=== PATIENT | male | born 1955 | race Caucasian/White ===

== ENCOUNTER 2020-12-12 15:37 | Emergency (ER) | payer OTHER, SELFPAY ==
--- NOTE | ~2020-12-12 | XR_ITS ---
EXAMINATION: XR CHEST CLINICAL INFORMATION: Cough COMPARISON: None TECHNIQUE: Frontal view of the chest was obtained. FINDINGS: Cardiac silhouette is mildly enlarged. The lungs are well aerated. There is no lobar consolidation. No pleural effusion or pneumothorax. No gross osseous abnormality. XR/XR chest 1V IMPRESSION: No acute pulmonary pathology.
--- NOTE | ~2020-12-12 | US_ITS ---
EXAMINATION: US ABDOMEN LIMITED CLINICAL INFORMATION: Elevated liver function tests. COMPARISON: None TECHNIQUE: Real-time imaging of the right upper quadrant abdominal viscera. FINDINGS: PANCREAS: Obscured by bowel gas. LIVER: There is diffusely increased hepatic echogenicity and sound attenuation consistent with diffuse hepatic steatosis. No focal liver lesion seen. Normal liver contour. No biliary ductal dilatation.. GALLBLADDER: There are gallstones but no gallbladder wall thickening or pericholecystic fluid. No reported sonographic Zamora's sign. COMMON BILE DUCT: Normal in caliber measuring 0.5 cm in diameter. RIGHT KIDNEY: Evaluation is limited. No hydronephrosis. No renal calculi or focal parenchymal lesions. The kidney measures 10.9 cm in maximum dimension. FREE FLUID: None. US/US abdomen limited IMPRESSION: Diffusely increased hepatic echogenicity and sound attenuation consistent with diffuse hepatic steatosis. No biliary ductal dilatation seen. Gallstones but no evidence of acute cholecystitis.
[2020-12-12 16:02] VITALS: BP 138/78; PULSE 76; RESP 20; TEMP 37.6; O2SAT 97; BMI 42.3
--- NOTE | 2020-12-12 16:34 | ED_ITS ---
HPI - General Adult General Chief complaint: Fever Stated complaint: fever, bodyaches, fatigue Time Seen by Provider: 12/12/20 16:24 Source: patient Mode of arrival: ambulatory Limitations: no limitations History of Present Illness HPI narrative: Patient comes emergency room complaining of eye days of general malaise, complaining of fever and chills, per patient T-max of 100.0 degrees, diarrhea which self-resolved 2 days ago. Patient states that this time he has no abdominal pain, has not had any diarrhea today, no vomiting, at this time complaining of generalized malaise Related Data Allergies Allergy/AdvReac Type Severity Reaction Status Date / Time amoxicillin [Amoxicillin] Allergy Unknown RASH Verified 12/12/20 15:47 clindamycin [Clindamycin] Allergy Unknown RASH Verified 12/12/20 15:47 Jeremiah poly Dex eye Allergy Unknown Unknown Uncoded 12/12/20 15:46 Review of Systems Review of Systems: Constitutional : complaining of fever of 100.0, chills, ge neral malaise and fatigue ENT/Mouth : No Hearing loss, No Ear Pain, No Nasal Congestion, complaining of mild maxillary sinuses pain bilaterally, No Hoarseness, No sore throat, No Rhinorrhea, No Swallowing Difficulty Eyes: No Eye Pain, No Swelling, No Redness, No Foreign Body, No Discharge, No Vision Changes Cardiovascular : No Chest Pain, No SOB, No Dyspnea on Exertion, No Orthopnea, No Edema, No Palpitations Respiratory : No Cough, No Sputum, No Wheezing, No Smoke Exposure, No Dyspnea Gastrointestinal : No Nausea, No Vomiting, complaining of diarrhea which self resolved 2 days ago, No Constipation, No abdominal Pain, No Hematochezia, No Melena Genitourinary : No Dysuria, No Urinary Frequency, No Hematuria, No Urinary Incontinence, No Urgency, No Flank Pain, No Urinary Flow Changes, No Hesitancy Musculoskeletal : No joint pain,No Joint Swelling, complaining of generalized myalgias Skin : No Skin Lesions, No rash Neuro : No Weakness, No Numbness, No Paresthesias, No Loss of Consciousness, No Dizziness, denies Headache Psych : No Anxiety/Panic, No Depression, No SI/HI/AH/VH, No Social Issues, Heme/Lymph: No Bruising, No Bleeding,No Lymphadenopathy Endocrine : No Polyuria, No Polydipsia, No Temperature Intolerance PMF Past Medical History Medical History (Updated 12/13/20 @ 01:00 by Adam Stevens MD) CHF (congestive heart failure) CKD (chronic kidney disease) Diabetes Hypertension Social History Social History Alcohol intake: never Smoking Status: Never smoker Use of substances other than those prescribed or required for medical reasons: No Advance Directives: No Advance Directives Information Provided: No Physical Exam Vital Signs: Vital Signs: Last Vital Signs Temp 100.2 F 12/13/20 00:00 Pulse 97 12/13/20 00:00 Resp 20 12/13/20 00:00 BP 129/86 12/13/20 00:00 Pulse Ox 97 12/13/20 00:00 Body Mass Index 42.3 Appearance: Alert. Oriented X3. No acute distress. Eyes: Pupils equal, round and reactive to light. ENT: Pharynx normal. No pain to palpation over the maxillary or ethmoid sinuses Neck: Normal inspection. Neck supple. CVS: Irregularly irregular, rate controlled Respiratory: No respiratory distress. Breath sounds normal. No Wheezing. No rales Abdomen: Soft and nontender. No rigidity. No distention. Skin: Skin warm and dry. Normal skin color. Normal skin turgor. Extremities: No lower extremity edema. No Lacerations. No Rash Neuro: Oriented X 3. No motor deficit. No sensory deficit. Moving all extermities. No slurred speech. Course Course Course Narrative: I discussed the labs with the patient, patient states that he is aware that his kidney numbers are elevated, does not know his baseline creatinine. Patient states that he is not aware of his LFTs being elevated chronically. Abdominal ultrasound pending Patient tested positive for COVID-19, chest x-ray is unremarkable, patient's oxygen saturation 97% on room air, denies shortness of breath Ultrasound shows hepatic steatosis, gallstones but no evidence of acute cholecy stitis. Patient has no right upper quadrant pain. Patient remains stable, oxygen saturation 97% on room air, no chest pain or shortness of breath. Medical Decision Making Lab Data Result diagrams: 12/12/20 16:55 12/12/20 16:55 Labs: Lab Results 12/12/20 12/12/20 12/12/20 Range/Units 16:55 16:55 16:55 WBC 5.4 (4.8-10.8) X10*3/uL RBC 5.11 (4.60-5.80) X10*6/uL Hgb 16.5 (14.0-18.0) g/dl Hct 47.3 (42-52) % MCV 92.6 (80-98) fL MCH 32.3 (27.0-33.0) pg MCHC 34.9 (31.0-36.0) g/dl RDW 13.5 (11.0-16.0) % Plt Count 98 L (160-400) X10*3/uL MPV 11.3 (9.4-12.4) fL Immature Gran % (Auto) 0.2 (0.0-0.4) % Neut % (Auto) 62.0 (45-73) % Lymph % (Auto) 22.7 (20-40) % [place] % (Auto) 14.5 H (2-11) % Eos % (Auto) 0.4 (0-4) % Baso % (Auto) 0.2 (0-2) % Lymph # (Auto) 1.2 (1.2-4.9) X10*3/uL [place] # (Auto) 0.8 (0.1-1.2) X10*3/uL Eos # (Auto) 0.0 (0.0-0.4) X10*3/uL Baso # (Auto) 0.0 (0.0-0.2) X10*3/uL Abs Immat Gran (auto) 0.01 (0.00-0.03) X10*3/uL Absolute Neuts (auto) 3.3 (2.0-8.3) X10*3/uL Absolute Nucleated RBC 0.000 (0.0-0.012) X10*3/uL Nucleated RBC % (auto) 0.0 (0.0-0.2) /100WBC Smear Tech's Comments VERIFIED PT (10.8-13.0) SEC INR (0.9-1.1) Sodium 133 L (135-145) mmol/L Potassium 3.6 (3.3-5.1) mmol/L Chloride 96 (96-108) mmol/L Carbon Dioxide 25 (22-29) mmol/L Anion Gap 16 (12-20) BUN 23 H (9-16) mg/dL Creatinine 1.54 H (0.5-1.4) mg/dL Estim Creat Clear Calc 59.9 Estimated GFR 46 Random Glucose 129 H (60-115) mg/dL Calcium 8.4 (8.4-10.2) mg/dL Total Bilirubin 2.3 H (0.0-1.0) mg/dL Direct Bilirubin 0.8 H (0.0-0.5) mg/dL AST 46 H (5-37) U/L ALT 39 (0-40) U/L Alkaline Phosphatase 100 (39-117) U/L B-Natriuretic Peptide (<100) pg/mL Total Protein 7.3 (6.5-8.0) g/dL Albumin 4.3 (3.5-5.0) g/dL Lipase (8-78) U/L Urine Color Urine Appearance Urine pH (5.0-8.0) Ur Specific [place] (1.005-1.025) Urine Protein (NEG-TRACE) MG/DL Urine Glucose (UA) (NEG) MG/DL Urine Ketones (NEG) MG/DL Urine Blood (NEG) Urine Nitrite (NEG) Ur Leukocyte Esterase (NEG) Coronavirus (PCR) POSITIVE A (Negative) Influenza Type A (PCR) NEGATIVE (Negative) Influenza Type B (PCR) NEGATIVE (Negative) RSV RNA Qual (PCR) NEGATIVE (Negative) 12/12/20 12/12/20 12/12/20 Range/Units 16:55 16:55 16:55 WBC (4.8-10.8) X10*3/uL RBC (4.60-5.80) X10*6/uL Hgb (14.0-18.0) g/dl Hct (42-52) % MCV (80-98) fL MCH (27.0-33.0) pg MCHC (31.0-36.0) g/dl RDW (11.0-16.0) % Plt Count (160-400) X10*3/uL MPV (9.4-12.4) fL Immature Gran % (Auto) (0.0-0.4) % Neut % (Auto) (45-73) % Lymph % (Auto) (20-40) % [place] % (Auto) (2-11) % Eos % (Auto) (0-4) % Baso % (Auto) (0-2) % Lymph # (Auto) (1.2-4.9) X10*3/uL [place] # (Auto) (0.1-1.2) X10*3/uL Eos # (Auto) (0.0-0.4) X10*3/uL Baso # (Auto) (0.0-0.2) X10*3/uL Abs Immat Gran (auto) (0.00-0.03) X10*3/uL Absolute Neuts (auto) (2.0-8.3) X10*3/uL Absolute Nucleated RBC (0.0-0.012) X10*3/uL Nucleated RBC % (auto) (0.0-0.2) /100WBC Smear Tech's Comments PT 18.4 H (10.8-13.0) SEC INR 1.5 H (0.9-1.1) Sodium (135-145) mmol/L Potassium (3.3-5.1) mmol/L Chloride (96-108) mmol/L Carbon Dioxide (22-29) mmol/L Anion Gap (12-20) BUN (9-16) mg/dL Creatinine (0.5-1.4) mg/dL Estim Creat Clear Calc Estimated GFR Random Glucose (60-115) mg/dL Calcium (8.4-10.2) mg/dL Total Bilirubin (0.0-1.0) mg/dL Direct Bilirubin (0.0-0.5) mg/dL AST (5-37) U/L ALT (0-40) U/L Alkaline Phosphatase (39-117) U/L B-Natriuretic Peptide 65 (<100) pg/mL Total Protein (6.5-8.0) g/dL Albumin (3.5-5.0) g/dL Lipase 46 (8-78) U/L Urine Color Urine Appearance Urine pH (5.0-8.0) Ur Specific [place] (1.005-1.025) Urine Protein (NEG-TRACE) MG/DL Urine Glucose (UA) (NEG) MG/DL Urine Ketones (NEG) MG/DL Urine Blood (NEG) Urine Nitrite (NEG) Ur Leukocyte Esterase (NEG) Coronavirus (PCR) (Negative) Influenza Type A (PCR) (Negative) Influenza Type B (PCR) (Negative) RSV RNA Qual (PCR) (Negative) 12/13/20 Range/Units 00:38 WBC (4.8-10.8) X10*3/uL RBC (4.60-5.80) X10*6/uL Hgb (14.0-18.0) g/dl Hct (42-52) % MCV (80-98) fL MCH (27.0-33.0) pg MCHC (31.0-36.0) g/dl RDW (11.0-16.0) % Plt Count (160-400) X10*3/uL MPV (9.4-12.4) fL Immature Gran % (Auto) (0.0-0.4) % Neut % (Auto) (45-73) % Lymph % (Auto) (20-40) % [place] % (Auto) (2-11) % Eos % (Auto) (0-4) % Baso % (Auto) (0-2) % Lymph # (Auto) (1.2-4.9) X10*3/uL [place] # (Auto) (0.1-1.2) X10*3/uL Eos # (Auto) (0.0-0.4) X10*3/uL Baso # (Auto) (0.0-0.2) X10*3/uL Abs Immat Gran (auto) (0.00-0.03) X10*3/uL Absolute Neuts (auto) (2.0-8.3) X10*3/uL Absolute Nucleated RBC (0.0-0.012) X10*3/uL Nucleated RBC % (auto) (0.0-0.2) /100WBC Smear Tech's Comments PT (10.8-13.0) SEC INR (0.9-1.1) Sodium (135-145) mmol/L Potassium (3.3-5.1) mmol/L Chloride (96-108) mmol/L Carbon Dioxide (22-29) mmol/L Anion Gap (12-20) BUN (9-16) mg/dL Creatinine (0.5-1.4) mg/dL Estim Creat Clear Calc Estimated GFR Random Glucose (60-115) mg/dL Calcium (8.4-10.2) mg/dL Total Bilirubin (0.0-1.0) mg/dL Direct Bilirubin (0.0-0.5) mg/dL AST (5-37) U/L ALT (0-40) U/L Alkaline Phosphatase (39-117) U/L B-Natriuretic Peptide (<100) pg/mL Total Protein (6.5-8.0) g/dL Albumin (3.5-5.0) g/dL Lipase (8-78) U/L Urine Color YELLOW Urine Appearance CLEAR Urine pH 6.0 (5.0-8.0) Ur Specific [place] 1.025 (1.005-1.025) Urine Protein 1+ H (NEG-TRACE) MG/DL Urine Glucose (UA) NEG (NEG) MG/DL Urine Ketones NEG (NEG) MG/DL Urine Blood NEG (NEG) Urine Nitrite NEG (NEG) Ur Leukocyte Esterase NEG (NEG) Coronavirus (PCR) (Negative) Influenza Type A (PCR) (Negative) Influenza Type B (PCR) (Negative) RSV RNA Qual (PCR) (Negative) Imaging Data US - abdomen: Radiologist's impression: [address] [id number] ReportSigned Patient: Asim Fitch#: [id number]: 5Acct:[id number]/Sex: 65 / MADM Date: 12/12/20Loc: EDAttending Dr: Ordering Physician: ADAM STEVENS MD Date of Service: 12/12/20 Procedure(s): US abdomen limited Accession Number(s): [id number] cc: ADAM STEVENS MD~ EXAMINATION: US ABDOMEN LIMITED CLINICAL INFORMATION: Elevated liver function tests. COMPARISON: None TECHNIQUE: Real-time imaging of the right upper quadrant abdominal viscera. FINDINGS: PANCREAS: Obscured by bowel gas. LIVER: There is diffusely increased hepatic echogenicity and sound attenuation consistent with diffuse hepatic steatosis. No focal liver lesion seen. Normal liver contour. No biliary ductal dilatation.. GALLBLADDER: There are gallstones but no gallbladder wall thickening or pericholecystic fluid. No reported sonographic Zamora's sign. COMMON BILE DUCT: Normal in caliber measuring 0.5 cm in diameter. RIGHT KIDNEY: Evaluation is limited. No hydronephrosis. No renal calculi or focal parenchymal lesions. The kidney measures 10.9 cm in maximum dimension. FREE FLUID: None. US/US abdomen limited IMPRESSION: Diffusely increased hepatic echogenicity and sound attenuation consistent with diffuse hepatic steatosis. No biliary ductal dilatation seen. Gallstones but no evidence of acute cholecystitis. Chest x-ray: Radiologist's impression: TECHNIQUE: Frontal view of the chest was obtained. FINDINGS: Cardiac silhouette is mildly enlarged. The lungs are well aerated. There is no lobar consolidation. No pleural effusion or pneumothorax. No gross osseous abnormality. XR/XR chest 1V IMPRESSION: No acute pulmonary pathology. ECG Data Attestation: I personally reviewed and interpreted this ECG as follows: (Atrial fibrillation, RVR with a heart rate of 101, no ST segment depression or elevation, nonspecific T-wave inversion in III) Discharge Plan Discharge Clinical Impression: COVID-19, Hepatic steatosis Patient Disposition: Home, Self-Care Instructions: COVID-19 (Coronavirus Disease 2019) (ED) Additional Instructions: Please self isolate for 14 days. Anyone who has had direct contact with you need to be tested as well. If you have any shortness of breath, worsening symptoms, or any new symptoms, please return to the emergency room or call 911
--- NOTE | 2020-12-12 16:44 | ECG_ITS ---
Test Reason : GENERALMEDICAL Blood Pressure : / mmHG Vent. Rate : 101 BPM Atrial Rate : 111 BPM P-R Int : 000 ms QRS Dur : 110 ms QT Int : 346 ms P-R-T Axes : 000 085 011 degrees QTc Int : 448 ms Atrial fibrillation with rapid ventricular response Abnormal ECG When compared with ECG of 23-JUN-2009 12:56, No significant change was found Referred By: Daisy Vasquez Electronically Signed By:FREDDY BOBBY
--- NOTE | 2020-12-12 17:02 | PC.NURSE ---
iv inserted labs drawn
[2020-12-12 17:04] LABS: Basophils Percent Auto 0.2 % (0-2); Eosinophils Percent Auto 0.4 % (0-4); Imm Gran Abs Auto 0.01 X10*3/uL (0.00-0.03); Imm Gran Pct Auto 0.2 % (0.0-0.4); Lymphocytes Absolute Auto 1.2 X10*3/uL (1.2-4.9); MANUAL DIFF FLAG SCAN; Monocytes Absolute Auto 0.8 X10*3/uL (0.1-1.2); PLT CLUMP 1; SCAN SMEAR FLAG 1
[2020-12-12 17:06] LABS: Hematocrit 47.3 % (42-52); Hemoglobin 16.5 g/dl (14.0-18.0); Lymphocytes Percent Auto 22.7 % (20-40); Mean Corpuscular HGB Conc 34.9 g/dl (31.0-36.0); Mean Corpuscular Hemoglobin 32.3 pg (27.0-33.0); Mean Corpuscular Volume 92.6 fL (80-98); Mean Platelet Volume 11.3 fL (9.4-12.4); Monocytes Percent Auto 14.5 % (2-11); Neutrophils Absolute Auto 3.3 X10*3/uL (2.0-8.3); Red Blood Count 5.11 X10*6/uL (4.60-5.80); Red Cell Distribution Width 13.5 % (11.0-16.0); White Blood Count 5.4 X10*3/uL (4.8-10.8)
[2020-12-12 17:09] LABS: Platelet Count 98 X10*3/uL (160-400)
[2020-12-12 17:10] LABS: INTERNATIONAL NORM RATIO 1.5 (0.9-1.1); Prothrombin Time 18.4 SEC (10.8-13.0)
[2020-12-12 17:23] LABS: SLIDE REVIEW VERIFIED
[2020-12-12 17:32] LABS: Alanine Aminotransferase 39 U/L (0-40); Albumin Level 4.3 g/dL (3.5-5.0); Alkaline Phosphatase 100 U/L (39-117); Anion Gap 16 (12-20); Aspartate Amino Transferase 46 U/L (5-37); Bilirubin Direct 0.8 mg/dL (0.0-0.5); Bilirubin Total 2.3 mg/dL (0.0-1.0); Blood Urea Nitrogen 23 mg/dL (9-16); Calcium 8.4 mg/dL (8.4-10.2); Carbon Dioxide 25 mmol/L (22-29); Chloride 96 mmol/L (96-108); Creatinine Clr Calc Pharmacy 59.9; Estimated Glomerular Filt Rate 46; Glucose Random 129 mg/dL (60-115); Lipase 46 U/L (8-78); Potassium 3.6 mmol/L (3.3-5.1); Sodium 133 mmol/L (135-145); Total Protein 7.3 g/dL (6.5-8.0)
[2020-12-12 17:38] LABS: B Type Natriuretic Peptide 65 pg/mL (<100)
[2020-12-12 18:32] LABS: Influenza A PCR NEGATIVE (Negative); Influenza B PCR NEGATIVE (Negative); Resp Syncy Virus RNA Qual PCR NEGATIVE (Negative); SARS COV2 PCR INHOUSE POSITIVE (Negative)
[2020-12-12 18:38] VITALS: BP 113/77; PULSE 83; RESP 18; TEMP 37.2; O2SAT 96
--- NOTE | 2020-12-12 19:30 | PC.NURSE ---
contact number patients is [facility] will be able to pick him up when ready [phone]
--- NOTE | 2020-12-12 20:50 | PC.NURSE ---
patient currently tearful and states he is anxious- pt states he does not take medication for anxiety at home, pt requested quality assurance monitor body to be removed and is currently refusing vitals, it was explained to the patient that we are awaiting for him to go to ultrasound and will continue to monitor.
--- NOTE | 2020-12-12 21:00 | PC.NURSE ---
was updated about , and stated she may come in to get covid swabbed when her is ready to discharge, it was explained to the as well as her that currently we are awaiting for the ultrasound prior to his discharge.
--- NOTE | 2020-12-12 23:13 | PC.NURSE ---
pt continues to refuse surveillance monitor and refused vitals at this time, patients rr was 22, patient continues to state hes anxious and cold. patient has been offered warm blankets multiple times by myself and the provider of which he declined. patient is currently pacing in the room. charge nurse has been updated that the patient has still not had an ultrasound. this nurse attempted to call us and was unable to get ahold of anybody when calling. report has been given to next shift nurse.
[2020-12-13] VITALS: BP 129/86; PULSE 97; RESP 20; TEMP 37.9; O2SAT 97
[2020-12-13 00:49] LABS: Appearance Urine CLEAR; Color Urine YELLOW; Glucose Urine UA NEG (NEG); Leukocyte Esterase Urine NEG (NEG); Nitrite Urine NEG (NEG); Specific Gravity - Urine 1.025 (1.005-1.025); Urine Blood NEG (NEG); Urine Ketones NEG (NEG); Urine Protein 1+ MG/DL (NEG-TRACE)
[2020-12-13 01:01] LABS: Bacteria Urine TRACE /LPF; RBC Urine 0-2 /HPF (0); Squamous Epithelial Cell Urine TRACE /LPF; WBC Urine 0 /HPF (0-4)
== END 2020-12-13 01:28 | disposition home or self-care (01) ==
PROVIDERS: Emergency Provider Emergency Medicine; PCP Internal Medicine
DX: U07.1 COVID-19 (principal); K76.0 Fatty (change of) liver, not elsewhere classified; R50.9 Fever, unspecified; M79.10 Myalgia, unspecified site
CPT/HCPCS: 0241U; 36415; 71045; 76705; 80048; 80076; 81001; 83690; 83880; 85025; 85610; 93005; 99285

== ENCOUNTER 2021-01-18 15:25 | Outpatient (REF) | payer MEDICARE, OTHER, SELFPAY ==
[2021-01-18 15:38] LABS: MANUAL DIFF FLAG NO
[2021-01-18 15:56] LABS: Basophils Percent Auto 0.4 % (0-2); Eosinophils Absolute Auto 0.1 X10*3/uL (0.0-0.4); Eosinophils Percent Auto 0.9 % (0-4); Hematocrit 44.3 % (42-52); Hemoglobin 15.6 g/dl (14.0-18.0); Imm Gran Abs Auto 0.01 X10*3/uL (0.00-0.03); Imm Gran Pct Auto 0.1 % (0.0-0.4); Lymphocytes Absolute Auto 1.8 X10*3/uL (1.2-4.9); Lymphocytes Percent Auto 22.3 % (20-40); Mean Corpuscular HGB Conc 35.2 g/dl (31.0-36.0); Mean Corpuscular Hemoglobin 32.4 pg (27.0-33.0); Mean Corpuscular Volume 92.1 fL (80-98); Mean Platelet Volume 11.5 fL (9.4-12.4); Monocytes Percent Auto 12.7 % (2-11); Neutrophils Absolute Auto 5.1 X10*3/uL (2.0-8.3); Neutrophils Percent Auto 63.6 % (45-73); Platelet Count 155 X10*3/uL (160-400); Red Blood Count 4.81 X10*6/uL (4.60-5.80); Red Cell Distribution Width 14.7 % (11.0-16.0)
[2021-01-18 16:02] LABS: INTERNATIONAL NORM RATIO 3.5 (0.9-1.1); Prothrombin Time 41.9 SEC (10.8-13.0)
[2021-01-18 16:24] LABS: Alanine Aminotransferase 24 U/L (0-40); Albumin Level 4.4 g/dL (3.5-5.0); Alkaline Phosphatase 99 U/L (39-117); Anion Gap 14 (12-20); Aspartate Amino Transferase 24 U/L (5-37); Bilirubin Total 2.1 mg/dL (0.0-1.0); Blood Urea Nitrogen 16 mg/dL (9-16); Calcium 9.2 mg/dL (8.4-10.2); Carbon Dioxide 26 mmol/L (22-29); Chloride 99 mmol/L (96-108); Cholesterol 140 mg/dL; Estimated Glomerular Filt Rate > 60; Glucose Random 125 mg/dL (60-115); HDL Cholesterol 38 mg/dL; LDL Cholesterol Calculated 76 mg/dl; Potassium 3.6 mmol/L (3.3-5.1); Sodium 135 mmol/L (135-145); Total Protein 7.4 g/dL (6.5-8.0); Triglycerides 134 mg/dL
[2021-01-18 16:44] LABS: Prostate Specific Antigen 2.11 ng/mL (<0.05-4.0); Thyroid Stimulating Hormone 2.29 uIU/mL (0.32-4.0)
== END 2021-01-18 15:26 | disposition home or self-care (01) ==
LOC: HO.LNP 15:25
PROVIDERS: Visit Provider Internal Medicine
DX: I10 Essential (primary) hypertension (principal); I50.22 Chronic systolic (congestive) heart failure; N18.2 Chronic kidney disease, stage 2 (mild); E78.00 Pure hypercholesterolemia, unspecified; I48.11 Longstanding persistent atrial fibrillation; K63.5 Polyp of colon; G47.33 Obstructive sleep apnea (adult) (pediatric); R73.03 Prediabetes; Z87.81 Personal history of (healed) traumatic fracture; Z86.16 Personal history of COVID-19; Z79.01 Long term (current) use of anticoagulants; Z51.81 Encounter for therapeutic drug level monitoring
CPT/HCPCS: 80053; 80061; 84153; 84443; 85025; 85610

== ENCOUNTER 2021-01-21 10:39 | Outpatient (REF) | payer MEDICARE, OTHER, SELFPAY ==
[2021-01-21 13:18] LABS: Digoxin < 0.3 ng/mL (0.8-2.0)
== END 2021-01-21 10:40 | disposition home or self-care (01) ==
LOC: HO.LNP 10:39
PROVIDERS: Visit Provider Internal Medicine
DX: I48.11 Longstanding persistent atrial fibrillation (principal); I11.0 Hypertensive heart disease with heart failure; I50.22 Chronic systolic (congestive) heart failure; Z79.899 Other long term (current) drug therapy
CPT/HCPCS: 80162

== ENCOUNTER → 2021-01-26 13:01 | Outpatient (BNVA) | payer MEDICARE, OTHER, SELFPAY | PROVIDERS: PCP Internal Medicine; Visit Provider Internal Medicine | DX: I48.19 Other persistent atrial fibrillation (principal); Z51.81 Encounter for therapeutic drug level monitoring; Z79.01 Long term (current) use of anticoagulants | CPT/HCPCS: 85610; 99201; 99202 ==

== ENCOUNTER → 2021-01-29 13:58 | Outpatient (BNVA) | payer MEDICARE, OTHER, SELFPAY | PROVIDERS: PCP Internal Medicine; Visit Provider Internal Medicine | DX: I48.19 Other persistent atrial fibrillation (principal); Z51.81 Encounter for therapeutic drug level monitoring; Z79.01 Long term (current) use of anticoagulants | CPT/HCPCS: 85610; 99211 ==

== ENCOUNTER → 2021-02-01 13:45 | Outpatient (BNVA) | payer MEDICARE, OTHER, SELFPAY | PROVIDERS: PCP Internal Medicine; Visit Provider Internal Medicine | DX: I48.19 Other persistent atrial fibrillation (principal); Z51.81 Encounter for therapeutic drug level monitoring; Z79.01 Long term (current) use of anticoagulants | CPT/HCPCS: 85610; 99211 ==

== ENCOUNTER → 2021-02-08 13:59 | Outpatient (BNVA) | payer OTHER, MEDICARE, SELFPAY | PROVIDERS: PCP Internal Medicine; Visit Provider Internal Medicine | DX: I48.19 Other persistent atrial fibrillation (principal); Z51.81 Encounter for therapeutic drug level monitoring; Z79.01 Long term (current) use of anticoagulants | CPT/HCPCS: 85610; 99211 ==

== ENCOUNTER → 2021-02-22 13:53 | Outpatient (BNVA) | payer OTHER, MEDICARE, SELFPAY | PROVIDERS: PCP Internal Medicine; Visit Provider Internal Medicine | DX: I48.19 Other persistent atrial fibrillation (principal); Z51.81 Encounter for therapeutic drug level monitoring; Z79.01 Long term (current) use of anticoagulants | CPT/HCPCS: 85610; 99211 ==

== ENCOUNTER → 2021-03-25 13:54 | Outpatient (BNVA) | payer MEDICARE, SELFPAY | PROVIDERS: PCP Internal Medicine; Visit Provider Internal Medicine | DX: I48.19 Other persistent atrial fibrillation (principal); Z51.81 Encounter for therapeutic drug level monitoring; Z79.01 Long term (current) use of anticoagulants | CPT/HCPCS: 85610; 99211 ==

== ENCOUNTER → 2021-04-22 13:51 | Outpatient (BNVA) | payer MEDICARE, BC, SELFPAY | PROVIDERS: PCP Internal Medicine; Visit Provider Internal Medicine | DX: I48.19 Other persistent atrial fibrillation (principal); Z51.81 Encounter for therapeutic drug level monitoring; Z79.01 Long term (current) use of anticoagulants | CPT/HCPCS: 85610; 99211 ==

== ENCOUNTER → 2021-04-28 08:35 | Outpatient (BNVA) | payer MEDICARE, SELFPAY | PROVIDERS: PCP Internal Medicine; Visit Provider Internal Medicine | DX: I48.19 Other persistent atrial fibrillation (principal); I50.40 Unspecified combined systolic (congestive) and diastolic (congestive) heart failure; G47.33 Obstructive sleep apnea (adult) (pediatric) | CPT/HCPCS: 93005; 99202 ==

== ENCOUNTER → 2021-05-20 13:53 | Outpatient (BNVA) | payer MEDICARE, SELFPAY | PROVIDERS: PCP Internal Medicine; Visit Provider Internal Medicine | DX: I48.19 Other persistent atrial fibrillation (principal); Z51.81 Encounter for therapeutic drug level monitoring; Z79.01 Long term (current) use of anticoagulants | CPT/HCPCS: 85610; 99211 ==

== ENCOUNTER → 2021-06-07 10:16 | Outpatient (REF) | payer MEDICARE, SELFPAY ==
--- NOTE | 2021-06-07 10:24 | HM_ITS ---
Total monitoring time 3 days. Underlying rhythm is atrial fibrillation. Minimum heart rate 33/Min. Maximum 136/Min. Average 69/minute. Longest pause 3.1 seconds at 12am. Bradycardia episodes are primarily during nighttime. Tachycardia episodes during daytime. Very rare PVCs. No patient events. Overall, reasonable rate control but there is a tendency for tachycardia. MTDD
--- NOTE | 2021-06-07 10:24 | CA_ITS ---
Transthoracic Echocardiogram Patient (Last, First, Middle): Gordon Fitch, Gender: Male Date of : 1955 Age: 66 Procedure Date: 06/07/2021 Procedure Type: Transthoracic Echocardiogram Location: OP Height: 170.18 cm Weight: 122.47 kg BSA: 2.30 m2 Heart Rate: bpm BP: 128 / 88 mmHg Nurses Aide: MANISH Referring MD: Noel Madden MD Shrimp Peeler: Danny Marie MD Symptoms: I50.40 - Unspecified combined systolic (congestive) and d... Study Quality: Fair ECG Rhythm: Atrial Fibrillation Conclusions: - 1. Normal LV systolic function 2. Moderately dilated right ventricle 3. Severe biatrial enlargement 4. Normal cardiac valvular Doppler with moderate mitral annular calcification 5. Normal RV systolic pressure 6. No gross pericardial effusion Findings Left Ventricle Normal left ventricular size, thickness, and systolic function. The visually estimated ejection fraction is between 55-60%. Diastolic function is indeterminate on the basis of available data. Right Ventricle Moderately increased right ventricular cavity size. Atria The left atrium is severely dilated. Interatrial shunt cannot be excluded. The right atrium is severely dilated. Aortic Valve The aortic valve was not well visualized. There is no aortic valve stenosis. There is no aortic valve regurgitation. Mitral Valve There is mild anterior and moderate posterior mitral leaflet thickening. There is moderate mitral annular calcification. There is trace mitral valve regurgitation. There is no mitral valve stenosis. Pulmonic Valve The pulmonic valve was not well visualized. Tricuspid Valve The tricuspid valve was not well visualized. There is trace tricuspid valve regurgitation. The right ventricular systolic pressure is normal. The right ventricular systolic pressure is 20 mmHg. Normal right atrial pressure. There is no evidence of pulmonary hypertension. Great Vessels The pulmonary artery was not well visualized. There is mild dilatation of the ascending aorta measuring 3.90 cm. Venous The inferior vena cava is normal in size and collapses greater than 50% with inspiration. Pericardium/Pleural There is no evidence of pericardial effusion. Prior Study Comparison No prior study available for comparison. Measurements M-Mode Liner Measurements Normals - Women/Men LVIDd: 5.05 3.9-5.3/4.2-5.9 cm LVIDd Index: 2.20 1.9-3.2 cm/m2 LVIDs: 3.40 2.0-3.8 cm LVPWd: 0.97 0.6-0.9/0.6-1.0 cm M-Mode Volumes LV EDV: 121.00 LV ESV: 47.40 2D Linear Measurements IVSd: 0.90 0.6-0.9/0.6-1.0 cm LVIDd: 5.38 3.9-5.3/4.2-5.9 cm LVIDd Index: 2.34 2.4-3.2/2.2-3.1 cm/m2 LVIDs: 3.80 2.0-3.6 cm LVPWd: 1.25 0.7-1.1 cm Ao Root: 3.30 2.1-3.5 cm LA Diam: 5.90 2.7-3.8/3.0-4.0 cm LAIDs Index: 2.57 1.5-2.3 cm/m2 LV Mass: 281.38 67-162/88-224 g LV Mass Index: 122.34 43-95/49-115 g/m2 LVOT Diam: 2.00 3.0+(-)1.3 cm 2D Systolic Function EF 4C: 61.90 >55% EF 2C: 51.90 >55% EF BiP: 58.10 >55% M-Mode Systolic Function FS: 32.70 27-47/25-43% LVEF: 60.80 >55% Mitral Valve MV Pk E: 1.13 MV Decel Time: 143.00 E'Lateral: 13.20 E'Medial: 8.70 E/E' Med: 13.00 E/E' Lat: 8.60 PHT: 42.00 MVA PHT: 5.24 Decel [place]: 8.10 Aortic Valve AoV Pk Chris: 1.41 AoV Pk Grad: 8.00 LVOT LVOT Pk Chris: 0.80 LVOT Mn Chris: 0.49 LVOT VTI: 0.16 LVOT Pk Grad: 3.00 LVOT Mn Grad: 1.00 LVOT Diam: 2.00 LVOT Area: 3.14 Diastolic Function MV Pk E: 1.13 E'Medial: 8.70 E/E' Med: 13.00 E' Laterial: 13.20 E/E' Lat: 8.60 Right Ventricle TAPSE (mm): 2.31 Tricuspid Valve TR Pk Chris: 2.04 TR Pk Grad: 17.00 RA Press: 3.00 RVSP: 20.00 Great Vessels Aorta Ao Root-2D: 3.30 2.0-3.7 cm Ao Asc: 3.90 2.1-3.4 cm Updated in Other Vendor System with Status of Final Danny Marie MD electronically signed on 06/08/2021 8:56:34 AM with status of Final
== END ==
LOC: HO.CARD 10:16
PROVIDERS: PCP Internal Medicine; Visit Provider Internal Medicine
DX: I48.19 Other persistent atrial fibrillation (principal); I50.40 Unspecified combined systolic (congestive) and diastolic (congestive) heart failure
CPT/HCPCS: 93242; 93306

== ENCOUNTER → 2021-06-17 13:50 | Outpatient (BNVA) | payer MEDICARE, SELFPAY | PROVIDERS: PCP Internal Medicine; Visit Provider Internal Medicine | DX: I48.19 Other persistent atrial fibrillation (principal); Z51.81 Encounter for therapeutic drug level monitoring; Z79.01 Long term (current) use of anticoagulants | CPT/HCPCS: 85610; 99211 ==

== ENCOUNTER → 2021-07-06 12:58 | Outpatient (BNVA) | payer MEDICARE, SELFPAY | PROVIDERS: PCP Internal Medicine; Referring Provider Internal Medicine; Visit Provider Internal Medicine | DX: I48.19 Other persistent atrial fibrillation (principal); I51.7 Cardiomegaly; G47.33 Obstructive sleep apnea (adult) (pediatric) | CPT/HCPCS: 99212 ==

== ENCOUNTER → 2021-07-15 13:48 | Outpatient (BNVA) | payer MEDICARE, SELFPAY | PROVIDERS: PCP Internal Medicine; Visit Provider Internal Medicine | DX: I48.19 Other persistent atrial fibrillation (principal); Z51.81 Encounter for therapeutic drug level monitoring; Z79.01 Long term (current) use of anticoagulants | CPT/HCPCS: 85610; 99211 ==

== ENCOUNTER → 2021-08-16 13:44 | Outpatient (BNVA) | payer MEDICARE, SELFPAY | PROVIDERS: PCP Internal Medicine; Visit Provider Internal Medicine | DX: I48.19 Other persistent atrial fibrillation (principal); Z51.81 Encounter for therapeutic drug level monitoring; Z79.01 Long term (current) use of anticoagulants | CPT/HCPCS: 85610; 99211 ==

== ENCOUNTER → 2021-08-26 13:55 | Outpatient (BNVA) | payer MEDICARE, SELFPAY | PROVIDERS: PCP Internal Medicine; Visit Provider Internal Medicine | DX: I48.19 Other persistent atrial fibrillation (principal); Z51.81 Encounter for therapeutic drug level monitoring; Z79.01 Long term (current) use of anticoagulants | CPT/HCPCS: 85610; 99211 ==

== ENCOUNTER → 2021-09-09 13:49 | Outpatient (BNVA) | payer MEDICARE, SELFPAY | PROVIDERS: PCP Internal Medicine; Visit Provider Internal Medicine | DX: I48.19 Other persistent atrial fibrillation (principal); Z51.81 Encounter for therapeutic drug level monitoring; Z79.01 Long term (current) use of anticoagulants | CPT/HCPCS: 85610; 99211 ==

== ENCOUNTER → 2021-09-23 13:41 | Outpatient (BNVA) | payer MEDICARE, SELFPAY | PROVIDERS: PCP Internal Medicine; Visit Provider Internal Medicine | DX: I48.19 Other persistent atrial fibrillation (principal); Z51.81 Encounter for therapeutic drug level monitoring; Z79.01 Long term (current) use of anticoagulants | CPT/HCPCS: 85610; 99211 ==

== ENCOUNTER → 2021-10-07 13:58 | Outpatient (BNVA) | payer MEDICARE, SELFPAY | PROVIDERS: PCP Internal Medicine; Visit Provider Internal Medicine | DX: I48.19 Other persistent atrial fibrillation (principal); Z51.81 Encounter for therapeutic drug level monitoring; Z79.01 Long term (current) use of anticoagulants | CPT/HCPCS: 85610; 99211 ==

== ENCOUNTER → 2021-11-04 13:50 | Outpatient (BNVA) | payer MEDICARE, SELFPAY | PROVIDERS: PCP Internal Medicine; Visit Provider Internal Medicine | DX: I48.19 Other persistent atrial fibrillation (principal); Z51.81 Encounter for therapeutic drug level monitoring; Z79.01 Long term (current) use of anticoagulants | CPT/HCPCS: 85610; 99211 ==

== ENCOUNTER 2021-11-11 13:46 | Outpatient (REF) | payer MEDICARE, SELFPAY ==
[2021-11-11 13:49] LABS: MANUAL DIFF FLAG NO
[2021-11-11 13:59] LABS: Basophils Percent Auto 0.5 % (0-2); Eosinophils Absolute Auto 0.1 X10*3/uL (0.0-0.4); Eosinophils Percent Auto 1.3 % (0-4); Hematocrit 42.7 % (42.0-52.0); Hemoglobin 14.8 g/dl (14.0-18.0); Imm Gran Abs Auto 0.03 X10*3/uL (0.00-0.03); Imm Gran Pct Auto 0.4 % (0.0-0.4); Lymphocytes Absolute Auto 2.3 X10*3/uL (1.2-4.9); Lymphocytes Percent Auto 26.8 % (20-40); Mean Corpuscular HGB Conc 34.7 g/dl (31.0-36.0); Mean Corpuscular Hemoglobin 32.8 pg (27.0-33.0); Mean Corpuscular Volume 94.7 fL (80.0-98.0); Mean Platelet Volume 11.5 fL (9.4-12.4); Monocytes Absolute Auto 0.8 X10*3/uL (0.1-1.2); Monocytes Percent Auto 8.9 % (2-11); Neutrophils Absolute Auto 5.3 x10*3/uL (2.0-8.3); Neutrophils Percent Auto 62.1 % (45-73); Platelet Count 152 X10*3/uL (160-400); Red Blood Count 4.51 X10*6/uL (4.60-5.80); Red Cell Distribution Width 14.2 % (11.0-16.0); White Blood Count 8.5 X10*3/uL (4.8-10.8)
[2021-11-11 14:19] LABS: Alanine Aminotransferase 22 U/L (0-40); Albumin Level 4.1 g/dL (3.5-5.0); Alkaline Phosphatase 94 U/L (39-117); Anion Gap 13 (12-20); Aspartate Amino Transferase 24 U/L (5-37); Bilirubin Total 1.8 mg/dL (0.0-1.0); Blood Urea Nitrogen 12 mg/dL (9-16); Calcium 9.1 mg/dL (8.4-10.2); Carbon Dioxide 30 mmol/L (22-29); Chloride 100 mmol/L (96-108); Cholesterol 110 mg/dL; Estimated Glomerular Filt Rate 58; Glucose Random 109 mg/dL (60-115); HDL Cholesterol 35 mg/dL; LDL Cholesterol Calculated 48 mg/dl; Potassium 4.1 mmol/L (3.3-5.1); Sodium 139 mmol/L (135-145); Triglycerides 135 mg/dL
[2021-11-11 15:03] LABS: Digoxin 0.7 ng/mL (0.8-2.0)
== END 2021-11-11 13:47 | disposition home or self-care (01) ==
LOC: HO.LNP 13:46
PROVIDERS: PCP Internal Medicine; Visit Provider Internal Medicine
DX: E78.00 Pure hypercholesterolemia, unspecified (principal); I50.22 Chronic systolic (congestive) heart failure
CPT/HCPCS: 80053; 80061; 80162; 85025

== ENCOUNTER → 2021-12-02 13:53 | Outpatient (BNVA) | payer MEDICARE, SELFPAY | PROVIDERS: PCP Internal Medicine; Visit Provider Internal Medicine | DX: I48.19 Other persistent atrial fibrillation (principal); Z79.01 Long term (current) use of anticoagulants; Z51.81 Encounter for therapeutic drug level monitoring | CPT/HCPCS: 85610; 99211 ==

== ENCOUNTER → 2021-12-30 13:53 | Outpatient (BNVA) | payer MEDICARE, SELFPAY | PROVIDERS: PCP Internal Medicine; Visit Provider Internal Medicine | DX: I48.19 Other persistent atrial fibrillation (principal); Z79.01 Long term (current) use of anticoagulants; Z51.81 Encounter for therapeutic drug level monitoring | CPT/HCPCS: 85610; 99211 ==

== ENCOUNTER → 2022-01-05 12:36 | Outpatient (BNVA) | payer MEDICARE, SELFPAY | PROVIDERS: PCP Internal Medicine; Referring Provider Internal Medicine; Visit Provider Internal Medicine | DX: I48.19 Other persistent atrial fibrillation (principal); I51.7 Cardiomegaly; G47.33 Obstructive sleep apnea (adult) (pediatric); Z79.01 Long term (current) use of anticoagulants; Z79.899 Other long term (current) drug therapy | CPT/HCPCS: 99212 ==

== ENCOUNTER → 2022-01-27 13:55 | Outpatient (BNVA) | payer MEDICARE, SELFPAY | PROVIDERS: PCP Internal Medicine; Visit Provider Internal Medicine | DX: I48.19 Other persistent atrial fibrillation (principal); Z79.01 Long term (current) use of anticoagulants; Z51.81 Encounter for therapeutic drug level monitoring | CPT/HCPCS: 85610; 99211 ==

== ENCOUNTER → 2022-02-24 13:52 | Outpatient (BNVA) | payer MEDICARE, SELFPAY | PROVIDERS: PCP Internal Medicine; Visit Provider Internal Medicine | DX: I48.19 Other persistent atrial fibrillation (principal); Z51.81 Encounter for therapeutic drug level monitoring; Z79.01 Long term (current) use of anticoagulants | CPT/HCPCS: 85610; 99211 ==

== ENCOUNTER → 2022-03-03 13:52 | Outpatient (BNVA) | payer MEDICARE, SELFPAY | PROVIDERS: PCP Internal Medicine; Visit Provider Internal Medicine | DX: I48.19 Other persistent atrial fibrillation (principal); Z79.01 Long term (current) use of anticoagulants; Z51.81 Encounter for therapeutic drug level monitoring | CPT/HCPCS: 85610; 99211 ==

== ENCOUNTER 2022-03-22 12:10 | Outpatient (REF) | payer MEDICARE, SELFPAY ==
[2022-03-22 12:16] LABS: MANUAL DIFF FLAG NO
[2022-03-22 12:27] LABS: Basophils Percent Auto 0.3 % (0-2); Eosinophils Absolute Auto 0.1 X10*3/uL (0.0-0.4); Eosinophils Percent Auto 1.3 % (0-4); Hematocrit 45.7 % (42.0-52.0); Hemoglobin 15.7 g/dl (14.0-18.0); Imm Gran Abs Auto 0.02 X10*3/uL (0.00-0.03); Imm Gran Pct Auto 0.2 % (0.0-0.4); Lymphocytes Absolute Auto 2.7 X10*3/uL (1.2-4.9); Lymphocytes Percent Auto 29.7 % (20-40); Mean Corpuscular HGB Conc 34.4 g/dl (31.0-36.0); Mean Corpuscular Hemoglobin 32.9 pg (27.0-33.0); Mean Corpuscular Volume 95.8 fL (80.0-98.0); Mean Platelet Volume 11.6 fL (9.4-12.4); Monocytes Absolute Auto 0.9 X10*3/uL (0.1-1.2); Monocytes Percent Auto 9.8 % (2-11); Neutrophils Absolute Auto 5.3 x10*3/uL (2.0-8.3); Neutrophils Percent Auto 58.7 % (45-73); Platelet Count 143 X10*3/uL (160-400); Red Blood Count 4.77 X10*6/uL (4.60-5.80); Red Cell Distribution Width 13.7 % (11.0-16.0); White Blood Count 9.1 X10*3/uL (4.8-10.8)
[2022-03-22 12:35] LABS: Appearance Urine CLEAR; Color Urine YELLOW; Glucose Urine UA NEG (NEG); Leukocyte Esterase Urine NEG (NEG); Nitrite Urine NEG (NEG); PH 6.5 (5.0-8.0); Urine Blood NEG (NEG); Urine Ketones NEG (NEG); Urine Protein NEG (NEG-TRACE)
[2022-03-22 12:54] LABS: RBC Urine 0 /HPF (0); WBC Urine 0 /HPF (0-4)
[2022-03-22 12:58] LABS: Alanine Aminotransferase 22 U/L (0-40); Albumin Level 4.3 g/dL (3.5-5.0); Alkaline Phosphatase 97 U/L (39-117); Anion Gap 15 (12-20); Aspartate Amino Transferase 28 U/L (5-37); Bilirubin Total 3.8 mg/dL (0.0-1.0); Blood Urea Nitrogen 19 mg/dL (9-16); Calcium 8.9 mg/dL (8.4-10.2); Carbon Dioxide 26 mmol/L (22-29); Chloride 98 mmol/L (96-108); Cholesterol 103 mg/dL; Estimated Glomerular Filt Rate 53; Glucose Fasting 125 mg/dL (60-99); HDL Cholesterol 30 mg/dL; LDL Cholesterol Calculated 29 mg/dl; Potassium 3.2 mmol/L (3.3-5.1); Sodium 136 mmol/L (135-145); Total Protein 7.3 g/dL (6.5-8.0); Triglycerides 220 mg/dL
[2022-03-22 13:04] LABS: PSA,Total (Free>4and<10) 2.14 ng/mL (0.00-4.00)
== END 2022-03-22 12:11 | disposition home or self-care (01) ==
LOC: HO.LNP 12:10
PROVIDERS: PCP Internal Medicine; Visit Provider Internal Medicine
DX: Z12.5 Encounter for screening for malignant neoplasm of prostate (principal); I11.0 Hypertensive heart disease with heart failure; I50.22 Chronic systolic (congestive) heart failure; E78.00 Pure hypercholesterolemia, unspecified
CPT/HCPCS: 80053; 80061; 81001; 84153; 85025

== ENCOUNTER → 2022-04-01 13:55 | Outpatient (BNVA) | payer MEDICARE, SELFPAY | PROVIDERS: PCP Internal Medicine; Visit Provider Internal Medicine | DX: I48.19 Other persistent atrial fibrillation (principal); Z79.01 Long term (current) use of anticoagulants; Z51.81 Encounter for therapeutic drug level monitoring | CPT/HCPCS: 85610; 99211 ==

== ENCOUNTER → 2022-04-28 13:49 | Outpatient (BNVA) | payer MEDICARE, SELFPAY | PROVIDERS: PCP Internal Medicine; Visit Provider Internal Medicine | DX: I48.19 Other persistent atrial fibrillation (principal); Z51.81 Encounter for therapeutic drug level monitoring; Z79.01 Long term (current) use of anticoagulants | CPT/HCPCS: 85610; 99211 ==

== ENCOUNTER → 2022-05-12 14:13 | Outpatient (BNVA) | payer MEDICARE, SELFPAY | PROVIDERS: PCP Internal Medicine; Visit Provider Internal Medicine | DX: I48.19 Other persistent atrial fibrillation (principal); Z51.81 Encounter for therapeutic drug level monitoring; Z79.01 Long term (current) use of anticoagulants | CPT/HCPCS: 85610; 99211 ==

== ENCOUNTER → 2022-05-16 14:07 | Outpatient (BNVA) | payer MEDICARE, SELFPAY | PROVIDERS: PCP Internal Medicine; Visit Provider Internal Medicine | DX: I48.19 Other persistent atrial fibrillation (principal); Z79.01 Long term (current) use of anticoagulants; Z51.81 Encounter for therapeutic drug level monitoring | CPT/HCPCS: 85610; 99211 ==

== ENCOUNTER → 2022-05-30 13:56 | Outpatient (BNVA) | payer MEDICARE, SELFPAY | PROVIDERS: PCP Internal Medicine; Visit Provider Internal Medicine | DX: I48.19 Other persistent atrial fibrillation (principal); Z79.01 Long term (current) use of anticoagulants; Z51.81 Encounter for therapeutic drug level monitoring | CPT/HCPCS: 85610; 99211 ==

== ENCOUNTER → 2022-06-13 13:51 | Outpatient (BNVA) | payer MEDICARE, MEDICAID, SELFPAY | PROVIDERS: PCP Internal Medicine; Visit Provider Internal Medicine | DX: I48.19 Other persistent atrial fibrillation (principal); Z79.01 Long term (current) use of anticoagulants; Z51.81 Encounter for therapeutic drug level monitoring | CPT/HCPCS: 85610; 99211 ==

== ENCOUNTER → 2022-06-20 14:18 | Outpatient (BNVA) | payer MEDICARE, SELFPAY | PROVIDERS: PCP Internal Medicine; Visit Provider Internal Medicine | DX: I48.19 Other persistent atrial fibrillation (principal); Z79.01 Long term (current) use of anticoagulants; Z51.81 Encounter for therapeutic drug level monitoring | CPT/HCPCS: 85610; 99211 ==

== ENCOUNTER 2022-06-28 15:45 | Outpatient (REF) | payer MEDICARE, SELFPAY ==
[2022-06-28 15:48] LABS: MANUAL DIFF FLAG NO
[2022-06-28 15:55] LABS: Basophils Absolute Auto 0.1 X10*3/uL (0.0-0.2); Basophils Percent Auto 0.7 % (0-2); Eosinophils Absolute Auto 0.2 X10*3/uL (0.0-0.4); Eosinophils Percent Auto 2.1 % (0-4); Hematocrit 41.7 % (42.0-52.0); Hemoglobin 14.3 g/dl (14.0-18.0); Imm Gran Abs Auto 0.03 X10*3/uL (0.00-0.03); Imm Gran Pct Auto 0.4 % (0.0-0.4); Lymphocytes Absolute Auto 2.2 X10*3/uL (1.2-4.9); Lymphocytes Percent Auto 29.2 % (20-40); Mean Corpuscular HGB Conc 34.3 g/dl (31.0-36.0); Mean Corpuscular Hemoglobin 32.8 pg (27.0-33.0); Mean Corpuscular Volume 95.6 fL (80.0-98.0); Mean Platelet Volume 11.8 fL (9.4-12.4); Monocytes Absolute Auto 0.9 X10*3/uL (0.1-1.2); Monocytes Percent Auto 12.6 % (2-11); Neutrophils Absolute Auto 4.1 x10*3/uL (2.0-8.3); Platelet Count 134 X10*3/uL (160-400); Red Blood Count 4.36 X10*6/uL (4.60-5.80); White Blood Count 7.5 X10*3/uL (4.8-10.8)
[2022-06-28 16:01] LABS: Potassium 3.6 mmol/L (3.3-5.1)
== END 2022-06-28 15:46 | disposition home or self-care (01) ==
LOC: HO.LNP 15:45
PROVIDERS: Visit Provider Internal Medicine
DX: E87.6 Hypokalemia (principal); D69.6 Thrombocytopenia, unspecified
CPT/HCPCS: 84132; 85025

== ENCOUNTER → 2022-07-04 14:25 | Outpatient (BNVA) | payer MEDICARE, SELFPAY | PROVIDERS: PCP Internal Medicine; Visit Provider Internal Medicine | DX: I48.19 Other persistent atrial fibrillation (principal); Z79.01 Long term (current) use of anticoagulants; Z51.81 Encounter for therapeutic drug level monitoring | CPT/HCPCS: 85610; 99211 ==

== ENCOUNTER → 2022-07-18 14:30 | Outpatient (BNVA) | payer MEDICARE, SELFPAY | PROVIDERS: PCP Internal Medicine; Visit Provider Internal Medicine | DX: I48.19 Other persistent atrial fibrillation (principal); Z79.01 Long term (current) use of anticoagulants; Z51.81 Encounter for therapeutic drug level monitoring | CPT/HCPCS: 85610; 99211 ==

== ENCOUNTER → 2022-08-08 13:55 | Outpatient (BNVA) | payer MEDICARE, SELFPAY | PROVIDERS: PCP Internal Medicine; Visit Provider Internal Medicine | DX: I48.19 Other persistent atrial fibrillation (principal); Z51.81 Encounter for therapeutic drug level monitoring; Z79.01 Long term (current) use of anticoagulants | CPT/HCPCS: 85610; 99211 ==

== ENCOUNTER → 2022-08-10 13:04 | Outpatient (BNVA) | payer MEDICARE, SELFPAY | PROVIDERS: PCP Internal Medicine; Visit Provider Internal Medicine | DX: I48.19 Other persistent atrial fibrillation (principal); Z79.01 Long term (current) use of anticoagulants; Z51.81 Encounter for therapeutic drug level monitoring | CPT/HCPCS: 85610; 99211 ==

== ENCOUNTER → 2022-08-18 13:48 | Outpatient (BNVA) | payer MEDICARE, SELFPAY | PROVIDERS: PCP Internal Medicine; Visit Provider Internal Medicine | DX: I48.19 Other persistent atrial fibrillation (principal); Z79.01 Long term (current) use of anticoagulants; Z51.81 Encounter for therapeutic drug level monitoring | CPT/HCPCS: 85610; 99211 ==

== ENCOUNTER → 2022-09-01 13:53 | Outpatient (BNVA) | payer MEDICARE, SELFPAY | PROVIDERS: PCP Internal Medicine; Visit Provider Internal Medicine | DX: I48.19 Other persistent atrial fibrillation (principal); Z79.01 Long term (current) use of anticoagulants; Z51.81 Encounter for therapeutic drug level monitoring | CPT/HCPCS: 85610; 99211 ==

== ENCOUNTER → 2022-09-15 13:47 | Outpatient (BNVA) | payer MEDICARE, SELFPAY | PROVIDERS: PCP Internal Medicine; Visit Provider Internal Medicine | DX: I48.19 Other persistent atrial fibrillation (principal); Z79.01 Long term (current) use of anticoagulants; Z51.81 Encounter for therapeutic drug level monitoring | CPT/HCPCS: 85610; 99211 ==

== ENCOUNTER → 2022-09-20 14:46 | Outpatient (BNVA) | payer MEDICARE, SELFPAY | PROVIDERS: PCP Internal Medicine; Visit Provider Internal Medicine | DX: I48.19 Other persistent atrial fibrillation (principal); Z79.01 Long term (current) use of anticoagulants; Z51.81 Encounter for therapeutic drug level monitoring | CPT/HCPCS: 85610; 99211 ==

== ENCOUNTER 2022-09-27 10:40 | Outpatient (REF) | payer MEDICARE, SELFPAY ==
[2022-09-27 11:28] LABS: Alanine Aminotransferase 18 U/L (0-40); Albumin Level 4.3 g/dL (3.5-5.0); Alkaline Phosphatase 100 U/L (39-117); Aspartate Amino Transferase 25 U/L (5-37); Bilirubin Direct 0.7 mg/dL (0.0-0.5); Bilirubin Total 2.7 mg/dL (0.0-1.0); Cholesterol 108 mg/dL; HDL Cholesterol 32 mg/dL; LDL Cholesterol Calculated 51 mg/dl; Total Protein 7.2 g/dL (6.5-8.0); Triglycerides 125 mg/dL
[2022-09-27 14:07] LABS: Reflex LDLD? No
== END 2022-09-27 10:41 | disposition home or self-care (01) ==
LOC: HO.LNP 10:40
PROVIDERS: Visit Provider Internal Medicine
DX: E78.00 Pure hypercholesterolemia, unspecified (principal)
CPT/HCPCS: 80061; 80076

== ENCOUNTER → 2022-10-04 13:52 | Outpatient (BNVA) | payer MEDICARE, SELFPAY | PROVIDERS: PCP Internal Medicine; Visit Provider Internal Medicine | DX: I48.19 Other persistent atrial fibrillation (principal); Z79.01 Long term (current) use of anticoagulants; Z51.81 Encounter for therapeutic drug level monitoring | CPT/HCPCS: 85610; 99211 ==

== ENCOUNTER → 2022-10-20 13:48 | Outpatient (BNVA) | payer MEDICARE, SELFPAY | PROVIDERS: PCP Internal Medicine; Visit Provider Internal Medicine | DX: I48.19 Other persistent atrial fibrillation (principal); Z79.01 Long term (current) use of anticoagulants; Z51.81 Encounter for therapeutic drug level monitoring | CPT/HCPCS: 85610; 99211 ==

== ENCOUNTER → 2022-11-10 13:49 | Outpatient (BNVA) | payer MEDICARE, SELFPAY | PROVIDERS: PCP Internal Medicine; Visit Provider Internal Medicine | DX: I48.19 Other persistent atrial fibrillation (principal); Z79.01 Long term (current) use of anticoagulants; Z51.81 Encounter for therapeutic drug level monitoring | CPT/HCPCS: 85610; 99211 ==

== ENCOUNTER → 2022-12-01 13:54 | Outpatient (BNVA) | payer MEDICARE, SELFPAY | PROVIDERS: PCP Internal Medicine; Visit Provider Internal Medicine | DX: I48.19 Other persistent atrial fibrillation (principal); Z79.01 Long term (current) use of anticoagulants; Z51.81 Encounter for therapeutic drug level monitoring | CPT/HCPCS: 85610; 99211 ==

== ENCOUNTER → 2022-12-29 13:47 | Outpatient (BNVA) | payer MEDICARE, SELFPAY | PROVIDERS: PCP Internal Medicine; Visit Provider Internal Medicine | DX: I48.19 Other persistent atrial fibrillation (principal); Z79.01 Long term (current) use of anticoagulants; Z51.81 Encounter for therapeutic drug level monitoring | CPT/HCPCS: 85610; 99211 ==

== ENCOUNTER → 2023-01-04 12:35 | Outpatient (BNVA) | payer MEDICARE, SELFPAY | PROVIDERS: PCP Internal Medicine; Referring Provider Internal Medicine; Visit Provider Internal Medicine | DX: I48.19 Other persistent atrial fibrillation (principal); I51.7 Cardiomegaly; E11.22 Type 2 diabetes mellitus with diabetic chronic kidney disease; N18.9 Chronic kidney disease, unspecified; G47.33 Obstructive sleep apnea (adult) (pediatric); Z79.01 Long term (current) use of anticoagulants | CPT/HCPCS: 93005; 99212 ==

== ENCOUNTER → 2023-01-26 13:49 | Outpatient (BNVA) | payer MEDICARE, SELFPAY | PROVIDERS: PCP Internal Medicine; Visit Provider Internal Medicine | DX: I48.19 Other persistent atrial fibrillation (principal); Z79.01 Long term (current) use of anticoagulants; Z51.81 Encounter for therapeutic drug level monitoring | CPT/HCPCS: 85610; 99211 ==

== ENCOUNTER → 2023-02-23 13:51 | Outpatient (BNVA) | payer MEDICARE, SELFPAY | PROVIDERS: PCP Internal Medicine; Visit Provider Internal Medicine | DX: I48.19 Other persistent atrial fibrillation (principal); Z79.01 Long term (current) use of anticoagulants; Z51.81 Encounter for therapeutic drug level monitoring | CPT/HCPCS: 85610; 99211 ==

== ENCOUNTER → 2023-03-09 13:43 | Outpatient (BNVA) | payer MEDICARE, SELFPAY | PROVIDERS: PCP Internal Medicine; Visit Provider Internal Medicine | DX: I48.19 Other persistent atrial fibrillation (principal); Z79.01 Long term (current) use of anticoagulants; Z51.81 Encounter for therapeutic drug level monitoring | CPT/HCPCS: 85610; 99211 ==

== ENCOUNTER 2023-03-20 11:53 | Outpatient (REF) | payer MEDICARE, SELFPAY | END 2023-03-20 11:54 | disposition home or self-care (01) | LOC: HO.LNP 11:53 | PROVIDERS: Visit Provider Internal Medicine | DX: Z12.5 Encounter for screening for malignant neoplasm of prostate (principal); E78.00 Pure hypercholesterolemia, unspecified; D69.6 Thrombocytopenia, unspecified; I11.0 Hypertensive heart disease with heart failure; I50.22 Chronic systolic (congestive) heart failure; Z79.899 Other long term (current) drug therapy | CPT/HCPCS: 80053; 80061; 80162; 84153; 85025 ==

== ENCOUNTER 2023-03-30 11:40 | Outpatient (REF) | payer MEDICARE, SELFPAY ==
[2023-03-30 13:03] LABS: Appearance Urine Clear; Color Urine Yellow; Glucose Urine UA Negative (Negative); Leukocyte Esterase Urine Negative (Negative); Nitrite Urine Negative (Negative); PH 5.5 (5.0-9.0); Specific Gravity - Urine <= 1.005 (1.005-1.025); Urine Blood Negative (Negative); Urine Ketones Negative (Negative); Urine Protein Negative (Neg-Trace)
[2023-03-30 13:15] LABS: Bacteria Urine None Seen (None Seen); Hyaline Casts Urine 0-2 /LPF (0-2); RBC Urine 0-2 /HPF (0-2); Squamous Epithelial Cell Urine 0-2 /HPF (0-2); WBC Urine 0-5 /HPF (0-5)
[2023-03-30 14:47] LABS: Creatinine Urine 20.36 mg/dL; Microalbumin Urine < 5.0 mg/L
== END 2023-03-30 11:41 | disposition home or self-care (01) ==
LOC: HO.LNP 11:40
PROVIDERS: Visit Provider Internal Medicine
DX: I48.11 Longstanding persistent atrial fibrillation (principal); E11.40 Type 2 diabetes mellitus with diabetic neuropathy, unspecified; Z51.81 Encounter for therapeutic drug level monitoring; Z79.01 Long term (current) use of anticoagulants
CPT/HCPCS: 81001; 82043; 85610; 99211

== ENCOUNTER 2023-03-30 13:49 | Outpatient (AMB) | payer MEDICARE, SELFPAY ==
--- NOTE | 2023-03-30 13:56 | MHC.OFFVISCO ---
Intake Intake Visit Reasons: Anticoagulation Allergies amoxicillin [Amoxicillin] Allergy (Unknown, Verified 03/30/23 13:52) RASH cephalexin [From Keflex] Allergy (Unknown, Verified 03/30/23 13:52) unknown clindamycin [Clindamycin] Allergy (Unknown, Verified 03/30/23 13:52) RASH Jeremiah poly Dex eye Allergy (Unknown, Uncoded 03/30/23 13:52) Unknown Medication List - Last Reconciled 03/30/23 by Jovana Horan RN atorvastatin (Lipitor) 80 mg PO DAILY chlorthalidone 25 mg PO DAILY digoxin 250 mcg PO DAILY metoprolol succinate ER 50 mg PO DAILY metoprolol succinate ER 100 mg PO DAILY potassium chloride ER 40 mEq PO DAILY warfarin 5 mg See Protocol PO DAILY Nursing Note INR: 2.8- in therapeutic range Medications and supplements reviewed- potassium increased to 40meq No changes in health, diet, medications, or supplements, Denies any signs and symptoms of bleeding or bruising or clotting. Bleeding, bruising, clotting discussed Nutritional guidance given Dose: 7.5mg x 7 F/U INR: pt req 4 weeks Patient verbalizes understanding of instructions given Anti-Coag Initial Assessment Social Hx Patient Tobacco Use Status: Never used Tobacco alcohol intake: current Alcohol intake frequency: holidays/special occasions only Coding Level of Care Code Est Patient Level 1 Diagnoses Current use of anticoagulant therapy Z79.01 Results AMB INR Fingerstick AMB INR Fingerstick 2.8 Last Edit by Jovana Horan RN on 03/30/23 13:57 Assessment & Plan Assessment & Plan (1) Current use of anticoagulant therapy: Code(s): Z79.01 - [facility] (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
[2023-03-30 13:57] LABS: ~PT, ~INR - Anti Coag Clinic 2.8 (0.9-1.1)
== END 2023-03-30 14:03 | disposition home or self-care (01) ==
LOC: HO.ACS 13:49
PROVIDERS: PCP Internal Medicine; Visit Provider Internal Medicine
DX: Z79.01 Long term (current) use of anticoagulants (principal)

== ENCOUNTER 2023-04-21 11:26 | Outpatient (REF) | payer MEDICARE, SELFPAY ==
[2023-04-21 14:55] LABS: Potassium 3.3 mmol/L (3.3-5.1)
== END 2023-04-21 11:27 | disposition home or self-care (01) ==
LOC: HO.LNP 11:26
PROVIDERS: Visit Provider Internal Medicine
DX: E87.6 Hypokalemia (principal)
CPT/HCPCS: 84132

== ENCOUNTER 2023-04-27 13:54 | Outpatient (AMB) | payer MEDICARE, SELFPAY ==
--- NOTE | 2023-04-27 14:00 | MHC.OFFVISCO ---
Intake Intake Visit Reasons: Anticoagulation Allergies amoxicillin [Amoxicillin] Allergy (Unknown, Verified 04/27/23 13:57) RASH cephalexin [From Keflex] Allergy (Unknown, Verified 04/27/23 13:57) unknown clindamycin [Clindamycin] Allergy (Unknown, Verified 04/27/23 13:57) RASH Jeremiah poly Dex eye Allergy (Unknown, Uncoded 04/27/23 13:57) Unknown Medication List - Last Reconciled 04/27/23 by Jovana Horan RN atorvastatin (Lipitor) 80 mg PO DAILY chlorthalidone 25 mg PO DAILY digoxin 250 mcg PO DAILY metoprolol succinate ER 50 mg PO DAILY metoprolol succinate ER 100 mg PO DAILY potassium chloride ER 40 mEq PO DAILY warfarin 5 mg See Protocol PO DAILY Nursing Note INR: 2.0- in therapeutic range Medications and supplements reviewed- no changes No changes in health, diet, medications, or supplements, Denies any signs and symptoms of bleeding or bruising or clotting. Bleeding, bruising, clotting discussed Nutritional guidance given - no greens for 2 days, eat a red today Dose: 7.5mg x 7 F/U INR: pt req 4 weeks Patient verbalizes understanding of instructions given Anti-Coag Initial Assessment Social Hx Patient Tobacco Use Status: Never used Tobacco alcohol intake: current Alcohol intake frequency: holidays/special occasions only Coding Level of Care Code Est Patient Level 1 Diagnoses Current use of anticoagulant therapy Z79.01 Results AMB INR Fingerstick AMB INR Fingerstick 2.0 Last Edit by Jovana Horan RN on 04/27/23 14:02 Assessment & Plan Assessment & Plan (1) Current use of anticoagulant therapy: Code(s): Z79.01 - custodial (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
[2023-04-28 10:33] LABS: Prothrombin Time Whole Bld POC 23.6 sec (11.1-13.5)
== END 2023-04-27 14:05 | disposition home or self-care (01) ==
LOC: HO.ACS 13:54
PROVIDERS: PCP Internal Medicine; Visit Provider Internal Medicine
DX: Z79.01 Long term (current) use of anticoagulants (principal)

== ENCOUNTER → 2023-04-27 13:54 | Outpatient (BNVA) | payer MEDICARE, SELFPAY | PROVIDERS: PCP Internal Medicine; Visit Provider Internal Medicine | DX: I48.19 Other persistent atrial fibrillation (principal); Z79.01 Long term (current) use of anticoagulants; Z51.81 Encounter for therapeutic drug level monitoring | CPT/HCPCS: 85610; 99211 ==

== ENCOUNTER 2023-05-25 13:58 | Outpatient (AMB) | payer MEDICARE, SELFPAY ==
[2023-05-25 14:07] LABS: Prothrombin Time Whole Bld POC 34.6 sec (11.1-13.5); ~PT, ~INR - Anti Coag Clinic 2.9 (0.9-1.1)
--- NOTE | 2023-05-25 14:09 | MHC.OFFVISCO ---
Intake Intake Visit Reasons: Anticoagulation Allergies amoxicillin [Amoxicillin] Allergy (Unknown, Verified 05/25/23 14:03) RASH cephalexin [From Keflex] Allergy (Unknown, Verified 05/25/23 14:03) unknown clindamycin [Clindamycin] Allergy (Unknown, Verified 05/25/23 14:03) RASH Jeremiah poly Dex eye Allergy (Unknown, Uncoded 05/25/23 14:03) Unknown Medication List - Last Reconciled 05/25/23 by Riya Armstrong RN atorvastatin (Lipitor) 80 mg PO DAILY chlorthalidone 25 mg PO DAILY digoxin 250 mcg PO DAILY metoprolol succinate ER 50 mg PO DAILY metoprolol succinate ER 100 mg PO DAILY potassium chloride ER 40 mEq PO DAILY warfarin 5 mg See Protocol PO DAILY Nursing Note INR: 2.9 in therapeutic range Medications and supplements reviewed No changes in health, diet, medications, or supplements, Denies any signs and symptoms of bleeding or bruising or clotting. 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
== END 2023-05-25 14:11 | disposition home or self-care (01) ==
LOC: HO.ACS 13:58
PROVIDERS: PCP Internal Medicine; Visit Provider Internal Medicine
DX: Z79.01 Long term (current) use of anticoagulants (principal)

== ENCOUNTER → 2023-05-25 13:58 | Outpatient (BNVA) | payer MEDICARE, SELFPAY | PROVIDERS: PCP Internal Medicine; Visit Provider Internal Medicine | DX: I48.19 Other persistent atrial fibrillation (principal); Z79.01 Long term (current) use of anticoagulants; Z51.81 Encounter for therapeutic drug level monitoring | CPT/HCPCS: 85610; 99211 ==

== ENCOUNTER 2023-06-22 14:05 | Outpatient (AMB) | payer MEDICARE, SELFPAY ==
--- NOTE | 2023-06-22 14:16 | MHC.OFFVISCO ---
Intake Intake Visit Reasons: Anticoagulation Allergies amoxicillin [Amoxicillin] Allergy (Unknown, Verified 06/22/23 14:08) RASH cephalexin [From Keflex] Allergy (Unknown, Verified 06/22/23 14:08) unknown clindamycin [Clindamycin] Allergy (Unknown, Verified 06/22/23 14:08) RASH Jeremiah poly Dex eye Allergy (Unknown, Uncoded 05/25/23 14:03) Unknown Medication List - Last Reconciled 06/22/23 by Karina Luciano RN atorvastatin (Lipitor) 80 mg PO DAILY chlorthalidone 25 mg PO DAILY digoxin 250 mcg PO DAILY metoprolol succinate ER 50 mg PO DAILY metoprolol succinate ER 100 mg PO DAILY potassium chloride ER 40 mEq PO DAILY warfarin 5 mg See Protocol PO DAILY Nursing Note NO CP,SOB,DIET/MED CHANGES,FALLS OR SX OF BLEEDING. CONTINUE PRESENT DOSE AND FOLLOW-UP IN 4 WEEKS. GOOD UNDERSTANDING OF DOSING INSTR. Anti-Coag Initial Assessment Social Hx Patient Tobacco Use Status: Never used Tobacco alcohol intake: current Alcohol intake frequency: holidays/special occasions only Coding Level of Care Code Est Patient Level 1 Diagnoses Current use of anticoagulant therapy Z79.01 Results AMB INR Fingerstick AMB INR Fingerstick 2.0 Last Edit by Karina Luciano RN on 06/22/23 14:13 Assessment & Plan Assessment & Plan (1) Current use of anticoagulant therapy: Code(s): Z79.01 - snf (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
== END 2023-06-22 14:17 | disposition home or self-care (01) ==
LOC: HO.ACS 14:05
PROVIDERS: PCP Internal Medicine; Visit Provider Internal Medicine
DX: Z79.01 Long term (current) use of anticoagulants (principal)

== ENCOUNTER → 2023-06-22 14:05 | Outpatient (BNVA) | payer MEDICARE, SELFPAY | PROVIDERS: PCP Internal Medicine; Visit Provider Internal Medicine | DX: I48.19 Other persistent atrial fibrillation (principal); Z79.01 Long term (current) use of anticoagulants; Z51.81 Encounter for therapeutic drug level monitoring | CPT/HCPCS: 85610; 99211 ==

== ENCOUNTER 2023-07-20 14:02 | Outpatient (AMB) | payer MEDICARE, SELFPAY ==
[2023-07-20 14:08] LABS: ~PT, ~INR - Anti Coag Clinic 3.2 (0.9-1.1)
--- NOTE | 2023-07-20 14:12 | MHC.OFFVISCO ---
Intake Intake Visit Reasons: Anticoagulation Allergies amoxicillin [Amoxicillin] Allergy (Unknown, Verified 07/20/23 14:03) RASH cephalexin [From Keflex] Allergy (Unknown, Verified 07/20/23 14:03) unknown clindamycin [Clindamycin] Allergy (Unknown, Verified 07/20/23 14:03) RASH Jeremiah poly Dex eye Allergy (Unknown, Uncoded 07/20/23 14:03) Unknown Medication List - Last Reconciled 07/20/23 by Megan Mcmillan, RN atorvastatin (Lipitor) 80 mg PO DAILY chlorthalidone 25 mg PO DAILY digoxin 250 mcg PO DAILY metoprolol succinate ER 50 mg PO DAILY metoprolol succinate ER 100 mg PO DAILY potassium chloride ER 40 mEq PO DAILY warfarin 5 mg See Protocol PO DAILY Nursing Note Amb to ACS feeling well Medications and supplements reviewed No changes in health, diet, medications, or supplements Denies any unusual signs and symptoms of bruising, bleeding Denies any new Chest pain, SOB, or clotting INR: 3.2 just above therapeutic range, thinks he didn't have his usual greens Nutritional guidance given: dark leafy green today then balance greens and reds in diet, keep the greens consistent week to week reviewed at length food list and concerns for thanksgiving, lots of raisers between meal, leftovers and ETOH,need to do consistent greens Dose: continue usual dosing; 7.5mg daily F/U INR: 4 weeks Patient verbalizes understanding of instructions given with accurate read back/ teach back of dosing Anti-Coag Initial Assessment Social Hx Patient Tobacco Use Status: Never used Tobacco alcohol intake: current Alcohol intake frequency: holidays/special occasions only Coding Level of Care Code Est Patient Level 1 Diagnoses Current use of anticoagulant therapy Z79.01 Time Spent (min) 15 Assessment & Plan Assessment & Plan (1) Current use of anticoagulant therapy: Code(s): Z79.01 - shelter (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
== END 2023-07-20 14:25 | disposition home or self-care (01) ==
LOC: HO.ACS 14:02
PROVIDERS: PCP Internal Medicine; Visit Provider Internal Medicine
DX: Z79.01 Long term (current) use of anticoagulants (principal)

== ENCOUNTER → 2023-07-20 14:02 | Outpatient (BNVA) | payer MEDICARE, SELFPAY | PROVIDERS: PCP Internal Medicine; Visit Provider Internal Medicine | DX: I48.19 Other persistent atrial fibrillation (principal); Z79.01 Long term (current) use of anticoagulants; Z51.81 Encounter for therapeutic drug level monitoring | CPT/HCPCS: 85610; 99211 ==

== ENCOUNTER 2023-08-17 13:53 | Outpatient (AMB) | payer MEDICARE, SELFPAY ==
--- NOTE | 2023-08-17 14:14 | MHC.OFFVISCO ---
Intake Intake Visit Reasons: Anticoagulation Allergies amoxicillin [Amoxicillin] Allergy (Unknown, Verified 07/20/23 14:03) RASH cephalexin [From Keflex] Allergy (Unknown, Verified 07/20/23 14:03) unknown clindamycin [Clindamycin] Allergy (Unknown, Verified 07/20/23 14:03) RASH Jeremiah poly Dex eye Allergy (Unknown, Uncoded 07/20/23 14:03) Unknown Nursing Note INR: 3.5 OUT OF therapeutic range Medications and supplements reviewed No changes in health, medications, or supplements, Denies any signs and symptoms of bleeding or bruising or clotting. Bleeding, bruising, clotting discussed HAS NOT HAD USUAL GREENS Nutritional guidance given - EAT 3 SERVING OF GREENS /WK, IF DO NOT EAT USUAL GREENS THEN DECREASE THE ORANGE AND REDS Dose: DECREASED TODAYS DOSE TO 5MG THEN RESUME 7.5MG DAILY- IF INR STILL ELEVATED THEN POSSIBLY DECREASE WEEKLY DOSE F/U INR: 2WKS Patient verbalizes understanding of instructions given Anti-Coag Initial Assessment Social Hx Patient Tobacco Use Status: Never used Tobacco alcohol intake: current Alcohol intake frequency: holidays/special occasions only Coding Level of Care Code Est Patient Level 1 Diagnoses Current use of anticoagulant therapy Z79.01 Results AMB INR Fingerstick AMB INR Fingerstick 3.5 Last Edit by Riya Armstrong RN on 08/17/23 14:08 NO INTERFACING MANUAL ENTRY Assessment & Plan Assessment & Plan (1) Current use of anticoagulant therapy: Code(s): Z79.01 - jail (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
[2023-08-17 15:49] LABS: ~PT, ~INR - Anti Coag Clinic 3.5 (0.9-1.1)
== END 2023-08-17 14:17 | disposition home or self-care (01) ==
LOC: HO.ACS 13:53
PROVIDERS: PCP Internal Medicine; Visit Provider Internal Medicine
DX: Z79.01 Long term (current) use of anticoagulants (principal)

== ENCOUNTER → 2023-08-17 13:53 | Outpatient (BNVA) | payer MEDICARE, SELFPAY | PROVIDERS: PCP Internal Medicine; Visit Provider Internal Medicine | DX: I48.19 Other persistent atrial fibrillation (principal); Z79.01 Long term (current) use of anticoagulants; Z51.81 Encounter for therapeutic drug level monitoring | CPT/HCPCS: 85610; 99211 ==

== ENCOUNTER 2023-08-31 13:55 | Outpatient (AMB) | payer MEDICARE, OTHER, SELFPAY ==
[2023-08-31 14:02] LABS: Prothrombin Time Whole Bld POC 39.5 sec (11.1-13.5); ~PT, ~INR - Anti Coag Clinic 3.3 (0.9-1.1)
--- NOTE | 2023-08-31 14:09 | MHC.OFFVISCO ---
Intake Intake Visit Reasons: Anticoagulation Allergies amoxicillin [Amoxicillin] Allergy (Unknown, Verified 08/31/23 13:56) RASH cephalexin [From Keflex] Allergy (Unknown, Verified 08/31/23 13:56) unknown clindamycin [Clindamycin] Allergy (Unknown, Verified 08/31/23 13:56) RASH Jeremiah poly Dex eye Allergy (Unknown, Uncoded 08/31/23 13:56) Unknown Medication List - Last Reconciled 08/31/23 by Riya Armstrong RN atorvastatin (Lipitor) 80 mg PO DAILY chlorthalidone 25 mg PO DAILY digoxin 250 mcg PO DAILY metoprolol succinate ER 50 mg PO DAILY metoprolol succinate ER 100 mg PO DAILY potassium chloride ER 40 mEq PO DAILY warfarin 5 mg See Protocol PO DAILY Nursing Note INR 3.3 out of therapeutic range Medications and supplements reviewed Patient status: states no changes, may have had more reds than greens Medications or supplements: no changes Diet: good Denies any signs and symptoms of bleeding or clotting or unusual bruising Bleeding, bruising, clotting discussed Nutritional guidance given: wrote a reminder on his dosing sheet what foods raise and lower the INR Dose: try dose again, decrease today's dose then resume 7.5mg daily F/U INR Date: 3 weeks after the holidays - he states he does not get together with any friends or family for the Holidays, he was enc to go to the [employer] [place] for their social gatherings and good meals - he stated he might try it. ?? Patient verbalizing understanding of instructions given. Anti-Coag Initial Assessment Social Hx Patient Tobacco Use Status: Never used Tobacco alcohol intake: current Alcohol intake frequency: holidays/special occasions only Coding Level of Care Code Est Patient Level 1 Diagnoses Current use of anticoagulant therapy Z79.01 Assessment & Plan Assessment & Plan (1) Current use of anticoagulant therapy: Code(s): Z79.01 - care home (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
== END 2023-08-31 14:13 | disposition home or self-care (01) ==
LOC: HO.ACS 13:55
PROVIDERS: PCP Internal Medicine; Visit Provider Internal Medicine
DX: Z79.01 Long term (current) use of anticoagulants (principal)

== ENCOUNTER → 2023-08-31 13:55 | Outpatient (BNVA) | payer MEDICARE, OTHER, SELFPAY | PROVIDERS: PCP Internal Medicine; Visit Provider Internal Medicine | DX: I48.19 Other persistent atrial fibrillation (principal); Z79.01 Long term (current) use of anticoagulants; Z51.81 Encounter for therapeutic drug level monitoring | CPT/HCPCS: 85610; 99211 ==

== ENCOUNTER 2023-09-21 13:47 | Outpatient (AMB) | payer MEDICARE, OTHER, SELFPAY ==
--- NOTE | 2023-09-21 13:57 | MHC.OFFVISCO ---
Intake Intake Visit Reasons: Anticoagulation Allergies amoxicillin [Amoxicillin] Allergy (Unknown, Verified 09/21/23 13:50) RASH cephalexin [From Keflex] Allergy (Unknown, Verified 09/21/23 13:50) unknown clindamycin [Clindamycin] Allergy (Unknown, Verified 09/21/23 13:50) RASH Jeremiah poly Dex eye Allergy (Unknown, Uncoded 08/31/23 13:56) Unknown Medication List - Last Reconciled 09/21/23 by Karina Luciano RN atorvastatin (Lipitor) 80 mg PO DAILY chlorthalidone 25 mg PO DAILY digoxin 250 mcg PO DAILY metoprolol succinate ER 50 mg PO DAILY metoprolol succinate ER 100 mg PO DAILY potassium chloride ER 40 mEq PO DAILY warfarin 5 mg See Protocol PO DAILY Nursing Note NO CP,SOB,DIET/MED CHANGES,FALLS OR SX OF BLEEDING CONTINUE PRESENT DOSE AND FOLLOW-UP IN 4 WEEKS GOOD UNDERSTANDING OF DOSING INSTR. Anti-Coag Initial Assessment Social Hx Patient Tobacco Use Status: Never used Tobacco alcohol intake: current Alcohol intake frequency: holidays/special occasions only Coding Level of Care Code Est Patient Level 1 Diagnoses Current use of anticoagulant therapy Z79.01 Assessment & Plan Assessment & Plan (1) Current use of anticoagulant therapy: Code(s): Z79.01 - jail (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
== END 2023-09-21 14:11 | disposition home or self-care (01) ==
LOC: HO.ACS 13:47
PROVIDERS: PCP Internal Medicine; Visit Provider Internal Medicine
DX: Z79.01 Long term (current) use of anticoagulants (principal)

== ENCOUNTER → 2023-09-21 13:47 | Outpatient (BNVA) | payer MEDICARE, OTHER, SELFPAY | PROVIDERS: PCP Internal Medicine; Visit Provider Internal Medicine | DX: I48.19 Other persistent atrial fibrillation (principal); Z79.01 Long term (current) use of anticoagulants; Z51.81 Encounter for therapeutic drug level monitoring | CPT/HCPCS: 85610; 99211 ==

== ENCOUNTER 2023-09-25 11:12 | Outpatient (REF) | payer MEDICARE, OTHER, SELFPAY | END 2023-09-25 11:13 | disposition home or self-care (01) | LOC: HO.LNP 11:12 | PROVIDERS: Visit Provider Internal Medicine | DX: E78.00 Pure hypercholesterolemia, unspecified (principal) | CPT/HCPCS: 80061; 80076 ==

== ENCOUNTER 2023-10-19 13:55 | Outpatient (AMB) | payer MEDICARE, OTHER, SELFPAY ==
[2023-10-19 14:18] LABS: Prothrombin Time Whole Bld POC 38.2 sec (11.1-13.5); ~PT, ~INR - Anti Coag Clinic 3.2 (0.9-1.1)
--- NOTE | 2023-10-19 14:20 | MHC.OFFVISCO ---
Intake Intake Visit Reasons: Anticoagulation Allergies amoxicillin [Amoxicillin] Allergy (Unknown, Verified 10/19/23 14:14) RASH cephalexin [From Keflex] Allergy (Unknown, Verified 10/19/23 14:14) unknown clindamycin [Clindamycin] Allergy (Unknown, Verified 10/19/23 14:14) RASH Jeremiah poly Dex eye Allergy (Unknown, Uncoded 10/19/23 14:14) Unknown Medication List - Last Reconciled 10/19/23 by Megan Mcmillan, RN atorvastatin (Lipitor) 80 mg PO DAILY chlorthalidone 25 mg PO DAILY digoxin 250 mcg PO DAILY metoprolol succinate ER 50 mg PO DAILY metoprolol succinate ER 100 mg PO DAILY potassium chloride ER 40 mEq PO DAILY warfarin 5 mg See Protocol PO DAILY Nursing Note Amb to ACS feeling well Medications and supplements reviewed No changes in health, diet, medications, or supplements Denies any unusual signs and symptoms of bruising, bleeding Denies any new Chest pain, SOB, or clotting INR: 3.2 above therapeutic range Nutritional guidance given:ok for a green today and tomorrow, no red raisers then balance greens and reds in diet Dose: continue usual dosing; 7.5mg daily F/U INR: 4 weeks Patient verbalizes understanding of instructions given with accurate read back/ teach back of dosing Anti-Coag Initial Assessment Social Hx Patient Tobacco Use Status: Never used Tobacco alcohol intake: current Alcohol intake frequency: holidays/special occasions only Coding Level of Care Code Est Patient Level 1 Diagnoses Current use of anticoagulant therapy Z79.01 Time Spent (min) 15 Assessment & Plan Assessment & Plan (1) Current use of anticoagulant therapy: Code(s): 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
== END 2023-10-19 14:24 | disposition home or self-care (01) ==
LOC: HO.ACS 13:55
PROVIDERS: PCP Internal Medicine; Visit Provider Internal Medicine
DX: Z79.01 Long term (current) use of anticoagulants (principal)

== ENCOUNTER → 2023-10-19 13:55 | Outpatient (BNVA) | payer MEDICARE, OTHER, SELFPAY | PROVIDERS: PCP Internal Medicine; Visit Provider Internal Medicine | DX: I48.19 Other persistent atrial fibrillation (principal); Z51.81 Encounter for therapeutic drug level monitoring; Z79.01 Long term (current) use of anticoagulants | CPT/HCPCS: 85610; 99211 ==

== ENCOUNTER 2023-11-16 13:56 | Outpatient (AMB) | payer MEDICARE, OTHER, SELFPAY ==
[2023-11-16 14:05] LABS: Prothrombin Time Whole Bld POC 38.1 sec (11.1-13.5); ~PT, ~INR - Anti Coag Clinic 3.2 (0.9-1.1)
--- NOTE | 2023-11-16 14:08 | MHC.OFFVISCO ---
Intake Intake Visit Reasons: Anticoagulation Allergies amoxicillin [Amoxicillin] Allergy (Unknown, Verified 11/16/23 13:57) RASH cephalexin [From Keflex] Allergy (Unknown, Verified 11/16/23 13:57) unknown clindamycin [Clindamycin] Allergy (Unknown, Verified 11/16/23 13:57) RASH Jeremiah poly Dex eye Allergy (Unknown, Uncoded 11/16/23 13:57) Unknown Medication List - Last Reconciled 11/16/23 by Megan Mcmillan, RN atorvastatin (Lipitor) 80 mg PO DAILY chlorthalidone 25 mg PO DAILY digoxin 250 mcg PO DAILY metoprolol succinate ER 50 mg PO DAILY metoprolol succinate ER 100 mg PO DAILY potassium chloride ER 40 mEq PO DAILY warfarin 5 mg See Protocol PO DAILY Nursing Note Amb to ACS feeling well, sts he has to have a procedure to remove skin cancer from his face, he does not have the date yet was instructed by derm to hold warfarin day before, day of, and day after procedure and to check with you (ACS) instructed we will contact Dr Marcos regarding that but to keep us informed for date of procedure we will check INR before hold and then a few days after procedure and start of wwarfarin Medications and supplements reviewed No changes in health, diet, medications, or supplements Denies any unusual signs and symptoms of bruising, bleeding Denies any new Chest pain, SOB, or clotting INR: 3.2 just above therapeutic range, same as last month Nutritional guidance given: increase greens in diet, and balance greens and reds in diet, be consistent Dose: continue usual dosing; 7.5mg daily F/U INR: 4 weeks (sooner if needed for procedure) Patient verbalizes understanding of instructions given with accurate read back/ teach back of dosing call to Dr Marcos office spoke with Yumiko and message given regarding Derm warfarin hold and no scheduled date yet Anti-Coag Initial Assessment Social Hx Patient Tobacco Use Status: Never used Tobacco alcohol intake: current Alcohol intake frequency: holidays/special occasions only Coding Level of Care Code Est Patient Level 1 Diagnoses Current use of anticoagulant therapy Z79.01 Time Spent (min) 20 Assessment & Plan Assessment & Plan (1) Current use of anticoagulant therapy: Code(s): 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
== END 2023-11-16 14:23 | disposition home or self-care (01) ==
LOC: HO.ACS 13:56
PROVIDERS: PCP Internal Medicine; Visit Provider Internal Medicine
DX: Z79.01 Long term (current) use of anticoagulants (principal)

== ENCOUNTER → 2023-11-16 13:56 | Outpatient (BNVA) | payer MEDICARE, OTHER, SELFPAY | PROVIDERS: PCP Internal Medicine; Visit Provider Internal Medicine | DX: I48.19 Other persistent atrial fibrillation (principal); Z79.01 Long term (current) use of anticoagulants; Z51.81 Encounter for therapeutic drug level monitoring | CPT/HCPCS: 85610; 99211 ==

== ENCOUNTER 2023-12-14 13:42 | Outpatient (AMB) | payer MEDICARE, OTHER, SELFPAY ==
[2023-12-14 13:48] LABS: Prothrombin Time Whole Bld POC 38.4 sec (11.1-13.5); ~PT, ~INR - Anti Coag Clinic 3.2 (0.9-1.1)
--- NOTE | 2023-12-14 13:57 | MHC.OFFVISCO ---
Intake Intake Visit Reasons: Anticoagulation Allergies amoxicillin [Amoxicillin] Allergy (Unknown, Verified 12/14/23 13:43) RASH cephalexin [From Keflex] Allergy (Unknown, Verified 12/14/23 13:43) unknown clindamycin [Clindamycin] Allergy (Unknown, Verified 12/14/23 13:43) RASH Jeremiah poly Dex eye Allergy (Unknown, Uncoded 12/14/23 13:43) Unknown Medication List - Last Reconciled 12/14/23 by Riya Armstrong RN atorvastatin (Lipitor) 80 mg PO DAILY chlorthalidone 25 mg PO DAILY digoxin 250 mcg PO DAILY metoprolol succinate ER 50 mg PO DAILY metoprolol succinate ER 100 mg PO DAILY potassium chloride ER 40 mEq PO DAILY warfarin 5 mg See Protocol PO DAILY Nursing Note INR: 3.2 JUST OUT OF therapeutic range 2.0-3.0 Medications and supplements reviewed No changes in health, diet, medications, or supplements, Denies any signs and symptoms of bleeding or bruising or clotting. 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 he does not have to hold warfarin but should have his INR closer to 2.0 ACS will monitor INR closely near that date Anti-Coag Initial Assessment Social Hx Patient Tobacco Use Status: Never used Tobacco alcohol intake: current Alcohol intake frequency: holidays/special occasions only Questionnaires HAS-BLED Does the patient had uncontrolled Hypertension?: No Does the patient have renal disease?: Yes Does the patient have liver disease?: No Does the patient have a history of stroke?: No Has the patient had major bleeding or predisposition to bleeding?: No Does the patient have labile INRs?: No Is the patient over 65 years of age?: Yes Is the patient on medications that gives them a predisposition to bleeding?: Yes Does the patient use alcohol?: Yes HAS-BLED Score: 4 CHADSVASC Age: 66-74 Gender: Male Does the patient have a history of CHF?: No Does the patient have a history of Hypertension?: Yes Does the patient have a history of Stroke/TIA/Thromboembolism?: No Does the patient have a history of Vascular Disease (prior KS, PAD or aortic plaque)?: No Does the patient have a history of Diabetes?: No CHADS VACS Score: 2 Marisabel Prediction Score Rsk VTE Active Cancer: Yes (skin cancer) Previous VTE, excluding superficial vein thrombosis: No Reduced mobility: No Already known Thrombophilic Condition: Yes With-in last month Trauma and/or Surgery: No Elderly 70 year or older: No Heart and/or Respiratory Failure: No Acute Myocardial infarction and/or Ischemic Stroke: No Acute Infection and/or Rheumatologic Disorder: No Obesity (BMI 30 or greater): Yes Ongoing Hormonal Treatment: No Score: 7 Marisabel Score less than 4; Low Risk of VTE Marisabel Score 4 or greater; High Risk of VTE Coding Level of Care Code Est Patient Level 1 Diagnoses Current use of anticoagulant therapy Z79.01 Assessment & Plan Assessment & Plan (1) Current use of anticoagulant therapy: Code(s): 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
== END 2023-12-14 14:16 | disposition home or self-care (01) ==
LOC: HO.ACS 13:42
PROVIDERS: PCP Internal Medicine; Visit Provider Internal Medicine
DX: Z79.01 Long term (current) use of anticoagulants (principal)

== ENCOUNTER → 2023-12-14 13:42 | Outpatient (BNVA) | payer MEDICARE, OTHER, SELFPAY | PROVIDERS: PCP Internal Medicine; Visit Provider Internal Medicine | DX: I48.19 Other persistent atrial fibrillation (principal); Z79.01 Long term (current) use of anticoagulants; Z51.81 Encounter for therapeutic drug level monitoring | CPT/HCPCS: 85610; 99211 ==

== ENCOUNTER 2024-01-11 13:51 | Outpatient (AMB) | payer MEDICARE, OTHER, SELFPAY ==
--- NOTE | 2024-01-11 14:14 | MHC.OFFVISCO ---
Intake Intake Visit Reasons: Anticoagulation Allergies amoxicillin [Amoxicillin] Allergy (Unknown, Verified 01/11/24 14:02) RASH cephalexin [From Keflex] Allergy (Unknown, Verified 01/11/24 14:02) unknown clindamycin [Clindamycin] Allergy (Unknown, Verified 01/11/24 14:02) RASH Jeremiah poly Dex eye Allergy (Unknown, Uncoded 01/11/24 14:02) Unknown Medication List - Last Reconciled 01/11/24 by Megan Teixeira RN atorvastatin (Lipitor) 80 mg PO DAILY chlorthalidone 25 mg PO DAILY digoxin 250 mcg PO DAILY metoprolol succinate ER 50 mg PO DAILY metoprolol succinate ER 100 mg PO DAILY potassium chloride ER 40 mEq PO DAILY warfarin 5 mg See Protocol PO DAILY Nursing Note INR: 3.0 in therapeutic range OF 2-3 Medications and supplements reviewed: NO CHANGE No changes in health, diet, medications, or supplements, Denies any signs and symptoms of bleeding or bruising or clotting. Bleeding, bruising, clotting discussed Nutritional guidance given: HAVE GREENS TODAY Dose: 5MG TODAY AND THEN RESUME USUAL DOSE OF 7.5MG DAILY F/U INR: 4 WEEKS Patient verbalizes understanding of instructions given Anti-Coag Initial Assessment Social Hx Patient Tobacco Use Status: Never used Tobacco alcohol intake: current Alcohol intake frequency: holidays/special occasions only Coding Level of Care Code Est Patient Level 1 Diagnoses Current use of anticoagulant therapy Z79.01 Results AMB INR Fingerstick AMB INR Fingerstick 3.0 Last Edit by Megan Teixeira RN on 01/11/24 14:11 INTERFACE DELAY Assessment & Plan Assessment & Plan (1) Current use of anticoagulant therapy: Code(s): Z79.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
== END 2024-01-11 14:15 | disposition home or self-care (01) ==
LOC: HO.ACS 13:51
PROVIDERS: PCP Internal Medicine; Visit Provider Internal Medicine
DX: Z79.01 Long term (current) use of anticoagulants (principal)

== ENCOUNTER → 2024-01-11 13:51 | Outpatient (BNVA) | payer MEDICARE, OTHER, SELFPAY | PROVIDERS: PCP Internal Medicine; Visit Provider Internal Medicine | DX: I48.19 Other persistent atrial fibrillation (principal); Z51.81 Encounter for therapeutic drug level monitoring; Z79.01 Long term (current) use of anticoagulants | CPT/HCPCS: 85610; 99211 ==

== ENCOUNTER 2024-01-15 13:49 | Outpatient (AMB) | payer MEDICARE, OTHER, SELFPAY ==
[2024-01-15 13:52] VITALS: BP 140/68; PULSE 88; O2SAT 97; BMI 38.7
--- NOTE | 2024-01-15 13:52 | A.OFFVIS_ITS ---
Vital Signs 01/15/24 13:52 Height 5 ft 7 in Weight 246 lb 14.684 oz BMI 38.7 BP 140/68 H Blood Pressure Location Lt brachial Position Sitting Pulse 88 Pulse Source Monitor Pulse Oximetry (%) 97 Oxygen Delivery Method Room Air Intake Visit Reasons: r/s 01/04/24 1 year followup w/ekg Allergies amoxicillin [Amoxicillin] Allergy (Unknown, Verified 01/11/24 14:02) RASH cephalexin [From Keflex] Allergy (Unknown, Verified 01/11/24 14:02) unknown clindamycin [Clindamycin] Allergy (Unknown, Verified 01/11/24 14:02) RASH Jeremiah poly Dex eye Allergy (Unknown, Uncoded 01/11/24 14:02) Unknown Medication List - Last Reconciled 01/15/24 by Noel Madden MD atorvastatin (Lipitor) 80 mg PO DAILY chlorthalidone 25 mg PO DAILY digoxin 250 mcg PO DAILY metoprolol succinate ER 50 mg PO DAILY metoprolol succinate ER 100 mg PO DAILY potassium chloride ER 40 mEq PO DAILY warfarin 5 mg See Protocol PO DAILY HPI Comments Details: Gordon returns for follow-up regarding chronic atrial fibrillation. He has had atrial fibrillation since approximately 2004. He also carries a diagnosis of congestive heart failure. In the past, seen by [facility] but not recently. Overall, he states he feels fine. No complaints from cardiac. [facility], [facility] Medical History (Updated 07/06/21 @ 13:44 by Noel Madden MD) YEE (obstructive sleep apnea) Persistent atrial fibrillation CKD (chronic kidney disease) Hypertension Diabetes CHF (congestive heart failure) Surgical History History of inguinal hernia repair History of umbilical hernia repair Family History Father No problems noted. Mother Congestive heart failure Social History Alcohol intake: current Alcohol intake frequency: holidays/special occasions only Patient Tobacco Use Status: Never used Tobacco Review of Systems Const Denies weakness ENT Denies dizziness Card Denies chest pain, Denies chest pain with activity, Denies syncope, Denies rapid heart rate, Denies pedal edema, Denies edema, Denies leg edema, Denies lightheadedness, Denies palpitations, Denies dyspnea, Denies dyspnea on exertion and Denies orthopnea Resp Denies cough, Denies dyspnea and Denies dyspnea on exertion GI Denies hematochezia and Denies change in stool character Musc Denies abnormal gait, Denies muscle cramps, Denies muscle weakness, Denies numbness, Denies radiating pain into limb and Denies tingling Neuro Denies abnormal gait, Denies dizziness, Denies syncope, Denies numbness, Denies tingling and Denies weakness Endo Denies palpitations Physical Exam Vital Signs: Last Vital Signs Pulse 88 01/15/24 13:52 BP 140/68 H 01/15/24 13:52 Pulse Ox 97 01/15/24 13:52 Oxygen Delivery Method Room Air 01/15/24 13:52 BMI result Body Mass Index 38.7 Const General: comfortable and no acute distress Orientation/consciousness: patient oriented x3 HEENT Other: Unremarkable Head: Yes normal to inspection Neck Neck: Yes normal visual inspection Chest Chest palpation & inspection: normal inspection of the chest Resp Auscultation: clear to auscultation bilaterally Cardio Palpation: normal PMI Heart sounds: S1 normal heart sound present, S2 normal heart sound present, no gallops, no murmurs and no rubs GI Palpation (GI): Soft to palpation Back/Spine/Pelvis Other: unremarkable Skin General skin exam: no rashes or lesions noted Neuro General: patient oriented x3 Extrem General: Yes normal to inspection Psych Mental Status: mental status grossly normal Office Procedures EKG Details: EKG with atrial fibrillation; 88/Min; rightward axis. [id number], Complete Assessment & Plan Assessment & Plan (1) Persistent atrial fibrillation: Code(s): I48.19 - Other persistent atrial fibrillation Category: Medical Plan: Continue beta-blockers and digoxin. Previously, digoxin levels were acceptable. He can consolidate all his labs through his own PCP. Discussed about this today. He understands. Remains on warfarin. (2) Right ventricular enlargement: Code(s): I51.7 - Cardiomegaly Category: Medical Plan: Echocardiogram in the past with moderate right ventricular enlargement. Probably related to obesity and untreated sleep apnea. Remains on a small dose of diuretics. Clinically, no overt CHF symptoms or signs. (3) YEE (obstructive sleep apnea): Code(s): G47.33 - Obstructive sleep apnea (adult) (pediatric) Category: Medical Plan: He does not use CPAP. Has been discussed several times. Coding Level of Care Code Est Pt Level 4 (81385) Diagnoses Persistent atrial fibrillation I48.19 Right ventricular enlargement I51.7 YEE (obstructive sleep apnea) G47.33 CPT Codes EKG - CPT: 85106-[id number], Complete ([id number])
== END 2024-01-15 14:15 | disposition home or self-care (01) ==
PROVIDERS: PCP Internal Medicine; Visit Provider Internal Medicine
DX: I48.19 Other persistent atrial fibrillation (principal); I51.7 Cardiomegaly; G47.33 Obstructive sleep apnea (adult) (pediatric)
CPT/HCPCS: 93010; 99214

== ENCOUNTER → 2024-01-15 13:49 | Outpatient (BNVA) | payer MEDICARE, OTHER, SELFPAY | PROVIDERS: PCP Internal Medicine; Visit Provider Internal Medicine | DX: I48.20 Chronic atrial fibrillation, unspecified (principal); I50.9 Heart failure, unspecified; I51.7 Cardiomegaly; G47.33 Obstructive sleep apnea (adult) (pediatric) | CPT/HCPCS: 93005; 99212 ==

== ENCOUNTER 2024-02-08 13:46 | Outpatient (AMB) | payer MEDICARE, OTHER, SELFPAY ==
--- NOTE | 2024-02-08 13:52 | MHC.OFFVISCO ---
Intake Intake Visit Reasons: Anticoagulation Allergies amoxicillin [Amoxicillin] Allergy (Unknown, Verified 02/08/24 13:48) RASH cephalexin [From Keflex] Allergy (Unknown, Verified 02/08/24 13:48) unknown clindamycin [Clindamycin] Allergy (Unknown, Verified 02/08/24 13:48) RASH Jeremiah poly Dex eye Allergy (Unknown, Uncoded 02/08/24 13:48) Unknown Medication List - Last Reconciled 02/08/24 by Jovana Horan RN atorvastatin (Lipitor) 80 mg PO DAILY chlorthalidone 25 mg PO DAILY digoxin 250 mcg PO DAILY metoprolol succinate ER 50 mg PO DAILY metoprolol succinate ER 100 mg PO DAILY potassium chloride ER 40 mEq PO DAILY warfarin 5 mg See Protocol PO DAILY Nursing Note INR 3.4-?? out of therapeutic range of 2-3 Medications and supplements reviewed Patient status: pt to have moh's proc on 02/23/24- no hold of warfarin Medications or supplements: no changes Diet: same Denies any signs and symptoms of bleeding or clotting or unusual bruising Bleeding, bruising, clotting discussed Nutritional guidance given: eat greens to lower Dose: 5mg today , reduce weekly dosing to 7.5mg x 6, 5mg x 1 F/U INR Date : 02/16/24? Patient verbalizing understanding of instructions given. 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
[2024-02-08 14:04] LABS: Prothrombin Time Whole Bld POC 40.2 sec (11.1-13.5); ~PT, ~INR - Anti Coag Clinic 3.4 (0.9-1.1)
== END 2024-02-08 13:59 | disposition home or self-care (01) ==
LOC: HO.ACS 13:46
PROVIDERS: PCP Internal Medicine; Visit Provider Internal Medicine
DX: Z79.01 Long term (current) use of anticoagulants (principal)

== ENCOUNTER → 2024-02-08 13:46 | Outpatient (BNVA) | payer MEDICARE, OTHER, SELFPAY | PROVIDERS: PCP Internal Medicine; Visit Provider Internal Medicine | DX: I48.19 Other persistent atrial fibrillation (principal); Z79.01 Long term (current) use of anticoagulants; Z51.81 Encounter for therapeutic drug level monitoring | CPT/HCPCS: 85610; 99211 ==

== ENCOUNTER 2024-02-16 14:05 | Outpatient (AMB) | payer MEDICARE, OTHER, SELFPAY ==
[2024-02-16 14:22] LABS: Prothrombin Time Whole Bld POC 39.4 sec (11.1-13.5); ~PT, ~INR - Anti Coag Clinic 3.3 (0.9-1.1)
--- NOTE | 2024-02-16 14:29 | MHC.OFFVISCO ---
Intake Intake Visit Reasons: Anticoagulation Allergies amoxicillin [Amoxicillin] Allergy (Unknown, Verified 02/16/24 14:17) RASH cephalexin [From Keflex] Allergy (Unknown, Verified 02/16/24 14:17) unknown clindamycin [Clindamycin] Allergy (Unknown, Verified 02/16/24 14:17) RASH Jeremiah poly Dex eye Allergy (Unknown, Uncoded 02/16/24 14:17) Unknown Medication List - Last Reconciled 02/16/24 by Megan Teixeira, RN atorvastatin (Lipitor) 80 mg PO DAILY chlorthalidone 25 mg PO DAILY digoxin 250 mcg PO DAILY metoprolol succinate ER 50 mg PO DAILY metoprolol succinate ER 100 mg PO DAILY potassium chloride ER 40 mEq PO DAILY warfarin 5 mg See Protocol PO DAILY Nursing Note INR 3.3?out of therapeutic range of 2-3 Pt to have MOH's procedure on left side of nose 02/23/24 Medications and supplements reviewed: no changes Patient status: well Diet: usual diet for pt Denies any signs and symptoms of bleeding or clotting or unusual bruising Bleeding, bruising, clotting discussed Nutritional guidance given: to have greens today and during the week before procedure Dose: decrease today's dose to 5mg, then 7.5mg X 6 days and 5mg X 1 day F/U INR Date : 02/22/24 the day before procedure? Patient verbalizing understanding of instructions given. Anti-Coag Initial Assessment Social Hx Patient Tobacco Use Status: Never used Tobacco alcohol intake: current Alcohol intake frequency: holidays/special occasions only Coding Level of Care Code Est Patient Level 1 Diagnoses Current use of anticoagulant therapy Z79.01 Assessment & Plan Assessment & Plan (1) Current use of anticoagulant therapy: Code(s): Z79.01 - half-way (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
== END 2024-02-16 14:40 | disposition home or self-care (01) ==
LOC: HO.ACS 14:05
PROVIDERS: PCP Internal Medicine; Visit Provider Internal Medicine
DX: Z79.01 Long term (current) use of anticoagulants (principal)

== ENCOUNTER → 2024-02-16 14:05 | Outpatient (BNVA) | payer MEDICARE, OTHER, SELFPAY | PROVIDERS: PCP Internal Medicine; Visit Provider Internal Medicine | DX: I48.19 Other persistent atrial fibrillation (principal); Z79.01 Long term (current) use of anticoagulants; Z51.81 Encounter for therapeutic drug level monitoring | CPT/HCPCS: 85610; 99211 ==

== ENCOUNTER → 2024-02-22 13:49 | Outpatient (BNVA) | payer MEDICARE, OTHER, SELFPAY | PROVIDERS: PCP Internal Medicine; Visit Provider Internal Medicine | DX: I48.19 Other persistent atrial fibrillation (principal); Z79.01 Long term (current) use of anticoagulants; Z51.81 Encounter for therapeutic drug level monitoring | CPT/HCPCS: 85610; 99212 ==

== ENCOUNTER 2024-02-27 13:52 | Outpatient (AMB) | payer MEDICARE, OTHER, SELFPAY ==
[2024-02-27 14:03] LABS: Prothrombin Time Whole Bld POC 29.1 sec (11.1-13.5); ~PT, ~INR - Anti Coag Clinic 2.4 (0.9-1.1)
--- NOTE | 2024-02-27 14:11 | MHC.OFFVISCO ---
Intake Intake Visit Reasons: Anticoagulation Allergies amoxicillin [Amoxicillin] Allergy (Unknown, Verified 02/27/24 13:57) RASH cephalexin [From Keflex] Allergy (Unknown, Verified 02/27/24 13:57) unknown clindamycin [Clindamycin] Allergy (Unknown, Verified 02/27/24 13:57) RASH Jeremiah poly Dex eye Allergy (Unknown, Uncoded 02/27/24 13:57) Unknown Medication List - Last Reconciled 02/27/24 by Megan Mcmillan RN atorvastatin (Lipitor) 80 mg PO DAILY chlorthalidone 25 mg PO DAILY digoxin 250 mcg PO DAILY metoprolol succinate ER 50 mg PO DAILY metoprolol succinate ER 100 mg PO DAILY potassium chloride ER 40 mEq PO DAILY warfarin 5 mg See Protocol PO DAILY Nursing Note Amb to [facility] feeling better was scheduled for MOHs procedure on Thursday 02/22 however it was not done secondary to pt having continued diarrhea and Fever His had called in to [facility] and resumed warfarin on Thursday 02/22 10mg (held on 02/21) then resumed usual dosing pt sts had 5 days of diarrhea and is ok now, starting to eat more normal and MOHs is resecheduled to early May Medications and supplements reviewed No other changes in health, diet, medications, or supplements, Denies any signs and symptoms of bleeding or bruising or clotting. INR 2.4 in therapeutic range Nutritional guidance given balance greens and reds in diet F/U INR:2 weeks on usual Patient verbalizes understanding of instructions given Anti-Coag Initial Assessment Social Hx Patient Tobacco Use Status: Never used Tobacco alcohol intake: current Alcohol intake frequency: holidays/special occasions only Coding Level of Care Code Est Patient Level 1 Diagnoses Current use of anticoagulant therapy Z79.01 Time Spent (min) 15 Results AMB INR Fingerstick AMB INR Fingerstick 2.4 Last Edit by Megan Mcmillan RN on 02/27/24 14:04 interface failure Assessment & Plan Assessment & Plan (1) Current use of anticoagulant therapy: Code(s): Z79.01 - 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
== END 2024-02-27 14:17 | disposition home or self-care (01) ==
LOC: HO.ACS 13:52
PROVIDERS: PCP Internal Medicine; Visit Provider Internal Medicine
DX: Z79.01 Long term (current) use of anticoagulants (principal)

== ENCOUNTER → 2024-02-27 13:52 | Outpatient (BNVA) | payer MEDICARE, OTHER, SELFPAY | PROVIDERS: PCP Internal Medicine; Visit Provider Internal Medicine | DX: I48.19 Other persistent atrial fibrillation (principal); Z79.01 Long term (current) use of anticoagulants; Z51.81 Encounter for therapeutic drug level monitoring | CPT/HCPCS: 85610; 99211 ==

== ENCOUNTER 2024-03-14 13:57 | Outpatient (AMB) | payer MEDICARE, OTHER, SELFPAY ==
[2024-03-14 14:10] LABS: Prothrombin Time Whole Bld POC 50.9 sec (11.1-13.5); ~PT, ~INR - Anti Coag Clinic 4.2 (0.9-1.1)
--- NOTE | 2024-03-14 14:21 | MHC.OFFVISCO ---
Intake Intake Visit Reasons: Anticoagulation Allergies amoxicillin [Amoxicillin] Allergy (Unknown, Verified 03/14/24 14:04) RASH cephalexin [From Keflex] Allergy (Unknown, Verified 03/14/24 14:04) unknown clindamycin [Clindamycin] Allergy (Unknown, Verified 03/14/24 14:04) RASH Jeremiah poly Dex eye Allergy (Unknown, Uncoded 03/14/24 14:04) Unknown Medication List - Last Reconciled 03/14/24 by Riya Armstrong RN atorvastatin (Lipitor) 80 mg PO DAILY chlorthalidone 25 mg PO DAILY digoxin 250 mcg PO DAILY metoprolol succinate ER 50 mg PO DAILY metoprolol succinate ER 100 mg PO DAILY potassium chloride ER 40 mEq PO DAILY warfarin 5 mg See Protocol PO DAILY Nursing Note INR 4.2 out of therapeutic range Medications and supplements reviewed Patient status: recovering from GI virus s/p 9 days ago, feeling better today- INR may be elevated r/t GI virus and not eating and not having greens, feels better today Medications or supplements: no changes Diet: better now Denies any signs and symptoms of bleeding or clotting or unusual bruising Bleeding, bruising, clotting discussed Nutritional guidance given: greens and or blueberries to help lower the INR Dose: hold today then resume usual dose. If still elevated will decrease weekly dose F/U INR Date: 1 week Patient verbalizing understanding of instructions given and is aware his INR puts him at risk for bleeding. 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
== END 2024-03-14 14:26 | disposition home or self-care (01) ==
LOC: HO.ACS 13:57
PROVIDERS: PCP Internal Medicine; Visit Provider Internal Medicine
DX: Z79.01 Long term (current) use of anticoagulants (principal)

== ENCOUNTER → 2024-03-14 13:57 | Outpatient (BNVA) | payer MEDICARE, OTHER, SELFPAY | PROVIDERS: PCP Internal Medicine; Visit Provider Internal Medicine | DX: I48.19 Other persistent atrial fibrillation (principal); Z79.01 Long term (current) use of anticoagulants; Z51.81 Encounter for therapeutic drug level monitoring | CPT/HCPCS: 85610; 99211 ==

== ENCOUNTER 2024-03-20 13:51 | Outpatient (AMB) | payer MEDICARE, OTHER, SELFPAY ==
[2024-03-20 14:03] LABS: Prothrombin Time Whole Bld POC 34.5 sec (11.1-13.5); ~PT, ~INR - Anti Coag Clinic 2.9 (0.9-1.1)
--- NOTE | 2024-03-20 14:05 | MHC.OFFVISCO ---
Intake Intake Visit Reasons: Anticoagulation Allergies amoxicillin [Amoxicillin] Allergy (Unknown, Verified 03/20/24 13:58) RASH cephalexin [From Keflex] Allergy (Unknown, Verified 03/20/24 13:58) unknown clindamycin [Clindamycin] Allergy (Unknown, Verified 03/20/24 13:58) RASH Jeremiah poly Dex eye Allergy (Unknown, Uncoded 03/20/24 13:58) Unknown Medication List - Last Reconciled 03/20/24 by Riya Armstrong RN atorvastatin (Lipitor) 80 mg PO DAILY chlorthalidone 25 mg PO DAILY digoxin 250 mcg PO DAILY metoprolol succinate ER 50 mg PO DAILY metoprolol succinate ER 100 mg PO DAILY potassium chloride ER 40 mEq PO DAILY warfarin 5 mg See Protocol PO DAILY Nursing Note INR: 2.9 in therapeutic range Medications and supplements reviewed No changes in health, diet, medications, or supplements, Denies any signs and symptoms of bleeding or bruising or clotting. Bleeding, bruising, clotting discussed Nutritional guidance given- REVIEW FOOD LIST WEEKLY, EAT A MIX OF FRUITS AND VEGETABLES Dose: KEEP SAME DOSE 5MG WED/ 7.5MG X 6 DAYS F/U INR: 4 WEEKS PER PT REQUEST Patient verbalizes understanding of instructions given Anti-Coag Initial Assessment Social Hx Patient Tobacco Use Status: Never used Tobacco alcohol intake: current Alcohol intake frequency: holidays/special occasions only Coding Level of Care Code Est Patient Level 1 Diagnoses Current use of anticoagulant therapy Z79.01 Results AMB INR Fingerstick AMB INR Fingerstick 2.9 Last Edit by Riya Armstrong RN on 03/20/24 14:05 MANUAL ENTRY DELAYED INTERFACING Assessment & Plan Assessment & Plan (1) Current use of anticoagulant therapy: Code(s): Z79.01 - snf (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
== END 2024-03-20 14:11 | disposition home or self-care (01) ==
LOC: HO.ACS 13:51
PROVIDERS: PCP Internal Medicine; Visit Provider Internal Medicine
DX: Z79.01 Long term (current) use of anticoagulants (principal)

== ENCOUNTER → 2024-03-20 13:51 | Outpatient (BNVA) | payer MEDICARE, OTHER, SELFPAY | PROVIDERS: PCP Internal Medicine; Visit Provider Internal Medicine | DX: I48.19 Other persistent atrial fibrillation (principal); Z51.81 Encounter for therapeutic drug level monitoring; Z79.01 Long term (current) use of anticoagulants | CPT/HCPCS: 85610; 99211 ==

== ENCOUNTER 2024-03-25 11:25 | Outpatient (REF) | payer MEDICARE, OTHER, SELFPAY ==
[2024-03-25 11:29] LABS: MANUAL DIFF FLAG NO
[2024-03-25 11:54] LABS: Basophils Absolute Auto 0.1 X10*3/uL (0.0-0.2); Basophils Percent Auto 0.6 % (0-2); Eosinophils Absolute Auto 0.1 X10*3/uL (0.0-0.4); Eosinophils Percent Auto 1.2 % (0-4); Hematocrit 44.2 % (42.0-52.0); Hemoglobin 15.3 g/dl (14.0-18.0); Imm Gran Abs Auto 0.03 X10*3/uL (0.00-0.03); Imm Gran Pct Auto 0.3 % (0.0-0.4); Lymphocytes Absolute Auto 2.5 X10*3/uL (1.2-4.9); Lymphocytes Percent Auto 27.4 % (20-40); Mean Corpuscular HGB Conc 34.6 g/dl (31.0-36.0); Mean Corpuscular Hemoglobin 33.6 pg (27.0-33.0); Mean Corpuscular Volume 97.1 fL (80.0-98.0); Mean Platelet Volume 11.6 fL (9.4-12.4); Monocytes Percent Auto 10.2 % (2-11); Neutrophils Absolute Auto 5.6 x10*3/uL (2.0-8.3); Neutrophils Percent Auto 60.3 % (45-73); Platelet Count 152 X10*3/uL (160-400); Red Blood Count 4.55 X10*6/uL (4.60-5.80); Red Cell Distribution Width 14.9 % (11.0-16.0); White Blood Count 9.3 X10*3/uL (4.8-10.8)
[2024-03-25 12:16] LABS: Alanine Aminotransferase 21 U/L (0-40); Albumin Level 4.2 g/dL (3.5-5.0); Alkaline Phosphatase 106 U/L (39-117); Anion Gap 16 (12-20); Aspartate Amino Transferase 24 U/L (5-37); Bilirubin Total 3.3 mg/dL (0.0-1.0); Blood Urea Nitrogen 13 mg/dL (9-16); Calcium 9.2 mg/dL (8.4-10.2); Carbon Dioxide 26 mmol/L (22-29); Chloride 100 mmol/L (96-108); Cholesterol 110 mg/dL (<200); Estimated Glomerular Filt Rate 56; Glucose Fasting 104 mg/dL (60-99); HDL Cholesterol 34 mg/dL (>40); LDL Cholesterol Calculated 47 mg/dL (<100); Potassium 3.7 mmol/L (3.3-5.1); Sodium 138 mmol/L (135-145); Total Protein 7.5 g/dL (6.5-8.0); Triglycerides 147 mg/dL (<150)
[2024-03-25 12:26] LABS: PSA,Total (Free>4and<10) 2.67 ng/mL (0.00-4.00)
== END 2024-03-25 11:26 | disposition home or self-care (01) ==
LOC: HO.LNP 11:25
PROVIDERS: Visit Provider Internal Medicine
DX: I11.0 Hypertensive heart disease with heart failure (principal); I50.22 Chronic systolic (congestive) heart failure; E78.00 Pure hypercholesterolemia, unspecified; D69.6 Thrombocytopenia, unspecified; Z12.5 Encounter for screening for malignant neoplasm of prostate
CPT/HCPCS: 80053; 80061; 84153; 85025

== ENCOUNTER 2024-04-01 11:23 | Outpatient (REF) | payer MEDICARE, OTHER, SELFPAY ==
[2024-04-01 11:39] LABS: Appearance Urine Clear; Color Urine Yellow; Glucose Urine UA Negative (Negative); Leukocyte Esterase Urine Negative (Negative); Nitrite Urine Negative (Negative); PH 5.5 (5.0-9.0); Specific Gravity - Urine <= 1.005 (1.005-1.025); Urine Blood Negative (Negative); Urine Ketones Negative (Negative); Urine Protein Negative (Neg-Trace)
[2024-04-01 11:45] LABS: Bacteria Urine None Seen (None Seen); Hyaline Casts Urine 0-2 /LPF (0-2); RBC Urine 0-2 /HPF (0-2); Squamous Epithelial Cell Urine 0-2 /HPF (0-2); WBC Urine 0-5 /HPF (0-5)
== END 2024-04-01 11:24 | disposition home or self-care (01) ==
LOC: HO.LNP 11:23
PROVIDERS: Visit Provider Internal Medicine
DX: E78.00 Pure hypercholesterolemia, unspecified (principal); I48.11 Longstanding persistent atrial fibrillation; I10 Essential (primary) hypertension
CPT/HCPCS: 81001

== ENCOUNTER 2024-04-17 13:49 | Outpatient (AMB) | payer MEDICARE, OTHER, SELFPAY ==
--- NOTE | 2024-04-17 13:55 | MHC.OFFVISCO ---
Intake Intake Visit Reasons: Anticoagulation Allergies amoxicillin [Amoxicillin] Allergy (Unknown, Verified 04/17/24 13:50) RASH cephalexin [From Keflex] Allergy (Unknown, Verified 04/17/24 13:50) unknown clindamycin [Clindamycin] Allergy (Unknown, Verified 04/17/24 13:50) RASH Jeremiah poly Dex eye Allergy (Unknown, Uncoded 04/17/24 13:50) Unknown Medication List - Last Reconciled 04/17/24 by Jovana Horan RN atorvastatin (Lipitor) 80 mg PO DAILY chlorthalidone 25 mg PO DAILY digoxin 250 mcg PO DAILY metoprolol succinate ER 50 mg PO DAILY metoprolol succinate ER 100 mg PO DAILY potassium chloride ER 40 mEq PO DAILY warfarin 5 mg See Protocol PO DAILY Nursing Note INR: 3.3- out of therapeutic range 2-3 pt states inr elev due to etoh Medications and supplements reviewed- no changes No changes in health, diet, medications, or supplements, Denies any signs and symptoms of bleeding or bruising or clotting. Bleeding, bruising, clotting discussed Nutritional guidance given - eat a green today, no reds for 2 days Dose: 2.5mg today then cont 7.5mg x 6, 5mg x 1 F/U INR: pt req 3 weeks f/u Patient verbalizes understanding of instructions given pt states had derm appt/procedure for lesion removal right upper leg by daniel carey on 04/01/24. he states no warfarin hold and did not have any bleeding.no changes in medications- instructed to call acs with any procedures pt states moh's proc on 05/23/24 Anti-Coag Initial Assessment Social Hx Patient Tobacco Use Status: Never used Tobacco alcohol intake: current Alcohol intake frequency: holidays/special occasions only Coding Level of Care Code Est Patient Level 1 Diagnoses Current use of anticoagulant therapy Z79.01 Results AMB INR Fingerstick AMB INR Fingerstick 3.3 Last Edit by Jovana Horan RN on 04/17/24 13:56 Assessment & Plan Assessment & Plan (1) Current use of anticoagulant therapy: Code(s): Z79.01 - ocean transportation intermediary (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
[2024-04-17 13:57] LABS: Prothrombin Time Whole Bld POC 39.4 sec (11.1-13.5); ~PT, ~INR - Anti Coag Clinic 3.3 (0.9-1.1)
== END 2024-04-17 14:10 | disposition home or self-care (01) ==
LOC: HO.ACS 13:49
PROVIDERS: PCP Internal Medicine; Visit Provider Internal Medicine
DX: Z79.01 Long term (current) use of anticoagulants (principal)

== ENCOUNTER → 2024-04-17 13:49 | Outpatient (BNVA) | payer MEDICARE, OTHER, SELFPAY | PROVIDERS: PCP Internal Medicine; Visit Provider Internal Medicine | DX: I48.19 Other persistent atrial fibrillation (principal); Z79.01 Long term (current) use of anticoagulants; Z51.81 Encounter for therapeutic drug level monitoring | CPT/HCPCS: 85610; 99211 ==

== ENCOUNTER 2024-05-10 13:44 | Outpatient (AMB) | payer MEDICARE, OTHER, SELFPAY ==
[2024-05-10 14:02] LABS: Prothrombin Time Whole Bld POC 27.8 sec (11.1-13.5); ~PT, ~INR - Anti Coag Clinic 2.3 (0.9-1.1)
--- NOTE | 2024-05-10 14:04 | MHC.OFFVISCO ---
Intake Intake Visit Reasons: Anticoagulation Allergies amoxicillin [Amoxicillin] Allergy (Unknown, Verified 05/10/24 13:52) RASH cephalexin [From Keflex] Allergy (Unknown, Verified 05/10/24 13:52) unknown clindamycin [Clindamycin] Allergy (Unknown, Verified 05/10/24 13:52) RASH Jeremiah poly Dex eye Allergy (Unknown, Uncoded 05/10/24 13:52) Unknown Medication List - Last Reconciled 05/10/24 by Riya Armstrong RN atorvastatin (Lipitor) 80 mg PO DAILY chlorthalidone 25 mg PO DAILY digoxin 250 mcg PO DAILY metoprolol succinate ER 50 mg PO DAILY metoprolol succinate ER 100 mg PO DAILY potassium chloride ER 40 mEq PO DAILY warfarin 5 mg See Protocol PO DAILY Nursing Note INR: 2.3 in therapeutic range Medications and supplements reviewed No changes in health, diet, medications, or supplements, Denies any signs and symptoms of bleeding or bruising or clotting. Bleeding, bruising, clotting discussed Nutritional guidance given - eat extra greens prior next INR about 3 days prior so INR is low end of range for face Mohs procedure Dose: keep same dose 5mg wed/ 7.5mg x 6 days F/U INR: 05/22/24 to chk INR prior facial Moh's procedure Patient verbalizes understanding of instructions given Anti-Coag Initial Assessment Social Hx Patient Tobacco Use Status: Never used Tobacco alcohol intake: current Alcohol intake frequency: holidays/special occasions only Coding Level of Care Code Est Patient Level 1 Diagnoses Current use of anticoagulant therapy Z79.01 Results AMB INR Fingerstick AMB INR Fingerstick 2.3 Last Edit by Riya Armstrong RN on 05/10/24 14:01 MANUAL ENTRY FAILED INTERFACING Assessment & Plan Assessment & Plan (1) Current use of anticoagulant therapy: Code(s): 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
== END 2024-05-10 14:09 | disposition home or self-care (01) ==
LOC: HO.ACS 13:44
PROVIDERS: PCP Internal Medicine; Visit Provider Internal Medicine
DX: Z79.01 Long term (current) use of anticoagulants (principal)

== ENCOUNTER → 2024-05-10 13:44 | Outpatient (BNVA) | payer MEDICARE, SELFPAY | PROVIDERS: PCP Internal Medicine; Visit Provider Internal Medicine | DX: I48.19 Other persistent atrial fibrillation (principal); Z79.01 Long term (current) use of anticoagulants; Z51.81 Encounter for therapeutic drug level monitoring | CPT/HCPCS: 85610; 99211 ==

== ENCOUNTER 2024-05-22 13:50 | Outpatient (AMB) | payer MEDICARE, OTHER, SELFPAY ==
[2024-05-22 14:02] LABS: Prothrombin Time Whole Bld POC 38.2 sec (11.1-13.5); ~PT, ~INR - Anti Coag Clinic 3.2 (0.9-1.1)
--- NOTE | 2024-05-22 14:06 | MHC.OFFVISCO ---
Intake Intake Visit Reasons: Anticoagulation Allergies amoxicillin [Amoxicillin] Allergy (Unknown, Verified 05/22/24 13:57) RASH cephalexin [From Keflex] Allergy (Unknown, Verified 05/22/24 13:57) unknown clindamycin [Clindamycin] Allergy (Unknown, Verified 05/22/24 13:57) RASH Jeremiah poly Dex eye Allergy (Unknown, Uncoded 05/10/24 13:52) Unknown Medication List - Last Reconciled 05/22/24 by Karina Luciano RN atorvastatin (Lipitor) 80 mg PO DAILY chlorthalidone 25 mg PO DAILY digoxin 250 mcg PO DAILY metoprolol succinate ER 50 mg PO DAILY metoprolol succinate ER 100 mg PO DAILY potassium chloride ER 40 mEq PO DAILY warfarin 5 mg See Protocol PO DAILY Nursing Note PT.TO HAVE MOH'S TOMORROW ON FACE(2 AREAS) WILL HOLD WARFARIN TODAY THEN RESUME USUAL DOSE AND FOLLOW-UP IN 4 WEEKS. GOOD UNDERSTANDING OF DFOSING INSTR. PT.DENIES ANY CP,SOB OR SX OF BLEEDING. 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
== END 2024-05-22 14:09 | disposition home or self-care (01) ==
LOC: HO.ACS 13:50
PROVIDERS: PCP Internal Medicine; Visit Provider Internal Medicine
DX: Z79.01 Long term (current) use of anticoagulants (principal)

== ENCOUNTER → 2024-05-22 13:50 | Outpatient (BNVA) | payer MEDICARE, OTHER, SELFPAY | PROVIDERS: PCP Internal Medicine; Visit Provider Internal Medicine | DX: I48.19 Other persistent atrial fibrillation (principal); Z79.01 Long term (current) use of anticoagulants; Z51.81 Encounter for therapeutic drug level monitoring | CPT/HCPCS: 85610; 99211 ==

== ENCOUNTER 2024-06-20 13:45 | Outpatient (AMB) | payer MEDICARE, OTHER, SELFPAY ==
--- NOTE | 2024-06-20 14:02 | MHC.OFFVISCO ---
Intake Intake Visit Reasons: Anticoagulation Allergies amoxicillin [Amoxicillin] Allergy (Unknown, Verified 06/20/24 13:53) RASH cephalexin [From Keflex] Allergy (Unknown, Verified 06/20/24 13:53) unknown clindamycin [Clindamycin] Allergy (Unknown, Verified 06/20/24 13:53) RASH Jeremiah poly Dex eye Allergy (Unknown, Uncoded 06/20/24 13:53) Unknown Medication List - Last Reconciled 06/20/24 by Megan Teixeira RN atorvastatin (Lipitor) 80 mg PO DAILY chlorthalidone 25 mg PO DAILY digoxin 250 mcg PO DAILY metoprolol succinate ER 50 mg PO DAILY metoprolol succinate ER 100 mg PO DAILY potassium chloride ER 40 mEq PO DAILY warfarin 5 mg See Protocol PO DAILY Nursing Note INR 3.2 out of therapeutic range of 2-3 Medications and supplements reviewed Patient status: well Medications or supplements: no changes Diet: usual diet for pt Denies any signs and symptoms of bleeding or clotting or unusual bruising Bleeding, bruising, clotting discussed Nutritional guidance given: to have a serving of greens today. Pt states he will have spinach. Dose: 7.5mg X 6 days and 5mg X 1 day (Mon) F/U INR Date : 4 weeks?? Patient verbalizing understanding of instructions given. Anti-Coag Initial Assessment Social Hx Patient Tobacco Use Status: Never used Tobacco alcohol intake: current Alcohol intake frequency: holidays/special occasions only Coding Level of Care Code Est Patient Level 1 Diagnoses Current use of anticoagulant therapy Z79.01 Results AMB INR Fingerstick AMB INR Fingerstick 3.2 Last Edit by Megan Teixeira RN on 06/20/24 14:01 interface delay Assessment & Plan Assessment & Plan (1) Current use of anticoagulant therapy: Code(s): Z79.01 - USP (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
[2024-06-20 14:05] LABS: Prothrombin Time Whole Bld POC 38.3 sec (11.1-13.5); ~PT, ~INR - Anti Coag Clinic 3.2 (0.9-1.1)
== END 2024-06-20 14:05 | disposition home or self-care (01) ==
LOC: HO.ACS 13:45
PROVIDERS: PCP Internal Medicine; Visit Provider Internal Medicine
DX: Z79.01 Long term (current) use of anticoagulants (principal)

== ENCOUNTER → 2024-06-20 13:45 | Outpatient (BNVA) | payer MEDICARE, OTHER, SELFPAY | PROVIDERS: PCP Internal Medicine; Visit Provider Internal Medicine | DX: I48.19 Other persistent atrial fibrillation (principal); Z79.01 Long term (current) use of anticoagulants; Z51.81 Encounter for therapeutic drug level monitoring | CPT/HCPCS: 85610; 99211 ==

== ENCOUNTER 2024-07-18 13:45 | Outpatient (AMB) | payer MEDICARE, OTHER, SELFPAY ==
[2024-07-18 14:09] LABS: Prothrombin Time Whole Bld POC 29.8 sec (11.1-13.5); ~PT, ~INR - Anti Coag Clinic 2.5 (0.9-1.1)
--- NOTE | 2024-07-18 14:13 | MHC.OFFVISCO ---
Intake Intake Visit Reasons: Anticoagulation Allergies amoxicillin [Amoxicillin] Allergy (Unknown, Verified 07/18/24 14:05) RASH cephalexin [From Keflex] Allergy (Unknown, Verified 07/18/24 14:05) unknown clindamycin [Clindamycin] Allergy (Unknown, Verified 07/18/24 14:05) RASH Jeremiah poly Dex eye Allergy (Unknown, Uncoded 07/18/24 14:05) Unknown Medication List - Last Reconciled 07/18/24 by Riya Armstrong RN atorvastatin (Lipitor) 80 mg PO DAILY chlorthalidone 25 mg PO DAILY digoxin 250 mcg PO DAILY metoprolol succinate ER 50 mg PO DAILY metoprolol succinate ER 100 mg PO DAILY potassium chloride ER 40 mEq PO DAILY warfarin 5 mg See Protocol PO DAILY Nursing Note INR: 2.5 in therapeutic range Medications and supplements reviewed No changes in health, diet, medications, or supplements, Denies any signs and symptoms of bleeding or bruising or clotting. Bleeding, bruising, clotting discussed Nutritional guidance given - Cont to eat a mix of fruits and vegetables - watch for seasonal foods Dose: keep same dose 5mg x 1day/ 7.5mg x 6 days F/U INR: 1 month Patient verbalizes understanding of instructions given Anti-Coag Initial Assessment Social Hx Patient Tobacco Use Status: Never used Tobacco alcohol intake: current Alcohol intake frequency: holidays/special occasions only Coding Level of Care Code Est Patient Level 1 Diagnoses Current use of anticoagulant therapy Z79.01 Assessment & Plan Assessment & Plan (1) Current use of anticoagulant therapy: Code(s): 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
== END 2024-07-18 14:15 | disposition home or self-care (01) ==
LOC: HO.ACS 13:45
PROVIDERS: PCP Internal Medicine; Visit Provider Internal Medicine
DX: Z79.01 Long term (current) use of anticoagulants (principal)

== ENCOUNTER → 2024-07-18 13:45 | Outpatient (BNVA) | payer MEDICARE, OTHER, SELFPAY | PROVIDERS: PCP Internal Medicine; Visit Provider Internal Medicine | DX: I48.19 Other persistent atrial fibrillation (principal); Z79.01 Long term (current) use of anticoagulants; Z51.81 Encounter for therapeutic drug level monitoring | CPT/HCPCS: 85610; 99211 ==

== ENCOUNTER 2024-08-22 13:42 | Outpatient (AMB) | payer MEDICARE, OTHER, SELFPAY ==
--- NOTE | 2024-08-22 13:51 | MHC.OFFVISCO ---
Intake Intake Visit Reasons: Anticoagulation Allergies amoxicillin [Amoxicillin] Allergy (Unknown, Verified 08/22/24 13:43) RASH cephalexin [From Keflex] Allergy (Unknown, Verified 08/22/24 13:43) unknown clindamycin [Clindamycin] Allergy (Unknown, Verified 08/22/24 13:43) RASH Jeremiah poly Dex eye Allergy (Unknown, Uncoded 08/22/24 13:43) Unknown Medication List - Last Reconciled 08/22/24 by Megan Mcmillan RN atorvastatin (Lipitor) 80 mg PO DAILY chlorthalidone 25 mg PO DAILY digoxin 250 mcg PO DAILY metoprolol succinate ER 50 mg PO DAILY metoprolol succinate ER 100 mg PO DAILY potassium chloride ER 40 mEq PO DAILY warfarin 5 mg See Protocol PO DAILY Nursing Note Amb to ACS feeling well Medications and supplements reviewed No changes in health, diet, medications, or supplements, Denies any signs and symptoms of bleeding, bruising, or clotting. Bleeding, bruising, clotting discussed Sts he had a lot of cranberries over the and sts he had spinach a couple days to balance INR: 2.9 Dose: continue usual dosing 5mg x1 day and 7.5mg x 6 days balance greens and reds in diet, eat healthy and be consistent F/U INR: 4 weeks Patient verbalizes understanding of instructions given Anti-Coag Initial Assessment Social Hx Patient Tobacco Use Status: Never used Tobacco alcohol intake: current Alcohol intake frequency: holidays/special occasions only Coding Level of Care Code Est Patient Level 1 Diagnoses Current use of anticoagulant therapy Z79.01 Time Spent (min) 15 Results AMB INR Fingerstick AMB INR Fingerstick 2.9 Last Edit by Megan Mcmillan RN on 08/22/24 13:50 interface failure Assessment & Plan Assessment & Plan (1) Current use of anticoagulant therapy: Code(s): Z79.01 - USP (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
== END 2024-08-22 13:55 | disposition home or self-care (01) ==
LOC: HO.ACS 13:42
PROVIDERS: PCP Internal Medicine; Visit Provider Internal Medicine
DX: Z79.01 Long term (current) use of anticoagulants (principal)

== ENCOUNTER → 2024-08-22 13:42 | Outpatient (BNVA) | payer MEDICARE, OTHER, SELFPAY | PROVIDERS: PCP Internal Medicine; Visit Provider Internal Medicine | DX: I48.19 Other persistent atrial fibrillation (principal); Z79.01 Long term (current) use of anticoagulants; Z51.81 Encounter for therapeutic drug level monitoring | CPT/HCPCS: 99211 ==

== ENCOUNTER 2024-09-19 13:46 | Outpatient (AMB) | payer MEDICARE, OTHER, SELFPAY ==
[2024-09-19 14:00] LABS: Prothrombin Time Whole Bld POC 42.4 sec (11.1-13.5); ~PT, ~INR - Anti Coag Clinic 3.5 (0.9-1.1)
--- NOTE | 2024-09-19 14:02 | MHC.OFFVISCO ---
Intake Intake Visit Reasons: Anticoagulation Allergies amoxicillin [Amoxicillin] Allergy (Unknown, Verified 09/19/24 13:51) RASH cephalexin [From Keflex] Allergy (Unknown, Verified 09/19/24 13:51) unknown clindamycin [Clindamycin] Allergy (Unknown, Verified 09/19/24 13:51) RASH Jeremiah poly Dex eye Allergy (Unknown, Uncoded 09/19/24 13:51) Unknown Medication List - Last Reconciled 09/19/24 by Megan Mcmillan RN albuterol sulfate 90 mcg/actuation 2 puffs inhalation Q6H PRN atorvastatin (Lipitor) 80 mg PO DAILY benzonatate 100 mg PO TID chlorthalidone 25 mg PO DAILY digoxin 250 mcg PO DAILY metoprolol succinate ER 50 mg PO DAILY metoprolol succinate ER 100 mg PO DAILY potassium chloride ER 40 mEq PO DAILY warfarin 5 mg See Protocol PO DAILY Nursing Note Amb to [facility] feeling lousy sts he has had a cold for a couple weeks, actively coughing (dry, hacking) in office sts he started on Albuterol inhaler and benzonatate- EMAR updated, no warfarin interactions, sts cough is better pt reminded to call when starts any kind of medications No other changes in health, diet, medications, or supplements, Denies any signs and symptoms of bleeding, bruising, or clotting. Bleeding, bruising, clotting discussed Denies any ETOH over New Years however sts he had cooked spinach last night INR 3.5 above therapeutic range Dose: decrease dose tonight from 7.5 mg to 5mg then resume usual dosing tomorrow ( 5mg x 1 day and 7.5mg x 6 days) ok for greens today but in moderation over weekend then balance F/U INR: 2 weeks Patient verbalizes understanding of instructions given Anti-Coag Initial Assessment Social Hx Patient Tobacco Use Status: Never used Tobacco alcohol intake: current Alcohol intake frequency: holidays/special occasions only Coding Level of Care Code Est Patient Level 1 Diagnoses Current use of anticoagulant therapy Z79.01 Time Spent (min) 15 Assessment & Plan Assessment & Plan (1) Current use of anticoagulant therapy: Code(s): 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
== END 2024-09-19 14:08 | disposition home or self-care (01) ==
LOC: HO.ACS 13:46
PROVIDERS: PCP Internal Medicine; Visit Provider Internal Medicine
DX: Z79.01 Long term (current) use of anticoagulants (principal)

== ENCOUNTER → 2024-09-19 13:46 | Outpatient (BNVA) | payer MEDICARE, OTHER, SELFPAY | PROVIDERS: PCP Internal Medicine; Visit Provider Internal Medicine | DX: I48.19 Other persistent atrial fibrillation (principal); Z79.01 Long term (current) use of anticoagulants; Z51.81 Encounter for therapeutic drug level monitoring | CPT/HCPCS: 85610; 99211 ==

== ENCOUNTER 2024-10-03 13:40 | Outpatient (AMB) | payer MEDICARE, OTHER, SELFPAY ==
[2024-10-03 13:47] LABS: Prothrombin Time Whole Bld POC 25.8 sec (11.1-13.5); ~PT, ~INR - Anti Coag Clinic 2.1 (0.9-1.1)
--- NOTE | 2024-10-03 13:52 | MHC.OFFVISCO ---
Intake Intake Visit Reasons: Anticoagulation Allergies amoxicillin [Amoxicillin] Allergy (Unknown, Verified 10/03/24 13:43) RASH cephalexin [From Keflex] Allergy (Unknown, Verified 10/03/24 13:43) unknown clindamycin [Clindamycin] Allergy (Unknown, Verified 10/03/24 13:43) RASH Jeremiah poly Dex eye Allergy (Unknown, Uncoded 10/03/24 13:43) Unknown Medication List - Last Reconciled 10/03/24 by Megan Teixeira, JOSEPH albuterol sulfate 90 mcg/actuation 2 puffs inhalation Q6H PRN atorvastatin (Lipitor) 80 mg PO DAILY chlorthalidone 25 mg PO DAILY digoxin 250 mcg PO DAILY metoprolol succinate ER 50 mg PO DAILY metoprolol succinate ER 100 mg PO DAILY potassium chloride ER 40 mEq PO DAILY warfarin 5 mg See Protocol PO DAILY Nursing Note INR: 2.1 in therapeutic range of 2-3 Pt states he feels better after having a bout of bronchitis. Medications and supplements reviewed No changes in diet, medications, or supplements, Denies any signs and symptoms of bleeding or bruising or clotting. Bleeding, bruising, clotting discussed Nutritional guidance given to avoid greens today then to balance foods that raise with foods that lower the INR. 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
== END 2024-10-03 13:55 | disposition home or self-care (01) ==
LOC: HO.ACS 13:40
PROVIDERS: PCP Internal Medicine; Visit Provider Internal Medicine
DX: Z79.01 Long term (current) use of anticoagulants (principal)

== ENCOUNTER → 2024-10-03 13:40 | Outpatient (BNVA) | payer MEDICARE, OTHER, SELFPAY | PROVIDERS: PCP Internal Medicine; Visit Provider Internal Medicine | DX: I48.19 Other persistent atrial fibrillation (principal); Z79.01 Long term (current) use of anticoagulants; Z51.81 Encounter for therapeutic drug level monitoring | CPT/HCPCS: 85610; 99211 ==

== ENCOUNTER 2024-10-31 13:43 | Outpatient (AMB) | payer MEDICARE, OTHER, SELFPAY ==
--- OUTSIDE RECORDS SUMMARY | 2024-10-31 13:49 | XMS_ITS ---
Author Organization Lalito Marcos MD Address [address] [place], [place] [phone] Care Team Providers Care Junior Oracle Dba Name Role Phone Lalito Marcos Primary Care Provider Results Component Value Reference Range Notes Liver Panel Reviewed date:10/04/2024 01:39:16 PM Interpretation: Performing Lab:[facility], [address] [place] [id number] Notes/Report: Bilirubin Total 2.7 0.0-1.0 mg/dL Slight Icte aranza. Bilirubin Direct 0.6 0.0-0.5 mg/dL Slight Ict erus. Aspartate Amino Transferase 29 5-37 U/L Alanine Aminotransferase 15 0-40 U/L Total Protein 7.5 6.5-8.0 g/dL Albumin Level 4.0 3.5-5.0 g/dL Alkaline Phosphatase 104 39-117 U/L Lipid Panel with Reflex Reviewed date:10/04/2024 01:38:10 PM Interpretation: Performing Lab:[facility], [address] [place] [phone] Notes/Report: Triglycerides 131 <150 mg/dL Desirable Triglyceride: [...] Location Date Provider Diagnosis Lalito Marcos MD [address] [place] [phone] 10/04/2024 Lalito Marcos Hypercholesteremia E 78.00 Assessments Encounter Date Diagnosis (ICD Code) Assessment Notes Treatment Notes Treatment Clinical Notes Section Notes 10/04/2024 Hypercholesteremia (ICD-10 - E78.00) Plan Of Treatment Next Appt Details Provider Name:Lalito zhang, 03/28/2025 07:00:00 AM, [address] [place] [address], [address], [phone], Provider Name:Lalito zhang, 04/03/2025 08:30:00 AM, [address] [place] [address], [address], [phone], Provider Name:Lalito zhang, 10/09/2025 07:45:00 AM, [address] [place] [address], [address], [phone], Provider Name:Lalito zhang, 10/16/2025 10:00:00 AM, [address] [facility], [address], [place], [place], [phone], Progress Notes * IVANIA WRIGHTOB: 5 (69 yo M)Acc No.[id number]:10/04/2024 Progress Note Patient:?DARIEN WRIGHT Provider:?Lalito Marcos MD :1955???Age:69 Y???Sex:Male Jared e:10/04/2024 Address:[address] [place] [address], [id number] Subjective: * Chief Complaints: * ???1. FASTING LIPIDS. * Medical History:? * Medications:?Taking Metoprol ol Succinate ER 50 MG Tablet Extended Release [...] 1 TABLET BY MOUTH EVERY DAY , Not-Taking/PRN Cyclobenzaprine HCl 5 MG Tablet 1 tablet at bedtime as needed Orally twice a day Objective: * Vitals:? Assessment: * Assessment: 1.?Hypercholesteremia - E78. 00 (Primary)??? Plan: * Treatment: * Procedure Codes:?77617 VENIP UNCT, ROUTINE* * * The named appointment provid er may or may not be the originator of this progress note, and it is not deemed complete until electronically signed by the appointment provider. Sign off status: Pending * Provider:?Lalito Marcos MD Date:?0 10/04/2024 Generated for Shakeel pandey/Charisse/Marisol on:?10/31/2024 01:48 PM EST
--- OUTSIDE RECORDS SUMMARY | 2024-10-31 13:49 | XMS_ITS ---
Author Organization Lalito Marcos MD Address [address] [place] [phone] Care Team Providers Care Director Business Intelligence Name Role Phone Lalito Marcos Primary Care Provider [phone] Allergies Allergen (clinical drug ingredient) Drug/Non Drug Allergy documented on EMR Reaction Allergy Type Onset Date Status Keflex rash Drug Allergy Active clindamycin Clindamycin HCl rash Drug Allergy Active amoxicillin Amoxicillin rash Drug Allergy Act jesus Triamcinolone & Emollient rash Drug Allergy Active Neoporacin rash Drug Allergy Active Ztaxqkra-Sbwqzolxh-A exa meth swelling Drug Allergy Active Results Component Value Reference Range Notes Occult Blood, Stool, Guaiac Reviewed date:04/08/2024 02:51:53 PM Interpretation: Performing Lab: Notes/Report: 0 Occult Blood, Stool, Guaiac Neg UA ClnCatch+Micro w/rflx Cul t Reviewed date:04/01/2024 06:16:52 PM Interpretation: Performing Lab:[facility], [address] [place] [phone] Notes/Report: [id number] Urine, Clean Catch Color Urine Yellow Appearance Urine Clear PH 5.5 5.0-9.0 Glucose Urine UA Negative Negative mg/dL Urine Blood Negative Negative Specific [place] - Urine <= 1.005 1.005-1.025 Urine Protein [...] Location Date Provider Diagnosis Lalito Marcos MD [address] [place] [address] [place] [phone] 04/01/2024 Lalito Marcos Hypercholesteremia E 78.00 ; [...] 6 Months, Reason: afib Provider Name:Lalito zhang, 03/28/2025 07:00:00 AM, [address] [place] [address], Suite [facility], [place], [place], [phone], Provider Name:Lalito zhang, 04/03/2025 08:30:00 AM, [address], [address], [place], [phone], Provider Name:Lalito Castro vicente, 10/09/2025 07:45:00 AM, [address] [facility] [address], [address], [place], [phone], Provider Name:Lalito Castro vicente, 10/16/2025 10:00:00 AM, [address] [facility], [address], [place], [phone], Progress Notes * MITZI WRIGHTRYLEEOB: (68 yo M)Acc No.[id number]:04/01/2024 Patient:?DARIEN WRIGHT Provider:?Lalito Marcos MD :1955???Age:68 Y???Sex:Male Jared e:04/01/2024 Address:[address] [place] [address], [id number] Subjective: * Chief Complaints: * ???Review labs * HPI: ???Depression Screening:?PHQ-9?Little interest or pleasure in doing things?Not at all,?Feeling down, depressed, or hopeless?Not at all,?Trouble falling or staying asleep, or sleeping too much?Not at all,?Feeling tired or having little energy?Not at all,?Poor appetite or overeating?Not at all,?Feeling bad about yourself or that you are a failure, or have let yourself or your family down?Not at all,?Trouble concentrating on things, such as reading the newspaper or watching television?Not at all,?Moving or speaking so slowly that other people could have noticed; or the opposite, being so fidgety or restless that you have been moving around a lot more than usual?Not at all,?Thoughts that you would be better off or of hurting yourself in some way?Not at all,?Total Score?0.?Interpretation and Intervention?Depression Screening Findings?Negative,?Follow-Up for Depression?: review of PHQ-9 found negative result, no follow-up needed.?Communication Needs:?Communication Needs?Does the patient have a hearing impairment?No,?Does the patient have a vision impairment??Yes,?If yes, what is the vision impairment??Glasses,?Does the patient have a cognition impairment??No.?Fall Risk:?History?Have you had any falls with injury in the past year??No,?Have you had two or more falls in the past year??No.?SDOH Questions:?SDOH Questions?In the past year have you been worried about losing housing??No,?In the past year have you or any family members you live with been unable to get any of the following when it was really needed? Check all that apply:?None.?Symptom(s):? patient is a 68 yo male here for review of recent labs and follow up of chronic issues. * ROS:?General/Constitutional:?Patient denies?chills , fatigue , fever , headache.?ENT:?Patient denies?decreased sense of smell , any loss of taste , sore throat.?Respiratory:?Patient denies?shortness of breath at rest shortness of breath with exertion.?Cardiovascular:?Patient denies?chest pain with exertion chest pain at rest.?Gastrointestinal:?Patient denies?abdominal pain change in bowel habits.?Genitourinary:?Patient denies?frequent urination difficulty urinating.?Musculoskeletal:?Patient denies?muscle aches.?Peripheral Vascular:?Patient denies?red and blue toes.? * Medical History:? * Surgical History:? * Hospitalization/Major Diagno stic Procedure:? * Family History:?Father: jai lawrence 88 yrs.?Mother: 79 yrs.?2 brother(s) , 2 sister(s) . .? Father- helathy Mother kidney failure, No pertinent family medical history, Denies mental health/substance abuse family history, No pertinent family medical history. * Social History:?Tobacco Use:?Tobacco Use/Smoking?Patient is a?nonsmoker,?Additional Findings: Tobacco Non-User?Current non-smoker, currently using no form of tobacco.?Drugs/Alcohol:?Alcohol Screen?Did you have a drink containing alcohol in the past year??Yes,?How often did you have a drink containing alcohol in the past year??4 or more times a week (4 points),?How many drinks did you have on a typical day when you were drinking in the past year??3 or 4 drinks (1 point),?How often did you have 6 or more drinks on one occasion in the past year??Never (0 point),?Points?5,?Interpretation?Positive.?Miscellaneous:?no Caffeine. Children: yes. no Exercise. no Home smoke detector use. Housing: owning. Living with: spouse. Marital status: . Occupation: weeks/months/years, retired. Pets: none. no Travel outside of the [place]. * Medications:?TakingPotassium Chloride ER 20 MEQ Tablet Extended Release [...] reviewed and reconciled with the patient * Allergies:?Amoxicillin: rash Clindamycin HCl: rashTriamcinolone & Emollient: rashNeoporacin: rashKeflex: rhrqRassamgk-Xcqypnyzy-Qhkwjomp: swellingyes[Allergies Verified] Objective: * Vitals:?Ht: 67, Wt:266, BMI: 41.66, BP:126/80 weight is up 2 pounds since 10-03-23. * ???Past Orders: ???Lab:PSA,Total (Free>4and< 10) (Order Date - 03/25/2024) (Collection Date - 03/25/2024) ? Value Reference Range ?PSA,Total (Free>4and<10) 2.67 0.00-4.00 - ng/mL ???Lab:Lipid Panel (Order Da 03/25/2024) (Collection Date - 03/25/2024) ? Value Reference Range ?Triglycerides 147 <150 - mg/dL ?Cholesterol 110 <200 - m g/dL ?LDL Cholesterol Calculated 47 <100 - mg/dL ?HDL Cholesterol 34 L >40 - mg/dL ???Lab:Comprehensive [place]. P mele Fast (Order Date 03/25/2024) (Collection Date - 03/25/2024) ? Value Reference Range ?Sodium 138 135-145 - mmo l/L ?Bilirubin Total 3.3 H 0.0- 1.0 - mg/dL ?Aspartate Amino Transferase 24 5-37 - U/L ?Alanine Aminotransferase 21 0-40 - U/L ?Total Protein 7.5 6.5-8. 0 - g/dL ?Albumin Level 4.2 3.5-5. 0 - g/dL ?Alkaline Phosphatase 106 39-117 - U/L ?Potassium 3.7 3.3-5.1 - mmol/L ?Chloride 100 96-108 - mm ol/L ?Carbon Dioxide 26 22-29 - mmol/L ?Anion Gap 16 12-20 - ?Blood Urea Nitrogen 13 9-16 - mg/dL ?Creatinine 1.27 0.5-1.4 - mg/dL ?Estimated Glomerular Filt Rate 56 - ?Glucose Fasting 104 H 60-9 9 - mg/dL ?Calcium 9.2 8.4-10.2 - m g/dL ???Lab:Complete Blood Count Auto Diff (Order Date - 03/25/2024) (Collection Date - 03/25/2024) ? Value Reference Range ?White Blood Count 9.3 4. 8-10.8 - X10*3/uL ?Red Blood Count 4.55 L 4.60 -5.80 - X10*6/uL ?Hemoglobin 15.3 14.0-18.0 - g/dl ?Hematocrit 44.2 42.0-52.0 - % ?Mean Corpuscular Volume 97.1 80.0-98.0 - fL ?Mean Corpuscular Hemoglobin 33.6 H 27.0-33.0 - pg ?Mean Corpuscular HGB Conc 34.6 31.0-36.0 - g/dl ?Red Cell Distribution Width 14.9 11.0-16.0 - % ?Platelet Count 152 L 160-4 00 - X10*3/uL ?Mean Platelet Volume 11.6 9.4-12.4 - fL ?Neutrophils Percent Auto 60.3 45-73 - % ?Imm Gran Pct Auto 0.3 0. 0-0.4 - % ?Lymphocytes Percent Auto 27.4 20-40 - % ?Monocytes Percent Auto 10.2 2-11 - % ?Eosinophils Percent Auto 1.2 0-4 - % ?Basophils Percent Auto 0.6 0-2 - % ?NRBC Pct Auto 0.0 0.0-0. 2 - /100WBC ?Neutrophils Absolute Auto 5.6 2.0-8.3 - x10*3/uL ?Imm Gran Abs Auto 0.03 0. 00-0.03 - X10*3/uL ?Lymphocytes Absolute Auto 2.5 1.2-4.9 - X10*3/uL ?Monocytes Absolute Auto 1.0 0.1-1.2 - X10*3/uL ?Eosinophils Absolute Auto 0.1 0.0-0.4 - X10*3/uL ?Basophils Absolute Auto 0.1 0.0-0.2 - X10*3/uL ?NRBC Abs Auto 0.000 0.0-0. 012 - X10*3/uL * Examination: ???General Examination: ?GENERAL APPEARANCE:? alert, well hydrated, in no distress .?HEAD:? normocephalic.?EYES:? BOTH EYES normal.?EARS:? BOTH EARS normal.?THROAT:? no erythema no exudate pharynx normal.?NECK/THYROID:? no carotid bruit no cervical lymphadenopathy.?SKIN:? good turgor no suspicious lesions.?HEART:? no murmurs, rubs, gallops regular rate and rhythm.?LUNGS:? no wheezes, rales, rhonchi good air movement clear to auscultation bilaterally.?BREASTS:? no masses palpable bilaterally.?ABDOMEN:? soft, nontender, nondistended no rebound tenderness no organomegaly .?RECTAL EXAM:? stool guaiac negative no masses palpable prostate normal.?MALE GENITOURINARY:? testes descended bilaterally rt testical atrophied testes descended bilaterally no testicular mass.? Assessment: * Assessment: 1.?Hypercholesteremia - E78. 00 (Primary)?2.?Longstanding persistent atrial fibrillation - I48.11?3.?Essential hypertension - I10?4.?Gilbert syndrome - E80.4?5.?Acquired thrombocytopenia - D69.6?6.?Chronic systolic heart failure - I50.22?7. Colon cancer screening - Z12.11?8.?Encounter for screening for depression - Z13.31? Plan: * Treatment: 2.?Longstanding persistent a trial fibrillation? Continue Warfarin Sodium Tablet, 5 MG, TAKE 1 1/2 TABLETS BY MOUTH DAILY FOR 90 DAYS.?LAB: UA ClnCatch+Micro w/rflx Cult Notes: stable, will contnue current regiment.?? 3.?Essential hypertension? Continue Metoprolol Succinate ER Tablet Extended Release 24 Hour, 100 MG, TAKE 1 TABLET BY MOUTH EVERY DAY FOR 90 DAYS;?Continue Metoprolol Succinate ER Tablet Extended Release 24 Hour, 50 MG, TAKE 1 TABLET BY MOUTH EVERY DAY WITH 100MG 90.?LAB: UA ClnCatch+Micro w/rflx Cult Notes: doing well, will continue current regiment.?? 4.?Gilbert syndrome? Notes: no treatment.?? 5.?Acquired thrombocytopenia ? Notes: satisfactory, will continue to monitor.?? 6.?Chronic systolic heart fa ilure? Continue Digoxin Tablet, 250 MCG, TAKE 1 TABLET BY MOUTH EVERY DAY FOR 90 DAYS.?? Notes: stable, will continue current regiment.?? 7.?Colon cancer screening?LAB: Occult Blood, Stool, Guaiac ? Value Reference Range ?Occult Blood, Stool, Guaiac Neg Notes: guaiac negative.??8.?Encounter for screening for depression? Notes: negative screen.?? * Procedure Codes:?05642 TEST FOR BLOOD, FECES * Preventive Medicine:? ??CHF Care Plan:?Patient Lifestyle Goals?Relieve symptoms and improve quality of life.?Treatment Goals?Take medicine exactly as directed and plan for RX refills.?Barriers ?No Specific barriers.?Self-Managment Goals?Monitor your symptoms daily.? * Follow Up:?6 Months (Reason: afib) * * Sign off status: Completed true * Provider:?Lalito Marcos MD Date:?0 04/01/2024 Generated for Shakeel pandey/Charisse/eTransmitting on:?10/31/2024 01:49 PM EST History and Physical Notes * [...] patient have a vision impairmen t?: Yes ?If yes, what is the vision impairment?: Glasses [...]
--- OUTSIDE RECORDS SUMMARY | 2024-10-31 13:49 | XMS_ITS ---
Author Organization Lalito Marcos MD Address [address] [place] [phone] Care Team Providers Care Equity Manager Name Role Phone Lalito Marcos Primary Care Provider Allergies Allergen (clinical drug ingredient) Drug/Non Drug Allergy documented on EMR Reaction Allergy Type Onset Date Status Keflex rash Drug Allergy Active Clindamycin HCl rash Drug Allergy A ctive Amoxicillin rash Drug Allergy Activ e Triamcinolone & Emollient rash Drug Allergy Active Neoporacin rash Drug Allergy Active Sbxkurnk-Hndgggvfl-S exa meth swelling Drug Allergy Active REASON FOR VISIT 6 [...] Location Date Provider Diagnosis Lalito Marcos MD [address] [place] [address] [place] [phone] 10/15/2024 Lalito Marcos Essential hypertensi on I10 [...] Year, Reason: A [place] Provider Name:Lalito zhang, 03/28/2025 07:00:00 AM, [address] [place] [address], [address], [phone], Provider Name:Lalito zhang, 04/03/2025 08:30:00 AM, [address] [place] [address], [address] [place] [address], [phone], Provider Name:Lalito zhang, 10/09/2025 07:45:00 AM, [address] [place] [address], [address] [place] [address], [phone], Provider Name:Lalito zhang, 10/16/2025 10:00:00 AM, [address] [place] [address], [address], [phone], Procedure Notes * Category Sub-Category Detail Notes Cerumen removal Procedure right ear, irrig ated with water/H2O2 Post-procedure Pt tolerated procedu re well Progress Notes * IVANIA WRIGHTOB: 5 (69 yo M)Acc No.[id number]:10/15/2024 Progress Note Patient:?DARIEN WRIGHT Provider:?Lalito Marcos MD :1955???Age:69 Y???Sex:Male Jared e:10/15/2024 Address:[address] [place], [place] [id number] Subjective: * Chief Complaints: * ???6 MO F/U, AWV * HPI: ???Depression Screening:?PHQ-9?Little interest or pleasure [...] of PHQ-9 found negative result, no follow-up needed.?Annual Wellness Visit:?c/o of?Annual Wellness Visit.?Medical / Social History Reviewed?The following items were reviewed and updated during today's visit?Past Medical History, [place] of Care, Surgical/Hospitalization History, Current medications including OTC and supplements, Family History, Tobacco use, Alcohol use, Illicit drug use.?Home Safety?Throw rugs??No,?Grab bars??Yes,?Raised toilet seats??No,?Working smoke detectors??Yes,?Working carbon monoxide detectors??Yes.?Activities of Daily Living (ADLs)?Difficulty bathing or showering??No,?Difficulty dressing??No,?Difficulty using the toilet??No,?Difficulty getting in and out of bed??No,?Difficulty walking??No,?Receives help from another person with any of the above?No.?End-of-Life Planning?End of Life Planning?Not needed.?Answers for HPI/ROS submitted by the patient?Change in Weight?No,?Change in hearing?No.? HRA filled out by the patient, reviewed by Provider and scanned. ???Communication Needs:?Communication Needs?Does the patient have a hearing [...] it was really needed? Check all that apply:?None.?Symptom(s):?patirnt is a 69 yo male here for 6 month follow up visit of abnormal HDL and elevated bilirubin, recent labs have been reviewed, compared to previous and discussed with patient, also??here for AWV evaluation. * ROS:?General/Constitutional:?Denies?Chills.?Denies?Fatigue.?Denies?Fever.?Denies?Headache.?ENT:?Patient denies?decreased sense of smell, any loss of taste, sore throat.?Denies?Sore throat.?Respiratory:?Denies?Cough.?Denies?Shortness of breath at rest.?Denies?Shortness of breath with exertion.?Cardiovascular:?Denies?Chest pain at rest.?Denies?Chest pain with exertion.?Denies?Dizziness.?Denies?Palpitations.?Denies?Shortness of breath.?Gastrointestinal:?Denies?Diarrhea.?Denies?Nausea.?Musculoskeletal:?Patient denies?muscle aches.?Peripheral Vascular:?Patient denies?red and blue toes.? [...] one occasion in the past year??Never (0 point),?Points?5,?Interpretation?Positive.?Miscellaneous:?Caffeine: no. Children: yes. Exercise: no. Home smoke detector use: no. Housing: owning. Living with: spouse. Marital status: . Occupation: weeks/months/years, retired. Pets: none. Travel outside of the [place]: no. * Medications:?TakingMetoprolo l Succinate ER 50 MG Tablet Extended Release [...] Clindamycin HCl: rashTriamcinolone & Emollient: rashNeoporacin: rashKeflex: lucjLzzsyolx-Oavkekfzf-Rbadsbmb: swellingyes[Allergies Verified] Objective: * Vitals:?Ht: 67, Wt: 272, BMI :42.6, BP:142/80, Repeat BP:150/96, Wt-k.38. weight is up 6 pounds since 04-01-24. * Examination: ???AWV: ?Balance?.?Hearing?.?EKG? Not clinically necessary.?Written plan?Completed.?General Examination: ?GENERAL APPEARANCE:? alert, well hydrated, in no distress .?HEAD:? normocephalic.?EYES:? BOTH EYES normal.?EARS:? BOTH EARS normal rt ear with decreased hearing and full of wax.?SKIN:? good turgor no suspicious lesions.?HEART:? no murmurs, rubs, gallops regular rate and rhythm.?LUNGS:? no wheezes, rales, rhonchi good air movement clear to auscultation bilaterally.? Assessment: * Assessment: 1.?Encounter for general chuck lt medical examination without abnormal findings - Z00.00 (Primary)???2.?Essential hypertension - I10???3.?Longstanding persistent atrial fibrillation - I48.11???4.?Hypercholesteremia - E78.00?? 5.?Chronic systolic heart failure - I50.22???6.?Hearing loss - H91.90???7.?Impacted cerumen of right ear - H61.21??? Plan: * Treatment: 2.?Longstanding persistent a trial fibrillation? Continue Warfarin Sodium Tablet, 5 MG, TAKE 1.5 TABLETS BY MOUTH EVERY DAY.?? Notes: on coumadin rate well controlled, will continue current regiment?? 3.?Hypercholesteremia? Continue Atorvastatin Calcium Tablet, 80 MG, TAKE 1 TABLET BY MOUTH EVERY DAY.?? Notes: stable, will cntinue current regiment?? 4.?Chronic systolic heart fa ilure? Notes: stable, is doing well, will continue current regiment?? 5.?Hearing loss? Notes: improved after wax removed, will cntinue to monitor?? 6.?Impacted cerumen of right ear? Notes: cerumen removed with good results?? * Procedures:?Cerumen removal:?Procedure?right ear, irrigated with water/H2O2.?Post-procedure?Pt tolerated procedure well.? * Procedure Codes:?G0439 ANNUA L WELLNESS VST; PPS SUBSQT VST * Preventive Medicine:? ??Counseling:?Care goal follow-up plan:?Counseling for abnormal BMI provided?Yes,?Above Normal BMI Follow-up?Dietary management education, guidance, and counseling, Dietary needs education, Giving encouragement to exercise.?Exercise?.?Communication to patient:?Counseling for nutrition provided?Yes,?Counseling for physical activity provided?Yes.?Social:?diet:?Discussed the importance of eating a nutritious healthy food on a regular basis,?exercise:?Discussed the benefits of any exercise for overall health and well-being,?alcohol and drugs:?Discussed the dangers of excessive alcohol intake.? ??SCREENING:?Colonoscopy?Next screening is scheduled, Next screening is scheduled.?Mammogram?Annual Mammogram recommended pt will self schedule, Annual Mammogram recommended pt will self schedule.? ??Immunizations:?Influenza?Have you had a flu shot since the most recent May 19??Yes.?Covid?patient vaccincated.? ??Screening/Special Tests:?Colonoscopy?.?Mammogram?.? * Follow Up:?1 Year (Reason: A [place]) * * Sign off status: Completed true * Provider:?Lalito Marcos MD Date:?0 10/15/2024 Generated for Shakeel pandey/Charisse/Cheriitting on:?10/31/2024 01:49 PM EST History and Physical [...] Total Score: 0 Interpretation and Intervention Depression Scree mercy Findings: Negative Follow-Up for Depression: : review [...] updated during today's visit: Past Medical History, [place] of Care, Surgical/Hospitalization History, Current medications including [...]
[2024-10-31 13:51] LABS: Prothrombin Time Whole Bld POC 24.4 sec (11.1-13.5)
--- NOTE | 2024-10-31 14:06 | MHC.OFFVISCO ---
Intake Intake Visit Reasons: Anticoagulation Allergies amoxicillin [Amoxicillin] Allergy (Unknown, Verified 10/31/24 13:44) RASH cephalexin [From Keflex] Allergy (Unknown, Verified 10/31/24 13:44) unknown clindamycin [Clindamycin] Allergy (Unknown, Verified 10/31/24 13:44) RASH Jeremiah poly Dex eye Allergy (Unknown, Uncoded 10/03/24 13:43) Unknown Medication List - Last Reconciled 10/31/24 by Karina Lucaino RN albuterol sulfate 90 mcg/actuation 2 puffs inhalation Q6H PRN atorvastatin (Lipitor) 80 mg PO DAILY chlorthalidone 25 mg PO DAILY digoxin 250 mcg PO DAILY metoprolol succinate ER 50 mg PO DAILY metoprolol succinate ER 100 mg PO DAILY potassium chloride ER 40 mEq PO DAILY warfarin 5 mg See Protocol PO DAILY Nursing Note NO CP,SOB,DIET/MED CHANGES,FALLS OR SX OF BLEEDING. CONTINUE PRESENT DOSE AND FOLLOW-UP IN 4 WEEKS. 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
== END 2024-10-31 14:07 | disposition home or self-care (01) ==
LOC: HO.ACS 13:43
PROVIDERS: PCP Internal Medicine; Visit Provider Internal Medicine
DX: Z79.01 Long term (current) use of anticoagulants (principal)

== ENCOUNTER → 2024-10-31 13:43 | Outpatient (BNVA) | payer MEDICARE, OTHER, SELFPAY | PROVIDERS: PCP Internal Medicine; Visit Provider Internal Medicine | DX: I48.19 Other persistent atrial fibrillation (principal); Z79.01 Long term (current) use of anticoagulants; Z51.81 Encounter for therapeutic drug level monitoring | CPT/HCPCS: 85610; 99211 ==

== ENCOUNTER 2024-11-28 13:39 | Outpatient (AMB) | payer MEDICARE, OTHER, SELFPAY ==
[2024-11-28 13:57] LABS: ~PT, ~INR - Anti Coag Clinic 4.3 (0.9-1.1)
--- NOTE | 2024-11-28 14:03 | MHC.OFFVISCO ---
Intake Intake Visit Reasons: Anticoagulation Allergies amoxicillin [Amoxicillin] Allergy (Unknown, Verified 11/28/24 13:53) RASH cephalexin [From Keflex] Allergy (Unknown, Verified 11/28/24 13:53) unknown clindamycin [Clindamycin] Allergy (Unknown, Verified 11/28/24 13:53) RASH Jeremiah poly Dex eye Allergy (Unknown, Uncoded 11/28/24 13:53) Unknown Medication List - Last Reconciled 11/28/24 by Megan Teixeira, RN albuterol sulfate 90 mcg/actuation 2 puffs inhalation Q6H PRN atorvastatin (Lipitor) 80 mg PO DAILY chlorthalidone 25 mg PO DAILY digoxin 250 mcg PO DAILY metoprolol succinate ER 50 mg PO DAILY metoprolol succinate ER 100 mg PO DAILY potassium chloride ER 40 mEq PO DAILY warfarin 5 mg See Protocol PO DAILY Nursing Note INR: 4.3?out of therapeutic range of 2-3 Medications and supplements reviewed Patient status: well Medications or supplements: denies changes Diet: usual diet for pt Denies any signs and symptoms of bleeding or clotting or unusual bruising Bleeding, bruising, clotting discussed and pt is aware to watch for blood in urine or stool or any excessive bleeding that won't stop. Also if he hits his head to go to ER for ct scan to R/O bleed. Nutritional guidance given: to have a serving of greens today. Pt states he will have spinach. Dose: decrease today's dose to 2.5mg (7.5mg) then resume usual dose of 7.5mg X 6 days and 5mg X 1 day (Mon) F/U INR Date : 1 week?? Patient verbalizing understanding of instructions given. 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
--- OUTSIDE RECORDS SUMMARY | 2024-11-28 17:13 | XMS_ITS ---
Author Organization Lalito Marcos MD Address [address] [place], [place] [phone] Care Team Providers Care Enrollment Advisor Name Role Phone Lalito Marcos Primary Care Provider [phone] Results Component Value Reference Range Notes Liver Panel Reviewed date:10/04/2024 01:39:16 PM Interpretation: Performing Lab:[facility], [address] [place] [phone] Notes/Report: Bilirubin Total 2.7 0.0-1.0 mg/dL Slight Icte aranza. Bilirubin Direct 0.6 0.0-0.5 mg/dL Slight Ict erus. Aspartate Amino Transferase 29 5-37 U/L Alanine Aminotransferase 15 0-40 U/L Total Protein 7.5 6.5-8.0 g/dL Albumin Level 4.0 3.5-5.0 g/dL Alkaline Phosphatase 104 39-117 U/L Lipid Panel with Reflex Reviewed date:10/04/2024 01:38:10 PM Interpretation: Performing Lab:[facility], [address] [place] [phone] Notes/Report: Triglycerides 131 <150 mg/dL Desirable Triglyceride: [...] Location Date Provider Diagnosis Lalito Marocs MD [address] [place] [phone] 10/04/2024 Lalito Marcos Hypercholesteremia E 78.00 Assessments Encounter Date Diagnosis (ICD Code) Assessment Notes Treatment Notes Treatment Clinical Notes Section Notes 10/04/2024 Hypercholesteremia (ICD-10 - E78.00) Plan Of Treatment Next Appt Details Provider Name:Lalito zhang, 03/28/2025 07:00:00 AM, [address] [place] [address], [address], [phone], Provider Name:Lalito zhang, 04/03/2025 08:30:00 AM, [address] [place] [address], [address], [phone], Provider Name:Lalito zhang, 10/09/2025 07:45:00 AM, [address] [place] [address], [address], [phone], Provider Name:Lalito zhang, 10/16/2025 10:00:00 AM, [address] [facility], [address], [place], [place], [phone], Progress Notes * IVANIA WRIGHTOB: (69 yo M)Acc No.[id number]:10/04/2024 Progress Note Patient:?DARIEN WRIGHT Provider:?Lalito Marcos MD :1955???Age:69 Y???Sex:Male Jared e:10/04/2024 Address:[address] [place] [address], [facility] Subjective: * Chief Complaints: * ???1. FASTING [...] 00 (Primary)??? Plan: * Treatment: * Procedure Codes:?78711 VENIP UNCT, ROUTINE* * * The named appointment provid er may or may not be the originator of this progress note, and it is not deemed complete until electronically signed by the appointment provider. Sign off status: Pending * Provider:?Lalito Marcos MD Date:?0 10/04/2024 Generated for Shakeel pandey/Charisse/Marisol on:?11/28/2024 05:13 PM EDT
--- OUTSIDE RECORDS SUMMARY | 2024-11-28 17:14 | XMS_ITS ---
Author Organization Lalito Marcos MD Address [address] [place] [phone] Care Team Providers Care Chisel Trimmer Name Role Phone Lalito Marcos Primary Care Provider [phone] Allergies Allergen (clinical drug ingredient) Drug/Non Drug Allergy documented on EMR Reaction Allergy Type Onset Date Status Zewrrehl-Jzopdvtqv-L exa meth swelling Drug Allergy Active Keflex [...] t Reviewed date:04/01/2024 06:16:52 PM Interpretation: Performing Lab:[facility], [address] [place] [phone] Notes/Report: [id number] Urine, Clean Catch Color Urine Yellow Appearance Urine Clear PH 5.5 5.0-9.0 Glucose Urine UA Negative Negative mg/dL Urine Blood Negative Negative Specific Roby - Urine <= 1.005 1.005-1.025 Urine Protein [...] Location Date Provider Diagnosis Lalito Marcos MD [address] [place] [address] [place] [phone] 04/01/2024 Lalito Marcos Hypercholesteremia E 78.00 ; [...] afib Provider Name:Lalito zhang, 03/28/2025 07:00:00 AM, [address] [place] [address], Suite [facility], [place], [place], [phone], Provider Name:Lalito zhang, 04/03/2025 08:30:00 AM, [address], [address], [place], [phone], Provider Name:Lalito Castro vicente, 10/09/2025 07:45:00 AM, [address], [address], [place], [phone], Provider Name:Lalito Castro vicente, 10/16/2025 10:00:00 AM, [address], [address], [place], [phone], Progress Notes * MITZI WRIGHTRYLEEOB: (68 yo M)Acc No.[id number]:04/01/2024 Patient:?DARIEN WRIGHT Provider:?Lalito Marcos MD :1955???Age:68 Y???Sex:Male Jared e:04/01/2024 Address:[address] [place] [address], [facility] Subjective: * Chief Complaints: * ???Review labs [...] Clindamycin HCl: rashTriamcinolone & Emollient: rashNeoporacin: rashKeflex: yaniMvqxnjeh-Yuujrlbiw-Uzwszvga: swellingyes[Allergies Verified] Objective: * Vitals:?Ht: 67, Wt:266, [...] Cholesterol 34 L >40 - mg/dL ???Lab:[facility] [place]. P mele Fast (Order Date 03/25/2024) (Collection [...] for depression? Notes: negative screen.?? * Procedure Codes:?18549 TEST FOR BLOOD, FECES * Preventive Medicine:? ??CHF Care Plan:?Patient Lifestyle Goals?Relieve symptoms and improve quality of life.?Treatment Goals?Take medicine exactly as directed and plan for RX refills.?Barriers ?No Specific barriers.?Self-Managment Goals?Monitor your symptoms daily.? * Follow Up:?6 Months (Reason: afib) * * Sign off status: Completed true * Provider:?Lalito Marcos MD Date:?0 04/01/2024 Generated for Shakeel pandey/Charisse/eTransmitting on:?11/28/2024 05:14 PM EDT History and Physical Notes * [...]
--- OUTSIDE RECORDS SUMMARY | 2024-11-28 17:14 | XMS_ITS ---
Author Organization Lalito Marcos MD Address [address] [place] [phone] Care Team Providers Care Ride Operator Name Role Phone Lalito Marcos Primary Care Provider Allergies Allergen (clinical drug ingredient) Drug/Non Drug Allergy documented on EMR Reaction Allergy Type Onset Date Status Hhwcwvju-Xzzacwcmr-Z exa meth swelling Drug Allergy Active Keflex [...] Location Date Provider Diagnosis Lalito Marcos MD [address] [place] [address] [address] [place], [place] [phone] 10/15/2024 Lalito Marcos Essential hypertensi on I10 [...] [place] Provider Name:Lalito zhang, 03/28/2025 07:00:00 AM, [address] [place] [address], [address], [phone], Provider Name:Lalito zhang, 04/03/2025 08:30:00 AM, [address] [place] [address], [address], [phone], Provider Name:Lalito zhang, 10/09/2025 07:45:00 AM, [address] [place] [address], [address], [phone], Provider Name:Lalito zhang, 10/16/2025 10:00:00 AM, [address] [place] [address], [address], [phone], Procedure Notes * Category Sub-Category Detail Notes Cerumen removal Procedure right ear, irrig ated with water/H2O2 Post-procedure Pt tolerated procedu re well Progress Notes * IVANIA WRIGHTOB: (69 yo M)Acc No.[id number]:10/15/2024 Progress Note Patient:?DARIEN WRIGHT Provider:?Lalito Marcos MD :1955???Age:69 Y???Sex:Male Jared e:10/15/2024 Address:[address] [place] [address] [address] [facility] Subjective: * Chief Complaints: * ???6 MO [...] and updated during today's visit?Past Medical History, [place] of Care, Surgical/Hospitalization History, Current medications including [...] Clindamycin HCl: rashTriamcinolone & Emollient: rashNeoporacin: rashKeflex: dvmvWscofewq-Ntytaervd-Jwfnfpiz: swellingyes[Allergies Verified] Objective: * Vitals:?Ht: 67, Wt: [...] Marcos MD Date:?0 10/15/2024 Generated for Shakeel pandey/Charisse/eTransmitting on:?11/28/2024 05:13 PM EDT History and Physical Notes * [...] updated during today's visit: Past Medical History, [place] of Care, Surgical/Hospitalization History, Current medications including [...]
== END 2024-11-28 14:08 | disposition home or self-care (01) ==
LOC: HO.ACS 13:39
PROVIDERS: PCP Internal Medicine; Visit Provider Internal Medicine
DX: Z79.01 Long term (current) use of anticoagulants (principal)

== ENCOUNTER → 2024-11-28 13:39 | Outpatient (BNVA) | payer MEDICARE, OTHER, SELFPAY | PROVIDERS: PCP Internal Medicine; Visit Provider Internal Medicine | DX: I48.19 Other persistent atrial fibrillation (principal); Z79.01 Long term (current) use of anticoagulants; Z51.81 Encounter for therapeutic drug level monitoring | CPT/HCPCS: 85610; 99211 ==

== ENCOUNTER 2024-12-05 13:58 | Outpatient (AMB) | payer MEDICARE, OTHER, SELFPAY ==
--- NOTE | 2024-12-05 14:11 | MHC.OFFVISCO ---
Intake Intake Visit Reasons: Anticoagulation Allergies amoxicillin [Amoxicillin] Allergy (Unknown, Verified 12/05/24 13:59) RASH cephalexin [From Keflex] Allergy (Unknown, Verified 12/05/24 13:59) unknown clindamycin [Clindamycin] Allergy (Unknown, Verified 12/05/24 13:59) RASH Jeremiah poly Dex eye Allergy (Unknown, Uncoded 12/05/24 13:59) Unknown Medication List - Last Reconciled 12/05/24 by Riya Armstrong RN albuterol sulfate 90 mcg/actuation 2 puffs inhalation Q6H PRN atorvastatin (Lipitor) 80 mg PO DAILY chlorthalidone 25 mg PO DAILY digoxin 250 mcg PO DAILY metoprolol succinate ER 50 mg PO DAILY metoprolol succinate ER 100 mg PO DAILY potassium chloride ER 40 mEq PO DAILY warfarin 5 mg See Protocol PO DAILY Nursing Note INR: 2.7 in therapeutic range Medications and supplements reviewed No changes in health, diet, medications, or supplements, Denies any signs and symptoms of bleeding or bruising or clotting. Bleeding, bruising, clotting discussed Nutritional guidance given - KEEP UP WEEKLY GREENS Dose: KEEP SAME DOSE 5MG WED/ 7.5MG X 6 DAYS F/U INR: 1 MONTH Patient verbalizes understanding of instructions given Anti-Coag Initial Assessment Social Hx Patient Tobacco Use Status: Never used Tobacco alcohol intake: current Alcohol intake frequency: holidays/special occasions only Questionnaires HAS-BLED Does the patient had uncontrolled Hypertension?: No Does the patient have renal disease?: Yes Does the patient have liver disease?: No Does the patient have a history of stroke?: No Has the patient had major bleeding or predisposition to bleeding?: No Does the patient have labile INRs?: No Is the patient over 65 years of age?: Yes Is the patient on medications that gives them a predisposition to bleeding?: Yes Does the patient use alcohol?: Yes HAS-BLED Score: 4 CHADSVASC Age: 66-74 Gender: Male Does the patient have a history of CHF?: No Does the patient have a history of Hypertension?: Yes Does the patient have a history of Stroke/TIA/Thromboembolism?: No Does the patient have a history of Vascular Disease (prior MA, PAD or aortic plaque)?: No Does the patient have a history of Diabetes?: No CHADS VACS Score: 2 Marisabel Prediction Score Rsk VTE Active Cancer: No (skin cancer) Previous VTE, excluding superficial vein thrombosis: No Reduced mobility: No Already known Thrombophilic Condition: No With-in last month Trauma and/or Surgery: No Elderly 70 year or older: No Heart and/or Respiratory Failure: No Acute Myocardial infarction and/or Ischemic Stroke: No Acute Infection and/or Rheumatologic Disorder: No Obesity (BMI 30 or greater): Yes Ongoing Hormonal Treatment: No Score: 1 Marisabel Score less than 4; Low Risk of VTE Marisabel Score 4 or greater; High Risk of VTE Coding Level of Care Code Est Patient Level 1 Diagnoses Current use of anticoagulant therapy Z79.01 Results AMB INR Fingerstick AMB INR Fingerstick 2.7 Last Edit by Riya Armstrong RN on 12/05/24 14:06 MANUAL ENTRY Assessment & Plan Assessment & Plan (1) Current use of anticoagulant therapy: Code(s): Z79.01 - prison (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
[2024-12-05 15:31] LABS: Prothrombin Time Whole Bld POC 32.6 sec (11.1-13.5); ~PT, ~INR - Anti Coag Clinic 2.7 (0.9-1.1)
--- OUTSIDE RECORDS SUMMARY | 2024-12-05 16:40 | XMS_ITS ---
Author Organization Lalito Marcos MD Address [address] [place] [phone] Care Team Providers Care Carpenter Assembler Name Role Phone Lalito Marcos Primary Care Provider Allergies Allergen (clinical drug ingredient) Drug/Non Drug Allergy documented on EMR Reaction Allergy Type Onset Date Status Ijdzmobi-Ecrngbezf-D exa meth swelling Drug Allergy Active Keflex [...] Location Date Provider Diagnosis Lalito Marcos MD [address] [place] [address] [address] [place], [place] [phone] 10/15/2024 Lalito Marcos Essential hypertensi on I10 [...] [place] Provider Name:Lalito zhang, 03/28/2025 07:00:00 AM, [address] [place] [address], [address], [phone], Provider Name:Lalito zhang, 04/03/2025 08:30:00 AM, [address] [place] [address], [address], [phone], Provider Name:Lalito zhang, 10/09/2025 07:45:00 AM, [address] [place] [address], [address], [phone], Provider Name:Lalito zhang, 10/16/2025 10:00:00 AM, [address] [place] [address], [address], [phone], Procedure Notes * Category Sub-Category Detail Notes Cerumen removal Procedure right ear, irrig ated with water/H2O2 Post-procedure Pt tolerated procedu re well Progress Notes * IVANIA WRIGHTOB: (69 yo M)Acc No.[id number]:10/15/2024 Progress Note Patient:?DARIEN WRIGHT Provider:?Lalito Marcos MD :1955???Age:69 Y???Sex:Male Jared e:10/15/2024 Address:[address] [place] [address] [address] [facility] Subjective: * Chief Complaints: * ???6 MO [...] and updated during today's visit?Past Medical History, [place] of Care, Surgical/Hospitalization History, Current medications including [...] Clindamycin HCl: rashTriamcinolone & Emollient: rashNeoporacin: rashKeflex: oiciNcxbxfia-Zthedgglw-Amjrulsi: swellingyes[Allergies Verified] Objective: * Vitals:?Ht: 67, Wt: [...] MD Date:?0 10/15/2024 Generated for Shakeel pandey/Charisse/eTransmitting on:?12/05/2024 04:40 PM EDT History and Physical Notes * [...] updated during today's visit: Past Medical History, [place] of Care, Surgical/Hospitalization History, Current medications including [...]
--- OUTSIDE RECORDS SUMMARY | 2024-12-05 16:40 | XMS_ITS ---
Author Organization Lalito Marcos MD Address [address] [place] [phone] Care Team Providers Care Sommelier Name Role Phone Lalito Marcos Primary Care Provider [phone] Allergies Allergen (clinical drug ingredient) Drug/Non Drug Allergy documented on EMR Reaction Allergy Type Onset Date Status Vcsfafms-Ghfhwdlsw-W exa meth swelling Drug Allergy Active Keflex [...] t Reviewed date:04/01/2024 06:16:52 PM Interpretation: Performing Lab:[facility], [address] [place] [phone] Notes/Report: [id number] 0830 Urine, Clean Catch Color Urine Yellow Appearance Urine Clear PH 5.5 5.0-9.0 Glucose Urine UA Negative Negative mg/dL Urine Blood Negative Negative Specific Page - Urine <= 1.005 1.005-1.025 Urine Protein [...] Location Date Provider Diagnosis Lalito Marcos MD [address] [place] [address] [place] [phone] 04/01/2024 Lalito Marcos Hypercholesteremia E 78.00 ; [...] afib Provider Name:Lalito zhang, 03/28/2025 07:00:00 AM, [address] [place] [address], Suite [facility], [place], [place], [phone], Provider Name:Lalito zhang, 04/03/2025 08:30:00 AM, [address], [address], [place], [phone], Provider Name:Lalito Castro vicente, 10/09/2025 07:45:00 AM, [address], [address], [place], [phone], Provider Name:Lalito Castro vicente, 10/16/2025 10:00:00 AM, [address], [address], [place], [phone], Progress Notes * MITZI WRIGHTRYLEEOB: (68 yo M)Acc No.[id number]:04/01/2024 Patient:?DARIEN WRIGHT Provider:?Lalito Marcos MD :1955???Age:68 Y???Sex:Male Jared e:04/01/2024 Address:[address] [place] [address], [facility] Subjective: * Chief Complaints: * ???Review labs [...] Clindamycin HCl: rashTriamcinolone & Emollient: rashNeoporacin: rashKeflex: tgwaJcjpqglp-Ibphiowgp-Sqezbujh: swellingyes[Allergies Verified] Objective: * Vitals:?Ht: 67, Wt:266, [...] Cholesterol 34 L >40 - mg/dL ???Lab:[facility] [place]. P mele Fast (Order Date 03/25/2024) (Collection [...] for depression? Notes: negative screen.?? * Procedure Codes:?87436 TEST FOR BLOOD, FECES * Preventive Medicine:? ??CHF Care Plan:?Patient Lifestyle Goals?Relieve symptoms and improve quality of life.?Treatment Goals?Take medicine exactly as directed and plan for RX refills.?Barriers ?No Specific barriers.?Self-Managment Goals?Monitor your symptoms daily.? * Follow Up:?6 Months (Reason: afib) * * Sign off status: Completed true * Provider:?Lalito Marcos MD Date:?0 04/01/2024 Generated for Shakeel pandey/Charisse/eTransmitting on:?12/05/2024 04:40 PM [...]
--- OUTSIDE RECORDS SUMMARY | 2024-12-05 16:40 | XMS_ITS ---
Author Organization Lalito Marcos MD Address [address] [place], [place] [phone] Care Team Providers Care Regional Sales Associate Name Role Phone Lalito Marcos Primary Care Provider [phone] Results Component Value Reference Range Notes Liver Panel Reviewed date:10/04/2024 01:39:16 PM Interpretation: Performing Lab:[facility], [address] [place] [phone] Notes/Report: Bilirubin Total 2.7 0.0-1.0 mg/dL Slight Icte aranza. Bilirubin Direct 0.6 0.0-0.5 mg/dL Slight Ict erus. Aspartate Amino Transferase 29 5-37 U/L Alanine Aminotransferase 15 0-40 U/L Total Protein 7.5 6.5-8.0 g/dL Albumin Level 4.0 3.5-5.0 g/dL Alkaline Phosphatase 104 39-117 U/L Lipid Panel with Reflex Reviewed date:10/04/2024 01:38:10 PM Interpretation: Performing Lab:[facility], [address] [place] [phone] Notes/Report: Triglycerides 131 <150 mg/dL Desirable Triglyceride: [...] Location Date Provider Diagnosis Lalito Marcos MD [address] [place] [phone] 10/04/2024 Lalito Marcos Hypercholesteremia E 78.00 Assessments Encounter Date Diagnosis (ICD Code) Assessment Notes Treatment Notes Treatment Clinical Notes Section Notes 10/04/2024 Hypercholesteremia (ICD-10 - E78.00) Plan Of Treatment Next Appt Details Provider Name:Lalito zhang, 03/28/2025 07:00:00 AM, [address] [place] [address], [address], [phone], Provider Name:Lalito zhang, 04/03/2025 08:30:00 AM, [address] [place] [address], [address], [phone], Provider Name:Lalito zhang, 10/09/2025 07:45:00 AM, [address] [place] [address], [address], [phone], Provider Name:Lalito zhang, 10/16/2025 10:00:00 AM, [address] [facility], [address], [place], [place], [phone], Progress Notes * IVANIA WRIGHTOB: (69 yo M)Acc No.[id number]:10/04/2024 Progress Note Patient:?DARIEN WRIGHT Provider:?Lalito Marcos MD :1955???Age:69 Y???Sex:Male Jared e:10/04/2024 Address:[address] [place] [address], [facility] Subjective: * Chief Complaints: * ???1. FASTING [...] 00 (Primary)??? Plan: * Treatment: * Procedure Codes:?71075 VENIP UNCT, ROUTINE* * * The named appointment provid er may or may not be the originator of this progress note, and it is not deemed complete until electronically signed by the appointment provider. Sign off status: Pending * Provider:?Lalito Marcos MD Date:?0 10/04/2024 Generated for Shakeel pandey/Charisse/eTanju on:?12/05/2024 04:39 PM EDT
== END 2024-12-05 14:16 | disposition home or self-care (01) ==
LOC: HO.ACS 13:58
PROVIDERS: PCP Internal Medicine; Visit Provider Internal Medicine Medical Oncology
DX: Z79.01 Long term (current) use of anticoagulants (principal)

== ENCOUNTER → 2024-12-05 13:58 | Outpatient (BNVA) | payer MEDICARE, OTHER, SELFPAY | PROVIDERS: PCP Internal Medicine; Visit Provider Internal Medicine Medical Oncology | DX: I48.19 Other persistent atrial fibrillation (principal); Z79.01 Long term (current) use of anticoagulants; Z51.81 Encounter for therapeutic drug level monitoring | CPT/HCPCS: 85610; 99211 ==

== ENCOUNTER 2025-01-10 13:57 | Outpatient (AMB) | payer MEDICARE, OTHER, SELFPAY ==
--- NOTE | 2025-01-10 14:09 | MHC.OFFVISCO ---
Intake Intake Visit Reasons: Anticoagulation Allergies amoxicillin [Amoxicillin] Allergy (Unknown, Verified 01/10/25 14:05) RASH cephalexin [From Keflex] Allergy (Unknown, Verified 01/10/25 14:05) unknown clindamycin [Clindamycin] Allergy (Unknown, Verified 01/10/25 14:05) RASH Jeremiah poly Dex eye Allergy (Unknown, Uncoded 01/10/25 14:05) Unknown Medication List - Last Reconciled 01/10/25 by Jovana Horan RN albuterol sulfate 90 mcg/actuation 2 puffs inhalation Q6H PRN atorvastatin (Lipitor) 80 mg PO DAILY chlorthalidone 25 mg PO DAILY digoxin 250 mcg PO DAILY metoprolol succinate ER 50 mg PO DAILY metoprolol succinate ER 100 mg PO DAILY potassium chloride ER 40 mEq PO DAILY warfarin 5 mg See Protocol PO DAILY Nursing Note INR 3.2-?? out of therapeutic range OF 2-3 Medications and supplements reviewed Patient status: NO C.O, ? etoh Medications or supplements: no changes Diet: same Denies any signs and symptoms of bleeding or clotting or unusual bruising Bleeding, bruising, clotting discussed Nutritional guidance given: eat greens to lower Dose: 5mg today then cont 5mg x 1. 7.5mg x 6 F/U INR Date : pt ref earlier appt than 4 weeks Patient verbalizing understanding of instructions given. 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
[2025-01-10 14:10] LABS: Prothrombin Time Whole Bld POC 38.4 sec (11.1-13.5); ~PT, ~INR - Anti Coag Clinic 3.2 (0.9-1.1)
== END 2025-01-10 14:18 | disposition home or self-care (01) ==
LOC: HO.ACS 13:57
PROVIDERS: PCP Internal Medicine; Visit Provider Internal Medicine Medical Oncology
DX: Z79.01 Long term (current) use of anticoagulants (principal)

== ENCOUNTER → 2025-01-10 13:57 | Outpatient (BNVA) | payer MEDICARE, OTHER, SELFPAY | PROVIDERS: PCP Internal Medicine; Visit Provider Internal Medicine Medical Oncology | DX: I48.19 Other persistent atrial fibrillation (principal); Z79.01 Long term (current) use of anticoagulants; Z51.81 Encounter for therapeutic drug level monitoring | CPT/HCPCS: 85610; 99211 ==

== ENCOUNTER 2025-01-14 13:13 | Outpatient (REF) | payer MEDICARE, OTHER, SELFPAY ==
[2025-01-14 15:08] LABS: Anion Gap 14 (12-20); Blood Urea Nitrogen 17 mg/dL (9-16); Calcium 9.5 mg/dL (8.4-10.2); Carbon Dioxide 29 mmol/L (22-29); Chloride 100 mmol/L (96-108); Estimated Glomerular Filt Rate > 60; Glucose Random 146 mg/dL (60-115); Potassium 3.9 mmol/L (3.3-5.1); Sodium 139 mmol/L (135-145)
[2025-01-14 15:19] LABS: Digoxin 0.7 ng/mL (0.8-2.0)
== END 2025-01-14 13:14 | disposition home or self-care (01) ==
LOC: HO.LAB 13:13
PROVIDERS: PCP Internal Medicine; Visit Provider Internal Medicine
DX: I48.19 Other persistent atrial fibrillation (principal)
CPT/HCPCS: 36415; 80048; 80162; 93005; 99212

== ENCOUNTER 2025-01-14 13:13 | Outpatient (AMB) | payer MEDICARE, OTHER, SELFPAY ==
--- NOTE | 2025-01-14 13:24 | MHC.OFFVIS ---
Vital Signs 01/14/25 13:26 Height 5 ft 7 in Weight 270 lb 4.587 oz BMI 42.3 BP 140/70 H Blood Pressure Location Lt brachial Position Sitting Pulse 109 H Pulse Source Monitor Intake Visit Reasons: 1 yr f/up Paranormal Investigator Required: No Accompanied by: Self / Same As Patient Allergies amoxicillin [Amoxicillin] Allergy (Unknown, Verified 01/10/25 14:05) RASH cephalexin [From Keflex] Allergy (Unknown, Verified 01/10/25 14:05) unknown clindamycin [Clindamycin] Allergy (Unknown, Verified 01/10/25 14:05) RASH Jeremiah poly Dex eye Allergy (Unknown, Uncoded 01/10/25 14:05) Unknown Medication List - Last Reconciled 01/14/25 by Noel Madden MD albuterol sulfate 90 mcg/actuation 2 puffs inhalation Q6H PRN atorvastatin (Lipitor) 80 mg PO DAILY chlorthalidone 25 mg PO DAILY digoxin 250 mcg PO DAILY metoprolol succinate ER 50 mg PO DAILY metoprolol succinate ER 100 mg PO DAILY potassium chloride ER 40 mEq PO DAILY warfarin 5 mg See Protocol PO DAILY HPI Comments Details: Gordon returns for follow-up regarding chronic atrial fibrillation. He has had atrial fibrillation since approximately 2004. He also carries a diagnosis of congestive heart failure. In the past, seen by [facility] but not recently. Overall, he states he feels fine. No complaints whatsoever from cardiac. [facility] Medical History (Updated 07/06/21 @ 13:44 by Noel Madden MD) YEE (obstructive sleep apnea) Persistent atrial fibrillation CKD (chronic kidney disease) Hypertension Diabetes CHF (congestive heart failure) Surgical History History of inguinal hernia repair History of umbilical hernia repair Family History Father No problems noted. Mother Congestive heart failure Social History Alcohol intake: current Alcohol intake frequency: holidays/special occasions only Patient Tobacco Use Status: Never used Tobacco Review of Systems Const Denies chills, Denies fatigue, Denies fever(s), Denies frequent falls, Denies weakness, Denies weight gain and Denies weight loss ENT Denies dizziness Card Denies chest pain, Denies leg edema, Denies lightheadedness, Denies palpitations, Denies dyspnea and Denies dyspnea on exertion Resp Denies cough, Denies dyspnea and Denies dyspnea on exertion GI Denies hematochezia Musc Denies abnormal gait, Denies muscle weakness, Denies numbness, Denies radiating pain into limb and Denies tingling Neuro Denies abnormal gait, Denies dizziness, Denies frequent falls, Denies numbness, Denies tingling and Denies weakness Endo Denies fatigue and Denies palpitations Physical Exam Vital Signs: Last Vital Signs Pulse 109 H 01/14/25 13:26 BP 140/70 H 01/14/25 13:26 BMI result Body Mass Index 42.3 Const General: comfortable and no acute distress Orientation/consciousness: patient oriented x3 HEENT Other: Unremarkable Head: Yes normal to inspection Neck Neck: Yes normal visual inspection Chest Chest palpation & inspection: normal inspection of the chest Resp Auscultation: clear to auscultation bilaterally Cardio Palpation: normal PMI Heart sounds: S1 normal heart sound present, S2 normal heart sound present, no gallops, no murmurs and no rubs GI Palpation (GI): Soft to palpation Back/Spine/Pelvis Other: unremarkable Skin General skin exam: no rashes or lesions noted Neuro General: patient oriented x3 Extrem General: Yes normal to inspection Psych Mental Status: mental status grossly normal Office Procedures EKG Details: EKG with atrial fibrillation at a rate of 109/Min; rightward axis; nonspecific ST-T changes. 52275-Ynocxogwvglnuqksz, Complete Assessment & Plan Assessment & Plan (1) Persistent atrial fibrillation: Code(s): I48.19 - Other persistent atrial fibrillation Category: Medical Plan: Continue beta-blockers and digoxin. No recent digoxin levels on that can be rechecked. Atrial fibrillation rate is slightly fast and we discussed about Holter but patient states he would rather not have anything done. In this case, we will recheck another EKG in about 3 months. Otherwise, continue anticoagulation without changes. (2) Right ventricular enlargement: Code(s): I51.7 - Cardiomegaly Category: Medical Plan: Echocardiogram in the past with moderate right ventricular enlargement. Probably related to obesity and untreated sleep apnea. Remains on a small dose of diuretics. Clinically, no overt CHF symptoms or signs. (3) YEE (obstructive sleep apnea): Code(s): G47.33 - Obstructive sleep apnea (adult) (pediatric) Category: Medical Plan: He does not use CPAP. Has been discussed several times. Plan Discussion Notes I discussed with the patient his current faster heart rate due to Atrial Fibrillation and reiterated the importance of medication compliance with metoprolol and digoxin as prescribed. After confirming his understanding, we reviewed past management strategies, including lab work. The decision to perform a digoxin level check today was made following our conversation, given his last assessment in 2022. I informed him about the plan for a repeat EKG in three months and confirmed his agreement for monitoring his response to the treatment regimen. Patient was informed and verbally consented to the use of an ambient scribe for clinic note documentation during this visit. Orders: Orders Digoxin Today I48.19 - Other persistent atrial fibrillation Basic Metabolic Panel Today I48.19 - Other persistent atrial fibrillation Patient Instructions: - Take your metoprolol and digoxin daily as prescribed. - Complete your blood test for digoxin levels today at the lab. - Expect an EKG follow-up in three months; this has already been scheduled. - Report any new symptoms such as chest pain or difficulty breathing immediately. - Continue your current warfarin dose and notify of any issues. - Ensure consistency in taking your medications daily. Coding Level of Care Code Est Pt Level 4 (27397) Complex EM visit Add On G2211 Diagnoses Persistent atrial fibrillation I48.19 Right ventricular enlargement I51.7 YEE (obstructive sleep apnea) G47.33 CPT Codes EKG - CPT: 45800-Pysojoccqqzroenyr, Complete ([id number])
[2025-01-14 13:26] VITALS: BP 140/70; PULSE 109; BMI 42.3
--- OUTSIDE RECORDS SUMMARY | 2025-01-14 15:15 | XMS_ITS | Clinical Summary ---
Author Organization [facility] Address [address] [place] [address] Care Team Providers Care Electronics Worker Name Role Phone Community, Pcp Primary Care Provider Unavailabl e Allergies Active Allergy Reactions Severity Noted Date Comments Amoxicillin Trihydrate Hives/Urticaria High 04/12/20 06 Clindamycin Hcl Hives/Urticaria High 04/12/2006 Cephalexin 03/28/2017 Full body urticaria Lisinopril 04/04/2017 MARIANN Xksjsxxk-Ieivzxkcq-Ykzogcig Swelling/Edema 03/2014 Medications Medication Sig Dispensed Refills Start Date End Date Status hydrocortisone 2.5 % cream Apply sparingly to affected area up to twice a day. Avoid face and genitals. 30 g 0 05/22/2019 Active metoprolol (TOPROL-XL) 100 MG 24 hr tablet Take 1 Tab by mouth daily. (along WITH TOPROL XL 50 MG FOR A TOTAL DOSE OF 150 MG ONCE DAILY.) 90 Tab 1 09/23/2020 Active metoprolol (TOPROL-XL) 50 MG 24 hr tablet Take 1 Tab by mouth daily. (along WITH TOPROL XL 100 MG FOR A TOTAL DOSE OF 150 MG ONCE DAILY.) 90 Tab 1 09/23/2020 Active polyethylene glycol-electrolytes (NULYTELY WITH FLAVOR PACKS) 420 g solution Take 4,000 mL by mouth once for 1 dose. ( May substitute any 3350 peg)Drink prep according to the instructions from the office. 4000 mL 0 10/01/2020 Active bisacodyl (DULCOLAX) 5 MG EC tablet Take 4 tabs 1-2 hours prior to taking the bowel prep 4 Tab 0 10/01/2020 Active atorvastatin (LIPITOR) 80 MG tablet Take 1 Tab by mouth daily. 90 Tab 1 10/15/2020 Active digoxin (LANOXIN) 125 MCG tablet Take 1 Tab by mouth daily. 90 Tab 0 12/14/2020 Active chlorthalidone (HYGROTEN) 25 MG tablet Take 1 Tab by mouth daily. 90 Tab 1 12/16/2020 Active warfarin (COUMADIN) 5 MG tablet TAKE 1 & 1/2 TABLETS BY MOUTH AT THE SAME TIME OF DAY EVERY DAY, May cause heavy bleeding, Do not change dietary habits. 135 Tab 0 12/17/2020 Active Active Problems Problem Noted Date Polyp of colon 09/22/2020 Osteoarthritis of hands, bilateral 01/16 Chronic systolic CHF (congestive heart f ailure), NYHA class 2 11/19/2015 Prediabetes 10/23/2015 Rosacea 07/14/2014 CKD (chronic kidney disease), stage III 10/01/2013 Essential hypertension, benign 6 Pure hypercholesterolemia 07/21/2006 RIGHT EYE BLINDNESS 02/23/2006 Unspecified local infection of skin and subcutaneous tissue 02/23/2006 Overview: IMO update Morbid obesity 02/23/2006 Esophageal reflux 02/23/2006 Unspecified sleep apnea 02/23/2006 Overview: IMO update Contact dermatitis and other eczema, due to unspecified cause 02/23/2006 Compression fracture Overview: t spine Resolved Problems Problem Noted Date Resolved Date Alcohol abuse, unspecified 02/23/200612/01 Atrial fibrillation 02/23/2006 02/02/2021 Immunizations Name Administration Dates Next Due Influenza (> 6 Months) 06/15/2016,2014,07/14/2014,11/05,09/01/2010,08/22/2008,07/21/2006 ,06/29/2005 Influenza Vaccine-preservati ve Free-quadrivalent 4 Years 07/31/2019,07/23/2018 Pneumoccoccal(Adult) Polysac charide PPSV23 11/05/2012,07/21/2006 TETANUS/DIPTHERIA (ADULT) 11/21/2003 Tdap 07/14/2014 Zostavax 09/20/2016 Family History Medical History Relation Name Comments CAD Brother 1 HEART ARRYTHEMIA Brother 3 REQUIRED CA RDIOVERSION CABG Mother X'S 3 Diabetes Mother Colon Polyps Paternal Grandfather Relation Name Status Comments Brother 1 Alive ARRHYTHMIA Brother 2 Alive 2 healthy Brother 3 Father Alive Healthy 92 Maternal Grandfather (Age 55) [place] Maternal Grandmother (Age 77) DM , amputation followed by CVA Mother Kidney failure, DM,CABG,PVD Paternal Grandfather (Age 32) [place] Paternal Grandmother (Age 89) ol d age Sister Alive 3 healthy Social History Tobacco Use Types Packs/Day Years Used Date Smoking Tobacco: Never Smokeless Tobacco: Never Alcohol Use Standard Drinks/Week Comments Yes 0 (1 standard drink = 0.6 oz pur e alcohol) 30 - 40/ wk - weeekend only Sex Assigned at Date Recorded Not on file Last Filed Vital Signs Vital Sign Reading Time Taken Comments Blood Pressure 132/74 07/31/2019 9:53 AM EST Pulse 76 07/31/2019 9:24 AM EST Temperature 36.8 ??C (98.2 ??F) 07/31/2019 9:24 AM ES T Respiratory Rate 18 07/31/2019 9:24 AM EST Oxygen Saturation 97% 03/24/2014 10:01 AM EDT Inhaled Oxygen Concentration - - Weight 114.5 kg (252 lb 8 oz) 07/31/2019 9:24 AM EST Height 170.2 cm (5' 7 ) 07/31/2019 9:24 AM EST Body Mass Index 39.55 07/31/2019 9:24 AM EST Plan of Treatment Health Maintenance Due Date Last Done Comments Covid-19 Vaccine (#1) 1955 SHINGLES VACCINE (2 of 3) 11/15/2016 09/20/2016 PNEUMOCOCCAL VACCINE (2 - PCV) 2020 11/05/2012 , 07/21/2006 COLON CANCER SCREENING 10/27/2023 1, 10/30/2017 (External Completion), 10/30/2017 DTAP/TDAP/TD (2 - Td or Tdap) 07/14/2024 07/14/2014 BMI CHECK/ADVISE 09/18/2024 07/31/2019, 12/2018, 03/15/2019, Additional history exists INFLUENZA (Season Ended) 2025 019, 07/23/2018, 07/17/2017, Additional history exists CHOLESTEROL SCREENING 10/26/2025 10/26/2020 , 09/21/2020, 09/06/2019, Additional history exists HEPATITIS C SCREENING Completed 06/18/2012 Care Teams Electronics Worker Relationship Specialty Start Date End Date Community, Pcp PCP - General Internal Medicine 02/02/21
--- OUTSIDE RECORDS SUMMARY | 2025-01-14 15:15 | XMS_ITS | Encounter Summary ---
Author Organization [facility] Address [address] [place] [address] Care Team Providers Care Welding Systems And Equipment Repairer Name Role Phone Trino Castillo MD Primary Care Provider Ebonie Cantu MD Primary Care Provider Ismael veloz [facility], Pcp Primary Care Provider Vickie lawrence Encounter Details Date Type Department Care Team Description 05/17/2005 Orders Only Adult Medicine - [address] [id number] Taylor Acosta LONG-TERM (CURRENT) USE OF ANTICOAGULANTS (Primary Dx) Social History Tobacco Use Types Packs/Day Years Used Date Smoking Tobacco: Never Assessed Sex Assigned at Date Recorded Not on file documented as of this encounter Plan of Treatment Scheduled Orders Name Type Priority Associated Diagnoses Orde r Schedule VENIPUNCTURE Lab Routine Long-Term (Current) Use Of Anticoagulants Ordered: 05/17/2005 documented as of this encounter Procedures Procedure Name Priority Date/Time Associated Diagnosis Comments CHG PROTHROMBIN TIME Routine 05/17/2005 9:15 AM EDT Long-Term (Current) Use Of Anticoagulants documented in this encounter Results * (ABNORMAL) PROTHROMBIN TIME (05/17/2005 9:15 AM EDT) Prothrombin Time 22.5(H) 9.0 - 11.8 SEC [facility] Comment:Note new normal rang e effective April 06, 2005 INR 2.20 [facility] 05/17/2005 9:15 AM EDT 05/17/2005 9:18 AM EDT Taylor Acosta [facility] documented in this encounter Visit Diagnoses Diagnosis halfway (current) use of anticoagulants- Primary Long-term (current) use of anticoagulants documented in this encounter Care Teams Welding Systems And Equipment Repairer Relationship Specialty Start Date End Date Trino Castillo MD PCP - General 03/18/1991 07/21/15 Ebonie Valladares MD PCP - General Internal Medicine 07/22/15 02/01/21 [facility], Pcp PCP - General Internal Medicine 02/02/21 documented as of this encounter
--- OUTSIDE RECORDS SUMMARY | 2025-01-14 15:15 | XMS_ITS | Encounter Summary ---
Author Organization [facility] Address [address] [place] [address] Care Team Providers Care Environmental Sampler Name Role Phone Trino Castillo MD Primary Care Provider Ebonie Cantu MD Primary Care Provider Ismael [facility] Pcp Primary Care Provider Unavailabl e Reason for Visit * Reason Onset Date Comments refill request 10/31/2011 Encounter Details Date Type Department Care Team Description 10/31/2011 Refill Medicine/Pediatrics - [address] [phone] Trino Castillo MD refill request Social History Tobacco Use Types Packs/Day Years Used Date Smoking Tobacco: Never Alcohol Use Standard Drinks/Week Comments Yes 0 (1 standard drink = 0.6 oz pur e alcohol) 50 / wk Sex Assigned at Date Recorded Not on file documented as of this encounter Miscellaneous Notes * Telephone Encounter - Leah Gasca M.A. - 11/01/2011 11:34 AM EST Scripts done to mail order by Dr. Castillo - pt needs ov. * Telephone Encounter - Wu Costa - 11/01/2011 10:56 AM EST Left message with female at pt's home number to call and book appt * Telephone Encounter - Maricarmen Gotti L.P.N. - 11/01/2011 10:52 AM EST Pt needs fu apt [facility] will call and booked Please sign rx * Telephone Encounter - Maricarmen Gotti L.P.N. - 10/31/2011 2:10 PM EST Can you change ins coverage * Telephone Encounter - Julieta Allen - 10/31/2011 2:04 PM EST MAIL ORDER REFILL REQUEST When was the patients last visit with PCP?: 04/25/2011 When was the patients last visit in Medicine: N/A Does the patient have a future appointment? Is the doctor here today?: YES Can the message wait until the doctor returns? : NO Is the med requested on the list?:Yes What mail order pharmacy does patient have?: [facility] (NOT participating-must click pharmacy link and select as pharmacy) Let the patient know that if their pharmacy is participating we will automatically route this mail order refill to them via their mail order pharmacy. Is the following the patients current home address: [address] [place] [id number] yes If their mail order pharmacy is NOT a participating pharmacy we can: Is this the patients current medical insurance carrier? Payor: [employer] Plan: [email or web address] $20 [place] Product Type: HMO [id number] YES documented in this encounter Plan of Treatment Not on file documented as of this encounter Visit Diagnoses Not on filedocumented in this encounter Care Teams Environmental Sampler Relationship Specialty Start Date End Date Trino Castillo MD PCP - General 03/18/1991 07/21/15 Ebonie Valladares MD PCP - General Internal Medicine 07/22/15 02/01/21 [facility], Pcp PCP - General Internal Medicine 02/02/21 documented as of this encounter
--- OUTSIDE RECORDS SUMMARY | 2025-01-14 15:15 | XMS_ITS | Encounter Summary ---
Author Organization [facility] Address [address] [place] [address] Care Team Providers Care Textile Conversion Manager Name Role Phone Ebonie Valladares MD Primary Care Provider Ismael veloz [facility], Pcp Primary Care Provider Vickie lawrence Reason for Visit * Reason Onset Date Comments Electronic Publishing Specialist Feedback 04/13/2017 X-ray imaging Encounter Details Date Type Department Care Team Description 04/13/2017 Telephone Medicine/Pediatrics - [address] [phone] Jaja Rico PA-C Electronic Publishing Specialist Feedback (X-ray imaging) Social History Tobacco Use Types Packs/Day Years Used Date Smoking Tobacco: Never Smokeless Tobacco: Never Alcohol Use Standard Drinks/Week Comments Yes 0 (1 standard drink = 0.6 oz pur e alcohol) 30 - 40/ wk - weeekend only Sex Assigned at Date Recorded Not on file documented as of this encounter Miscellaneous Notes * Telephone Encounter - Lydia Metcalf - 04/13/2017 1:33 PM EDT Can you please forward patient X-ray threw PACS so [facility] can retreive the imaging of patient back thanks. documented in this encounter Plan of Treatment Not on file documented as of this encounter Visit Diagnoses Not on filedocumented in this encounter Care Teams Textile Conversion Manager Relationship Specialty Start Date End Date Ebonie Valladares MD PCP - General Internal Medicine 07/22/15 02/01/21 [facility], Pcp PCP - General Internal Medicine 02/02/21 documented as of this encounter
--- OUTSIDE RECORDS SUMMARY | 2025-01-14 15:15 | XMS_ITS | Encounter Summary ---
Author Organization [facility] Address [address] [place] [address] Care Team Providers Care Defense Analyst Name Role Phone Ebonie Valladares MD Primary Care Provider Ismael veloz [facility], Pcp Primary Care Provider Vickie lawrence Encounter Details Date Type Department Care Team Description 11/02/2015 Release of Information Medical Records [address] [place] [id number] Abstract, Provider Social History Tobacco Use Types Packs/Day Years Used Date Smoking Tobacco: Never Smokeless Tobacco: Never Alcohol Use Standard Drinks/Week Comments Yes 0 (1 standard drink = 0.6 oz pur e alcohol) 30 - 40/ wk - weeekend only Sex Assigned at Date Recorded Not on file documented as of this encounter Plan of Treatment Not on file documented as of this encounter Visit Diagnoses Not on filedocumented in this encounter Care Teams Defense Analyst Relationship Specialty Start Date End Date Ebonie Valladares MD PCP - General Internal Medicine 07/22/15 02/01/21 [facility], Pcp PCP - General Internal Medicine 02/02/21 documented as of this encounter
--- OUTSIDE RECORDS SUMMARY | 2025-01-14 15:15 | XMS_ITS | Encounter Summary ---
Author Organization [facility] Address [address] [place] [address] Care Team Providers Care Car Top Bolter Name Role Phone Trino Castillo MD Primary Care Provider Ebonie Cantu MD Primary Care Provider Ismael veloz [facility], Pcp Primary Care Provider Vickie lawrence Encounter Details Date Type Department Care Team Description 06/17/2005 Orders Only Adult Medicine - [address] [phone] Taylor Acosta LONG-TERM (CURRENT) USE OF ANTICOAGULANTS (Primary Dx) Social History Tobacco Use Types Packs/Day Years Used Date Smoking Tobacco: Never Assessed Sex Assigned at Date Recorded Not on file documented as of this encounter Plan of Treatment Scheduled Orders Name Type Priority Associated Diagnoses Orde r Schedule VENIPUNCTURE Lab Routine Long-Term (Current) Use Of Anticoagulants Ordered: 06/17/2005 documented as of this encounter Procedures Procedure Name Priority Date/Time Associated Diagnosis Comments CHG PROTHROMBIN TIME Routine 06/17/2005 10:42 AM EDT Long-Term (Current) Use Of Anticoagulants documented in this encounter Results * (ABNORMAL) PROTHROMBIN TIME (06/17/2005 10:42 AM EDT) Prothrombin Time 38.5(H) 9.0 - 11.8 SEC [facility] INR 3.80 [facility] 06/17/2005 10:4 2 AM EDT 06/17/2005 10:46 AM EDT Taylor Acosta [facility] documented in this encounter Visit Diagnoses Diagnosis halfway (current) use of anticoagulants- Primary Long-term (current) use of anticoagulants documented in this encounter Care Teams Car Top Bolter Relationship Specialty Start Date End Date Trino Castillo MD PCP - General 03/18/1991 07/21/15 Ebonie Valladares MD PCP - General Internal Medicine 07/22/15 02/01/21 [facility], Pcp PCP - General Internal Medicine 02/02/21 documented as of this encounter
--- OUTSIDE RECORDS SUMMARY | 2025-01-14 15:15 | XMS_ITS | Encounter Summary ---
Author Organization [facility] Address [address] [place] [address] Care Team Providers Care Tire Repairer Name Role Phone Community, Pcp Primary Care Provider Unavailabl e Reason for Visit * Reason Onset Date Comments Information Needed 03/25/2021 Encounter Details Date Type Department Care Team Description 03/25/2021 Telephone Adult Medicine [address] [phone] Community, Pcp Information Needed Social History Tobacco Use Types Packs/Day Years Used Date Smoking Tobacco: Never Smokeless Tobacco: Never Alcohol Use Standard Drinks/Week Comments Yes 0 (1 standard drink = 0.6 oz pur e alcohol) 30 - 40/ wk - weeekend only Sex Assigned at Date Recorded Not on file documented as of this encounter Miscellaneous Notes * Telephone Encounter - Mary Gerber C.M.A - 03/26/2021 10:20 AM EDT I called pt, left a voicemail to return our call. Looks as though pt has a new pcp. He Will need to come in and fill out a release or have his new provider send over a release that he has signed. * Telephone Encounter - Hossein Salter - 03/25/2021 11:49 AM EDT Information Needed Who is calling: Other Dr. Miranda's office Information being requested? Needs a presidential helicopter crew chief of PSA test results taken last year If information is regarding a referral and notes are needed- transfer call to HIM department If other information is needed, was an MCKENZIE signed? How is the information to be communicated back to the caller? Faxed to [phone] documented in this encounter Plan of Treatment Not on file documented as of this encounter Visit Diagnoses Not on filedocumented in this encounter Care Teams Tire Repairer Relationship Specialty Start Date End Date Community, Pcp PCP - General Internal Medicine 02/02/21 documented as of this encounter
--- OUTSIDE RECORDS SUMMARY | 2025-01-14 15:15 | XMS_ITS | Encounter Summary ---
Author Organization [facility] Address [address] [place] [address] Care Team Providers Care Range Scientist Name Role Phone Trino Castillo MD Primary Care Provider Ebonie Cantu MD Primary Care Provider Ismael veloz [facility], Pcp Primary Care Provider Vickie lawrence Encounter Details Date Type Department Care Team Description 03/04/2005 Orders Only Adult Medicine - [address] [id number] Taylor Acosta ATRIAL FIBRILLATION (Primary Dx) Social History Tobacco Use Types Packs/Day Years Used Date Smoking Tobacco: Never Assessed Sex Assigned at Date Recorded Not on file documented as of this encounter Plan of Treatment Scheduled Orders Name Type Priority Associated Diagnoses Orde r Schedule VENIPUNCTURE Lab Routine Atrial Fibrillation Ordered: 03/04/2005 documented as of this encounter Procedures Procedure Name Priority Date/Time Associated Diagnosis Comments PROTHROMBIN TIME WITH INR-[place] Routine 03/04/2005 9:55 AM EDT Atrial Fibrillation documented in this encounter Results * (ABNORMAL) PROTHROMBIN TIME WITH INR-[place] (03/04/2005 9:55 AM EDT) Prothrombin Time 22.7(H) 9.0 - 10.8 SEC [facility] INR 2.22 [facility] Comment: Performed at [facility], [address] [place] [address] 03/04/2005 9:55 AM EDT 03/04/2005 10:42 AM EDT Taylor Acosta LAB [facility] [employer] documented in this encounter Visit Diagnoses Diagnosis Atrial fibrillation (HCC)- Primary Atrial fibrillation documented in this encounter Care Teams Range Scientist Relationship Specialty Start Date End Date Trino Castillo MD PCP - General 03/18/1991 07/21/15 Ebonie Valladares MD PCP - General Internal Medicine 07/22/15 02/01/21 [facility], Pcp PCP - General Internal Medicine 02/02/21 documented as of this encounter
--- OUTSIDE RECORDS SUMMARY | 2025-01-14 15:15 | XMS_ITS | Encounter Summary ---
Author Organization [facility] Address [address] [place] [address] Care Team Providers Care Dry Box Operator Name Role Phone Trino Castillo MD Primary Care Provider Ebonie Cantu MD Primary Care Provider Ismael veloz [facility], Pcp Primary Care Provider Vickie lawrence Encounter Details Date Type Department Care Team Description 07/08/2009 Hospital Medical Records [address] [place] [address] Giorgi Malhotra MD Social History Tobacco Use Types Packs/Day Years [...] on filedocumented in this encounter Care Teams Dry Box Operator Relationship Specialty Start Date End Date Trino Castillo MD PCP - General 03/18/1991 07/21/15 Ebonie Valladares MD PCP - General Internal Medicine 07/22/15 02/01/21 [facility], Pcp PCP - General Internal Medicine 02/02/21 documented as of this encounter
--- OUTSIDE RECORDS SUMMARY | 2025-01-14 15:15 | XMS_ITS | Encounter Summary ---
Author Organization [facility] Address [address] [place] [address] Care Team Providers Care Bin Tripper Operator Name Role Phone Trino Castillo MD Primary Care Provider Wily able Ebonie Valladares MD Primary Care Provider Ismael veloz [facility], Pcp Primary Care Provider Vickie lawrence Encounter Details Date Type Department Care Team Description 04/12/2011 Release of Information Medical Records [address] [place] [id number] Abstract, Provider Social History Tobacco Use Types [...] on filedocumented in this encounter Care Teams Bin Tripper Operator Relationship Specialty Start Date End Date Trino Castillo MD PCP - General 03/18/1991 07/21/15 Ebonie Valladares MD PCP - General Internal Medicine 07/22/15 02/01/21 [facility], Pcp PCP - General Internal Medicine 02/02/21 documented as of this encounter
--- OUTSIDE RECORDS SUMMARY | 2025-01-14 15:15 | XMS_ITS | Encounter Summary ---
Author Organization [facility] Address [address] [place] [address] Care Team Providers Care Poultry Hatchery Man Name Role Phone Trino Castillo MD Primary Care Provider Ebonie Cantu MD Primary Care Provider Ismael veloz [facility], Pcp Primary Care Provider Vickie lawrence Encounter Details Date Type Department Care Team Description 02/25/2005 Orders Only Adult Medicine - [address] [phone] Taylor Acosta ATRIAL FIBRILLATION (Primary Dx) Social History Tobacco Use Types Packs/Day Years Used Date Smoking Tobacco: Never Assessed Sex Assigned at Date Recorded Not on file documented as of this encounter Plan of Treatment Scheduled Orders Name Type Priority Associated Diagnoses Orde r Schedule VENIPUNCTURE Lab Routine Atrial Fibrillation Ordered: 02/25/2005 documented as of this encounter Procedures Procedure Name Priority Date/Time Associated Diagnosis Comments PROTHROMBIN TIME WITH INR-[place] Routine 02/25/2005 10:14 AM EDT Atrial Fibrillation documented in this encounter Results * (ABNORMAL) PROTHROMBIN TIME WITH INR-[place] (02/25/2005 10:14 AM EDT) Prothrombin Time 37.8(H) 9.0 - 10.8 [facility] INR 3.62 [facility] Comment: Performed at [facility], [address] [place] [address] 02/25/2005 10:1 4 AM EDT 02/25/2005 11:18 AM EDT Taylor Acosta LAB [facility] [employer] documented in this encounter Visit Diagnoses Diagnosis Atrial fibrillation (HCC)- Primary Atrial fibrillation documented in this encounter Care Teams Poultry Hatchery Man Relationship Specialty Start Date End Date Trino Castillo MD PCP - General 03/18/1991 07/21/15 Ebonie Valladares MD PCP - General Internal Medicine 07/22/15 02/01/21 [facility], Pcp PCP - General Internal Medicine 02/02/21 documented as of this encounter
--- OUTSIDE RECORDS SUMMARY | 2025-01-14 15:15 | XMS_ITS | Encounter Summary ---
Author Organization [facility] Address [address] [place] [address] Care Team Providers Care Human Relations Teacher Name Role Phone Trino Castillo MD Primary Care Provider Ebonie Cantu MD Primary Care Provider Ismael [facility], Pcp Primary Care Provider Unavailrenee e Reason for Visit * Reason Onset Date Comments Consult Request 01/29/2013 Encounter Details Date Type Department Care Team Description 01/29/2013 Telephone Medicine/Pediatrics - [address] [phone] Trino Castillo MD Consult Request Social History Tobacco Use Types Packs/Day Years Used Date Smoking Tobacco: Never Smokeless Tobacco: Never Alcohol Use Standard Drinks/Week Comments Yes 0 (1 standard drink = 0.6 oz pur e alcohol) 50 / wk Sex Assigned at Date Recorded Not on file documented as of this encounter Miscellaneous Notes * Telephone Encounter - Maricarmen Gotti L.P.NGerardo - 02/05/2013 10:27 AM EDT Pt has been called 4 x and a letter was sent FYI * Telephone Encounter - Eileen Greene Rn - 02/01/2013 4:31 PM EDT Message left for pt to call, see message below * Telephone Encounter - Maricarmen SchultzPGerardoNGerardo - 01/30/2013 9:16 AM EDT message left on To call office at [phone] * Telephone Encounter - Trino Castillo MD - 01/30/2013 7:51 AM EDT Triage, please contact the patient and let him know that I would like him to be seen by cardiology and apparently they were unable to contact him to schedule the appointment. If he is willing to be seen I will place a new order for consultation. * Telephone Encounter - Kandy Bhatt - 01/29/2013 3:07 PM EDT Gordon Fitch has not responded to the telephone calls that were made on 11-07 and 12-12 as well as the letter that was sent on 01-09 to schedule a Consultation; therefore we are removing the referral from our Report. Please note that this referral must be reordered if required in the future. documented in this encounter Plan of Treatment Not on file documented as of this encounter Visit Diagnoses Not on filedocumented in this encounter Care Teams Human Relations Teacher Relationship Specialty Start Date End Date Trino Castillo MD PCP - General 03/18/1991 07/21/15 Ebonie Valladares MD PCP - General Internal Medicine 07/22/15 02/01/21 [facility], Pcp PCP - General Internal Medicine 02/02/21 documented as of this encounter
--- OUTSIDE RECORDS SUMMARY | 2025-01-14 15:15 | XMS_ITS | Encounter Summary ---
Author Organization [facility] Address [address] [place] [address] Care Team Providers Care Restorative Rehab Aide Name Role Phone Trino Castillo MD Primary Care Provider Ebonie Cantu MD Primary Care Provider Ismael veloz [facility], Pcp Primary Care Provider Vickie lawrence Encounter Details Date Type Department Care Team Description 02/11/2005 Orders Only Adult Medicine [address] [id number] Taylor Acosta LONG-TERM (CURRENT) USE OF ANTICOAGULANTS (Primary Dx) Social History Tobacco Use Types Packs/Day Years Used Date Smoking Tobacco: Never Assessed Sex Assigned at Date Recorded Not on file documented as of this encounter Plan of Treatment Scheduled Orders Name Type Priority Associated Diagnoses Orde r Schedule VENIPUNCTURE Lab Routine Long-Term (Current) Use Of Anticoagulants Ordered: 02/11/2005 documented as of this encounter Procedures Procedure Name Priority Date/Time Associated Diagnosis Comments PROTHROMBIN TIME WITH INR-[place] Routine 02/11/2005 9:55 AM EDT Long-Term (Current) Use Of Anticoagulants documented in this encounter Results * (ABNORMAL) PROTHROMBIN TIME WITH INR-[place] (02/11/2005 9:55 AM EDT) Prothrombin Time 26.0(H) 8.7 - 10.9 SEC [facility] INR 2.68 [facility] Comment: Performed at [facility], [address] [place] [address] 02/11/2005 9:55 AM EDT 02/11/2005 10:09 AM EDT Taylor Acosta LAB [facility] documented in this encounter Visit Diagnoses Diagnosis supervisor intermediates (current) use of anticoagulants- Primary Long-term (current) use of anticoagulants documented in this encounter Care Teams Restorative Rehab Aide Relationship Specialty Start Date End Date Trino Castillo MD PCP - General 03/18/1991 07/21/15 Ebonie Valladares MD PCP - General Internal Medicine 07/22/15 02/01/21 [facility] PCP - General Internal Medicine 02/02/21 documented as of this encounter
--- OUTSIDE RECORDS SUMMARY | 2025-01-14 15:15 | XMS_ITS | Encounter Summary ---
Author Organization [facility] Address [address] [place] [address] Care Team Providers Care Executive Office Manager Name Role Phone Ebonie Valladares MD Primary Care Provider Ismael veloz [facility], Pcp Primary Care Provider Vickie lawrence Encounter Details Date Type Department Care Team Description 04/18/2018 [facility] Medical Records [address] [place] [address] Abstract, Provider Social History Tobacco Use Types [...] on filedocumented in this encounter Care Teams Executive Office Manager Relationship Specialty Start Date End Date Ebonie Valladares MD PCP - General Internal Medicine 07/22/15 02/01/21 [facility], Pcp PCP - General Internal Medicine 02/02/21 documented as of this encounter
--- OUTSIDE RECORDS SUMMARY | 2025-01-14 15:15 | XMS_ITS | Encounter Summary ---
Author Organization [facility] Address [address] [place] [address] Care Team Providers Care Tape Deck Installer Name Role Phone Ebonie Valladares MD Primary Care Provider Ismael [facility], Pcp Primary Care Provider Vickie lawrence Encounter Details Date Type Department Care Team Description 05/09/2017 Radio Operator Report Medical Records [address] [place] [address] [place] Farr Social History Tobacco Use Types Packs/Day Years [...] on filedocumented in this encounter Care Teams Tape Deck Installer Relationship Specialty Start Date End Date Ebonie Valladares MD PCP - General Internal Medicine 07/22/15 02/01/21 [facility], Pcp PCP - General Internal Medicine 02/02/21 documented as of this encounter
--- OUTSIDE RECORDS SUMMARY | 2025-01-14 15:15 | XMS_ITS | Encounter Summary ---
Author Organization [facility] Address [address] [place] [address] Care Team Providers Care Software Sales Representative Name Role Phone Ebonie Valladares MD Primary Care Provider Ismael [facility], Pcp Primary Care Provider Vickie lawrence Encounter Details Date Type Department Care Team Description 11/23/2018 Orders Only Medicine/Pediatrics - [address] [phone] Kenny Harp MD Social History Tobacco Use Types Packs/Day [...] on filedocumented in this encounter Care Teams Software Sales Representative Relationship Specialty Start Date End Date Ebonie Valladares MD PCP - General Internal Medicine 07/22/15 02/01/21 [facility], Pcp PCP - General Internal Medicine 02/02/21 documented as of this encounter
--- OUTSIDE RECORDS SUMMARY | 2025-01-14 15:15 | XMS_ITS | Encounter Summary ---
Author Organization [facility] Address [address] [place] [address] Care Team Providers Care Fitting Room Associate Name Role Phone Ebonie Valladares MD Primary Care Provider Ismael veloz [facility], Pcp Primary Care Provider Vickie lawrence Encounter Details Date Type Department Care Team Description 11/30/2015 Hospital Medical Records [address] [place], [place] [phone] [place] [address] Social History Tobacco Use Types Packs/Day Years [...] on filedocumented in this encounter Care Teams Fitting Room Associate Relationship Specialty Start Date End Date Ebonie Valladares MD PCP - General Internal Medicine 07/22/15 02/01/21 [facility], Pcp PCP - General Internal Medicine 02/02/21 documented as of this encounter
--- OUTSIDE RECORDS SUMMARY | 2025-01-14 15:15 | XMS_ITS | Encounter Summary ---
Author Organization [facility] Address [address] [place] [address] Care Team Providers Care Sampler Pickup Name Role Phone Ebonie Valladares MD Primary Care Provider Ismael veloz [facility], Pcp Primary Care Provider Vickie lawrence Encounter Details Date Type Department Care Team Description 06/11/2019 Walk In Clinic Visit Medical Records [address] [place], [place] [phone] [place] [address], [facility] Walk-In [facility] [place] [address] Social History Tobacco Use Types Packs/Day Years [...] on filedocumented in this encounter Care Teams Sampler Pickup Relationship Specialty Start Date End Date Ebonie Valladares MD PCP - General Internal Medicine 07/22/15 02/01/21 [facility], Pcp PCP - General Internal Medicine 02/02/21 documented as of this encounter
--- OUTSIDE RECORDS SUMMARY | 2025-01-14 15:15 | XMS_ITS | Encounter Summary ---
Author Organization [facility] Address [address] [place] [address] Care Team Providers Care [facility] Name Role Phone Trino Castillo MD Primary Care Provider Ebonie Cantu MD Primary Care Provider Ismael [facility] Pcp Primary Care Provider Unavailrenee e Reason for Visit * Reason Onset Date Comments refill request 04/21/2005 Encounter Details Date Type Department Care Team Description 04/21/2005 Telephone Medicine/Pediatrics - [address] [phone] Taylor Acosta refill request Social History Tobacco Use Types Packs/Day Years Used Date Smoking Tobacco: Never Assessed Sex Assigned at Date Recorded Not on file documented as of this encounter Miscellaneous Notes * Telephone Encounter - 04/21/2005 11:12 AM EDTrx faxed 3 refills * Telephone Encounter - 04/21/2005 11:07 AM EDT RX REFILLS MED NAME: ATENOLOL DOSAGE: 50MG # OF TABLETS: 60 INSTRUCTIONS: TAKE 1 TWICE DAILY PHARMACY NAME AND TEL#: [id number] INDICATE WHETHER IT IS: Call to outside pharmacy WHEN WAS THE PATIENT'S LAST ADULT MEDICINE APPOINTMENT? IS THE DOCTOR HERE TODAY?: YES CAN THE MESSAGE WAIT UNTIL THE DOCTOR RETURNS?: YES HAS PATIENT BEEN TOLD THAT THE PRESCRIPTION WILL NOT BE COMPLETED UNTIL THE END OF THE DAY? YES Payor: [place] COMM Plan: HMO BLUE NE $10 CAP Product Type: HMO PRE-PAID documented in this encounter Plan of Treatment Not on file documented as of this encounter Visit Diagnoses Not on filedocumented in this encounter Care Teams [facility] Relationship Specialty Start Date End Date Trino Castillo MD PCP - General 03/18/1991 07/21/15 Ebonie Valladares MD PCP - General Internal Medicine 07/22/15 02/01/21 [facility], Pcp PCP - General Internal Medicine 02/02/21 documented as of this encounter
== END 2025-01-14 14:00 | disposition home or self-care (01) ==
LOC: HO.HCS 13:13
PROVIDERS: PCP Internal Medicine; Visit Provider Internal Medicine
DX: I48.19 Other persistent atrial fibrillation (principal); I51.7 Cardiomegaly; G47.33 Obstructive sleep apnea (adult) (pediatric)
CPT/HCPCS: 93010; 99214; G2211

== ENCOUNTER 2025-02-07 13:48 | Outpatient (AMB) | payer MEDICARE, OTHER, SELFPAY ==
--- OUTSIDE RECORDS SUMMARY | 2025-02-07 13:50 | XMS_ITS ---
Author Organization Lalito Marcos MD Address [address] [place], [place] [id number] Care Team Providers Care Swimming Pool Salesperson Name Role Phone Lalito Marcos Primary Care Provider [phone] Results Component Value Reference Range Notes Liver Panel Reviewed date:10/04/2024 01:39:16 PM Interpretation: Performing Lab:[facility], [address] [place] [id number] Notes/Report: Bilirubin Total 2.7 0.0-1.0 mg/dL Slight Icte aranza. Bilirubin Direct 0.6 0.0-0.5 mg/dL Slight Ict erus. Aspartate Amino Transferase 29 5-37 U/L Alanine Aminotransferase 15 0-40 U/L Total Protein 7.5 6.5-8.0 g/dL Albumin Level 4.0 3.5-5.0 g/dL Alkaline Phosphatase 104 39-117 U/L Lipid Panel with Reflex Reviewed date:10/04/2024 01:38:10 PM Interpretation: Performing Lab:[facility], [address] [place] [id number] Notes/Report: Triglycerides 131 <150 mg/dL Desirable Triglyceride: [...] Location Date Provider Diagnosis Lalito Marcos MD [address] [place] [id number] 10/04/2024 Lalito Marcos Hypercholesteremia E 78.00 Assessments Encounter Date Diagnosis (ICD Code) Assessment Notes Treatment Notes Treatment Clinical Notes Section Notes 10/04/2024 Hypercholesteremia (ICD-10 - E78.00) Plan Of Treatment Next Appt Details Provider Name:Lalito zhang, 03/28/2025 07:00:00 AM, [address] [place] [address], [address], [id number], Provider Name:Lalito zhang, 04/03/2025 08:30:00 AM, [address] [place] [address], [address], [id number], Provider Name:Lalito zhang, 10/09/2025 07:45:00 AM, [address] [place] [address], [address], [phone], Provider Name:Lalito zhang, 10/16/2025 10:00:00 AM, [address] [facility], [address], [place], [place], [id number], Progress Notes * IVANIA WRIGHTOB: (69 yo M)Acc No.[id number]:10/04/2024 Progress Note Patient:?DARIEN WRIGHT Provider:?Lalito Marcos MD :1955???Age:69 Y???Sex:Male Jared e:10/04/2024 Address:[address] [place] [address], [id number] Subjective: * Chief Complaints: * ???1. FASTING [...] 00 (Primary)??? Plan: * Treatment: * Procedure Codes:?41356 VENIP UNCT, ROUTINE* * * The named appointment provid er may or may not be the originator of this progress note, and it is not deemed complete until electronically signed by the appointment provider. Sign off status: Pending * Provider:?Lalito Marcos MD Date:?0 10/04/2024 Generated for Shakeel pandey/Charisse/Marisol on:?02/07/2025 01:50 PM EDT
[2025-02-07 14:13] LABS: Prothrombin Time Whole Bld POC 33.9 sec (11.1-13.5); ~PT, ~INR - Anti Coag Clinic 2.8 (0.9-1.1)
--- NOTE | 2025-02-07 14:15 | MHC.OFFVISCO ---
Intake Intake Visit Reasons: Anticoagulation Allergies amoxicillin [Amoxicillin] Allergy (Unknown, Verified 02/07/25 14:09) RASH cephalexin [From Keflex] Allergy (Unknown, Verified 02/07/25 14:09) unknown clindamycin [Clindamycin] Allergy (Unknown, Verified 02/07/25 14:09) RASH Jeremiah poly Dex eye Allergy (Unknown, Uncoded 02/07/25 14:09) Unknown Medication List - Last Reconciled 02/07/25 by Megan Teixeira, RN albuterol sulfate 90 mcg/actuation 2 puffs inhalation Q6H PRN atorvastatin (Lipitor) 80 mg PO DAILY chlorthalidone 25 mg PO DAILY digoxin 250 mcg PO DAILY metoprolol succinate ER 50 mg PO DAILY metoprolol succinate ER 100 mg PO DAILY potassium chloride ER 40 mEq PO DAILY warfarin 5 mg See Protocol PO DAILY Nursing Note INR: 2.8 in therapeutic range 2-3 Medications and supplements reviewed No changes in health, diet, medications, or supplements, Denies any signs and symptoms of bleeding or bruising or clotting. Bleeding, bruising, clotting discussed Nutritional guidance given Dose: 7.5mg X 6 days and 5mg X 1 day (Mon) F/U INR: 4 weeks Patient verbalizes understanding of instructions given Anti-Coag Initial Assessment Social Hx Patient Tobacco Use Status: Never used Tobacco alcohol intake: current Alcohol intake frequency: holidays/special occasions only Coding Level of Care Code Est Patient Level 1 Diagnoses Current use of anticoagulant therapy Z79.01 Assessment & Plan Assessment & Plan (1) Current use of anticoagulant therapy: Code(s): Z79.01 - senior care (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
== END 2025-02-07 14:18 | disposition home or self-care (01) ==
LOC: HO.ACS 13:48
PROVIDERS: PCP Internal Medicine; Visit Provider Internal Medicine Medical Oncology
DX: Z79.01 Long term (current) use of anticoagulants (principal)

== ENCOUNTER → 2025-02-07 13:48 | Outpatient (BNVA) | payer MEDICARE, OTHER, SELFPAY | PROVIDERS: PCP Internal Medicine; Visit Provider Internal Medicine Medical Oncology | DX: I48.19 Other persistent atrial fibrillation (principal); Z79.01 Long term (current) use of anticoagulants; Z51.81 Encounter for therapeutic drug level monitoring | CPT/HCPCS: 85610; 99211 ==

== ENCOUNTER 2025-03-07 13:43 | Outpatient (AMB) | payer MEDICARE, OTHER, SELFPAY ==
--- OUTSIDE RECORDS SUMMARY | 2025-03-07 13:45 | XMS_ITS | Encounter Summary ---
Author Organization [facility] Address [address] [place] [address] Care Team Providers Care Outsole Handler Name Role Phone Ebonie Valladares MD Primary Care Provider Ismael veloz [facility], Pcp Primary Care Provider Vickie lawrence Reason for Visit * Reason Onset Date Comments Anticoagulation 10/02/[address] Kohler [facility] Encounter Details Date Type Department Care Team Description 10/02/2020 Telephone Gastroenterology - [address] [place] [address] Keny Kohler MD [address] [place] [address] Anticoagulation (Colonoscopy 10/27/2020 Dr Kohler [facility]) Social History Tobacco Use Types Packs/Day Years Used Date Smoking Tobacco: Never Smokeless Tobacco: Never Alcohol Use Standard Drinks/Week Comments Yes 0 (1 standard drink = 0.6 oz pur e alcohol) 30 - 40/ wk - weeekend only Sex Assigned at Date Recorded Not on file COVID-19 Exposure Response Date Recorded In the last month, have you been in contact with someone who was confirmed or suspected to have Coronavirus / COVID-19? No / Unsure 09/21/2020 1:48 PM EST documented as of this encounter Miscellaneous Notes * Telephone Encounter - Eleanor Hurst L.P.N. - 10/26/2020 3:09 PM EST Fyi to gastro Lab Results Component Value Date INR 1.19 10/26/2020 * Telephone Encounter - Ledy SchultzP.N. - 10/05/2020 8:47 AM EST 10/05/2020 Called patient Message left on his home number regarding his coumadin instructions left & letter mailed. Also called his cell number which was busy. /dg * Telephone Encounter - Ebonie Valladares MD - 10/02/2020 3:53 PM EST low * Telephone Encounter - Ledy SchultzP.N. - 10/02/2020 9:55 AM EST Patient is scheduled for Colonoscopy [facility] 10/27/[address] Edita VACA. Patient is on Coumadin. Dr Pro, Please determine the Embolic Risk Rating (high, moderate or low) and we will instruct the patient accordingly. Please advise. Thanks. (Called Dr Sutherland's office @ [facility] was told he hasn't been seen since ) documented in this encounter Plan of Treatment Not on file documented as of this encounter Visit Diagnoses Not on filedocumented in this encounter Care Teams Outsole Handler Relationship Specialty Start Date End Date Ebonie Valladares MD PCP - General Internal Medicine 07/22/15 02/01/21 [facility], Pcp PCP - General Internal Medicine 02/02/21 documented as of this encounter
[2025-03-07 14:06] LABS: Prothrombin Time Whole Bld POC 25.1 sec (11.1-13.5); ~PT, ~INR - Anti Coag Clinic 2.1 (0.9-1.1)
--- NOTE | 2025-03-07 14:07 | MHC.OFFVISCO ---
Intake Intake Visit Reasons: Anticoagulation Allergies amoxicillin (Amoxicillin) Allergy (Unknown, Verified 03/07/25 14:06) RASH cephalexin (From Keflex) Allergy (Unknown, Verified 03/07/25 14:06) unknown clindamycin (Clindamycin) Allergy (Unknown, Verified 03/07/25 14:06) RASH Jeremiah poly Dex eye Allergy (Unknown, Uncoded 03/07/25 14:06) Unknown Medication List - Last Reconciled 03/07/25 by Riya Armstrong RN albuterol sulfate 90 mcg/actuation 2 puffs inhalation Q6H PRN atorvastatin (Lipitor) 80 mg PO DAILY chlorthalidone 25 mg PO DAILY digoxin 250 mcg PO DAILY metoprolol succinate ER 50 mg PO DAILY metoprolol succinate ER 100 mg PO DAILY potassium chloride ER 40 mEq PO DAILY warfarin 5 mg See Protocol PO DAILY Nursing Note INR: 2.1 in therapeutic range Medications and supplements reviewed No changes in health, diet, medications, or supplements, Denies any signs and symptoms of bleeding or bruising or clotting. Bleeding, bruising, clotting discussed Nutritional guidance given Dose: same 5mg wec/ 7.5mg x 6 days F/U INR: 1 month Patient verbalizes understanding of instructions given Anti-Coag Initial Assessment Social Hx Patient Tobacco Use Status: Never used Tobacco alcohol intake: current Alcohol intake frequency: holidays/special occasions only Coding Level of Care Code Est Patient Level 1 Diagnoses Current use of anticoagulant therapy Z79.01 Assessment & Plan Assessment & Plan (1) Current use of anticoagulant therapy: Code(s): Z79.01 - intermediate (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
== END 2025-03-07 14:10 | disposition home or self-care (01) ==
LOC: HO.ACS 13:43
PROVIDERS: PCP Internal Medicine; Visit Provider Internal Medicine Medical Oncology
DX: Z79.01 Long term (current) use of anticoagulants (principal)

== ENCOUNTER → 2025-03-07 13:43 | Outpatient (BNVA) | payer MEDICARE, OTHER, SELFPAY | PROVIDERS: PCP Internal Medicine; Visit Provider Internal Medicine Medical Oncology | DX: I48.19 Other persistent atrial fibrillation (principal); Z79.01 Long term (current) use of anticoagulants; Z51.81 Encounter for therapeutic drug level monitoring | CPT/HCPCS: 85610; 99211 ==

== ENCOUNTER 2025-03-28 10:41 | Outpatient (REF) | payer MEDICARE, OTHER, SELFPAY ==
--- OUTSIDE RECORDS SUMMARY | 2024-10-15 05:00 | XMS_ITS ---
Author Organization Lalito Marcos MD Address [address] [place] [phone] Care Team Providers Care Web Development Manager Name Role Phone Lalito Marcos Primary Care Provider Allergies Allergen (clinical drug ingredient) Drug/Non Drug Allergy documented on EMR Reaction Allergy Type Onset Date Status Neoporacin rash Drug Allergy Active Aaylasle-Wnnaojahn-Q exa meth swelling Drug Allergy Active Keflex rash Drug Allergy Active clindamycin Clindamycin HCl rash Drug Allergy Active amoxicillin Amoxicillin rash Drug Allergy Act jesus Triamcinolone & Emollient rash Drug Allergy Active REASON FOR VISIT [...] Location Date Provider Diagnosis Lalito Marcos MD [address] [place] [address] [address] [place], [place] [phone] 10/15/2024 Lalito Marcos Essential hypertensi on I10 [...] Year, Reason: A [place] Provider Name:Lalito zhang, 04/03/2025 08:30:00 AM, [address] [place] [address], [address], [phone], Provider Name:Lalito zhang, 10/09/2025 07:45:00 AM, [address] [place] [address], [address], [phone], Provider Name:Lalito zhang, 10/16/2025 10:00:00 AM, [address] [place] [address], [address], [phone], Procedure Notes * Category Sub-Category Detail Notes Cerumen removal Procedure right ear, irrig ated with water/H2O2 Post-procedure Pt tolerated procedu re well Progress Notes * IVANIA WRIGHTOB: 5 (69 yo M)Acc No.[id number]:10/15/2024 Progress Note Patient: DARIEN JIMENEZ Provider: Lizbet Marcos MD :1955 A ge:69 Y S ex:Male Date:10/15/2024 Address:[address] [place], [place] [phone] Subjective: * Chief Complaints: * 6 MO [...] during today's visit P ast Medical History, [place] of Care, Surgical/Hospitalization History, Current medications including [...] rashClindamycin HCl: rashTriamcinolone & Emollient: rashNeoporacin: rashKeflex: znrlCoatwvuf-Ezljftlqd-Rocvumlf: swellingyes[Allergies Verified] Objective: * Vitals: H t: [...] Medicine: Counseling: C are goal follow-up plan: C ounseling for abnormal BMI provided?Yes, A ronak Normal BMI Follow-up D ietary management education, guidance, and counseling, Dietary needs education, Giving encouragement to exercise. E xercise . C ommunication to patient: Byron ounseling for nutrition provided Y es, C ounseling for physical activity provided Y es. S [...] MD Date: 0 10/15/2024 Generated for Shakeel pandey/Charisse/Cheriitting on: 0 03/28/2025 11:17 AM EDT History and Physical Notes * [...] updated during today's visit: Past Medical History, [place] of Care, Surgical/Hospitalization History, Current medications including [...] for HPI/ROS submitted by the patient Becka nge in Weight: No Change in hearing: No [...]
[2025-03-28 10:44] LABS: MANUAL DIFF FLAG NO
[2025-03-28 11:05] LABS: Hematocrit 43.6 % (42.0-52.0); Hemoglobin 15.2 g/dl (14.0-18.0); Imm Gran Abs Auto 0.03 X10*3/uL (0.00-0.03); Imm Gran Pct Auto 0.4 % (0.0-0.4); Lymphocytes Absolute Auto 2.4 X10*3/uL (1.2-4.9); Mean Corpuscular HGB Conc 34.9 g/dl (31.0-36.0); Mean Corpuscular Hemoglobin 33.5 pg (27.0-33.0); Mean Corpuscular Volume 96.0 fL (80.0-98.0); NRBC Abs Auto 0.000 X10*3/uL (0.0-0.012); NRBC Pct Auto 0.0 /100WBC (0.0-0.2); Platelet Count 144 X10*3/uL (160-400); Red Blood Count 4.54 X10*6/uL (4.60-5.80); White Blood Count 8.5 X10*3/uL (4.8-10.8)
--- OUTSIDE RECORDS SUMMARY | 2025-03-28 11:17 | XMS_ITS | Patient Health Record ---
Author Organization [facility] [place] Address [address] [place] [address] Care Team Providers Care Envelope Maker Name Role Phone Ebonie Sanderson MD Primary Care Provider Unavailabl e Allergies Allergen (clinical drug ingredient) Drug/Non Drug Allergy documented on EMR Reaction Allergy Type Onset Date Status amoxicillin Amoxicillin Unknown Drug Allergy Act jesus clindamycin Clindamycin HCl full body rash, swellingeyes Drug Allergy Active Reason For Referral No Information Medications Medication SIG (Take, Route, Frequency, Duration) Notes Start Date End Date Status Ciclopirox Olamine 0.77 % 1 application to affected area Externally Twice a day; Duration: 30 days Active Metoprolol-HCTZ ER 150mg Once a day Active Minocycline HCl 50 MG Orally twice a day Active Chlorthalidone 25 MG Orally Once a day Active Warfarin Sodium 5.5 or less Once a day Active Lipitor 80 MG Orally Active Digoxin 125 MCG Orally Once a day Active Social History Tobacco Use: Social History Observation Description Date Details (start date - stop date) Never Smoker NA - NA Tobacco Use/Smoking Question Answer Notes Are you a: nonsmoker Additional Findings: Tobacco Non-User Current no n-smoker Alcohol Screen Question Answer Notes Did you have a drink contain ing alcohol in the past year? Yes How often did you have a dri nk containing alcohol in the past year? 2 to 4 times a month (2 points) Points 2 Interpretation Negative Tobacco use other than smoking: Question Answer Notes Are you an other tobacco user? No Problems Problem Type SNOMED Code ICD Code Onset Dates Problem Status W/U Status Risk Notes Problem Localized, primary osteoarthritis of the ankle and/or foot (731076604) Primary osteoarthrit is, left ankle and foot (M19.072) Active confirmed Plan Of Treatment Pending Test Test Name Order Date [id number] NAIL, 6 OR MORE 08/02/2017 [id number] Destruction, -07/05/2017 [id number] Destruction, -08/02/2017 Insurance Providers Payer Name Payer Address Payer Phone Subscriber Number Group Number Insured Name Patient Relationship to Insured Coverage Start Date Coverage End Date [employer] [address] [place] [address] [id number] Gordon Fitch Self - patient is the insured 7 Medical (General) History Medical History History ICD Code Heart disease High blood pressure Kidney disease Measles Mumps Chicken pox A fib Surgical History Surgery Date(Month/Year) hernia 2009
[2025-03-28 11:22] LABS: Alanine Aminotransferase 23 U/L (0-40); Albumin Level 4.3 g/dL (3.5-5.0); Alkaline Phosphatase 97 U/L (39-117); Anion Gap 14 (12-20); Aspartate Amino Transferase 34 U/L (5-37); Blood Urea Nitrogen 15 mg/dL (9-16); Calcium 9.0 mg/dL (8.4-10.2); Carbon Dioxide 27 mmol/L (22-29); Chloride 100 mmol/L (96-108); Cholesterol 100 mg/dL (<200); Estimated Glomerular Filt Rate > 60; HDL Cholesterol 30 mg/dL (>40); Potassium 4.1 mmol/L (3.3-5.1); Sodium 137 mmol/L (135-145); Total Protein 6.9 g/dL (6.5-8.0); Triglycerides 153 mg/dL (<150)
[2025-03-28 11:36] LABS: PSA,Total (Free>4and<10) 2.28 ng/mL (0.00-4.00)
== END 2025-03-28 10:42 | disposition home or self-care (01) ==
LOC: HO.LNP 10:41
PROVIDERS: Visit Provider Internal Medicine
DX: I50.22 Chronic systolic (congestive) heart failure (principal); I10 Essential (primary) hypertension; E78.00 Pure hypercholesterolemia, unspecified; Z12.5 Encounter for screening for malignant neoplasm of prostate
CPT/HCPCS: 80053; 80061; 84153; 85025

== ENCOUNTER 2025-04-03 10:35 | Outpatient (REF) | payer MEDICARE, OTHER, SELFPAY ==
--- OUTSIDE RECORDS SUMMARY | 2025-03-28 03:00 | XMS_ITS ---
Author Organization Lalito Marcos MD Address [address] [place], [place] [phone] Care Team Providers Care Last Pattern Grader Name Role Phone Lalito Marcos Primary Care Provider [phone] Results Component Value Reference Range Notes Complete Blood Count Auto Di ff Reviewed date:03/28/2025 12:47:59 PM Interpretation: Performing Lab:[facility], [address] [place] [phone] Notes/Report: White Blood Count 8.5 4.8-10.8 X10*3/uL [...] NRBC Abs Auto 0.000 0.0-0.012 X10*3/uL Comprehensive [place]. Panel Fa st Reviewed date:03/28/2025 12:51:30 PM Interpretation: Performing Lab:[address] [address] Notes/Report: Sodium 137 135-145 mmol/L Potassium 4.1 [...] Panel Reviewed date:03/28/2025 12:48:08 PM Interpretation: Performing Lab:[address] [phone] Notes/Report: Triglycerides 153 <150 mg/dL Desirable Triglyceride: [...] (Free>4and<10) Reviewed date:03/28/2025 12:47:29 PM Interpretation: Performing Lab:[facility], [address] [place] [phone] Notes/Report: PSA,Total (Free>4and<10) 2.28 0.00-4.00 ng/mL A [...] Location Date Provider Diagnosis Lalito Marcos MD [address] [place] [address] [address] [place], [place] [phone] 03/28/2025 Lalito Marcos Essential hypertensi on I10 ; Chronic systolic heart failure I50.22 and Hypercholesteremia E78.00 Assessments Encounter Date Diagnosis (ICD Code) Assessment Notes Treatment Notes Treatment Clinical Notes Section Notes 03/28/2025 Essential hypertensi on (ICD-10 - I10) 03/28/2025 Chronic systolic hea rt failure (ICD-10 - I50.22) 03/28/2025 Hypercholesteremia (ICD-10 - E78.00) Plan Of Treatment Pending Test Test [facility]/28[facility] Next Appt Details Provider Name:Lalito Castro ier, 10/09/2025 07:45:00 AM, [address], [address], [place], [phone], Provider Name:Lalito Castro ier, 10/16/2025 10:00:00 AM, [address], [address], [place], [place], [phone], Provider Name:Lalito Castro ier, 03/30/2026 07:15:00 AM, [address], [address], [place], [phone], Provider Name:Lalito Castro ier, 04/06/2026 09:30:00 AM, [address] [facility], [address], [place], [place], [phone], Progress Notes * MITZI WRIGHTRYLEEOB: (69 yo M)Acc No.[id number]:03/28/2025 Progress Note Patient: DARIEN JIMENEZ Provider: Lizbet Marcos MD :1955 A ge:69 Y S ex:Male Date:03/28/2025 Address:[address] [place], [place] [phone] Subjective: * Chief Complaints: * 1 . [...] - 03/28/2025 07:00 AM) L AB: Comprehensive [place]. Panel Fast (Collection Date & Time - 03/28/2025 07:00 AM) L AB: Lipid Panel (Collection Date & Time - 03/28/2025 07:00 AM) L AB: PSA,Total (Free>4and<10) (Collection Date & Time - 03/28/2025 07:00 AM) 3. H ypercholesteremia L AB: UA ClnCatch+Micro w/rflx Cult L AB: Complete Blood Count Auto Diff (Collection Date & Time - 03/28/2025 07:00 AM) L AB: Comprehensive [place]. Panel Fast (Collection Date & Time - [...] 03/28/2025 Generated for Shakeel pandey/Charisse/Cheriitting on: 0 04/03/2025 11:15 AM EDT
--- OUTSIDE RECORDS SUMMARY | 2025-04-03 11:16 | XMS_ITS | Patient Health Record ---
Author Organization [facility] [place] Address [address] [place] [address] Care Team Providers Care Painting Contractor Name Role Phone Ebonie Sanderson MD Primary [...] primary osteoarthritis of the ankle and/or foot ([id number]) Primary osteoarthrit is, left ankle and foot (M19.072) Active confirmed Plan Of Treatment Pending Test Test Name Order Date [id number] NAIL, 6 OR MORE 08/02/2017 [id number]-Kwfr Destruction, -07/05/2017 [id number]-Ypso Destruction, -08/02/2017 Insurance Providers Payer Name Payer Address Payer Phone Subscriber Number Group Number Insured Name Patient Relationship to Insured Coverage Start Date Coverage End Date [employer] [address] [place] [address] [id number] Gordon Fitch Self - patient is the insured 7 Medical (General) History Medical History History ICD Code Heart disease High blood pressure Kidney disease Measles Mumps Chicken pox A fib Surgical History Surgery Date(Month/Year) hernia 2009
[2025-04-03 12:12] LABS: Appearance Urine Clear; Glucose Urine UA Negative (Negative); PH 8.0 (5.0-9.0); Specific Gravity - Urine 1.010 (1.005-1.025)
== END 2025-04-03 10:36 | disposition home or self-care (01) ==
LOC: HO.LNP 10:35
PROVIDERS: Visit Provider Internal Medicine
DX: I48.11 Longstanding persistent atrial fibrillation (principal); I10 Essential (primary) hypertension
CPT/HCPCS: 81001

== ENCOUNTER 2025-04-04 13:44 | Outpatient (AMB) | payer MEDICARE, OTHER, SELFPAY ==
--- OUTSIDE RECORDS SUMMARY | 2025-03-28 03:00 | XMS_ITS ---
Author Organization Lalito Marcos MD Address [address] [place], [place] [phone] Care Team Providers Care Mash Processing Operator Name Role Phone Lalito Marcos Primary Care Provider Results Component Value Reference Range Notes Complete Blood Count Auto Di ff Reviewed date:03/28/2025 12:47:59 PM Interpretation: Performing Lab:[facility], [address] [place] [phone] Notes/Report: White Blood Count 8.5 4.8-10.8 X10*3/uL [...] NRBC Abs Auto 0.000 0.0-0.012 X10*3/uL Comprehensive [place]. Panel Fa st Reviewed date:03/28/2025 12:51:30 PM Interpretation: Performing Lab:[address] [address] Notes/Report: Sodium 137 135-145 mmol/L Potassium 4.1 [...] Panel Reviewed date:03/28/2025 12:48:08 PM Interpretation: Performing Lab:[address] [phone] Notes/Report: Triglycerides 153 <150 mg/dL Desirable Triglyceride: [...] (Free>4and<10) Reviewed date:03/28/2025 12:47:29 PM Interpretation: Performing Lab:[facility], [address] [place] [phone] Notes/Report: PSA,Total (Free>4and<10) 2.28 0.00-4.00 ng/mL A [...] Location Date Provider Diagnosis Lalito Marcos MD [address] [place] [address] [address] [place], [place] [phone] 03/28/2025 Lalito Marcos Essential hypertensi on I10 ; Chronic systolic heart failure I50.22 and Hypercholesteremia E78.00 Assessments Encounter Date Diagnosis (ICD Code) Assessment Notes Treatment Notes Treatment Clinical Notes Section Notes 03/28/2025 Essential hypertensi on (ICD-10 - I10) 03/28/2025 Chronic systolic hea rt failure (ICD-10 - I50.22) 03/28/2025 Hypercholesteremia (ICD-10 - E78.00) Plan Of Treatment Pending Test Test [facility] Next Appt Details Provider Name:Lalito Castro ier, 10/09/2025 07:45:00 AM, [address], [address], [place], [phone], Provider Name:Lalito Castro ier, 10/16/2025 10:00:00 AM, [address], [address], [place], [place], [phone], Provider Name:Lalito Castro ier, 03/30/2026 07:15:00 AM, [address], [address], [place], [phone], Provider Name:Lalito Castro ier, 04/06/2026 09:30:00 AM, [address] [facility], [address], [place], [place], [phone], Progress Notes * MITZI WRIGHTRYLEEOB: (69 yo M)Acc No.[id number]:03/28/2025 Progress Note Patient: DARIEN JIMENEZ Provider: Lizbet Marcos MD :1955 A ge:69 Y S ex:Male Date:03/28/2025 Address:[address] [place], [place] [phone] Subjective: * Chief Complaints: * 1 . [...] - 03/28/2025 07:00 AM) L AB: Comprehensive [place]. Panel Fast (Collection Date & Time - 03/28/2025 07:00 AM) L AB: Lipid Panel (Collection Date & Time - 03/28/2025 07:00 AM) L AB: PSA,Total (Free>4and<10) (Collection Date & Time - 03/28/2025 07:00 AM) 3. H ypercholesteremia L AB: UA ClnCatch+Micro w/rflx Cult L AB: Complete Blood Count Auto Diff (Collection Date & Time - 03/28/2025 07:00 AM) L AB: Comprehensive [place]. Panel Fast (Collection Date & Time - [...] 0 03/28/2025 Generated for Shakeel pandey/Charisse/Cheriitting on: 04/04/2025 01:46 PM EDT
--- OUTSIDE RECORDS SUMMARY | 2025-04-04 13:47 | XMS_ITS | Patient Health Record ---
Author Organization [facility] [place] Address [address] [facility] [address] Care Team Providers Care Truck Greaser Name Role Phone Ebonie Sanderson MD Primary [...] primary osteoarthritis of the ankle and/or foot ([id number]) Primary osteoarthrit is, left ankle and foot (M19.072) Active confirmed Plan Of Treatment Pending Test Test Name Order Date [id number] NAIL, 6 OR MORE 08/02/2017 [id number]-Dkmm Destruction, -07/05/2017 47967-Aety Destruction, -08/02/2017 Insurance Providers Payer Name Payer Address Payer Phone Subscriber Number Group Number Insured Name Patient Relationship to Insured Coverage Start Date Coverage End Date [employer] [address] [place] [address] [id number] Gordon Fitch Self - patient is the insured 7 Medical (General) History Medical History History ICD Code Heart disease High blood pressure Kidney disease Measles Mumps Chicken pox A fib Surgical History Surgery Date(Month/Year) hernia 2009
[2025-04-04 14:05] LABS: Prothrombin Time Whole Bld POC 21.4 sec (11.1-13.5); ~PT, ~INR - Anti Coag Clinic 1.8 (0.9-1.1)
--- NOTE | 2025-04-04 14:12 | MHC.OFFVISCO ---
Intake Intake Visit Reasons: Anticoagulation Allergies amoxicillin (Amoxicillin) Allergy (Unknown, Verified 04/04/25 14:00) RASH cephalexin (From Keflex) Allergy (Unknown, Verified 04/04/25 14:00) unknown clindamycin (Clindamycin) Allergy (Unknown, Verified 04/04/25 14:00) RASH Jeremiah poly Dex eye Allergy (Unknown, Uncoded 04/04/25 14:00) Unknown Medication List - Last Reconciled 04/04/25 by Riya Armstrong RN albuterol sulfate 90 mcg/actuation 2 puffs inhalation Q6H PRN atorvastatin (Lipitor) 80 mg PO DAILY chlorthalidone 25 mg PO DAILY digoxin 250 mcg PO DAILY metoprolol succinate ER 50 mg PO DAILY metoprolol succinate ER 100 mg PO DAILY potassium chloride ER 40 mEq PO DAILY warfarin 5 mg See Protocol PO DAILY Nursing Note INR: 1.8 out of therapeutic range- may have had more greens than usual Medications and supplements reviewed No changes in health, medications, or supplements, Denies any signs and symptoms of bleeding or bruising or clotting. Bleeding, bruising, clotting discussed Nutritional guidance given - eat more orange and reds when eating more greens Dose: 10mg today then resume usual dose 5mg x 1 day/ 7.5mg x 6 days F/U INR: 2 weeks if therapeutic then go to 4 weeks Patient verbalizes understanding of instructions given Anti-Coag Initial Assessment Social Hx Patient Tobacco Use Status: Never used Tobacco alcohol intake: current Alcohol intake frequency: holidays/special occasions only Coding Level of Care Code Est Patient Level 1 Diagnoses Current use of anticoagulant therapy Z79.01 Results AMB INR Fingerstick AMB INR Fingerstick 1.8 Last Edit by Riya Armstrong RN on 04/04/25 14:05 manual entry Assessment & Plan Assessment & Plan (1) Current use of anticoagulant therapy: Code(s): Z79.01 - skilled nursing (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
== END 2025-04-04 14:17 | disposition home or self-care (01) ==
LOC: HO.ACS 13:44
PROVIDERS: PCP Internal Medicine; Visit Provider Internal Medicine Medical Oncology
DX: Z79.01 Long term (current) use of anticoagulants (principal)

== ENCOUNTER → 2025-04-04 13:44 | Outpatient (BNVA) | payer MEDICARE, OTHER, SELFPAY | PROVIDERS: PCP Internal Medicine; Visit Provider Internal Medicine Medical Oncology | DX: I48.19 Other persistent atrial fibrillation (principal); Z79.01 Long term (current) use of anticoagulants; Z51.81 Encounter for therapeutic drug level monitoring | CPT/HCPCS: 85610; 99211 ==

== ENCOUNTER 2025-05-15 13:55 | Outpatient (AMB) | payer MEDICARE, OTHER, SELFPAY ==
--- OUTSIDE RECORDS SUMMARY | 2024-10-15 05:00 | XMS_ITS ---
Author Organization Lalito Marcos MD Address [address] [place] [phone] Care Team Providers Care Carbon Lamp Cleaner Name Role Phone Lalito Marcos Primary Care Provider [phone] Allergies Allergen (clinical drug ingredient) Drug/Non Drug Allergy documented on EMR Reaction Allergy Type Onset Date Status Kwgzlwka-Ajdqizrar-R exa meth swelling Drug Allergy Active Keflex [...] Location Date Provider Diagnosis Lalito Marcos MD [address] [place] [address] [address] [place], [place] [phone] 10/15/2024 Lalito Marcos Essential hypertensi on I10 [...] [place] Provider Name:Lalito zhang, 10/09/2025 07:45:00 AM, [address] [place] [address], [address], [phone], Provider Name:Lalito zhang, 10/16/2025 10:00:00 AM, [address] [place] [address], [address], [phone], Provider Name:Lalito zhang, 03/30/2026 07:15:00 AM, [address] [place] [address], [address], [phone], Provider Name:Lalito zhang, 04/06/2026 09:30:00 AM, [address] [place] [address], [address], [phone], Procedure Notes * Category Sub-Category Detail Notes Cerumen removal Procedure right ear, irrig ated with water/H2O2 Post-procedure Pt tolerated procedu re well Progress Notes * IVANIA WRIGHTOB: (69 yo M)Acc No.[id number]:10/15/2024 Progress Note Patient: DARIEN JIMENEZ Provider: Lizbet Marcos MD :1955 A ge:69 Y S ex:Male Date:10/15/2024 Address:[address] [place], [place] [id number] Subjective: * Chief Complaints: * 6 MO [...] during today's visit P ast Medical History, [place] of Care, Surgical/Hospitalization History, Current medications including [...] rashClindamycin HCl: rashTriamcinolone & Emollient: rashNeoporacin: rashKeflex: cetgIeaxwanq-Uhzzaineq-Hcskslyt: swellingyes[Allergies Verified] Objective: * Vitals: H t: [...] MD Date: 0 10/15/2024 Generated for Shakeel pandey/Charisse/eTtracysmitting on: 0 05/15/2025 02:45 PM EDT History and Physical Notes * [...] updated during today's visit: Past Medical History, [place] of Care, Surgical/Hospitalization History, Current medications including [...]
--- OUTSIDE RECORDS SUMMARY | 2025-03-28 03:00 | XMS_ITS ---
Author Organization Lalito Marcos MD Address [address] [place], [place] [phone] Care Team Providers Care Oracle Ebs Developer Name Role Phone Lalito Marcos Primary Care Provider Results Component Value Reference Range Notes Complete Blood Count Auto Di ff Reviewed date:03/28/2025 12:47:59 PM Interpretation: Performing Lab:[facility], [address] [place] [phone] Notes/Report: White Blood Count 8.5 4.8-10.8 X10*3/uL [...] NRBC Abs Auto 0.000 0.0-0.012 X10*3/uL Comprehensive [place]. Panel Fa st Reviewed date:03/28/2025 12:51:30 PM Interpretation: Performing Lab:[address] [phone] Notes/Report: Sodium 137 135-145 mmol/L Potassium 4.1 [...] Panel Reviewed date:03/28/2025 12:48:08 PM Interpretation: Performing Lab:[address] [phone] Notes/Report: Triglycerides 153 <150 mg/dL Desirable Triglyceride: [...] Reviewed date:03/28/2025 12:47:29 PM Interpretation: Performing Lab:[facility], [address] [place] [phone] Notes/Report: PSA,Total (Free>4and<10) 2.28 0.00-4.00 ng/mL A [...] Location Date Provider Diagnosis Lalito Marcos MD [address] [place] [address] [address] [place], [place] [phone] 03/28/2025 Lalito Marcos Essential hypertensi on I10 ; Chronic systolic heart failure I50.22 and Hypercholesteremia E78.00 Assessments Encounter Date Diagnosis (ICD Code) Assessment Notes Treatment Notes Treatment Clinical Notes Section Notes 03/28/2025 Essential hypertensi on (ICD-10 - I10) 03/28/2025 Chronic systolic hea rt failure (ICD-10 - I50.22) 03/28/2025 Hypercholesteremia (ICD-10 - E78.00) Plan Of Treatment Pending Test Test [facility]/28/2025 Next Appt Details Provider Name:Lalito Castro ier, 10/09/2025 07:45:00 AM, [address], [address], [place], [phone], Provider Name:Lalito Castro ier, 10/16/2025 10:00:00 AM, [address] [facility] [address], [address], [place], [place], [phone], Provider Name:Lalito Castro ier, 03/30/2026 07:15:00 AM, [address], [address], [place], [phone], Provider Name:Lalito Castro ier, 04/06/2026 09:30:00 AM, [address] [facility], [address], [place], [place], [phone], Progress Notes * MITZI WRIGHTRYLEEOB: (70 yo M)Acc No.[id number]:03/28/2025 Progress Note Patient: DARIEN JIMENEZ Provider: Lizbet Marcos MD :1955 A ge:69 Y S ex:Male Date:03/28/2025 Address:[address] [place], [place] [phone] Subjective: * Chief Complaints: * 1 . [...] - 03/28/2025 07:00 AM) L AB: Comprehensive [place]. Panel Fast (Collection Date & Time - 03/28/2025 07:00 AM) L AB: Lipid Panel (Collection Date & Time - 03/28/2025 07:00 AM) L AB: PSA,Total (Free>4and<10) (Collection Date & Time - 03/28/2025 07:00 AM) 3. H ypercholesteremia L AB: UA ClnCatch+Micro w/rflx Cult L AB: Complete Blood Count Auto Diff (Collection Date & Time - 03/28/2025 07:00 AM) L AB: Comprehensive [place]. Panel Fast (Collection Date & Time - [...] 03/28/2025 Generated for Shakeel pandey/Charisse/Cheriitting on: 0 05/15/2025 02:45 PM EDT
--- OUTSIDE RECORDS SUMMARY | 2025-04-03 04:30 | XMS_ITS ---
Author Organization Lalito Marcos MD Address [address] [place] [id number] Care Team Providers Care Trim Stencil Maker Name Role Phone Lalito Marcos Primary Care Provider [phone] Allergies Allergen (clinical drug ingredient) Drug/Non Drug Allergy documented on EMR Reaction Allergy Type Onset Date Status Gdztypkd-Kwwnbabxf-O exa meth swelling Drug Allergy Active Keflex [...] t Reviewed date:04/03/2025 12:51:34 PM Interpretation: Performing Lab:[facility], [address] [place] [phone] Notes/Report: [id number] Urine, Clean Catch Color Urine Yellow Appearance Urine Clear PH 8.0 5.0-9.0 Glucose Urine UA Negative Negative mg/dL Urine Blood Negative Negative Specific [place] - Urine 1.010 1.005-1.025 Urine Protein Negative [...] down 2 pounds [facility] e 10-15-24 Encounters Encounter Location Date Provider Diagnosis Lalito Marcos MD [address] [place], [place] [phone] 04/03/2025 Lalito Mracos Longstanding persistent atrial fibrillation I48.11 ; Essential [...] Reason: Provider Name:Lalito zhang, 10/09/2025 07:45:00 AM, [address] [place] [address], [address], [place], [place], [phone], Provider Name:Lalito zhang, 10/16/2025 10:00:00 AM, [address] [place] [address], [address], [place], [place], [phone], Provider Name:Lalito Castro ier, 03/30/2026 07:15:00 AM, [address], [address], [place], [place], [phone], Provider Name:Lalito Castro ier, 04/06/2026 09:30:00 AM, [address], [address], [place], [place], [phone], Progress Notes * IVANIA WRIGHTOB: (69 yo M)Acc No.[id number]:04/03/2025 Patient: DARIEN JIMENEZ Provider: Lizbet Marcos MD :1955 A ge:69 Y S ex:Male Date:04/03/2025 Address:[address] [place], [place] [phone] Subjective: * Chief Complaints: * R eview [...] rashClindamycin HCl: rashTriamcinolone & Emollient: rashNeoporacin: rashKeflex: cbkoKtnawfyb-Glfhcdcpf-Mwmiycmu: swellingyes[Allergies Verified] Objective: * Vitals: H t: 67, Wt: 270, BMI:42.28, BP:134/90, Repeat BP:150/90, Wt-k.47. weight is down 2 pounds since 10-15-24. * P ast Orders: L ab:Comprehensive [place]. Panel Fast (Order Date - 03/28/2025) (Collection [...] Procedure Codes: 8 2270 TEST FOR BLOOD, [id number] Complex e/m visit add on * Preventive [...] 04/03/2025 Generated for Shakeel pandey/Charisse/Cheriitting on: 0 05/15/2025 02:45 PM EDT History [...]
[2025-05-15 14:03] LABS: Prothrombin Time Whole Bld POC 27.2 sec (11.1-13.5); ~PT, ~INR - Anti Coag Clinic 2.3 (0.9-1.1)
--- NOTE | 2025-05-15 14:04 | MHC.OFFVISCO ---
Intake Intake Visit Reasons: Anticoagulation Allergies amoxicillin (Amoxicillin) Allergy (Unknown, Verified 05/15/25 13:58) RASH cephalexin (From Keflex) Allergy (Unknown, Verified 05/15/25 13:58) unknown clindamycin (Clindamycin) Allergy (Unknown, Verified 05/15/25 13:58) RASH Jeremiah poly Dex eye Allergy (Unknown, Uncoded 05/15/25 13:58) Unknown Medication List - Last Reconciled 05/15/25 by Megan Teixeira RN albuterol sulfate 90 mcg/actuation 2 puffs inhalation Q6H PRN atorvastatin (Lipitor) 80 mg PO DAILY chlorthalidone 25 mg PO DAILY digoxin 250 mcg PO DAILY metoprolol succinate ER 50 mg PO DAILY metoprolol succinate ER 100 mg PO DAILY potassium chloride ER 40 mEq PO DAILY warfarin 5 mg See Protocol PO DAILY Nursing Note INR: 2.3 in therapeutic range of 2-3 Medications and supplements reviewed No changes in health, diet, medications, or supplements, Denies any signs and symptoms of bleeding or bruising or clotting. Bleeding, bruising, clotting discussed Nutritional guidance given Dose: 7.5mg X 6 days and 5mg X 1 day (Mon) F/U INR: 4 weeks Patient verbalizes understanding of instructions given Anti-Coag Initial Assessment Social Hx Patient Tobacco Use Status: Never used Tobacco alcohol intake: current Alcohol intake frequency: holidays/special occasions only Coding Level of Care Code Est Patient Level 1 Diagnoses Current use of anticoagulant therapy Z79.01 Results AMB INR Fingerstick AMB INR Fingerstick 2.3 Last Edit by Megan Teixeira RN on 05/15/25 14:03 interface delay Assessment & Plan Assessment & Plan (1) Current use of anticoagulant therapy: Code(s): 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
--- OUTSIDE RECORDS SUMMARY | 2025-05-15 14:45 | XMS_ITS | Patient Health Record ---
Author Organization Lalito Marcos MD Address [address] [place], [place] [id number] Care Team Providers Care R[place]sman Name Role Phone Lalito Marcos Primary Care Provider Allergies Allergen (clinical drug ingredient) Drug/Non Drug Allergy documented on EMR Reaction Allergy Type Onset Date Status Qqmokfqn-Dbmntxbdf-X exa meth swelling Drug Allergy Active Keflex rash Drug Allergy Active clindamycin Clindamycin HCl rash Drug Allergy Active amoxicillin Amoxicillin rash Drug Allergy Act jesus Triamcinolone & Emollient rash Drug Allergy Active Neoporacin rash Drug Allergy Active Results Component Value Reference Range Notes Liver Panel Reviewed date:10/04/2024 01:39:16 PM Interpretation: Performing Lab:[facility], [address] [place] [phone] Notes/Report: Bilirubin Total 2.7 0.0-1.0 mg/dL Slight Icte aranza. Bilirubin Direct 0.6 0.0-0.5 mg/dL Slight Ict erus. Aspartate Amino Transferase 29 5-37 U/L Alanine Aminotransferase 15 0-40 U/L Total Protein 7.5 6.5-8.0 g/dL Albumin Level 4.0 3.5-5.0 g/dL Alkaline Phosphatase 104 39-117 U/L Lipid Panel with Reflex Reviewed date:10/04/2024 01:38:10 PM Interpretation: Performing Lab:[facility], [address] [place] [phone] Notes/Report: Triglycerides 131 <150 mg/dL Desirable Triglyceride: [...] low results in patients with liver disease. Complete Blood Count Auto Di ff Reviewed date:03/28/2025 12:47:59 PM Interpretation: Performing Lab:[facility], [address] [place] [phone] Notes/Report: White Blood Count 8.5 4.8-10.8 X10*3/uL [...] NRBC Abs Auto 0.000 0.0-0.012 X10*3/uL Comprehensive [place]. Panel Fa st Reviewed date:03/28/2025 12:51:30 PM Interpretation: Performing Lab:[facility], [address] [place] [phone] Notes/Report: Sodium 137 135-145 mmol/L Potassium 4.1 [...] Panel Reviewed date:03/28/2025 12:48:08 PM Interpretation: Performing Lab:[facility], [address] [place] [phone] Notes/Report: Triglycerides 153 <150 mg/dL Desirable Triglyceride: [...] (Free>4and<10) Reviewed date:03/28/2025 12:47:29 PM Interpretation: Performing Lab:[facility], [address] [place] [phone] Notes/Report: PSA,Total (Free>4and<10) 2.28 0.00-4.00 ng/mL A [...] Scott Alinity i Chemiluminescent Microparticle Immunoassay (CMIA) Occult Blood, Stool, Guaiac Reviewed date:04/03/2025 11:17:30 AM Interpretation:Negative Performing Lab: Notes/Report: Negative Occult Blood, Stool, Guaiac Neg UA ClnCatch+Micro w/rflx Cul t Reviewed date:04/03/2025 12:51:34 PM Interpretation: Performing Lab:[facility], [address] [place] [phone] Notes/Report: [id number] Urine, Clean Catch Color Urine Yellow Appearance Urine Clear PH 8.0 5.0-9.0 Glucose Urine UA Negative Negative mg/dL Urine Blood Negative Negative Specific [place] - Urine 1.010 1.005-1.025 Urine Protein Negative Neg-Trace mg/dL Urine Ketones Negative Negative mg/dL Nitrite Urine Negative Negative Leukocyte Esterase Urine Negative Negative RBC Urine 0-2 0-2 /HPF WBC Urine 0-5 0-5 /HPF Squamous Epithelial Cell Urine 0-2 0-2 /HPF Bacteria Urine None Seen None Seen Hyaline Casts Urine 0-2 0-2 /LPF INR WHOLE BLOOD POC Reviewed date:05/22/2024 04:35:58 PM Interpretation: Performing Lab:[facility], [address] [place] [phone] Notes/Report: PT, INR - [facility] 3.2 0.9-1.1 METER #: [id number] INTERNATIONAL NORMALIZED RATIO (INR) REFERENCE RANGES Reference Range For patients not on anticoagulant therapy: 0.9 - 1.1 INR ranges for oral anticoagulant therapy: For prevention and treatment of venous thrombosis and pulmonary embolism: 2.0 - 3.0 For acute myocardial infarction with aspirin therapy: 2.0 - 3.0 For acute myocardial infarction without aspirin therapy: 3.0 - 4.0 For patients with mechanical prosthetic heart valves: 2.5 - 3.5 Prothrombin Time Whole Bld P OC Reviewed date:05/22/2024 04:32:58 PM Interpretation: Performing Lab:[facility], [address] [place] [phone] Notes/Report: Prothrombin Time Whole Bld POC 38.2 11.1-13.5 sec INR WHOLE BLOOD POC Reviewed date:06/20/2024 04:15:58 PM Interpretation: Performing Lab:[facility], [address] [place] [phone] Notes/Report: PT, INR - Anti Coag Clinic 3.2 0.9-1.1 METER #: [id number] INTERNATIONAL NORMALIZED RATIO (INR) REFERENCE RANGES Reference Range For patients not on anticoagulant therapy: 0.9 - 1.1 INR ranges for oral anticoagulant therapy: For prevention and treatment of venous thrombosis and pulmonary embolism: 2.0 - 3.0 For acute myocardial infarction with aspirin therapy: 2.0 - 3.0 For acute myocardial infarction without aspirin therapy: 3.0 - 4.0 For patients with mechanical prosthetic heart valves: 2.5 - 3.5 Prothrombin Time Whole Bld P OC Reviewed date:06/20/2024 04:16:06 PM Interpretation: Performing Lab:[facility], [address] [place] [phone] Notes/Report: Prothrombin Time Whole Bld POC 38.3 11.1-13.5 sec INR WHOLE BLOOD POC Reviewed date:07/18/2024 03:34:25 PM Interpretation: Performing Lab:[facility], [address] [place] [phone] Notes/Report: PT, INR - Anti Coag Clinic 2.5 0.9-1.1 METER #: [id number] INTERNATIONAL NORMALIZED RATIO (INR) REFERENCE RANGES Reference Range For patients not on anticoagulant therapy: 0.9 - 1.1 INR ranges for oral anticoagulant therapy: For prevention and treatment of venous thrombosis and pulmonary embolism: 2.0 - 3.0 For acute myocardial infarction with aspirin therapy: 2.0 - 3.0 For acute myocardial infarction without aspirin therapy: 3.0 - 4.0 For patients with mechanical prosthetic heart valves: 2.5 - 3.5 Prothrombin Time Whole Bld P OC Reviewed date:07/18/2024 03:37:02 PM Interpretation: Performing Lab:[facility], [address] [place] [phone] Notes/Report: Prothrombin Time Whole Bld POC 29.8 11.1-13.5 sec INR WHOLE BLOOD POC Reviewed date:09/19/2024 02:03:11 PM Interpretation: Performing Lab:[facility], [address] [place] [phone] Notes/Report: PT, INR - Anti Coag Clinic 3.5 0.9-1.1 METER #: [id number] INTERNATIONAL NORMALIZED RATIO (INR) REFERENCE RANGES Reference Range For patients not on anticoagulant therapy: 0.9 - 1.1 INR ranges for oral anticoagulant therapy: For prevention and treatment of venous thrombosis and pulmonary embolism: 2.0 - 3.0 For acute myocardial infarction with aspirin therapy: 2.0 - 3.0 For acute myocardial infarction without aspirin therapy: 3.0 - 4.0 For patients with mechanical prosthetic heart valves: 2.5 - 3.5 Prothrombin Time Whole Bld P OC Reviewed date:09/19/2024 03:30:27 PM Interpretation: Performing Lab:[facility], [address] [place] [phone] Notes/Report: Prothrombin Time Whole Bld POC 42.4 11.1-13.5 sec INR WHOLE BLOOD POC Reviewed date:10/03/2024 05:10:17 PM Interpretation: Performing Lab:[facility], [address] [place] [phone] Notes/Report: PT, INR - Anti Coag Clinic 2.1 0.9-1.1 METER #: [id number] INTERNATIONAL NORMALIZED RATIO (INR) REFERENCE RANGES Reference Range For patients not on anticoagulant therapy: 0.9 - 1.1 INR ranges for oral anticoagulant therapy: For prevention and treatment of venous thrombosis and pulmonary embolism: 2.0 - 3.0 For acute myocardial infarction with aspirin therapy: 2.0 - 3.0 For acute myocardial infarction without aspirin therapy: 3.0 - 4.0 For patients with mechanical prosthetic heart valves: 2.5 - 3.5 Prothrombin Time Whole Bld P OC Reviewed date:10/03/2024 05:10:06 PM Interpretation: Performing Lab:[facility], [address] [place] [phone] Notes/Report: Prothrombin Time Whole Bld POC 25.8 11.1-13.5 sec Hold Red Reviewed date:10/04/2024 11:28:38 AM Interpretation: Performing Lab:[facility], [address] [place] [phone] Notes/Report: Hold Red See Note Specimen held untested for 24 hours; Call to request Chemistry testing. INR WHOLE BLOOD POC Reviewed date:10/31/2024 04:51:17 PM Interpretation: Performing Lab:[facility], [address] [place] [phone] Notes/Report: PT, INR - Anti Coag Clinic 2.0 0.9-1.1 METER #: [id number] INTERNATIONAL NORMALIZED RATIO (INR) REFERENCE RANGES Reference Range For patients not on anticoagulant therapy: 0.9 - 1.1 INR ranges for oral anticoagulant therapy: For prevention and treatment of venous thrombosis and pulmonary embolism: 2.0 - 3.0 For acute myocardial infarction with aspirin therapy: 2.0 - 3.0 For acute myocardial infarction without aspirin therapy: 3.0 - 4.0 For patients with mechanical prosthetic heart valves: 2.5 - 3.5 Prothrombin Time Whole Bld P OC Reviewed date:10/31/2024 04:51:26 PM Interpretation: Performing Lab:[facility] [address] [phone] Notes/Report: Prothrombin Time Whole Bld POC 24.4 11.1-13.5 sec INR WHOLE BLOOD POC Reviewed date:11/28/2024 04:09:17 PM Interpretation: Performing Lab:[facility], [address] [place] [phone] Notes/Report: PT, INR - Anti Coag Clinic 4.3 0.9-1.1 METER #: [id number] INTERNATIONAL NORMALIZED RATIO (INR) REFERENCE RANGES Reference Range For patients not on anticoagulant therapy: 0.9 - 1.1 INR ranges for oral anticoagulant therapy: For prevention and treatment of venous thrombosis and pulmonary embolism: 2.0 - 3.0 For acute myocardial infarction with aspirin therapy: 2.0 - 3.0 For acute myocardial infarction without aspirin therapy: 3.0 - 4.0 For patients with mechanical prosthetic heart valves: 2.5 - 3.5 Prothrombin Time Whole Bld P OC Reviewed date:11/28/2024 04:09:26 PM Interpretation: Performing Lab:[facility], [address] [place] [phone] Notes/Report: Prothrombin Time Whole Bld POC 52.0 11.1-13.5 sec INR WHOLE BLOOD POC Reviewed date:12/05/2024 04:02:32 PM Interpretation: Performing Lab:[facility], [address] [place] [phone] Notes/Report: PT, INR - Anti Coag Clinic 2.7 0.9-1.1 METER #: [id number] INTERNATIONAL NORMALIZED RATIO (INR) REFERENCE RANGES Reference Range For patients not on anticoagulant therapy: 0.9 - 1.1 INR ranges for oral anticoagulant therapy: For prevention and treatment of venous thrombosis and pulmonary embolism: 2.0 - 3.0 For acute myocardial infarction with aspirin therapy: 2.0 - 3.0 For acute myocardial infarction without aspirin therapy: 3.0 - 4.0 For patients with mechanical prosthetic heart valves: 2.5 - 3.5 Prothrombin Time Whole Bld P OC Reviewed date:12/05/2024 04:02:19 PM Interpretation: Performing Lab:[facility], [address] [place] [phone] Notes/Report: Prothrombin Time Whole Bld POC 32.6 11.1-13.5 sec INR WHOLE BLOOD POC Reviewed date:01/10/2025 03:32:19 PM Interpretation: Performing Lab:[address] [phone] Notes/Report: PT, INR - Anti Coag Clinic 3.2 0.9-1.1 METER #: [id number] INTERNATIONAL NORMALIZED RATIO (INR) REFERENCE RANGES Reference Range For patients not on anticoagulant therapy: 0.9 - 1.1 INR ranges for oral anticoagulant therapy: For prevention and treatment of venous thrombosis and pulmonary embolism: 2.0 - 3.0 For acute myocardial infarction with aspirin therapy: 2.0 - 3.0 For acute myocardial infarction without aspirin therapy: 3.0 - 4.0 For patients with mechanical prosthetic heart valves: 2.5 - 3.5 Prothrombin Time Whole Bld P OC Reviewed date:01/10/2025 03:32:09 PM Interpretation: Performing Lab:[facility], [address] [place] [phone] Notes/Report: Prothrombin Time Whole Bld POC 38.4 11.1-13.5 sec Basic Metabolic Panel Reviewed date:01/16/2025 05:03:57 PM Interpretation: Performing Lab:[address] [phone] Notes/Report: Sodium 139 135-145 mmol/L Potassium 3.9 3.3-5.1 mmol/L Chloride 100 96-108 mmol/L Carbon Dioxide 29 22-29 mmol/L Anion Gap 14 12-20 Blood Urea Nitrogen 17 9-16 mg/dL Creatinine 1.09 0.5-1.4 mg/dL Estimated Glomerular Filt Rate > 60 Chronic Kidney Disease: Estimated GFR < 60 mL/min/1.73m2 Severe Kidney Disease: Estimated GFR < 15 mL/min/1.73m2 Glucose Random 146 60-115 mg/dL Calcium 9.5 8.4-10.2 mg/dL Digoxin Reviewed date:01/15/2025 04:59:20 PM Interpretation: Performing Lab:[address] [phone] Notes/Report: Digoxin 0.7 0.8-2.0 ng/mL Assay modified to minimize interference from aldosterone antagonists (e.g. spironolactone and canrenone). INR WHOLE BLOOD POC Reviewed date:02/07/2025 04:24:23 PM Interpretation: Performing Lab:[facility], [address] [place] [phone] Notes/Report: PT, INR - Anti Coag Clinic 2.8 0.9-1.1 METER #: [id number] INTERNATIONAL NORMALIZED RATIO (INR) REFERENCE RANGES Reference Range For patients not on anticoagulant therapy: 0.9 - 1.1 INR ranges for oral anticoagulant therapy: For prevention and treatment of venous thrombosis and pulmonary embolism: 2.0 - 3.0 For acute myocardial infarction with aspirin therapy: 2.0 - 3.0 For acute myocardial infarction without aspirin therapy: 3.0 - 4.0 For patients with mechanical prosthetic heart valves: 2.5 - 3.5 Prothrombin Time Whole Bld P OC Reviewed date:02/07/2025 04:23:54 PM Interpretation: Performing Lab:[facility], [address] [place] [phone] Notes/Report: Prothrombin Time Whole Bld POC 33.9 11.1-13.5 sec INR WHOLE BLOOD POC Reviewed date:03/07/2025 04:39:32 PM Interpretation: Performing Lab:[facility], [address] [place] [phone] Notes/Report: PT, INR - Anti Coag Clinic 2.1 0.9-1.1 METER #: [id number] INTERNATIONAL NORMALIZED RATIO (INR) REFERENCE RANGES Reference Range For patients not on anticoagulant therapy: 0.9 - 1.1 INR ranges for oral anticoagulant therapy: For prevention and treatment of venous thrombosis and pulmonary embolism: 2.0 - 3.0 For acute myocardial infarction with aspirin therapy: 2.0 - 3.0 For acute myocardial infarction without aspirin therapy: 3.0 - 4.0 For patients with mechanical prosthetic heart valves: 2.5 - 3.5 Prothrombin Time Whole Bld P OC Reviewed date:03/07/2025 04:29:49 PM Interpretation: Performing Lab:[facility], [address] [place] [phone] Notes/Report: Prothrombin Time Whole Bld POC 25.1 11.1-13.5 sec INR WHOLE BLOOD POC Reviewed date:04/04/2025 02:55:25 PM Interpretation: Performing Lab:[facility], [address] [place] [phone] Notes/Report: PT, INR - Anti Coag Clinic 1.8 0.9-1.1 METER #: [id number] INTERNATIONAL NORMALIZED RATIO (INR) REFERENCE RANGES Reference Range For patients not on anticoagulant therapy: 0.9 - 1.1 INR ranges for oral anticoagulant therapy: For prevention and treatment of venous thrombosis and pulmonary embolism: 2.0 - 3.0 For acute myocardial infarction with aspirin therapy: 2.0 - 3.0 For acute myocardial infarction without aspirin therapy: 3.0 - 4.0 For patients with mechanical prosthetic heart valves: 2.5 - 3.5 Prothrombin Time Whole Bld P OC Reviewed date:04/04/2025 02:54:58 PM Interpretation: Performing Lab:[facility], [address] [place] [phone] Notes/Report: Prothrombin Time Whole Bld POC 21.4 11.1-13.5 sec INR WHOLE BLOOD POC (Not yet reviewed by provider) Interpretation: Performing Lab:[facility], [address] [place] [phone] Notes/Report: PT, INR - Anti Coag Clinic 2.3 0.9-1.1 METER #: [id number] INTERNATIONAL NORMALIZED RATIO (INR) REFERENCE RANGES Reference Range For patients not on anticoagulant therapy: 0.9 - 1.1 INR ranges for oral anticoagulant therapy: For prevention and treatment of venous thrombosis and pulmonary embolism: 2.0 - 3.0 For acute myocardial infarction with aspirin therapy: 2.0 - 3.0 For acute myocardial infarction without aspirin therapy: 3.0 - 4.0 For patients with mechanical prosthetic heart valves: 2.5 - 3.5 Prothrombin Time Whole Bld P OC (Not yet reviewed by provider) Interpretation: Performing Lab:[facility], [address] [place] [phone] Notes/Report: Prothrombin Time Whole Bld POC 27.2 11.1-13.5 sec Reason For Referral No Information Medications Medication [...] BY MOUTH EVERY DAY WITH 100MG Active Chlorthalidone 25 MG TAKE 1 TABLET BY MOUTH EVERY DAY IN THE MORNING WITH FOOD for 90 Active Potassium Chloride ER 20 MEQ TAKE 2 TABLETS BY MOUTH EVERY DAY WITH FOOD ONCE A DAY for 90 Active Immunizations Vaccine Route Administration Date Status Comme nts Covid Vaccine Unknown 12/28/2020 Administered J&J Fluarix Quadrivalent Unknown 09/03/2021 Administered CV S Shingrix Unknown 09/14/2021 Administered [facility] SARS-COV-2 Moderna Unknown 09/23/2021 Administered [facility] Influenza High Dose IM Intramuscular 06/28/2022 Administer ed SARS-COV-2 Moderna Unknown 07/04/2022 Administered [facility] Influenza High Dose IM Intramuscular 09/25/2023 Administer ed Social History Tobacco Use: Social History Observation [...] Never (0 point) Points 5 Interpretation Positive Problems Problem Type SNOMED Code ICD Code Onset Dates Problem Status W/U Status Risk Notes Problem Diabetic neuropathy (892450011) Diabetic neuropathy (E11.40) Active confirmed Problem Gilbert syndrome (18904235) Gilbert syndrome (E80.4) Active confirmed Problem 87995551 Essential hypertension (I10) Active confirmed Problem Hearing loss (15665154) Hearing loss (H91.90) Active confirmed Problem 11623870 Hypercholesterem ia (E78.00) Active confirmed Problem 58410602 YEE (obstructive sleep apnea) (G47.33) Active confirmed Problem 135075568 Chronic systolic heart failure (I50.22) Active confirmed Problem 85754865 Acquired thrombocytopenia (D69.6) Active confirmed Problem 009416015 Anticoagulation adequate (Z79.01) Active confirmed Problem 935471315 Longstanding persistent atrial fibrillation (I48.11) Active confirmed Vital Signs Blood pressure diastolic 90 mm Hg 04/03/2025 azul ght is down 2 pounds since 10-15-24 Height 67 in 04/03/2025 weight is down 2 pounds since 10-15-24 Blood pressure systolic 134 mm Hg 04/03/2025 weig ht is down 2 pounds since 10-15-24 Weight 270 lbs 04/03/2025 weight is down 2 pounds since 10-15-24 BMI 42.28 kg/m2 04/03/2025 weight is down 2 pounds since 10-15-24 Encounters Encounter Location Date Provider Diagnosis Lalito Marcos MD [address] [place] [id number] 10/04/2024 Lalito Marcos Hypercholesteremia E 78.00 Lalito Marcos MD [address] [place] [address] Drive [address] [place] [id number] 03/28/2025 Lalito Marcos Essential hypertensi on I10 ; Chronic systolic heart failure I50.22 and Hypercholesteremia E78.00 Lalito Marcos MD [address] [place] [address] [address] [id number] 10/15/2024 Lalito Marcos Essential hypertensi on I10 ; Encounter for general adult medical examination without abnormal findings Z00.00 ; Longstanding persistent atrial fibrillation I48.11 ; Hypercholesteremia E78.00 ; Chronic systolic heart failure I50.22 ; Hearing loss H91.90 and Impacted cerumen of right ear H61.21 Lalito Marcos MD [address] [place] [id number] 04/03/2025 Lalito Marcos Longstanding persist ent atrial fibrillation I48.11 ; Essential hypertension I10 ; YEE (obstructive sleep apnea) G47.33 ; Gilbert syndrome E80.4 ; Chronic systolic heart failure I50.22 ; Hypercholesteremia E78.00 ; Colon cancer screening Z12.11 and Depression screen Z13.31 Assessments Encounter Date Diagnosis (ICD Code) Assessment Notes Treatment Notes Treatment Clinical Notes Section Notes 10/04/2024 Hypercholesteremia (ICD-10 - E78.00) 03/28/2025 Essential hypertensi on (ICD-10 - I10) 10/15/2024 Essential hypertensi on (ICD-10 - I10) was good at walk in, numbers are elevated today, will continue current regiment and will continue to monitor 10/15/2024 Encounter for genera l adult medical examination without abnormal findings (ICD-10 - Z00.00) 04/03/2025 Longstanding persistent atrial fibrillation (ICD-10 - I48.11) needs yearly digoxin level 1 04/03/2025 Essential hypertensi on (ICD-10 - I10) well controlled, will continue current regiment 1 03/28/2025 Chronic systolic hea rt failure (ICD-10 - I50.22) 10/15/2024 Longstanding persistent atrial fibrillation (ICD-10 - I48.11) on coumadin rate well controlled, will continue current regiment 04/03/2025 YEE (obstructive sle ep apnea) (ICD-10 - G47.33) not using cpap 1 03/28/2025 Hypercholesteremia (ICD-10 - E78.00) 10/15/2024 Hypercholesteremia (ICD-10 - E78.00) stable, will cntinue current regiment 04/03/2025 Gilbert syndrome (ICD-10 - E80.4) stable no treatment needed 1 10/15/2024 Chronic systolic hea rt failure (ICD-10 - I50.22) stable, is doing well, will continue current regiment 04/03/2025 Chronic systolic hea rt failure (ICD-10 - I50.22) stable, will continue current regiment 1 10/15/2024 Hearing loss (ICD-10 - H91.90) improved after wax removed, will cntinue to monitor 04/03/2025 Hypercholesteremia (ICD-10 - E78.00) stable, will continue current regiment 1 10/15/2024 Impacted cerumen of right ear (ICD-10 - H61.21) cerumen removed with good results 04/03/2025 Colon cancer screeni ng (ICD-10 - Z12.11) guaiac negative 1 04/03/2025 Depression screen (ICD-10 - Z13.31) negative screen 1 Plan Of Treatment Pending Test Test Name Order Date INR WHOLE BLOOD POC 05/15/2025 Prothrombin Time Whole Bld POC UA ClnCatch+Micro w/rflx Cult 03/28/2025 Next Appt Details Provider Name:Lalitomark Castro ier, 10/09/2025 07:45:00 AM, [address] [place] [address], [address], [phone], Provider Name:Lalito Castro ier, 10/16/2025 10:00:00 AM, [address] [place] [address], [address], [phone], Provider Name:Lalito Castro ier, 03/30/2026 07:15:00 AM, [address] [place] [address], [phone], Provider Name:Lalito Armando Castro ier, 04/06/2026 09:30:00 AM, [address] [place] [address], [address], [phone], Insurance Providers Payer Name Payer Address Payer Phone Subscriber Number Group Number Insured Name Patient Relationship to Insured Coverage Start Date Coverage End Date MEDICARE [facility] [address] [place] [address] [id number] DARIEN WRIGHT Self - patient is the insured [employer] OF [employer] [address] [place] [phone] [id number] DARIEN WRIGHT Self - patient is the insured Medical (General) History Medical History History ICD Code colonoscopy 11/2020 , neg but had polyps before so repeat in 5 year Chronic renal failure, stage 2 (mild) N1 8.2
--- OUTSIDE RECORDS SUMMARY | 2025-05-15 14:45 | XMS_ITS | Patient Health Record ---
Author Organization [facility] Address [address] [place] [address] Care Team Providers Care Student Recruiter Name Role Phone Ebonie Sanderson MD Primary [...] Problem Status W/U Status Risk Notes Problem Primary osteoarthritis , left ankle and foot (M19.072) Active confirmed Plan Of Treatment Pending Test Test Name Order Date [id number] NAIL, 6 OR MORE 08/02/2017 [id number] Destruction, -07/05/2017 [id number] Destruction, -08/02/2017 Insurance Providers Payer Name Payer Address Payer Phone Subscriber Number Group Number Insured Name Patient Relationship to Insured Coverage Start Date Coverage End Date [employer] [address] [place] [address] [phone] [id number] Gordon Fitch Self - patient is the insured 7 Medical (General) History Medical History History ICD Code Heart disease High blood pressure Kidney disease Measles Mumps Chicken pox A fib Surgical History Surgery Date(Month/Year) hernia 2009
--- OUTSIDE RECORDS SUMMARY | 2025-05-15 14:46 | XMS_ITS ---
Author Name [facility] Organization Unknown Care Team Organization Name Specialty Phone Email Start Date End Da rodrigo [facility] 07/26/2022 024
== END 2025-05-15 14:07 | disposition home or self-care (01) ==
LOC: HO.ACS 13:55
PROVIDERS: PCP Internal Medicine; Visit Provider Internal Medicine Medical Oncology
DX: Z79.01 Long term (current) use of anticoagulants (principal)

== ENCOUNTER → 2025-05-15 13:55 | Outpatient (BNVA) | payer MEDICARE, OTHER, SELFPAY | PROVIDERS: PCP Internal Medicine; Visit Provider Internal Medicine Medical Oncology | DX: Z51.81 Encounter for therapeutic drug level monitoring (principal); Z79.01 Long term (current) use of anticoagulants | CPT/HCPCS: 85610; 99211 ==

== ENCOUNTER 2025-06-12 09:04 | Inpatient (IN) | payer MEDICARE, OTHER, SELFPAY ==
--- OUTSIDE RECORDS SUMMARY | 2024-04-01 04:30 | XMS_ITS ---
Author Organization Lalito Marcos MD Address [address] [place] [phone] Care Team Providers Care Car Tracer Name Role Phone Lalito Marcos Primary Care Provider Allergies Allergen (clinical drug ingredient) Drug/Non Drug Allergy documented on EMR Reaction Allergy Type Onset Date Status Eycciuhd-Zmqdopxhd-G exa meth swelling Drug Allergy Active Keflex [...] t Reviewed date:04/01/2024 06:16:52 PM Interpretation: Performing Lab:[facility], [address] [place] [phone] Notes/Report: [id number] 0830 Urine, Clean Catch Color Urine Yellow Appearance Urine Clear PH 5.5 5.0-9.0 Glucose Urine UA Negative Negative mg/dL Urine Blood Negative Negative Specific [place] - Urine <= 1.005 1.005-1.025 Urine Protein [...] Encounters Encounter Location Date Provider Diagnosis Lalito Marocs MD [address] [place] [address] [place] [phone] 04/01/2024 Lalito Marcos Hypercholesteremia E 78.00 ; [...] 6 Months, Reason: afib Provider Name:Lalito zhang, 10/09/2025 07:45:00 AM, [address] [place] [address], [place] [address], [place], [place], [phone], Provider Name:Lalito zhang, 10/16/2025 10:00:00 AM, [address] [facility] [address], [address], [place], [place], [phone], Provider Name:Lalito Castro ier, 03/30/2026 07:15:00 AM, [address] [facility], Suite [facility], [place], [phone], Provider Name:Lalito Castro ier, 04/06/2026 09:30:00 AM, [address] [facility], [address], [place], [place], [phone], Progress Notes * MITZI WRIGHTEDOB: (68 yo M)Acc No.[id number]:04/01/2024 Patient: DARIEN JIMENEZ Provider: Lizbet Marcos MD :1955 A ge:68 Y S ex:Male Date:04/01/2024 Address:[address] [place], [place] [phone] Subjective: * Chief Complaints: * R eview [...] rashClindamycin HCl: rashTriamcinolone & Emollient: rashNeoporacin: rashKeflex: fqjbZmecpdxo-Xvopiibtm-Bsfxkffo: swellingyes[Allergies Verified] Objective: * Vitals: H t: [...] 34 L >40 - mg/dL L ab:Comprehensive [place]. Panel Fast (Order Date - 03/25/2024) (Collection [...] Notes: negative screen.?? * Procedure Codes: 8 0724 TEST FOR BLOOD, FECES * Preventive Medicine: [...] Marcos MD Date: 0 04/01/2024 Generated for Crysi katherin/Charisse/eTransmitting on: 0 06/12/2025 01:12 PM EDT History and Physical Notes * HPI [...] had two or more falls in the st year?: No Communication Needs Communication Needs Does [...]
--- OUTSIDE RECORDS SUMMARY | 2024-10-04 04:00 | XMS_ITS ---
Author Organization Lalito Marcos MD Address [address] [place], [place] [id number] Care Team Providers Care Marine Structural Designer Name Role Phone Lalito Marcos Primary Care Provider Results Component Value Reference Range Notes Liver Panel Reviewed date:10/04/2024 01:39:16 PM Interpretation: Performing Lab:[facility], [address] [place] [phone] Notes/Report: Bilirubin Total 2.7 0.0-1.0 mg/dL Slight Icte aranza. Bilirubin Direct 0.6 0.0-0.5 mg/dL Slight Ict erus. Aspartate Amino Transferase 29 5-37 U/L Alanine Aminotransferase 15 0-40 U/L Total Protein 7.5 6.5-8.0 g/dL Albumin Level 4.0 3.5-5.0 g/dL Alkaline Phosphatase 104 39-117 U/L Lipid Panel with Reflex Reviewed date:10/04/2024 01:38:10 PM Interpretation: Performing Lab:[facility], [address] [place] [phone] Notes/Report: Triglycerides 131 <150 mg/dL Desirable Triglyceride: [...] Date Provider Diagnosis Lalito Marcos MD [address] [place] [phone] 10/04/2024 Lalito Marcos Hypercholesteremia E 78.00 Assessments Encounter Date Diagnosis (ICD Code) Assessment Notes Treatment Notes Treatment Clinical Notes Section Notes 10/04/2024 Hypercholesteremia (ICD-10 - E78.00) Plan Of Treatment Next Appt Details Provider Name:Lalito zhang, 10/09/2025 07:45:00 AM, [address] [place] [address], [address], [phone], Provider Name:Lalito zhang, 10/16/2025 10:00:00 AM, [address] [place] [address], [address], [phone], Provider Name:Lalito zhang, 03/30/2026 07:15:00 AM, [address] [place] [address], [address], [phone], Provider Name:Lalito zhang, 04/06/2026 09:30:00 AM, [address] [facility], [address], [place], [place], [phone], Progress Notes * IVANIA WRIGHTOB: 5 (70 yo M)Acc No.[id number]:10/04/2024 Progress Note Patient: DARIEN JIMENEZ Provider: Lizbet Marcos MD :1955 A ge:69 Y S ex:Male Date:10/04/2024 Address:[address] [place], [place] [phone] Subjective: * Chief Complaints: * 1 . [...] 0 10/04/2024 Generated for Shakeel pandey/Charisse/Cheriitting on: 0 06/12/2025 01:10 PM EDT
--- OUTSIDE RECORDS SUMMARY | 2024-10-15 05:00 | XMS_ITS ---
Author Organization Lalito Marcos MD Address [address] [place] [phone] Care Team Providers Care Business Consult Name Role Phone Lalito Marcos Primary Care Provider Allergies Allergen (clinical drug ingredient) Drug/Non Drug Allergy documented on EMR Reaction Allergy Type Onset Date Status Gzqiodpr-Nljlkljoo-J exa meth swelling Drug Allergy Active Keflex [...] Location Date Provider Diagnosis Lalito Marcos MD [address] [place] [address] [address] [place], [place] [phone] 10/15/2024 Lalito Marcos Essential hypertensi on I10 [...] [place] Provider Name:Lalito zhang, 10/09/2025 07:45:00 AM, [address] [place] [address], [address], [phone], Provider Name:Lalito zhang, 10/16/2025 10:00:00 AM, [address] [place] [address], [address], [phone], Provider Name:Lalito zhang, 03/30/2026 07:15:00 AM, [address] [place] [address], [address], [phone], Provider Name:Lalito zhang, 04/06/2026 09:30:00 AM, [address] [place] [address], [address], [phone], Procedure Notes * Category Sub-Category Detail Notes Cerumen removal Procedure right ear, irrig ated with water/H2O2 Post-procedure Pt tolerated procedu re well Progress Notes * IVANIA WRIGHTOB: (69 yo M)Acc No.[id number]:10/15/2024 Progress Note Patient: DARIEN JIMENEZ Provider: Lizbet Marcos MD :1955 A ge:69 Y S ex:Male Date:10/15/2024 Address:[address] [place], [place] [address] Subjective: * Chief Complaints: * 6 MO [...] during today's visit P ast Medical History, [place] of Care, Surgical/Hospitalization History, Current medications including [...] rashClindamycin HCl: rashTriamcinolone & Emollient: rashNeoporacin: rashKeflex: xyyfVsbuplcj-Zxpkcgxnr-Ssmpbyzx: swellingyes[Allergies Verified] Objective: * Vitals: H t: [...] 0 10/15/2024 Generated for Shakeel pandey/Charisse/eTransmitting on: 0 06/12/2025 01:12 PM EDT History [...] updated during today's visit: Past Medical History, [place] of Care, Surgical/Hospitalization History, Current medications including [...]
--- OUTSIDE RECORDS SUMMARY | 2025-03-28 03:00 | XMS_ITS ---
Author Organization Lalito Marcos MD Address [address] [place], [place] [phone] Care Team Providers Care Industrial Gas Service Helper Name Role Phone Lalito Marcos Primary Care Provider Results Component Value Reference Range Notes Complete Blood Count Auto Di ff Reviewed date:03/28/2025 12:47:59 PM Interpretation: Performing Lab:[facility], [address] [place] [phone] Notes/Report: White Blood Count 8.5 4.8-10.8 X10*3/uL [...] NRBC Abs Auto 0.000 0.0-0.012 X10*3/uL Comprehensive [place]. Panel Fa st Reviewed date:03/28/2025 12:51:30 PM Interpretation: Performing Lab:[address] [phone] Notes/Report: Sodium 137 135-145 mmol/L Potassium 4.1 [...] Panel Reviewed date:03/28/2025 12:48:08 PM Interpretation: Performing Lab:[address] [phone] Notes/Report: Triglycerides 153 <150 mg/dL Desirable Triglyceride: [...] (Free>4and<10) Reviewed date:03/28/2025 12:47:29 PM Interpretation: Performing Lab:[facility], [address] [place] [phone] Notes/Report: PSA,Total (Free>4and<10) 2.28 0.00-4.00 ng/mL A [...] Date Provider Diagnosis Lalito Marcos MD [address] [place] [address] [address] [place], [place] [phone] 03/28/2025 Lalito Marcos Essential hypertensi on I10 ; Chronic systolic heart failure I50.22 and Hypercholesteremia E78.00 Assessments Encounter Date Diagnosis (ICD Code) Assessment Notes Treatment Notes Treatment Clinical Notes Section Notes 03/28/2025 Essential hypertensi on (ICD-10 - I10) 03/28/2025 Chronic systolic hea rt failure (ICD-10 - I50.22) 03/28/2025 Hypercholesteremia (ICD-10 - E78.00) Plan Of Treatment Pending Test Test [facility]/28/2025 Next Appt Details Provider Name:Lalito Castro ier, 10/09/2025 07:45:00 AM, [address], [address], [place], [phone], Provider Name:Lalito Castro ier, 10/16/2025 10:00:00 AM, [address] [facility] [address], [address], [place], [place], [phone], Provider Name:Lalito Castro ier, 03/30/2026 07:15:00 AM, [address], [address], [place], [phone], Provider Name:Lalito Castro ier, 04/06/2026 09:30:00 AM, [address] [facility], [address], [place], [place], [phone], Progress Notes * MITZI WRIGHTRYLEEOB: (70 yo M)Acc No.[id number]:03/28/2025 Progress Note Patient: DARIEN JIMENEZ Provider: Lizbet Marcos MD :1955 A ge:69 Y S ex:Male Date:03/28/2025 Address:[address] [place], [place] [phone] Subjective: * Chief Complaints: * 1 . [...] - 03/28/2025 07:00 AM) L AB: Comprehensive [place]. Panel Fast (Collection Date & Time - 03/28/2025 07:00 AM) L AB: Lipid Panel (Collection Date & Time - 03/28/2025 07:00 AM) L AB: PSA,Total (Free>4and<10) (Collection Date & Time - 03/28/2025 07:00 AM) 3. H ypercholesteremia L AB: UA ClnCatch+Micro w/rflx Cult L AB: Complete Blood Count Auto Diff (Collection Date & Time - 03/28/2025 07:00 AM) L AB: Comprehensive [place]. Panel Fast (Collection Date & Time - [...] Marcos MD Date: 0 03/28/2025 Generated for Shakeel pandey/Charisse/Cheriitting on: 0 06/12/2025 01:11 PM EDT
--- OUTSIDE RECORDS SUMMARY | 2025-04-03 04:30 | XMS_ITS ---
Author Organization Lalito Marcos MD Address [address] [place] [phone] Care Team Providers Care Service Loss Control Consultant Name Role Phone Lalito Marcos Primary Care Provider [phone] Allergies Allergen (clinical drug ingredient) Drug/Non Drug Allergy documented on EMR Reaction Allergy Type Onset Date Status Ynxicdfi-Fmfjhjaju-T exa meth swelling Drug Allergy Active Keflex [...] t Reviewed date:04/03/2025 12:51:34 PM Interpretation: Performing Lab:[facility], [address] [place] [phone] Notes/Report: [id number] 0830 Urine, Clean Catch Color Urine Yellow Appearance Urine Clear PH 8.0 5.0-9.0 Glucose Urine UA Negative Negative mg/dL Urine Blood Negative Negative Specific [place] - Urine 1.010 1.005-1.025 Urine Protein Negative [...] kg/m2 04/03/2025 weight is down 2 pounds [facility] e 10-15-24 Encounters Encounter Location Date Provider Diagnosis Lalito Marcos MD [address] [place], [place] [phone] 04/03/2025 Lalito Marcos Longstanding persistent atrial fibrillation [...] Reason: Provider Name:Lalito zhang, 10/09/2025 07:45:00 AM, [address] [place] [address], [address], [place], [place], [phone], Provider Name:Lalito zhang, 10/16/2025 10:00:00 AM, [address] [place] [address], [address], [place], [place], [phone], Provider Name:Lalito Castro ier, 03/30/2026 07:15:00 AM, [address], [address], [place], [place], [phone], Provider Name:Lalito Castro ier, 04/06/2026 09:30:00 AM, [address], [address], [place], [place], [phone], Progress Notes * IVANIA WRIGHTOB: (69 yo M)Acc No.[id number]:04/03/2025 Patient: DARIEN JIMENEZ Provider: Lizbet Marcos MD :1955 A ge:69 Y S ex:Male Date:04/03/2025 Address:[address] [place], [place] [phone] Subjective: * Chief Complaints: * R eview [...] rashClindamycin HCl: rashTriamcinolone & Emollient: rashNeoporacin: rashKeflex: jnifHoojqrqb-Cqzryeoep-Ynowkaev: swellingyes[Allergies Verified] Objective: * Vitals: H t: 67, Wt: 270, BMI:42.28, BP:134/90, Repeat BP:150/90, Wt-k.47. weight is down 2 pounds since 10-15-24. * P ast Orders: L ab:Comprehensive [place]. Panel Fast (Order Date - 03/28/2025) (Collection [...] Procedure Codes: 8 2270 TEST FOR BLOOD, [id number] Complex e/m visit add on * Preventive [...] 0 04/03/2025 Generated for Shakeel pandey/Charisse/Cheriitting on: 0 06/12/2025 01:13 PM EDT History and Physical Notes * [...] Total Score: 0 Interpretation and Intervention Depression [facility] Findings: Negative Follow-Up for Depression: : [...]
[2025-06-12] VITALS (13 sets, daily range): BP systolic 116–186; BP diastolic 73–102; PULSE 74–140; RESP 12–20; TEMP 36.7–38.1; O2SAT 91–98; BMI 43.2; BMI 41.9
--- NOTE | ~2025-06-12 | XR_ITS ---
EXAMINATION: XR KNEE, LEFT CLINICAL INFORMATION: oa COMPARISON: None available. TECHNIQUE: AP and lateral views of the left knee. FINDINGS: No fracture, dislocation, or suspicious bone lesion. There is normal alignment. Moderate to severe medial compartment, and moderate patellofemoral and lateral compartment joint space narrowing with marginal osteophytic spurring, and subchondral sclerosis. Spurring of the tibial spines is present. There is a prominent suprapatellar joint effusion. There is no acute soft tissue abnormality. There are vascular calcifications. XR/XR knee LT 2V IMPRESSION: 1. Suprapatellar joint effusion. 2. Tricompartmental osteoarthritis, moderate to severe in the medial compartment. Electronically signed by: Jamarcus Bingham MD 06/13/2025 08:54 AM EDT
--- NOTE | ~2025-06-12 | CT_ITS ---
EXAMINATION: CT ANGIOGRAM LEFT LOWER EXTREMITY IV contrast: 80 mL Omnipaque [id number] CLINICAL INFORMATION: pain, on warfarin, concern for vessel injury COMPARISON: None available. TECHNIQUE: Axial CT was performed from the iliac crest through the plantar foot after bolus IV contrast. 3D/3D MIP rendering was performed with image postprocessing under concurrent supervision with interpretation and reporting of CT as requested by the referring physician to facilitate diagnosis and treatment planning; not requiring image postprocessing on an independent workstation. Coronal and sagittal reformatted images were generated from the original axial data set. ALARA: The examination used one or more of the following radiation dose reduction techniques: Automated exposure control, iterative reconstruction, and/or adjustment of mA and/or KV. FINDINGS: VASCULAR: There is no extravasation. There is no sign of hematoma. No intimal flap is identified to suggest a dissection. There is no aneurysm. Multifocal vascular calcifications are most pronounced distal to the knee joint with poor opacification of arteries in the distal lower leg and foot.. SOFT TISSUES: There is a large knee joint effusion. There is no deep or superficial fat stranding. Small left inguinal hernia containing fat passes medial to the epigastric vessels. BONES: Curvilinear sclerosis is noted in the subchondral bone of both superior femoral heads consistent with avascular necrosis. On the right, there is involvement of 50-75% of the subchondral bone. There is no sign of subchondral collapse. There is mild degenerative cystic change. On the left, involving the subchondral bone is greater than 75%. There is moderate subchondral cystic change and subtle scalloping of the subchondral bone plate. There is severe narrowing of the medial joint space with subchondral sclerosis and marginal osteophytes. CT/CT angio LE LT IMPRESSION: No evidence of vascular injury. No dissection, hematoma, or extravasation. There is decreased flow in the arteries of the distal lower leg related to multifocal atherosclerotic disease. Bilateral hip AVN. Ficat stage II on the right and, Ficat stage II on the left with very early signs of borderline stage III disease. Direct inguinal hernia on the left contains adipose tissue. There is a large left knee joint effusion and severe osteoarthritis. Electronically signed by: Matty Ovalle MD 06/12/2025 01:39 PM EDT
--- NOTE | ~2025-06-12 | XR_ITS ---
EXAMINATION: XR HIP 2 OR MORE VIEWS BILATERAL HISTORY: AVN hip COMPARISON: Correlation is made with a CT of the lower extremities dated 06/12/2025. FINDINGS: A single AP view of the pelvis and two views of each hip are submitted. There is subtle patchy sclerosis in both femoral heads. Findings are compatible with avascular necrosis as seen on CT. There is no fracture or dislocation. There is mild narrowing of the hip joint. There are vascular calcifications. XR/XR hips MACY min 3V IMPRESSION: Subtle patchy sclerosis of both femoral heads, compatible with AVN, as noted on CT. Electronically signed by: Saad Clarke MD 06/13/2025 08:56 AM EDT
--- NOTE | ~2025-06-12 | CT_ITS ---
CLINICAL HISTORY: Acute urinary retention CT abdomen and pelvis without IV contrast. COMPARISON: None provided. FINDINGS: Partially visualized lung bases are unremarkable. Cholelithiasis present within the gallbladder body. No pericholecystic inflammatory changes. Hepatic steatosis. Noncontrast appearance of the liver, pancreas and adrenal glands are unremarkable. Mild perinephric fat stranding bilaterally, likely senescent. No right-sided hydronephrosis. No right renal or ureteral calculus. Left renal cystic lesion measuring 2.0 cm. No left-sided hydronephrosis or hydroureter. No left renal or ureteral calculus. Normal appendix. Mild colonic stool burden. No bowel obstruction. No mesenteric or retroperitoneal lymphadenopathy. Mild aortoiliac atherosclerotic vascular calcifications. Riggs catheter present within the contracted urinary bladder. There is marked thickening of the mucosa of the urinary bladder. Prostate calcifications present. Small fat containing left inguinal hernia. Moderate spondylosis. No acute fracture. Serpiginous sclerotic lesions within the femoral heads bilaterally consistent with avascular necrosis. IMPRESSION: 1. Diffuse thickening of the mucosa of the contracted urinary bladder can be seen with cystitis. Underlying urinary bladder mass is not excluded. Recommend correlation clinically. 2. No evidence of renal obstruction. No renal or ureteral calculus bilaterally. 3. Cholelithiasis. No stigmata of cholecystitis. This document has been electronically signed by: Valente Yoder MD on 06/14/2025 13:38:31
--- NOTE | 2025-06-12 09:11 | ED_ITS ---
HPI - General Adult General Chief complaint: Extremity Injury, Lower Stated complaint: L HIP PIN X3D, NO INJURY/TRAUMA PER EMS Time Seen by Provider: 06/12/25 09:10 Source: patient and EMS Mode of arrival: EMS Limitations: no limitations History of Present Illness ED Provider: Sendy Paz PA-C HPI narrative: This is a 70 year old male with a history of persistent AFIB on anticoagulation, YEE, heart failure, osteoarthritis, and basal cell carcinoma removed by MOHs that presents for evaluation of left leg pain. The pain started Monday in the left hip and now has traveled to the knee. He was initially able to continue his activities of daily living but last night he sat down and was unable to get back up. Currently he is unable to bear weight on his left leg. He denies any recent travel or sick contacts. He denies any changes in levels of physical activity. He endorses the history of basal cell carcinoma but denies any additional cancer history. He states that he thinks he takes his medications for AFIB regularly but occasionally takes them later in the morning. He is not certain if he has missed any doses. He was diagnosed with AFIB 20 years ago. He last followed up with cardiology in December with no medication changes. He denies any current chest pain or shortness of breath. He denies changes in vision or hearing. He denies any abdominal pain. He denies pain in joints with the exception of his left hip and knee. He denies any rashes or skin changes. Related Data Home Medications ?Medication ?Instructions ?Recorded ?Confirmed atorvastatin 80 mg tablet (Lipitor) 80 mg PO BEDTIME 0 02/22/21 06/12/25 chlorthalidone 25 mg tablet 25 mg PO DAILY 02/22/21 digoxin 250 mcg (0.25 mg) tablet 250 mcg PO BEDTIME 06/12/25 metoprolol succinate 100 mg 100 mg PO DAILY 04/28/21 0 06/12/25 tablet,extended release 24 hr metoprolol succinate 50 mg 50 mg PO DAILY 04/28/21 tablet,extended release 24 hr potassium chloride 20 mEq 40 meq PO DAILY@1730 07//2 3 06/12/25 tablet,extended release warfarin 5 mg tablet 5 mg PO WE@1800 06/12/25 warfarin 5 mg tablet 7.5 mg PO SUMOTUTHFRSA@1800 afib 06/12/25 06/12/25 Allergies Allergy/AdvReac Type Severity Reaction Status Date / Time amoxicillin (Amoxicillin) Allergy Unknown RASH Verified 06/12/25 09:16 cephalexin (From Keflex) Allergy Unknown unknown Verified 06/12/25 09:16 clindamycin (Clindamycin) Allergy Unknown RASH Verified 06/12/25 09:16 Jeremiah poly Dex eye Allergy Unknown Unknown Uncoded 05/15/25 13:58 Review of Systems 2 Constitutional: Constitutional: Reports as per HPI Eyes: Eyes: Reports as per HPI ENT: Reports as per HPI Cardiovascular: Cardiovascular: Reports as per HPI Respiratory: Respiratory: Reports as per HPI Gastrointestinal: Gastrointestinal: Reports as per HPI Genitourinary: Genitourinary: Reports as per HPI Musculoskeletal: Musculoskeletal: Reports as per HPI Integumentary/Breasts: Skin/Breast: Reports as per HPI Neurologic: Reports as per HPI Psychiatric: Psychiatric: Reports as per HPI Endocrine: Endocrine: Reports as per HPI Hematologic/Lymphatic: Hematologic/Lymphatic: Reports as per HPI Allergic/Immunologic: Allergic/Immunologic: Reports as per HPI [facility] Past Medical History Attestation statement: The following information was validated with the patient. Source: old records reviewed and nursing notes reviewed Medical History YEE (obstructive sleep apnea) Persistent atrial fibrillation CKD (chronic kidney disease) Hypertension Diabetes CHF (congestive heart failure) Surgical History History of inguinal hernia repair History of umbilical hernia repair Family History Family History Father No problems noted. Mother Congestive heart failure Social History Social History Alcohol intake: current Alcohol intake frequency: a few times a week Patient Tobacco Use Status: Never used Tobacco Smoked in Last 30 Days: No Use of substances other than those prescribed or required for medical reasons: No Advance Directives: No Advance Directives Information Provided: Yes Physical Exam ED Vital Signs: Vital Signs - 24 hr 06/12/25 09:13 06/12/25 10:00 06/12/25 10:04 Temperature 98.2 F Pulse Rate 108 H 118 H 130 H Respiratory Rate 20 17 12 Blood Pressure 129/92 H 128/99 H 128/99 H Pulse Oximetry 96 95 96 Oxygen Delivery Method Room Air Room Air Room Air 06/12/25 12:05 06/12/25 13:28 06/12/25 14:00 Temperature Pulse Rate 140 H 124 H 90 Respiratory Rate 20 13 16 Blood Pressure 137/80 129/75 116/74 Pulse Oximetry 94 95 94 Oxygen Delivery Method Room Air Room Air Room Air BMI result Body Mass Index 43.2 Const General: cooperative, alert and awake Orientation/consciousness: oriented to person, oriented to place, oriented to time and patient oriented x3 HENMT Head: Yes normal to inspection Ears: external ears normal General nose exam: Normal external nose present Face and sinus: Yes normal facial exam Eyes General: appearance normal, both eyes and all related structures Neck Neck: Yes normal visual inspection Resp Effort & Inspection: normal respiratory effort and able to speak in complete sentences Auscultation: no crackles, no rales, no rhonchi and no wheezes Cardio Rate: tachycardic Rhythm: abnormal rhythm irregularly irregular Heart sounds: S1 normal heart sound present, S2 normal heart sound present, no gallops, no murmurs and no rubs GI Inspection: Yes normal to inspection Palpation (GI): Soft to palpation, nontender and no guarding Auscultation: normal bowel sounds Neuro General: oriented to person, oriented to place, oriented to time and patient oriented x3 Extrem Other: decreased ROM of the left hip and knee secondary to pain significant left knee swelling Right upper extremity: normal to inspection Left upper extremity: normal to inspection Medications Administered Discontinued Medications Generic Name Dose Route Start Last Admin Trade Name Phyllis PRN Reason Stop Dose Admin Diazepam 2.5 mg 06/12/25 13:21 06/12/25 13:26 Diazepam 10 Mg/2 Ml Cartridge IVPUSH 06/12/25 13:22 2.5 mg STAT STA Administration Diltiazem HCl 10 mg 06/12/25 10:20 06/12/25 13:40 Diltiazem Hcl 50 Mg/10 Ml Vial IVPUSH 06/12/25 10:21 5 mg ONCE ONE Administration Iohexol 100 ml 06/12/25 13:14 06/12/25 13:14 Iohexol 350 Mg/Ml 100 Ml Infus..Btl IV 06/12/25 13:15 80 ml ONCE ONE Administration Metoprolol Succinate 150 mg 06/12/25 11:57 06/12/25 12:22 Metoprolol Succinate Er 50 Mg Tab.Er.24h PO 06/12/25 11:58 150 mg ONCE ONE Administration Protocol Metoprolol Tartrate 5 mg 06/12/25 09:53 06/12/25 09:58 Metoprolol Tartrate 5 Mg/5 Ml Vial IVPUSH 06/12/25 09:54 5 mg ONCE ONE Administration Protocol Morphine Sulfate 4 mg 06/12/25 11:57 06/12/25 12:23 Morphine Sulfate 4 Mg/Ml Cartridge IVPUSH 06/12/25 11:58 4 mg ONCE ONE Administration Protocol Ondansetron HCl 4 mg 06/12/25 11:58 06/12/25 12:22 Ondansetron Hcl 4 Mg/2 Ml Vial IVPUSH 06/12/25 11:59 4 mg ONCE ONE Administration Medical Decision Making Medical Decision Making [facility] Narrative: Patient is a 70 year old assigned male at with a history of atrial fib on warfarin + 150mg of Metoprolol + digoxin, YEE, heart failure presenting to the emergency department today with left knee and hip pain. Patient's physical exam showed an individual in atrial fib with RVR, rate sitting consistently in the 180s, significant pain with left knee ROM + left hip ROM. Swelling present to the left knee - no erythema or warmth. Patient's blood work showed an elevated total bilirubin of 3.4 which is consistent with his baseline and an INR of 2.1. Patient's initial EKG showed atrial fibrillation with RVR. Patient was given 5mg of IV Lopressor with no improvement in his rate. Patient was given 4mg of IV morphine with minimal pain improvement and no improvement to his heart rate. Patient was given 2.5mg of IV Valium with minimal pain improvement and no improvement to his heart rate. Given the patient's history of intermittently taking his medication as prescribed, heart failure, and multiple attempts at pain and rate control with minimal success, I consulted with the laboratory administrative director public relations account supervisor - Dr. Roberts, on what to give the patient to better manage his rate. He recommended giving his home dose of metoprolol (150mg) and if necessary - a singular dose of Cardizem. Patient was given 150mg of PO Metoprolol ER and unfortunately, his rate did not improve. Patient was given a dose of 5mg of IV Cardizem which did ultimately decresae his rate to below 100 bpm. Given patient's warfarin use and physical exam of the left lower leg - I obtained a CTA of the extremity that showed bilateral avascular hip necrosis and a large left knee effusion. I consulted with the orthopedic team who recommended an MAK wrap to the left knee and following up on an outpatient basis for the avascular necrosis. Given the patient's rate was difficult to control and he continues to be unable to ambulate secondary to pain - I believe this patient needs medical admission for continued heart rate and pain management. I spoke with the hospitalist team who agreed to admission. I explained my physical exam findings as well as all test results to the patient. I answered all questions asked by the patient. Patient verbalized agreement and understanding with this treatment plan and admission. Differential Diagnosis Differential Diagnoses: The differential diagnosis associated with the presentation includes Knee pain Hip pain Atrial fibrillation with rapid ventricular response Fracture Sprain Strain Effusion Admission/Observation Consideration of admission/observation: Escalation of care including admission/observation considered Patient admitted as noted in the MDM Rationale portion of this note. Consult Healthcare Provider Management of the patient was discussed with: Hospitalist (agreed to admission as noted in the MDM Rationale portion of this note. ) and Relocation Associate (consulted with the orthopedic and cardiology teams as noted in the MDM Rationale portion of this note. ) Lab Data [facility] Lab Attestation statement: I reviewed the patient's lab results. My interpretation of these studies and their corresponding values is that they are grossly normal. 06/12/25 09:31 06/12/25 09:31 Labs: Lab Results 06/12/25 Range/Units 09:31 WBC 10.5 (4.8-10.8) X10*3/uL RBC 4.60 (4.60-5.80) X10*6/uL Hgb 15.5 (14.0-18.0) g/dl Hct 42.8 (42.0-52.0) % MCV 93.0 (80.0-98.0) fL MCH 33.7 H (27.0-33.0) pg MCHC 36.2 H (31.0-36.0) g/dl RDW 13.2 (11.0-16.0) % Plt Count 130 L (160-400) X10*3/uL MPV 10.4 (9.4-12.4) fL Immature Gran % (Auto) 0.3 (0.0-0.4) % Neut % (Auto) 68.2 (45-73) % Lymph % (Auto) 18.7 L (20-40) % [place] % (Auto) 11.4 H (2-11) % Eos % (Auto) 1.0 (0-4) % Baso % (Auto) 0.4 (0-2) % Lymph # (Auto) 2.0 (1.2-4.9) X10*3/uL [place] # (Auto) 1.2 (0.1-1.2) X10*3/uL Eos # (Auto) 0.1 (0.0-0.4) X10*3/uL Baso # (Auto) 0.0 (0.0-0.2) X10*3/uL Abs Immat Gran (auto) 0.03 (0.00-0.03) X10*3/uL Absolute Neuts (auto) 7.2 (2.0-8.3) x10*3/uL Absolute Nucleated RBC 0.000 (0.0-0.012) X10*3/uL Nucleated RBC % (auto) 0.0 (0.0-0.2) /100WBC PT 24.2 H (10.9-12.4) SEC INR 2.1 H (0.9-1.1) Sodium 138 (135-145) mmol/L Potassium 4.3 (3.3-5.1) mmol/L Chloride 102 (96-108) mmol/L Carbon Dioxide 29 (22-29) mmol/L Anion Gap 11 L (12-20) BUN 15 (9-16) mg/dL Creatinine 1.08 (0.5-1.4) mg/dL Estim Creat Clear Calc 80.7 Estimated GFR > 60 Random Glucose 155 H (60-115) mg/dL Calcium 9.6 D (8.4-10.2) mg/dL Magnesium 1.6 (1.6-2.6) mg/dL Total Bilirubin 3.4 H (0.0-1.0) mg/dL AST 27 (5-37) U/L ALT 20 (0-40) U/L Alkaline Phosphatase 111 (39-117) U/L Troponin I High Sens 17.3 (<3.5-35.0) ng/L Total Protein 7.2 (6.5-8.0) g/dL Albumin 4.4 (3.5-5.0) g/dL Independent Interpretation I performed an independent interpretation of an: EKG and CT Scan Interpretation: My interpretation is in agreement with the radiologist's impression of this imaging study. L Reason for Exam: pain, on warfarin, concern for vessel injury EXAMINATION: CT ANGIOGRAM LEFT LOWER EXTREMITY IV contrast: 80 mL Omnipaque 350 CLINICAL INFORMATION: pain, on warfarin, concern for vessel injury COMPARISON: None available. TECHNIQUE: Axial CT was performed from the iliac crest through the plantar foot after bolus IV contrast. 3D/3D MIP rendering was performed with image postprocessing under concurrent supervision with interpretation and reporting of CT as requested by the referring physician to facilitate diagnosis and treatment planning; not requiring image postprocessing on an independent workstation. Coronal and sagittal reformatted images were generated from the original axial data set. ALARA: The examination used one or more of the following radiation dose reduction techniques: Automated exposure control, iterative reconstruction, and/or adjustment of mA and/or KV. FINDINGS: VASCULAR: There is no extravasation. There is no sign of hematoma. No intimal flap is identified to suggest a dissection. There is no aneurysm. Multifocal vascular calcifications are most pronounced distal to the knee joint with poor opacification of arteries in the distal lower leg and foot. SOFT TISSUES: There is a large knee joint effusion. There is no deep or superficial fat stranding. Small left inguinal hernia containing fat passes medial to the epigastric vessels. BONES: Curvilinear sclerosis is noted in the subchondral bone of both superior femoral heads consistent with avascular necrosis. On the right, there is involvement of 50-75% of the subchondral bone. There is no sign of subchondral collapse. There is mild degenerative cystic change. On the left, involving the subchondral bone is greater than 75%. There is moderate subchondral cystic change and subtle scalloping of the subchondral bone plate. There is severe narrowing of the medial joint space with subchondral sclerosis and marginal osteophytes. CT/CT angio LE LT IMPRESSION: No evidence of vascular injury. No dissection, hematoma, or extravasation. There is decreased flow in the arteries of the distal lower leg related to multifocal atherosclerotic disease. Bilateral hip AVN. Ficat stage II on the right and, Ficat stage II on the left with very early signs of borderline stage III disease. Direct inguinal hernia on the left contains adipose tissue. There is a large left knee joint effusion and severe osteoarthritis. Electronically signed by: Matty Ovalle MD 06/12/2025 01:39 PM EDT RP Dictated By: Matty Ovalle MD Signed By: Electronically signed by Matty Ovalle MD 06/12/25 1339 I independently interpreted this EKG and am in agreement with the below findings: Vent. Rate: 123 BPM Atrial Rate: * BPM P-R Int: * ms QRS Dur: 98 ms QT Int: 296 ms P-R-T Axes: * 82 2 degrees QTcB Int: 423 ms Atrial fibrillation with rapid ventricular response Nonspecific ST abnormality When compared with ECG of 12-Dec-2020 18:50, No significant change was found Electronically Signed By: aCrlos Roberts Dictated By: Carlos Roberts MD Signed By: Electronically signed by Carlos Roberts MD 06/12/25 1518 Radiology Impression Discussion of test interpretation with radiology: I have reviewed the radiologist's reading. Independent Historian Clinical information obtained from an independent historian. History obtained from or confirmed by: EMS (EMS provided additional history and confirmed the history provided by the patient) Critical Care Time Critical Care Time Critical Care Time: Yes Total Critical Care Time: 69 Attestation: I spent 69 minutes of Critical Care Time with this patient. This does not include time spent on separately reported billable procedures. Discharge Plan Discharge Clinical Impression: Persistent atrial fibrillation, Atrial fibrillation with RVR, Avascular necrosis of bones of both hips, Effusion of knee joint, left, Inability to walk Patient Disposition: Admitted As Inpatient
--- NOTE | 2025-06-12 09:19 | ECG_ITS ---
Test Reason : tachy Blood Pressure : */* mmHG Vent. Rate : 123 BPM Atrial Rate : * BPM P-R Int : * ms QRS Dur : 98 ms QT Int : 296 ms P-R-T Axes : * 82 2 degrees QTcB Int : 423 ms Poor data quality, interpretation may be adversely affected Atrial fibrillation with rapid ventricular response Nonspecific ST abnormality Abnormal ECG When compared with ECG of 12-Dec-2020 18:50, No significant change was found Referred By: Generic ED Physician Electronically Signed By: Carlos Roberts
[2025-06-12 09:36] LABS: MANUAL DIFF FLAG NO
--- NOTE | 2025-06-12 09:43 | PC.NURSE ---
Pt arrives to ED c/o left hip and knee pain x4 days. Pt found to be tachycardic 150s-170s, provider notified. Pt has a hx of afib, states he has been taking his medication as prescribed. He denies chest pain, shortness of breath, or dizziness. Pt breathing unlabored, skin p/w/d, 20g IV established in LAC and labs obtained. Awaiting new orders, pending cardiology consult.
[2025-06-12 09:48] LABS: INTERNATIONAL NORM RATIO 2.1 (0.9-1.1); Prothrombin Time 24.2 SEC (10.9-12.4)
[2025-06-12 09:54] LABS: Alanine Aminotransferase 20 U/L (0-40); Albumin Level 4.4 g/dL (3.5-5.0); Alkaline Phosphatase 111 U/L (39-117); Anion Gap 11 (12-20); Aspartate Amino Transferase 27 U/L (5-37); Blood Urea Nitrogen 15 mg/dL (9-16); Calcium 9.6 mg/dL (8.4-10.2); Carbon Dioxide 29 mmol/L (22-29); Chloride 102 mmol/L (96-108); Creatinine Clr Calc Pharmacy 80.7; Estimated Glomerular Filt Rate > 60; Magnesium 1.6 mg/dL (1.6-2.6); Potassium 4.3 mmol/L (3.3-5.1); Sodium 138 mmol/L (135-145); Total Protein 7.2 g/dL (6.5-8.0)
[2025-06-12 10:01] LABS: Troponin-I High Sensitivity 17.3 ng/L (<3.5-35.0)
[2025-06-12 10:17] LABS: Hematocrit 42.8 % (42.0-52.0); Hemoglobin 15.5 g/dl (14.0-18.0); Imm Gran Abs Auto 0.03 X10*3/uL (0.00-0.03); Imm Gran Pct Auto 0.3 % (0.0-0.4); Lymphocytes Absolute Auto 2.0 X10*3/uL (1.2-4.9); Mean Corpuscular HGB Conc 36.2 g/dl (31.0-36.0); Mean Corpuscular Hemoglobin 33.7 pg (27.0-33.0); Mean Corpuscular Volume 93.0 fL (80.0-98.0); NRBC Abs Auto 0.000 X10*3/uL (0.0-0.012); NRBC Pct Auto 0.0 /100WBC (0.0-0.2); Platelet Count 130 X10*3/uL (160-400); Red Blood Count 4.60 X10*6/uL (4.60-5.80); White Blood Count 10.5 X10*3/uL (4.8-10.8)
[2025-06-12] MEDS: Metoprolol Succinate ER 50 MG TAB.ER.24H 150 MG PO (12:22)
--- OUTSIDE RECORDS SUMMARY | 2025-06-12 13:12 | XMS_ITS | Patient Health Record ---
Author Organization Lalito Marcos MD Address [address] [place], [place] [id number] Care Team Providers Care E/M Engineer Name Role Phone Lalito Marcos Primary Care Provider Allergies Allergen (clinical drug ingredient) Drug/Non Drug Allergy documented on EMR Reaction Allergy Type Onset Date Status Kbwurmfu-Uvsmwoumm-Y exa meth swelling Drug Allergy Active Keflex rash Drug Allergy Active clindamycin Clindamycin HCl rash Drug Allergy Active amoxicillin Amoxicillin rash Drug Allergy Act jesus Triamcinolone & Emollient rash Drug Allergy Active Neoporacin rash Drug Allergy Active Results Component Value Reference Range Notes Liver Panel Reviewed date:10/04/2024 01:39:16 PM Interpretation: Performing Lab:[facility], [address] [place] [phone] Notes/Report: Bilirubin Total 2.7 0.0-1.0 mg/dL Slight Icte aranza. Bilirubin Direct 0.6 0.0-0.5 mg/dL Slight Ict erus. Aspartate Amino Transferase 29 5-37 U/L Alanine Aminotransferase 15 0-40 U/L Total Protein 7.5 6.5-8.0 g/dL Albumin Level 4.0 3.5-5.0 g/dL Alkaline Phosphatase 104 39-117 U/L Lipid Panel with Reflex Reviewed date:10/04/2024 01:38:10 PM Interpretation: Performing Lab:[facility], [address] [place] [phone] Notes/Report: Triglycerides 131 <150 mg/dL Desirable Triglyceride: [...] ff Reviewed date:03/28/2025 12:47:59 PM Interpretation: Performing Lab:[facility], [address] [place] [phone] Notes/Report: White Blood Count 8.5 4.8-10.8 X10*3/uL [...] NRBC Abs Auto 0.000 0.0-0.012 X10*3/uL Comprehensive Roma. Panel Fa st Reviewed date:03/28/2025 12:51:30 PM Interpretation: Performing Lab:[facility], [address] [place] [phone] Notes/Report: Sodium 137 135-145 mmol/L Potassium 4.1 [...] Panel Reviewed date:03/28/2025 12:48:08 PM Interpretation: Performing Lab:[facility], [address] [place] [phone] Notes/Report: Triglycerides 153 <150 mg/dL Desirable Triglyceride: [...] (Free>4and<10) Reviewed date:03/28/2025 12:47:29 PM Interpretation: Performing Lab:[facility], [address] [place] [phone] Notes/Report: PSA,Total (Free>4and<10) 2.28 0.00-4.00 ng/mL A [...] t Reviewed date:04/03/2025 12:51:34 PM Interpretation: Performing Lab:[facility], [address] [place] [phone] Notes/Report: [id number] Urine, Clean Catch Color Urine Yellow Appearance Urine Clear PH 8.0 5.0-9.0 Glucose Urine UA Negative Negative mg/dL Urine Blood Negative Negative Specific [place] - Urine 1.010 1.005-1.025 Urine Protein Negative Neg-Trace mg/dL Urine Ketones Negative Negative mg/dL Nitrite Urine Negative Negative Leukocyte Esterase Urine Negative Negative RBC Urine 0-2 0-2 /HPF WBC Urine 0-5 0-5 /HPF Squamous Epithelial Cell Urine 0-2 0-2 /HPF Bacteria Urine None Seen None Seen Hyaline Casts Urine 0-2 0-2 /LPF INR WHOLE BLOOD POC Reviewed date:06/20/2024 04:15:58 PM Interpretation: Performing Lab:[facility], [address] [place] [phone] Notes/Report: PT, INR - [facility] 3.2 0.9-1.1 METER #: [id number] INTERNATIONAL NORMALIZED RATIO (INR) REFERENCE RANGES Reference [...] OC Reviewed date:06/20/2024 04:16:06 PM Interpretation: Performing Lab:[facility], [address] [place] [phone] Notes/Report: Prothrombin Time Whole Bld POC 38.3 11.1-13.5 sec INR WHOLE BLOOD POC Reviewed date:07/18/2024 03:34:25 PM Interpretation: Performing Lab:[facility], [address] [place] [phone] Notes/Report: PT, INR - [facility]ag Clinic 2.5 0.9-1.1 METER #: [id number] INTERNATIONAL NORMALIZED RATIO (INR) REFERENCE RANGES Reference [...] OC Reviewed date:07/18/2024 03:37:02 PM Interpretation: Performing Lab:[facility], [address] [place] [phone] Notes/Report: Prothrombin Time Whole Bld POC 29.8 11.1-13.5 sec INR WHOLE BLOOD POC Reviewed date:09/19/2024 02:03:11 PM Interpretation: Performing Lab:[facility], [address] [place] [phone] Notes/Report: PT, INR - Anti Coag Clinic 3.5 0.9-1.1 METER #: [id number] INTERNATIONAL NORMALIZED RATIO (INR) REFERENCE RANGES Reference [...] OC Reviewed date:09/19/2024 03:30:27 PM Interpretation: Performing Lab:[facility], [address] [place] [phone] Notes/Report: Prothrombin Time Whole Bld POC 42.4 11.1-13.5 sec INR WHOLE BLOOD POC Reviewed date:10/03/2024 05:10:17 PM Interpretation: Performing Lab:[facility], [address] [place] [phone] Notes/Report: PT, INR - Anti Coag Clinic 2.1 0.9-1.1 METER #: [id number] INTERNATIONAL NORMALIZED RATIO (INR) REFERENCE RANGES Reference [...] OC Reviewed date:10/03/2024 05:10:06 PM Interpretation: Performing Lab:[facility], [address] [place] [phone] Notes/Report: Prothrombin Time Whole Bld POC 25.8 11.1-13.5 sec Hold Red Reviewed date:10/04/2024 11:28:38 AM Interpretation: Performing Lab:[facility], [address] [place] [phone] Notes/Report: Hold Red See Note Specimen held untested for 24 hours; Call to request Chemistry testing. INR WHOLE BLOOD POC Reviewed date:10/31/2024 04:51:17 PM Interpretation: Performing Lab:[facility], [address] [place] [phone] Notes/Report: PT, INR - Anti Coag Clinic 2.0 0.9-1.1 METER #: [id number] INTERNATIONAL NORMALIZED RATIO (INR) REFERENCE RANGES Reference [...] OC Reviewed date:10/31/2024 04:51:26 PM Interpretation: Performing Lab:[facility], [address] [place] [phone] Notes/Report: Prothrombin Time Whole Bld POC 24.4 11.1-13.5 sec INR WHOLE BLOOD POC Reviewed date:11/28/2024 04:09:17 PM Interpretation: Performing Lab:[facility], [address] [place] [phone] Notes/Report: PT, INR - Anti Coag Clinic 4.3 0.9-1.1 METER #: [id number] INTERNATIONAL NORMALIZED RATIO (INR) REFERENCE RANGES Reference [...] OC Reviewed date:11/28/2024 04:09:26 PM Interpretation: Performing Lab:[facility] [address] [phone] Notes/Report: Prothrombin Time Whole Bld POC 52.0 11.1-13.5 sec INR WHOLE BLOOD POC Reviewed date:12/05/2024 04:02:32 PM Interpretation: Performing Lab:[facility], [address] [place] [phone] Notes/Report: PT, INR - Anti Coag Clinic 2.7 0.9-1.1 METER #: [id number] INTERNATIONAL NORMALIZED RATIO (INR) REFERENCE RANGES Reference [...] OC Reviewed date:12/05/2024 04:02:19 PM Interpretation: Performing Lab:[facility], [address] [place] [phone] Notes/Report: Prothrombin Time Whole Bld POC 32.6 11.1-13.5 sec INR WHOLE BLOOD POC Reviewed date:01/10/2025 03:32:19 PM Interpretation: Performing Lab:[facility], [address] [place] [phone] Notes/Report: PT, INR - Anti Coag Clinic 3.2 0.9-1.1 METER #: [id number] INTERNATIONAL NORMALIZED RATIO (INR) REFERENCE RANGES Reference [...] OC Reviewed date:01/10/2025 03:32:09 PM Interpretation: Performing Lab:[facility], [address] [place] [phone] Notes/Report: Prothrombin Time Whole Bld POC 38.4 11.1-13.5 sec Basic Metabolic Panel Reviewed date:01/16/2025 05:03:57 PM Interpretation: Performing Lab:[address] [phone] Notes/Report: Sodium 139 135-145 mmol/L Potassium 3.9 [...] Digoxin Reviewed date:01/15/2025 04:59:20 PM Interpretation: Performing Lab:[address] [phone] Notes/Report: Digoxin 0.7 0.8-2.0 ng/mL Assay modified to minimize interference from aldosterone antagonists (e.g. spironolactone and canrenone). INR WHOLE BLOOD POC Reviewed date:02/07/2025 04:24:23 PM Interpretation: Performing Lab:[address] [phone] Notes/Report: PT, INR - Anti Coag Clinic 2.8 0.9-1.1 METER #: [id number] INTERNATIONAL NORMALIZED RATIO (INR) REFERENCE RANGES Reference [...] OC Reviewed date:02/07/2025 04:23:54 PM Interpretation: Performing Lab:[address] [phone] Notes/Report: Prothrombin Time Whole Bld POC 33.9 11.1-13.5 sec INR WHOLE BLOOD POC Reviewed date:03/07/2025 04:39:32 PM Interpretation: Performing Lab:[facility], [address] [place] [phone] Notes/Report: PT, INR - Anti Coag Clinic 2.1 0.9-1.1 METER #: [id number] INTERNATIONAL NORMALIZED RATIO (INR) REFERENCE RANGES Reference [...] OC Reviewed date:03/07/2025 04:29:49 PM Interpretation: Performing Lab:[facility], [address] [place] [phone] Notes/Report: Prothrombin Time Whole Bld POC 25.1 11.1-13.5 sec INR WHOLE BLOOD POC Reviewed date:04/04/2025 02:55:25 PM Interpretation: Performing Lab:[facility], [address] [place] [phone] Notes/Report: PT, INR - Anti Coag Clinic 1.8 0.9-1.1 METER #: [id number] INTERNATIONAL NORMALIZED RATIO (INR) REFERENCE RANGES Reference [...] OC Reviewed date:04/04/2025 02:54:58 PM Interpretation: Performing Lab:[facility], [address] [place] [phone] Notes/Report: Prothrombin Time Whole Bld POC 21.4 11.1-13.5 sec INR WHOLE BLOOD POC Reviewed date:05/15/2025 04:56:06 PM Interpretation: Performing Lab:[facility], [address] [place] [phone] Notes/Report: PT, INR - Anti Coag Clinic 2.3 0.9-1.1 METER #: [id number] INTERNATIONAL NORMALIZED RATIO (INR) REFERENCE RANGES Reference [...] Prothrombin Time Whole Bld P OC Reviewed date:05/15/2025 04:56:15 PM Interpretation: Performing Lab:[facility], [address] [place] [phone] Notes/Report: Prothrombin Time Whole Bld POC 27.2 11.1-13.5 sec Reason For Referral No Information Medications Medication SIG (Take, Route, Frequency, Duration) Notes Start Date End Date Status Metoprolol Succinate ER 100 MG TAKE 1 TABLET BY MOUTH EVERY DAY Active Digoxin 250 MCG TAKE 1 TABLET BY MOUTH EVERY DAY Orally Once a day for 30 days Active Atorvastatin Calcium 80 MG TAKE 1 [...] W/U Status Risk Notes Problem Diabetic neuropathy (140925554) Diabetic neuropathy (E11.40) Active confirmed Problem Gilbert syndrome (06606137) Gilbert syndrome (E80.4) Active confirmed Problem 49656242 Essential hypertension (I10) Active confirmed Problem Hearing loss (90706242) Hearing loss (H91.90) Active confirmed Problem 31530410 Hypercholesterem ia (E78.00) Active confirmed Problem 86199288 YEE (obstructive sleep apnea) (G47.33) Active confirmed Problem 275771794 Chronic systolic heart failure (I50.22) Active confirmed Problem 27782802 Acquired thrombocytopenia (D69.6) Active confirmed Problem 072416679 Anticoagulation adequate (Z79.01) Active confirmed Problem 204027394 Longstanding persistent atrial fibrillation (I48.11) Active confirmed [...] Lalito Marcos MD [address] [place] [id number] 10/04/2024 Lalito Marcos Hypercholesteremia E 78.00 Lalito Marcos MD [address] [place] [id number] 03/28/2025 Lalito Marcos Essential hypertensi on I10 ; Chronic systolic heart failure I50.22 and Hypercholesteremia E78.00 Lalito Marcos MD [address] [place] [id number] 10/15/2024 Lalito Marcos Essential hypertensi on I10 ; Encounter for general adult medical examination without abnormal findings Z00.00 ; Longstanding persistent atrial fibrillation I48.11 ; Hypercholesteremia E78.00 ; Chronic systolic heart failure I50.22 ; Hearing loss H91.90 and Impacted cerumen of right ear H61.21 Lalito Marcos MD [address] [place] [id number] 04/03/2025 Lalito Marcos Longstanding persist ent atrial [...] Treatment Pending Test Test Name Order Date UA ClnCatch+Micro w/rflx Cult 03/28/2025 Next Appt Details Provider Name:Lalito zhang, 10/09/2025 07:45:00 AM, [address] [place] [address], [address], [place], [place], [phone], Provider Name:Lalito zhang, 10/16/2025 10:00:00 AM, [address] [place] [address], [address], [place], [place], [phone], Provider Name:Lalito zhang, 03/30/2026 07:15:00 AM, [address] [place] [address], [address], [place], [place], [phone], Provider Name:Lalito zhang, 04/06/2026 09:30:00 AM, [address], [address], [place], [place], [phone], Insurance Providers Payer Name Payer Address Payer Phone Subscriber Number Group Number Insured Name Patient Relationship to Insured Coverage Start Date Coverage End Date MEDICARE [facility] [address] [place] [address] [id number] DARIEN WRIGHT Self - patient is the insured MEDEX BCBS OF [facility] [address] [place] [phone] [id number] DARIEN WRIGHT Self - patient is the insured Medical (General) History Medical History History ICD Code colonoscopy 11/2020 , neg but had polyps before so repeat in 5 year Chronic renal failure, stage 2 (mild) N1 8.2
--- OUTSIDE RECORDS SUMMARY | 2025-06-12 13:13 | XMS_ITS | Patient Health Record ---
Author Organization [facility] [place] Address [address] [place] [address] Care Team Providers Care Combatant Diver Qualified Name Role Phone Ebonie Sanderson MD Primary [...] primary osteoarthritis of the ankle and/or foot (603107011) Primary osteoarthrit is, left ankle and foot (M19.072) Active confirmed Plan Of Treatment Pending Test Test Name Order Date [id number] NAIL, 6 OR MORE 08/02/2017 [id number] Destruction, -07/05/2017 [id number]-Also Destruction, -08/02/2017 Insurance Providers Payer Name Payer Address Payer Phone Subscriber Number Group Number Insured Name Patient Relationship to Insured Coverage Start Date Coverage End Date [employer] [address] [place] [address] [phone] [id number] Gordon Fitch Self - patient is the insured 7 Medical (General) History Medical History History ICD Code Heart disease High blood pressure Kidney disease Measles Mumps Chicken pox A fib Surgical History Surgery Date(Month/Year) hernia 2009
[2025-06-12] MEDS: iohexoL 350 MG/ML 100 ML INFUS..BTL IV (13:14)
[2025-06-12] MEDS: diazePAM 10 MG/2 ML CARTRIDGE 2.5 MG IVPUSH (13:26)
--- NOTE | 2025-06-12 13:53 | PM.CNCAR ---
History of Present Illness History of Present Illness Date of Service: 06/12/25 Requesting physician: Sendy Paz Chief complaint: L HIP PIN X3D, NO INJURY/TRAUMA PER EMS Narrative: [age] year gentleman presenting with left hip and knee pain and swelling of the left knee and AFib with RVR. He has permanent atrial fibrillation based on review of previous EKGs. Last echocardiogram in our system is from 2020 when LVEF was normal to 60%, severe biatrial enlargement, moderately dilated right ventricle, moderate mitral annular calcification and no evidence of pulmonary hypertension was noted. He denies any palpitations or shortness of breath. No symptoms/signs of heart failure. Usually does not feel atrial fibrillation. Main complaint is left hip pain. He is on anticoagulation with Coumadin. [facility] Past Medical History Medical History (Updated 06/12/25 @ 13:56 by Carlos Roberts MD) YEE (obstructive sleep apnea) Persistent atrial fibrillation CKD (chronic kidney disease) Hypertension Diabetes CHF (congestive heart failure) Family History Family History Father No problems noted. Mother Congestive heart failure Surgical History Surgical History History of inguinal hernia repair History of umbilical hernia repair Social History Social History Alcohol intake: current Alcohol intake frequency: a few times a week Patient Tobacco Use Status: Never used Tobacco Smoked in Last 30 Days: No Use of substances other than those prescribed or required for medical reasons: No Advance Directives: No Advance Directives Information Provided: Yes Meds Allergies Allergy/AdvReac Type Severity Reaction Status Date / Time amoxicillin (Amoxicillin) Allergy Unknown RASH Verified 06/12/25 09:16 cephalexin (From Keflex) Allergy Unknown unknown Verified 06/12/25 09:16 clindamycin (Clindamycin) Allergy Unknown RASH Verified 06/12/25 09:16 Jeremiah poly Dex eye Allergy Unknown Unknown Uncoded 05/15/25 13:58 Home Medications ?Medication ?Instructions ?Recorded ?Confirmed ?Last Taken ?Type atorvastatin 80 mg tablet (Lipitor) 80 mg PO DAILY 02/22/21 05/15/25 Unknown History chlorthalidone 25 mg tablet 25 mg PO DAILY 02/22/21 05/15/25 Unknown History digoxin 250 mcg (0.25 mg) tablet 250 mcg PO DAILY 04/22/21 05/15/25 Unknown History metoprolol succinate 100 mg 100 mg PO DAILY 04/28/21 05/15/25 Unknown History tablet,extended release 24 hr metoprolol succinate 50 mg 50 mg PO DAILY 04/28/21 05/15/25 Unknown History tablet,extended release 24 hr potassium chloride 20 mEq 40 meq PO DAILY 03/30/23 05/15/25 Unknown History tablet,extended release albuterol sulfate 90 mcg/actuation 2 puff inhalation Q6H PRN 09/19/24 05/15/25 Unknown History aerosol inhaler Physical Exam Vital Signs: Vital Signs: Last Vital Signs Temp 98.2 F 06/12/25 09:13 Pulse 124 H 06/12/25 13:28 Resp 13 06/12/25 13:28 BP 129/75 06/12/25 13:28 Pulse Ox 95 06/12/25 13:28 O2 Del Method Room Air 06/12/25 13:28 BMI result Body Mass Index 43.2 GENERAL APPEARANCE: Distress due to pain in the hip. Left knee swollen. NECK: no carotid bruit, no jugular venous distention. SKIN: no suspicious lesions, warm and dry. HEART: no murmurs, irregular rate and rhythm. Tachycardic. LUNGS: clear to auscultation bilaterally. ABDOMEN: soft, nontender. EXTREMITIES: no edema. Left knee swollen. PERIPHERAL PULSES: equal. NEUROLOGIC: No gross deficits, AAO X 3 Objective Labs and Meds 06/12/25 09:31 06/12/25 09:31 Lab results: Laboratory Results - last 24 hr 06/12/25 09:31 WBC 10.5 RBC 4.60 Hgb 15.5 Hct 42.8 MCV 93.0 MCH 33.7 H MCHC 36.2 H RDW 13.2 Plt Count 130 L MPV 10.4 Immature Gran % (Auto) 0.3 Neut % (Auto) 68.2 Lymph % (Auto) 18.7 L [place] % (Auto) 11.4 H Eos % (Auto) 1.0 Baso % (Auto) 0.4 Lymph # (Auto) 2.0 [place] # (Auto) 1.2 Eos # (Auto) 0.1 Baso # (Auto) 0.0 Abs Immat Gran (auto) 0.03 Absolute Neuts (auto) 7.2 Absolute Nucleated RBC 0.000 Nucleated RBC % (auto) 0.0 PT 24.2 H INR 2.1 H Sodium 138 Potassium 4.3 Chloride 102 Carbon Dioxide 29 Anion Gap 11 L BUN 15 Creatinine 1.08 Estim Creat Clear Calc 80.7 Estimated GFR > 60 Random Glucose 155 H Calcium 9.6 D Magnesium 1.6 Total Bilirubin 3.4 H AST 27 ALT 20 Alkaline Phosphatase 111 Troponin I High Sens 17.3 Total Protein 7.2 Albumin 4.4 Imaging Radiologist's impression: Impressions Lower Extremity CTA 06/12/25 12:43 IMPRESSION: No evidence of vascular injury. No dissection, hematoma, or extravasation. There is decreased flow in the arteries of the distal lower leg related to multifocal atherosclerotic disease. Bilateral hip AVN. Ficat stage II on the right and, Ficat stage II on the left with very early signs of borderline stage III disease. Direct inguinal hernia on the left contains adipose tissue. There is a large left knee joint effusion and severe osteoarthritis. Electronically signed by: Matty Ovalle MD 06/12/2025 01:39 PM EDT RP Assessment and Plan (1) Right ventricular enlargement: Status: Acute (2) Permanent atrial fibrillation: Status: Acute Plan AFib with RVR in his 70-year-old gentleman with permanent atrial fibrillation. Trigger is likely related to left hip pain and left knee pain. Pain control. Resume home digoxin and metoprolol. Given RV dysfunction in the past I would avoid Cardizem. Repeat echocardiography. Can titrate the Toprol-XL to 150 mg in the morning and 100 in the afternoon. If echocardiography shows preserved LV RV function then would consider adding diltiazem. We will follow along with you. Thank you for allowing me to participate in the care of your patient. Please feel free to contact me if you have any questions. Procedures Date of Service Date of Service: 06/12/25
--- NOTE | 2025-06-12 15:37 | PHA.MEDREC ---
Addendum entered by Yuliana Mario RPh 06/12/25 15:51: REVIEWED BY [facility] Original Note: Pharmacy Consult ? Medication Reconciliation Pharmacy has completed the medication reconciliation. Spoke with patient and he confirmed his medications. Patient confirmed his Warfarin; 7.5mg on Monday, Monday, Monday, , Monday and Monday and 5mg on Monday.
[2025-06-12 16:07] LABS: Appearance Urine Clear; Glucose Urine UA Negative (Negative); PH 7.5 (5.0-9.0); Specific Gravity - Urine >= 1.030 (1.005-1.025)
--- NOTE | 2025-06-12 17:22 | PC.NURSE ---
bladder scan PVR 1330, rodriges ordered and placed. Pt also warm to touch but rectal 100.6 HR remains low 100s on tele, up to 140s with exertion or noxious stimuli.
--- NOTE | 2025-06-12 17:42 | PM.IMHP ---
History of Present Illness Date of Service: 06/12/25 Attending physician on admission: Keo Loyola Chief Complaint: Left hip and knee pain Pt is a 70-year-old male with a PMH significant for?persistent AFib on Eliquis, HFpEF, HLD, and HTN who presents to the ED with?left hip and left knee pain x4 days. Pt reports that he woke up on Monday with sudden onset left hip pain. Denies fall or trauma to the area. Was initially able to walk slowly, but ambulation was painful. During the next day pt developed pain and swelling in his knee which he thinks was secondary to compensating for his hip pain. Again denies any trauma to the area or fall. Pt presented to the ED since he was unable to ambulate for the past 2 days. Denies chest pain/pressure, palpitations. Denies abdominal pain. Reports has felt like he has been urinating normally and fully. In the ED pt was noted to be in AFib with RVR up to the 180s that was difficult to control. Was given IV metoprolol to no effect. Eventually given IV diltiazem that brought HR below 100. Imaging was significant for CTA of left lower extremity negative for vascular injury, though showing decreased flow to arteries of distal lower leg related to multifocal atherosclerotic disease. Also showed bilateral hip AVN and large left knee joint effusion and severe osteoarthritis. ED visit was further complicated by bladder scan showing postvoid retention of 1300 mL. Riggs catheter inserted. ED treatment consisted of metoprolol 5 mg IV and 150 mg XL p.o., morphine, Valium, and diltiazem 10 mg IV. ED reached out to Orthopedics who suggested conservative management, and Cardiology who suggested admission for treatment of AFib with RVR in need of emergent medical management. Review of Systems Review of Systems: Yes all other systems are reviewed and are negative [facility] Medical History YEE (obstructive sleep apnea) Persistent atrial fibrillation CKD (chronic kidney disease) Hypertension Diabetes CHF (congestive heart failure) Family History Father No problems noted. Mother Congestive heart failure Surgical History History of inguinal hernia repair History of umbilical hernia repair Social History Alcohol intake: current Alcohol intake frequency: a few times a week Patient Tobacco Use Status: Never used Tobacco Smoked in Last 30 Days: No Use of substances other than those prescribed or required for medical reasons: No Advance Directives: No Advance Directives Information Provided: Yes Meds Allergies Allergy/AdvReac Type Severity Reaction Status Date / Time amoxicillin (Amoxicillin) Allergy Unknown RASH Verified 06/12/25 09:16 cephalexin (From Keflex) Allergy Unknown unknown Verified 06/12/25 09:16 clindamycin (Clindamycin) Allergy Unknown RASH Verified 06/12/25 09:16 Jeremiah poly Dex eye Allergy Unknown Unknown Uncoded 05/15/25 13:58 Home Medications ?Medication ?Instructions ?Recorded ?Confirmed ?Last Taken ?Type atorvastatin 80 mg tablet (Lipitor) 80 mg PO BEDTIME 02/22/21 06/12/25 06/11/25 History chlorthalidone 25 mg tablet 25 mg PO DAILY 02/22/21 06/12/25 06/12/25 History digoxin 250 mcg (0.25 mg) tablet 250 mcg PO BEDTIME 04/22/21 06/12/25 06/11/25 History metoprolol succinate 100 mg 100 mg PO DAILY 04/28/21 06/12/25 06/12/25 History tablet,extended release 24 hr metoprolol succinate 50 mg 50 mg PO DAILY 04/28/21 06/12/25 06/12/25 History tablet,extended release 24 hr potassium chloride 20 mEq 40 meq PO DAILY@1730 03/30/23 06/12/25 06/12/25 History tablet,extended release warfarin 5 mg tablet 5 mg PO WE@1800 06/12/25 06/12/25 06/11/25 History warfarin 5 mg tablet 7.5 mg PO SUMOTUTHFRSA@1800 afib 06/12/25 06/12/25 06/11/25 History Physical Exam Vital Signs and Narrative: Vital Signs: Last Vital Signs Temp 100.6 F H 06/12/25 17:19 Pulse 106 H 06/12/25 17:19 Resp 18 06/12/25 17:19 BP 137/81 06/12/25 17:19 Pulse Ox 95 06/12/25 17:19 O2 Del Method Room Air 06/12/25 17:19 BMI result Body Mass Index 43.2 General: AOx3, no acute distress Resp: CTA bilaterally CVS: Irregularly irregular rhythm GI: +BS, NT, no distention Skin: Warm, dry Neuro: Cranial nerves II-XII grossly intact bilaterally. Motor grossly intact bilaterally Extremities: Left knee swollen, warm, minimally tender to palpation. No erythema. Psych: Appropriate affect Results Labs 06/12/25 09:31 06/12/25 09:31 Labs: Laboratory Results - last 24 hr 06/12/25 06/12/25 09:31 15:45 MCV 93.0 MCH 33.7 H MCHC 36.2 H RDW 13.2 Plt Count 130 L MPV 10.4 Immature Gran % (Auto) 0.3 Neut % (Auto) 68.2 Lymph % (Auto) 18.7 L [place] % (Auto) 11.4 H Eos % (Auto) 1.0 Baso % (Auto) 0.4 Lymph # (Auto) 2.0 [place] # (Auto) 1.2 Eos # (Auto) 0.1 Baso # (Auto) 0.0 Abs Immat Gran (auto) 0.03 Absolute Neuts (auto) 7.2 Absolute Nucleated RBC 0.000 Nucleated RBC % (auto) 0.0 PT 24.2 H INR 2.1 H Anion Gap 11 L Estim Creat Clear Calc 80.7 Estimated GFR > 60 Random Glucose 155 H Calcium 9.6 D Magnesium 1.6 Total Bilirubin 3.4 H AST 27 ALT 20 Alkaline Phosphatase 111 Troponin I High Sens 17.3 Total Protein 7.2 Albumin 4.4 Urine Color Yellow Urine Appearance Clear Urine pH 7.5 Ur Specific [place] >= 1.030 H Urine Protein Trace Urine Glucose (UA) Negative Urine Ketones Negative Urine Blood Negative Urine Nitrite Negative Ur Leukocyte Esterase Negative Imaging Radiologist's Impressions: Impressions Lower Extremity CTA 06/12/25 12:43 IMPRESSION: No evidence of vascular injury. No dissection, hematoma, or extravasation. There is decreased flow in the arteries of the distal lower leg related to multifocal atherosclerotic disease. Bilateral hip AVN. Ficat stage II on the right and, Ficat stage II on the left with very early signs of borderline stage III disease. Direct inguinal hernia on the left contains adipose tissue. There is a large left knee joint effusion and severe osteoarthritis. Electronically signed by: Matty Ovalle MD 06/12/2025 01:39 PM EDT RP Assessment and Plan (1) Atrial fibrillation with RVR: Status: Acute Plan Pt is a 70-year-old male with a PMH significant for?persistent AFib on Eliquis, HFpEF, HLD, and HTN who presents to the ED with?left hip and left knee pain x4 days. In the ED pt was found to be in AFib with RVR and have acute urinary retention. AFib with RVR HR noted to be in the 180s, pt asymptomatic Given metoprolol IV and diltiazem 10 mg IV in the ED Echocardiogram Treat with metoprolol XL 150 mg daily and 100 mg in the afternoon, per Cardiology Continue digoxin, warfarin Follow INR Acute urinary retention Bladder scan showed 1300ml Continue Riggs for now Voiding trial tomorrow Bilateral AVN and left knee effusion Reports atraumatic left hip and knee pain x4 days Reports unable to ambulate Pain management Orthopedic consult PT consult HLD Continue statin HTN Continue chlorthalidone Full Code Attending:?Dr. Loyola DVT Prophylaxis: On warfarin Pt will be admitted to the hospital under observation for treatment and further evaluation of AFib with RVR complicated by acute urinary retention. Quality Stroke Does the patient have a stroke diagnosis?: No VTE Prior VTE?: No VTE Risk Level:: Medical - moderate - high VTE Device Contraindication: Treatment Not Indicated VTE Drug Contraindication: N/A - Med Ordered
[2025-06-12] MEDS: Metoprolol Succinate ER 100 MG TAB.ER.24H PO (20:03)
[2025-06-12] MEDS: 0.9 % Sodium Chloride Flush 3 ML SYRINGE IVFLUSH (20:06)
[2025-06-13] VITALS (8 sets, daily range): BP systolic 128–145; BP diastolic 70–91; PULSE 75–94; RESP 16–19; TEMP 36.2–37.2; O2SAT 93–96
--- NOTE | 2025-06-13 07:00 | CA_ITS ---
Transthoracic Echocardiogram Patient (Last, First, Middle): Gordon Fitch, Gender: Male Date of : 1955 Age: 70 Procedure Date: 06/13/2025 Procedure Type: Transthoracic Echocardiogram Location: ER Height: 170.18 cm Weight: 124.74 kg BSA: 2.32 m2 Heart Rate: bpm BP: 116 / 74 mmHg Human Factors Scientist: Referring MD: Gasper GUERRERO Symptoms: AFib w/RVR Study Quality: Fair Conclusions: - Normal left ventricular size and systolic function. There is mildly increased left ventricular wall thickness. The visually estimated ejection fraction is between 60-65%. - Moderately increased right ventricular cavity size. There is low normal right ventricular systolic function. - The left atrium is severely dilated. The right atrium is severely dilated. - There is mild aortic valve stenosis. - There is mild dilatation of the ascending aorta measuring 3.90 cm. Findings Left Ventricle Normal left ventricular size and systolic function. There is mildly increased left ventricular wall thickness. The visually estimated ejection fraction is between 60-65%. There is no evidence of regional wall motion abnormalities. Diastolic function is indeterminate on the basis of available data. Right Ventricle Moderately increased right ventricular cavity size. There is low normal right ventricular systolic function. Atria The left atrium is severely dilated. The right atrium is severely dilated. Aortic Valve There is a normal trileaflet aortic valve. There is mild calcification of the aortic valve. There is mild aortic valve stenosis. There is no aortic valve regurgitation. Mitral Valve The mitral valve appears normal. There is no mitral valve regurgitation. There is no mitral valve stenosis. Pulmonic Valve The pulmonic valve is likely normal. Tricuspid Valve Normal tricuspid valve structure. There is no tricuspid valve regurgitation. Tricuspid regurgitation envelope is inadequate for calculation of right ventricular systolic pressure. Normal right atrial pressure. Great Vessels There is mild dilatation of the ascending aorta measuring 3.90 cm. The visualized portions of the pulmonary artery and branches are normal. Venous The inferior vena cava is normal in size and collapses greater than 50% with inspiration. Pericardium/Pleural There is no evidence of pericardial effusion. Prior Study Comparison Changes noted compared to prior study dated: 06/07/2021. Low normal EV function. mild . Measurements 2D Linear Measurements IVSd: 1.23 0.6-0.9/0.6-1.0 cm LVIDd: 4.12 3.9-5.3/4.2-5.9 cm LVIDd Index: 1.78 2.4-3.2/2.2-3.1 cm/m2 LVIDs: 2.64 2.0-3.6 cm LVPWd: 1.26 0.7-1.1 cm LA Diam: 6.50 2.7-3.8/3.0-4.0 cm LAIDs Index: 2.80 1.5-2.3 cm/m2 LV Mass: 227.63 67-162/88-224 g LV Mass Index: 98.11 43-95/49-115 g/m2 LVOT Diam: 2.30 3.0+(-)1.3 cm 2D Systolic Function EF 4C: 50.70 >55% EF 2C: 57.90 >55% EF BiP: 52.10 >55% Mitral Valve MV Pk E: 1.07 MV Decel Time: 175.00 E'Lateral: 12.00 E'Medial: 10.40 E/E' Med: 10.30 E/E' Lat: 8.90 PHT: 51.00 MVA PHT: 4.31 Decel Will: 6.14 Aortic Valve AoV Pk Chris: 1.97 AoV Mn Chris: 1.30 AoV VTI: 0.37 AoV Pk Grad: 16.00 Aov Mn Grad: 8.00 DARYN Cont.VTI: 1.85 LVOT LVOT Pk Chris: 0.98 LVOT Mn Chris: 0.60 LVOT VTI: 0.17 LVOT Pk Grad: 4.00 LVOT Mn Grad: 2.00 LVOT Diam: 2.30 LVOT Area: 4.15 Diastolic Function MV Pk E: 1.07 E'Medial: 10.40 E/E' Med: 10.30 E' Laterial: 12.00 E/E' Lat: 8.90 Right Ventricle TAPSE (mm): 25.90 TVS' Chris: 10.30 Tricuspid Valve TR Pk Chris: 2.32 TR Pk Grad: 22.00 Great Vessels Aorta Sinus of Valsalva: 3.40 2.0-3.5 cm Ao Asc: 3.90 2.1-3.4 cm Pulmonary Valve PV Pk Chris: 0.88 Peak PV Grad: 3.00 Updated in Other Vendor System with Status of Final Carlos Roberts MD electronically signed on 06/15/2025 3:54:48 PM with status of Final
[2025-06-13 08:02] LABS: INTERNATIONAL NORM RATIO 1.6 (0.9-1.1); Prothrombin Time 18.6 SEC (10.9-12.4)
--- NOTE | 2025-06-13 09:34 | PM.CNOR ---
History of Present Illness HPI Consult date: 06/13/25 Chief complaint: AFIB w/ RVR Narrative: 70-year-old gentleman admitted to the medical service due to AFib with RVR but also presented to the emergency department due to worsening left lower leg pain in the inability to ambulate. The patient states he has had on and off left hip and knee pain for quite some time. He does have a longstanding history of left knee OA with a history of steroid injections approximately 10 years ago. He denies any surgery on the left knee. No injuries. He states he does have a history of gout but has not had any flare-ups recently. While in the emergency department he had a CTA of the lower extremities which showed AVN of both hips. Orthopedics was consulted for further recommendations. Review of Systems Review of Systems: Yes all other systems are reviewed and are negative PMF Past Medical History Medical History YEE (obstructive sleep apnea) Persistent atrial fibrillation CKD (chronic kidney disease) Hypertension Diabetes CHF (congestive heart failure) Family History Family History Father No problems noted. Mother Congestive heart failure Surgical History Surgical History History of inguinal hernia repair History of umbilical hernia repair Social History Social History Household Members: Spouse Housing: House Alcohol intake: current Alcohol intake frequency: a few times a week Patient Tobacco Use Status: Never used Tobacco Smoked in Last 30 Days: No Use of substances other than those prescribed or required for medical reasons: No Currently Displaying Signs/Symptoms of Drug Intoxication Withdrawal: No Have you been hit, kicked, punched, or otherwise hurt by someone within the past year? If so, by whom?: No Do you feel safe in your current relationship?: Yes Is there a partner from a previous relationship who is making you feel unsafe now?: No Are you made to feel afraid or neglected: No Advance Directives: No Advance Directives Information Provided: Yes Do you have a plan to hurt others: No Plan Recently lost weight without trying: No Eating poorly because of decreased appetite: No Nutrition Risks: No Nutritional Risk service: No Meds Allergies Allergy/AdvReac Type Severity Reaction Status Date / Time amoxicillin (Amoxicillin) Allergy Unknown RASH Verified 06/12/25 09:16 cephalexin (From Keflex) Allergy Unknown unknown Verified 06/12/25 09:16 clindamycin (Clindamycin) Allergy Unknown RASH Verified 06/12/25 09:16 Jeremiah poly Dex eye Allergy Unknown Unknown Uncoded 05/15/25 13:58 Active Medications: Current Medications Acetaminophen (Acetaminophen 325 Mg Tablet) 650 mg PO Q6H PRN PRN Reason: Pain, Mild 1-3,fever,headache Atorvastatin Calcium (Atorvastatin Calcium 80 Mg Tablet) 80 mg PO BEDTIME KI Last Admin: 06/12/25 20:03 Dose: 80 mg Calcium Carbonate (Calcium Carbonate 750 Mg Tab.Chew) 750 mg PO Q4H PRN PRN Reason: Heartburn Digoxin (Digoxin 0.25 Mg Tablet) 0.25 mg PO BEDTIME KI; Protocol Last Admin: 06/12/25 20:26 Dose: 0.25 mg Hydrochlorothiazide (Hydrochlorothiazide 25 Mg Tablet) 25 mg PO DAILY [facility] Hydromorphone HCl (Hydromorphone Hcl 0.5 Mg/0.5 Ml Syringe) 0.5 mg IVPUSH Q4H PRN; Protocol PRN Reason: Pain, Severe (Pain Scale 7-10) Last Admin: 06/12/25 20:06 Dose: 0.5 mg Magnesium Hydroxide (Milk Of Magnesia 30 Ml Oral.Susp) 30 ml PO DAILY PRN PRN Reason: Constipation Melatonin (Melatonin 3 Mg Tablet) 6 mg PO BEDTIME PRN PRN Reason: Insomnia Metoprolol Succinate (Metoprolol Succinate Er 100 Mg Tab.Er.24h) 100 mg PO DAILY@1700 [facility]; Protocol Metoprolol Succinate (Metoprolol Succinate Er 50 Mg Tab.Er.24h) 150 mg PO DAILY [facility]; Protocol Ondansetron HCl (Ondansetron Hcl 4 Mg/2 Ml Vial) 4 mg IVPUSH Q8H PRN PRN Reason: Nausea and Vomiting Potassium Chloride (Potassium Chloride Er 20 Meq Tab.Er.Prt) 40 meq PO DAILY@1730 [facility] Sodium Chloride (0.9 % Sodium Chloride Flush 3 Ml Syringe) 3 ml IVFLUSH QSHIFT [facility] Last Admin: 06/12/25 20:06 Dose: 3 ml Warfarin Sodium (Warfarin Sodium 5 Mg Tablet) 5 mg PO WE@1800 [facility]I Warfarin Sodium (Warfarin Sodium 7.5 Mg Tablet) 7.5 mg PO SUMOTUTHFRSA@1800 [facility]I Last Admin: 06/12/25 20:00 Dose: 7.5 mg Home Medications ?Medication ?Instructions ?Recorded ?Confirmed ?Last Taken ?Type atorvastatin 80 mg tablet (Lipitor) 80 mg PO BEDTIME 02/22/21 06/12/25 06/11/25 History chlorthalidone 25 mg tablet 25 mg PO DAILY 02/22/21 06/12/25 06/12/25 History digoxin 250 mcg (0.25 mg) tablet 250 mcg PO BEDTIME 04/22/21 06/12/25 06/11/25 History metoprolol succinate 100 mg 100 mg PO DAILY 04/28/21 06/12/25 06/12/25 History tablet,extended release 24 hr metoprolol succinate 50 mg 50 mg PO DAILY 04/28/21 06/12/25 06/12/25 History tablet,extended release 24 hr potassium chloride 20 mEq 40 meq PO DAILY@1730 03/30/23 06/12/25 06/12/25 History tablet,extended release warfarin 5 mg tablet 5 mg PO WE@1800 06/12/25 06/12/25 06/11/25 History warfarin 5 mg tablet 7.5 mg PO SUMOTUTHFRSA@1800 afib 06/12/25 06/12/25 06/11/25 History Physical Exam Vital Signs: Vital Signs: Last Vital Signs Temp 97.6 F 06/13/25 07:10 Pulse 75 06/13/25 07:10 Resp 16 06/13/25 07:10 BP 143/74 H 06/13/25 07:10 Pulse Ox 93 06/13/25 07:10 O2 Del Method Room Air 06/13/25 07:10 BMI result Body Mass Index 41.9 Const: General: cooperative and no acute distress Orientation/consciousness: patient oriented x3 Resp: Effort & Inspection: normal respiratory effort and able to speak in complete sentences Cardio: Peripheral pulses: Peripheral pulses 2+ throughout Neuro: General: patient oriented x3 Extrem: Other: The patient does not display any difficulty moving both hip joints. The left knee is normal to inspection with no open wounds or abrasions. No erythema. Does have a moderate size joint effusion. Has difficulty with initiating range of motion due to the discomfort. Calf is supple and nontender neurovascularly intact. Results Labs 06/12/25 09:31 06/12/25 09:31 Labs: Abnormal lab results 06/12/25 06/12/25 06/13/25 Range/Units 09: 15:45 07:00 MCH 33.7 H (27.0-33.0) pg MCHC 36.2 H (31.0-36.0) g/dl Plt Count 130 L (160-400) X10*3/uL Lymph % (Auto) 18.7 L (20-40) % [place] % (Auto) 11.4 H (2-11) % PT 24.2 H 18.6 H D (10.9-12.4) SEC INR 2.1 H 1.6 H (0.9-1.1) Anion Gap 11 L (12-20) Random Glucose 155 H (60-115) mg/dL Total Bilirubin 3.4 H (0.0-1.0) mg/dL Ur Specific [place] >= 1.030 H (1.005-1.025) H & H 06/12/25 Range/Units 09: Hgb 15.5 (14.0-18.0) g/dl Hct 42.8 (42.0-52.0) % Coagulation 06/12/25 06/13/25 Range/Units 09: 07:00 INR 2.1 H 1.6 H (0.9-1.1) All other labs normal. Diagnostic results Hip x-ray: image reviewed (Bilateral hip x-rays with pelvis obtained today and reviewed by me show mild sclerotic changes but no femoral head collapse.) Knee x-ray: image reviewed (X-rays of the left knee obtained and reviewed by me show degenerative changes with moderate effusion) Assessment and Plan (1) Avascular necrosis of bones of both hips: Status: Acute Bilateral hip AVN without femoral head collapse. No acute intervention warranted. Patient can weightbear as tolerated. (2) Effusion of knee joint, left: Status: Acute Attempted asp of the left knee which was unsuccessful likely coagulated hemarthrosis ashely for compression f.u outpatient if continued knee pain (3) Arthritis of knee, left: Status: Acute Attempted asp of the left knee which was unsuccessful likely coagulated hemarthrosis ashely for compression f.u outpatient if continued knee pain Plan I discussed with the patient the options which includes aspiration and injection Procedures Date of Service Date of Service: 06/13/25
--- NOTE | 2025-06-13 10:22 | P.PNIM_ITS ---
Subjective Subjective Date of Service: 06/13/25 Interval History: Will be switched to inpatient due to AFib with RVR complicated by acute urinary retention Reports improvement in hip pain though left knee pain about the same Denies chest pain, pressure, or palpitations No SOB or difficulty breathing Reports vague hx of gout a few years ago Review of Systems Review of Systems: Yes all other systems are reviewed and are negative Physical Exam 2 Exam: Exam: General: AOx3, no acute distress Resp: CTA bilaterally CVS: Irregular rhythm GI: +BS, NT, no distention Skin: Warm, dry Neuro: Cranial nerves II-XII grossly intact bilaterally. Motor grossly intact bilaterally Extremities: Left knee with moderate swelling, reduced ROM secondary to pain. No erythema or significant warmth to suggest cellulitis or gout Psych: Appropriate affect Vital Signs: Vital Signs: Last Vital Signs Temp 97.6 F 06/13/25 07:10 Pulse 75 06/13/25 07:10 Resp 16 06/13/25 07:10 BP 143/74 H 06/13/25 07:10 Pulse Ox 93 06/13/25 07:10 O2 Del Method Room Air 06/13/25 07:10 BMI result Body Mass Index 41.9 Objective Data Active Medications Acetaminophen (Acetaminophen 325 Mg Tablet) 650 mg PO Q6H PRN PRN Reason: Pain, Mild 1-3,fever,headache Atorvastatin Calcium (Atorvastatin Calcium 80 Mg Tablet) 80 mg PO BEDTIME KI Last Admin: 06/12/25 20:03 Dose: 80 mg Documented By: MARLON Calcium Carbonate (Calcium Carbonate 750 Mg Tab.Chew) 750 mg PO Q4H PRN PRN Reason: Heartburn Digoxin (Digoxin 0.25 Mg Tablet) 0.25 mg PO BEDTIME KI; Protocol Last Admin: 06/12/25 20:26 Dose: 0.25 mg Documented By: MARLON Hydrochlorothiazide (Hydrochlorothiazide 25 Mg Tablet) 25 mg PO DAILY KI Hydromorphone HCl (Hydromorphone Hcl 0.5 Mg/0.5 Ml Syringe) 0.5 mg IVPUSH Q4H PRN; Protocol PRN Reason: Pain, Severe (Pain Scale 7-10) Last Admin: 06/13/25 09:32 Dose: 0.5 mg Documented By: ZION Magnesium Hydroxide (Milk Of Magnesia 30 Ml Oral.Susp) 30 ml PO DAILY PRN PRN Reason: Constipation Melatonin (Melatonin 3 Mg Tablet) 6 mg PO BEDTIME PRN PRN Reason: Insomnia Metoprolol Succinate (Metoprolol Succinate Er 100 Mg Tab.Er.24h) 100 mg PO DAILY@1700 KI; Protocol Metoprolol Succinate (Metoprolol Succinate Er 50 Mg Tab.Er.24h) 150 mg PO DAILY KI; Protocol Ondansetron HCl (Ondansetron Hcl 4 Mg/2 Ml Vial) 4 mg IVPUSH Q8H PRN PRN Reason: Nausea and Vomiting Potassium Chloride (Potassium Chloride Er 20 Meq Tab.Er.Prt) 40 meq PO DAILY@1730 KI Sodium Chloride (0.9 % Sodium Chloride Flush 3 Ml Syringe) 3 ml IVFLUSH QSHIFT KI Last Admin: 06/12/25 20:06 Dose: 3 ml Documented By: MARLON Warfarin Sodium (Warfarin Sodium 5 Mg Tablet) 5 mg PO WE@1800 KI Warfarin Sodium (Warfarin Sodium 7.5 Mg Tablet) 7.5 mg PO SUMOTUTHFRSA@1800 [facility] Last Admin: 06/12/25 20:00 Dose: 7.5 mg Documented By: MARLON Comments: Medication administered late as pt was admitted at shift change; press writer assumed care 20:00 Labs 06/12/25 09:31 06/12/25 09:31 Labs: Laboratory Results - last 24 hr 06/12/25 06/13/25 15:45 07:00 Hold Purple Top SEE NOTE PT 18.6 H D INR 1.6 H Urine Color Yellow Urine Appearance Clear Urine pH 7.5 Ur Specific [place] >= 1.030 H Urine Protein Trace Urine Glucose (UA) Negative Urine Ketones Negative Urine Blood Negative Urine Nitrite Negative Ur Leukocyte Esterase Negative Assessment and Plan (1) Acute urinary retention: Status: Acute Plan Pt is a 70-year-old male with a PMH significant for?persistent AFib on Eliquis, HFpEF, HLD, and HTN who presents to the ED with?left hip and left knee pain x4 days. In the ED pt was found to be in AFib with RVR and have acute urinary retention. AFib with RVR HR noted to be in the 180s, pt asymptomatic Increase metoprolol XL to 150 mg daily and 100 mg in the afternoon, per Cardiology Rate better controlled today Echocardiogram pending Continue digoxin, warfarin Follow INR Acute urinary retention Bladder scan showed 1300ml Pull Riggs and have voiding trial Bilateral AVN and left knee effusion Reports atraumatic left hip and knee pain x4 days Reports unable to ambulate Pain management Orthopedic consult PT consult HLD Continue statin HTN Continue chlorthalidone Full Code DVT Prophylaxis: On warfarin Pt was moved to inpatient and require a two night hospital stay as he was found to have acute urinary rentetion and unable to ambulate. Will require continued hospitalization for treatment and further evaluation of AFib with RVR complicated by acute urinary retention in the setting of intractable knee pain and difficulty ambulating. Quality Stroke Does the patient have a stroke diagnosis?: No VTE Prior VTE?: No VTE Risk Level:: Medical - moderate - high VTE Device Contraindication: Treatment Not Indicated VTE Drug Contraindication: N/A - Med Ordered
[2025-06-13] MEDS: 0.9 % Sodium Chloride Flush 3 ML SYRINGE IVFLUSH ×3 (10:58→20:31)
[2025-06-13] MEDS: Metoprolol Succinate ER 50 MG TAB.ER.24H 150 MG PO (11:03)
--- NOTE | 2025-06-13 13:43 | MHC.CM.PN ---
IMM 06/13/25, Pt. lives with his , he does not use home health services or DME. PCP confirmed: Lalito Marcos/ HCP discussed, he declined to complete form at this time. to transport home at DC, DCP: home with services or STR. CM to follow for DC needs.
[2025-06-13] MEDS: Metoprolol Succinate ER 100 MG TAB.ER.24H PO (17:16)
[2025-06-13] MEDS: Potassium Chloride ER 20 MEQ TAB.ER.PRT 40 MEQ PO (20:29)
--- NOTE | 2025-06-14 00:56 | PC.NURSE ---
Riggs cath was removed and void due at 18:50 06/13/2025. Pt tried to urinate multiple times in a commode/urinal, but was not successful. Straight cath was done and 525mL urine was removed. Next bladder scan was due at 6:50AM 06/14/2025.
[2025-06-14 03:06] VITALS: BP 120/79; PULSE 78; RESP 16; TEMP 36.7; O2SAT 94
--- NOTE | 2025-06-14 06:33 | PM.EVENT ---
Event Note Date of Service: 06/14/25 Event Note: Patient has had acute urinary retention, required straight catheterization at 01:00, still has been unable to urinate, Riggs catheter placed Time Spent With Patient Time: Total time managing care of this patient today ____ minutes.
[2025-06-14 07:50] LABS: INTERNATIONAL NORM RATIO 1.7 (0.9-1.1); Prothrombin Time 19.6 SEC (10.9-12.4)
[2025-06-14 07:58] VITALS: BP 136/83; PULSE 74; RESP 20; TEMP 36.4; O2SAT 96
[2025-06-14 09:02] VITALS: BP 136/83
[2025-06-14] MEDS: Metoprolol Succinate ER 50 MG TAB.ER.24H 150 MG PO (09:02)
[2025-06-14] MEDS: 0.9 % Sodium Chloride Flush 3 ML SYRINGE IVFLUSH ×3 (09:06→22:53)
[2025-06-14] MEDS: Milk of Magnesia 30 ML ORAL.SUSP PO (09:12)
--- NOTE | 2025-06-14 10:29 | P.PNIM_ITS ---
Subjective Subjective Date of Service: 06/14/25 Interval History: [place] hot and warm overnight, but no measured fever HR noted to be consistently in the 120-160s in the morning, especially with exertion Denies chest pain/pressure; no palpitations Failed voiding trial yesterday, Riggs replaced Review of Systems Review of Systems: Yes all other systems are reviewed and are negative Physical Exam 2 Exam: Exam: General: AOx3, no acute distress Resp: CTA bilaterally CVS: Irregularly irregular rhytm, tachycardic GI: +BS, NT, no distention Skin: Warm, dry : Riggs in place Neuro: Cranial nerves II-XII grossly intact bilaterally. Motor grossly intact bilaterally Extremities: No edema Psych: Appropriate affect Vital Signs: Vital Signs: Last Vital Signs Temp 97.6 F 06/14/25 07:58 Pulse 74 06/14/25 07:58 Resp 20 06/14/25 07:58 BP 136/83 06/14/25 09:02 Pulse Ox 96 06/14/25 07:58 O2 Del Method Room Air 06/14/25 07:58 BMI result Body Mass Index 41.9 Objective Data Active Medications Acetaminophen (Acetaminophen 325 Mg Tablet) 650 mg PO Q6H PRN PRN Reason: Pain, Mild 1-3,fever,headache Atorvastatin Calcium (Atorvastatin Calcium 80 Mg Tablet) 80 mg PO BEDTIME [facility] Last Admin: 06/13/25 20:30 Dose: 80 mg Documented By: RUSSELL Calcium Carbonate (Calcium Carbonate 750 Mg Tab.Chew) 750 mg PO Q4H PRN PRN Reason: Heartburn Digoxin (Digoxin 0.25 Mg Tablet) 0.25 mg PO BEDTIME [facility]; Protocol Last Admin: 06/13/25 20:30 Dose: 0.25 mg Documented By: RUSSELL Hydrochlorothiazide (Hydrochlorothiazide 25 Mg Tablet) 25 mg PO DAILY [facility] Last Admin: 06/14/25 09:02 Dose: 25 mg Documented By: GURINDER Hydromorphone HCl (Hydromorphone Hcl 0.5 Mg/0.5 Ml Syringe) 0.5 mg IVPUSH Q4H PRN; Protocol PRN Reason: Pain, Severe (Pain Scale 7-10) Last Admin: 06/14/25 09:03 Dose: 0.5 mg Documented By: GURINDER Magnesium Hydroxide (Milk Of Magnesia 30 Ml Oral.Susp) 30 ml PO DAILY PRN PRN Reason: Constipation Last Admin: 06/14/25 09:12 Dose: 30 ml Documented By: GURINDER Melatonin (Melatonin 3 Mg Tablet) 6 mg PO BEDTIME PRN PRN Reason: Insomnia Metoprolol Succinate (Metoprolol Succinate Er 100 Mg Tab.Er.24h) 100 mg PO DAILY@1700 [facility]; Protocol Last Admin: 06/13/25 17:16 Dose: 100 mg Documented By: ZION Metoprolol Succinate (Metoprolol Succinate Er 50 Mg Tab.Er.24h) 150 mg PO DAILY [facility]; Protocol Last Admin: 06/14/25 09:02 Dose: 150 mg Documented By: GURINDER Ondansetron HCl (Ondansetron Hcl 4 Mg/2 Ml Vial) 4 mg IVPUSH Q8H PRN PRN Reason: Nausea and Vomiting Potassium Chloride (Potassium Chloride Er 20 Meq Tab.Er.Prt) 40 meq PO DAILY@1730 [facility]I Last Admin: 06/13/25 20:29 Dose: 40 meq Documented By: RUSSELL Sodium Chloride (0.9 % Sodium Chloride Flush 3 Ml Syringe) 3 ml IVFLUSH QSHIFT [facility] Last Admin: 06/14/25 09:06 Dose: 3 ml Documented By: GURINDER Warfarin Sodium (Warfarin Sodium 5 Mg Tablet) 5 mg PO WE@1800 [facility] Warfarin Sodium (Warfarin Sodium 7.5 Mg Tablet) 7.5 mg PO SUMOTUTHFRSA@1800 [facility] Last Admin: 06/13/25 17:13 Dose: 7.5 mg Documented By: ZION Labs 06/12/25 09:31 06/12/25 09:31 Labs: Laboratory Results - last 24 hr 06/14/25 06/14/25 06:47 06:48 Hold Purple Top SEE NOTE PT 19.6 H INR 1.7 H Assessment and Plan (1) Acute urinary retention: Status: Acute (2) Atrial fibrillation with RVR: Status: Acute Plan Pt is a 70-year-old male with a PMH significant for?persistent AFib on Eliquis, HFpEF, HLD, and HTN who presents to the ED with?left hip and left knee pain x4 days. In the ED pt was found to be in AFib with RVR and have acute urinary retention. AFib with RVR, recurrent HR in ED noted to be in the 180s, pt asymptomatic; was given Cardizem 10 mg IV in the ED Increase metoprolol XL to 200 mg daily, per Cardiology Recurrent RVR in 120s-160s on 06/14; treat urinary retention and knee pain; hold on Echocardiogram pending Continue digoxin, warfarin Follow INR Acute urinary retention Bladder scan showed 1300ml Failed voiding trial on 06/13, Riggs replaced Will get CT of abd/pelvis Start Flomax Keep Riggs in x2 weeks, follow up with urology for outpatient voiding trial Bilateral AVN and left knee effusion Reports atraumatic left hip and knee pain x4 days Has had difficulty ambulating Pain management Orthopedic consulted, aspiration on successful. Weightbear as tolerated, Shad wrap for compression, follow up outpatient for continued knee pain PT recommends short-term rehab HLD Continue statin HTN Continue chlorthalidone Full Code DVT Prophylaxis: On warfarin Pt was moved to inpatient and require a two night hospital stay as he was found to have acute urinary rentetion and unable to ambulate. Will require continued hospitalization for treatment and further evaluation of AFib with RVR complicated by acute urinary retention in the setting of intractable knee pain and difficulty ambulating. Quality Stroke Does the patient have a stroke diagnosis?: No VTE Prior VTE?: No VTE Risk Level:: Medical - moderate - high VTE Device Contraindication: Treatment Not Indicated VTE Drug Contraindication: N/A - Med Ordered
[2025-06-14] MEDS: Metoprolol Succinate ER 50 MG TAB.ER.24H PO (10:53)
[2025-06-14 13:43] VITALS: BP 119/79; PULSE 85; RESP 20; TEMP 37.6; O2SAT 92
[2025-06-14 16:00] VITALS: BP 143/77; PULSE 88; RESP 18; TEMP 37.2; O2SAT 92
[2025-06-14] MEDS: Potassium Chloride ER 20 MEQ TAB.ER.PRT 40 MEQ PO (17:36)
[2025-06-14 20:00] VITALS: BP 123/73; PULSE 95; RESP 16; TEMP 36.7; O2SAT 93
[2025-06-15] VITALS (7 sets, daily range): BP systolic 116–141; BP diastolic 65–83; PULSE 56–88; RESP 16–18; TEMP 36.1–36.7; O2SAT 93–96
[2025-06-15 07:16] LABS: INTERNATIONAL NORM RATIO 1.8 (0.9-1.1); Prothrombin Time 20.8 SEC (10.9-12.4)
[2025-06-15] MEDS: Metoprolol Succinate ER 100 MG TAB.ER.24H 200 MG PO (08:09)
[2025-06-15] MEDS: Milk of Magnesia 30 ML ORAL.SUSP PO (08:10)
[2025-06-15] MEDS: 0.9 % Sodium Chloride Flush 3 ML SYRINGE IVFLUSH ×3 (08:10→23:25)
--- NOTE | 2025-06-15 10:11 | MHC.CM.PN ---
Addendum entered by Jane Carmona 06/15/25 11:24: THIS CM MET WITH PT AND HIS SPOUSE VARUN PRESENT AT BEDSIDE TO DISCUSS STR OPTIONS, PT STATES [facility] IS HIS FIRST CHOICE. BED OFFER RECEIVED FROM [facility], FOR TOMORROW, PENDING BED AVAILABILITY. Original Note: PER HOSPITALIST, PT WILL BE READY FOR DISCHARGE TOMORROW. THIS CM MET WITH PT TO DISCUSS DISCHARGE PLAN, PT EVALUATED HIM AND RECOMMENDED STR. THIS CM PRESENTED PT WITH A LIST OF LOCAL SNF'S PRINTED FROM [facility] TO REVIEW. PT STATES HE IS AGREEMENT WITH GOING TO STR, AND HE WILL REVIEW THE STR OPTIONS GIVEN TO HIM. PT IS IN AGREEMENT WITH STR REFERRALS BEING PLACED. STR REFERRALS PLACED IN [facility], AWAITING BED OFFER TO REVIEW WITH PT.
--- NOTE | 2025-06-15 12:58 | HO.PM.IMPN ---
Subjective Subjective Date of Service: 06/15/25 Interval History: Pain in left hip and knee improved Has been up and out of bed and able to ambulate to the bathroom Had bowel movement last night Heart rate much better controlled in 70s to 80s Plans to go to rehab tomorrow Review of Systems Review of Systems: Yes all other systems are reviewed and are negative Physical Exam Exam: Exam: General: AOx3, no acute distress Resp: CTA bilaterally CVS: Irregular irregular rhythm, regular rate GI: +BS, NT, no distention, soft Skin: Warm, dry Neuro: Cranial nerves II-XII grossly intact bilaterally. Motor grossly intact bilaterally Extremities: No edema. Left hip active ROM preserved. Left knee without significant swelling; active ROM reduced Psych: Appropriate affect Vital Signs: Vital Signs: Last Vital Signs Temp 97.5 F 06/15/25 11:32 Pulse 88 06/15/25 11:32 Resp 18 06/15/25 11:32 BP 126/83 06/15/25 11:32 Pulse Ox 94 06/15/25 11:32 O2 Del Method Room Air 06/15/25 11:32 BMI result Body Mass Index 41.9 Objective Data Active Medications Acetaminophen (Acetaminophen 325 Mg Tablet) 650 mg PO Q6H PRN PRN Reason: Pain, Mild 1-3,fever,headache Atorvastatin Calcium (Atorvastatin Calcium 80 Mg Tablet) 80 mg PO BEDTIME [facility] Last Admin: 06/14/25 20:56 Dose: 80 mg Documented By: RUSSELL Calcium Carbonate (Calcium Carbonate 750 Mg Tab.Chew) 750 mg PO Q4H PRN PRN Reason: Heartburn Digoxin (Digoxin 0.25 Mg Tablet) 0.25 mg PO BEDTIME [facility]; Protocol Last Admin: 06/14/25 20:56 Dose: 0.25 mg Documented By: RUSSELL Hydrochlorothiazide (Hydrochlorothiazide 25 Mg Tablet) 25 mg PO DAILY [facility] Last Admin: 06/15/25 08:09 Dose: 25 mg Documented By: BRUNO Hydromorphone HCl (Hydromorphone Hcl 0.5 Mg/0.5 Ml Syringe) 0.5 mg IVPUSH Q4H PRN; Protocol PRN Reason: Pain, Severe (Pain Scale 7-10) Last Admin: 06/15/25 06:23 Dose: 0.5 mg Documented By: RUSSELL Magnesium Hydroxide (Milk Of Magnesia 30 Ml Oral.Susp) 30 ml PO DAILY PRN PRN Reason: Constipation Last Admin: 06/15/25 08:10 Dose: 30 ml Documented By: BRUNO Melatonin (Melatonin 3 Mg Tablet) 6 mg PO BEDTIME PRN PRN Reason: Insomnia Metoprolol Succinate (Metoprolol Succinate Er 100 Mg Tab.Er.24h) 200 mg PO DAILY [facility]; Protocol Last Admin: 06/15/25 08:09 Dose: 200 mg Documented By: BRUNO Ondansetron HCl (Ondansetron Hcl 4 Mg/2 Ml Vial) 4 mg IVPUSH Q8H PRN PRN Reason: Nausea and Vomiting Potassium Chloride (Potassium Chloride Er 20 Meq Tab.Er.Prt) 40 meq PO DAILY@1730 [facility] Last Admin: 06/14/25 17:36 Dose: 40 meq Documented By: GURINDER Sodium Chloride (0.9 % Sodium Chloride Flush 3 Ml Syringe) 3 ml IVFLUSH QSHIFT [facility] Last Admin: 06/15/25 08:10 Dose: 3 ml Documented By: BRUNO Tamsulosin HCl (Tamsulosin Hcl 0.4 Mg Capsule) 0.4 mg PO BEDTIME [facility] Last Admin: 06/14/25 10:53 Dose: 0.4 mg Documented By: GURINDER Warfarin Sodium (Warfarin Sodium 5 Mg Tablet) 5 mg PO WE@1800 KI Warfarin Sodium (Warfarin Sodium 7.5 Mg Tablet) 7.5 mg PO SUMOTUTHFRSA@1800 [facility] Last Admin: 06/14/25 17:36 Dose: 7.5 mg Documented By: GURINDER Labs 06/12/25 09:31 06/12/25 09:31 Labs: Laboratory Results - last 24 hr 06/15/25 06:49 PT 20.8 H INR 1.8 H Assessment and Plan (1) Acute urinary retention: Status: Acute (2) Atrial fibrillation with RVR: Status: Acute Plan Pt is a 70-year-old male with a PMH significant for?persistent AFib on Eliquis, HFpEF, HLD, and HTN who presents to the ED with?left hip and left knee pain x4 days. In the ED pt was found to be in AFib with RVR and have acute urinary retention. Asymptomatic AFib with RVR, recurrent HR noted to be in the 180s at presentation, was given Cardizem 10 mg IV in the ED Recurrent RVR in 120s-160s on 06/14; hold on additional Cardizem per cardiology, treat urinary retention, knee pain, and constipation Increase metoprolol XL to 200 mg daily, per Cardiology Echocardiogram pending Continue digoxin, warfarin Follow INR, currently subtherapeutic at 1.8 Acute urinary retention Bladder scan in ED showed 1300ml Failed voiding trial on 06/13, Riggs replaced CT of abd/pelvis showed no evidence of renal obstruction, though did show prostate calcification, and diffuse thickening of urinary bladder mucosa with underlying urinary bladder mass not excluded Started on Flomax 0.4 mg daily Keep Riggs in x2 weeks, follow up with urology for outpatient voiding trial Bilateral AVN and left knee effusion Reports atraumatic left hip and knee pain x4 days Has had difficulty ambulating Pain management Orthopedic consulted, aspiration on successful. Weightbear as tolerated, Shad wrap for compression, follow up outpatient for continued knee pain PT recommends short-term rehab; pt will likely be discharged tomorrow Constipation Given milk of magnesia, lactulose HLD Continue statin HTN Continue chlorthalidone Full Code DVT Prophylaxis: On warfarin Pt requires continued hospitalization for treatment of AFib with RVR, acute urinary retention, and difficulty ambulating on left lower extremity. Pt should be discharged to short term rehab on Monday Quality Stroke Does the patient have a stroke diagnosis?: No VTE Prior VTE?: No VTE Risk Level:: Medical - moderate - high VTE Device Contraindication: Treatment Not Indicated VTE Drug Contraindication: N/A - Med Ordered
--- NOTE | 2025-06-15 17:22 | P.CDIM_ITS ---
PROVIDER RESPONSE TEXT: To clarify, the appropriate diagnosis supported by the clinical indicators: CKD, please provide stage: CKD2 QUERY TEXT: PHYSICIAN'S DOCUMENTATION REQUEST Date of Query: 06/13/2025 12:07 PM EDT Patient Name: Gordon Fitch Admit Date: 06/13/2025 Dear Gasper GUERRERO, A review of the medical record indicates additional documentation may be needed. Please review below and update the documentation accordingly. Clinical Indicators: ED and H&P dated 06/12/25 within the Past Medical History: Chronic kidney disease GFR >60 CR 1.08 BUN 15 fluids Please clarify which of the following accurately represents the patient's renal status: CKD, please provide stage 1, 2, 3a, 3b, 4 ESRD - CKD V now requiring permanent dialysis and/or transplant CKD ruled out Other (explain) Clinically unable to determine (explain) Thank you, Geni Basilio, CCS, CDIS Use of terms such as suspected, likely, concern for, or probable (associated with a specific diagnosis that is being evaluated, monitored, or treated as if it exists) are acceptable and can be coded in the inpatient setting, when documented at the time of discharge. Please use your independent medical judgment in providing your response. THIS QUERY IS PART OF THE PERMANENT MEDICAL RECORD
[2025-06-15] MEDS: Potassium Chloride ER 20 MEQ TAB.ER.PRT 40 MEQ PO (17:34)
[2025-06-16 03:34] VITALS: BP 130/81; PULSE 90; RESP 16; TEMP 36.8; O2SAT 97
[2025-06-16 07:27] VITALS: BP 132/75; PULSE 86; RESP 18; TEMP 36.3; O2SAT 96
[2025-06-16 07:27] LABS: INTERNATIONAL NORM RATIO 2.0 (0.9-1.1); Prothrombin Time 22.5 SEC (10.9-12.4)
[2025-06-16] MEDS: Metoprolol Succinate ER 100 MG TAB.ER.24H 200 MG PO (09:24)
[2025-06-16] MEDS: 0.9 % Sodium Chloride Flush 3 ML SYRINGE IVFLUSH ×3 (09:25→20:28)
[2025-06-16 11:45] VITALS: BP 133/84; PULSE 94; RESP 18; TEMP 37.1; O2SAT 96
--- NOTE | 2025-06-16 12:59 | MHC.CM.PN ---
Per rounds, pt. requiring ongoing acute care for health rate, and he will be seen by urology. DCP: to [facility] for STR.
[2025-06-16] MEDS: dilTIAZem HCL CD 120 MG CAP.ER.DEG PO (13:59)
[2025-06-16 15:25] VITALS: BP 144/88; PULSE 79; RESP 16; TEMP 36.8; O2SAT 94
[2025-06-16] MEDS: Potassium Chloride ER 20 MEQ TAB.ER.PRT 40 MEQ PO (17:28)
--- NOTE | 2025-06-16 17:35 | P.PNIM_ITS ---
Subjective Subjective Date of Service: 06/16/25 Interval History: Symptomatic AFib RVR. Telemetry revealing rates 140 beats per minute. Medically managed with diltiazem, with improvement Review of Systems Review of Systems: Yes all other systems are reviewed and are negative Physical Exam 2 Exam: Exam: General: A&O x3, oriented to time place person and situation, comfortable, no pain Cardiac: S1, S2 auscultated with no S3/4, no MRG. Well perfused. Respiratory: Normal breath sounds auscultated throughout all lung zones, without wheezing, rales. Normal rate. GI/ : No abdominal pain on palpation, no masses or distentions. MSK: Normal ambulation without pain at bony prominences or musculature Neurological: Normal neurological examination on overview, without obvious CN II-XII abnormalities. Vital Signs: Vital Signs: Last Vital Signs Temp 98.3 F 06/16/25 15:25 Pulse 79 06/16/25 15:25 Resp 16 06/16/25 15:25 BP 144/88 H 06/16/25 15:25 Pulse Ox 94 06/16/25 15:25 O2 Del Method Room Air 06/16/25 15:25 BMI result Body Mass Index 41.9 Objective Data Active Medications Acetaminophen (Acetaminophen 325 Mg Tablet) 650 mg PO Q6H PRN PRN Reason: Pain, Mild 1-3,fever,headache Atorvastatin Calcium (Atorvastatin Calcium 80 Mg Tablet) 80 mg PO BEDTIME [facility] Last Admin: 06/15/25 19:53 Dose: 80 mg Documented By: ALIS Calcium Carbonate (Calcium Carbonate 750 Mg Tab.Chew) 750 mg PO Q4H PRN PRN Reason: Heartburn Digoxin (Digoxin 0.25 Mg Tablet) 0.25 mg PO BEDTIME [facility]; Protocol Last Admin: 06/15/25 19:59 Dose: 0.25 mg Documented By: ALIS Diltiazem HCl (Diltiazem Hcl Cd 120 Mg Cap.Er.Deg) 120 mg PO DAILY [facility]; Protocol Last Admin: 06/16/25 13:59 Dose: 120 mg Documented By: RAVI Hydrochlorothiazide (Hydrochlorothiazide 25 Mg Tablet) 25 mg PO DAILY [facility] Last Admin: 06/16/25 09:24 Dose: 25 mg Documented By: RAVI Hydromorphone HCl (Hydromorphone Hcl 0.5 Mg/0.5 Ml Syringe) 0.5 mg IVPUSH Q4H PRN; Protocol PRN Reason: Pain, Severe (Pain Scale 7-10) Last Admin: 06/15/25 06:23 Dose: 0.5 mg Documented By: RUSSELL Magnesium Hydroxide (Milk Of Magnesia 30 Ml Oral.Susp) 30 ml PO DAILY PRN PRN Reason: Constipation Last Admin: 06/15/25 08:10 Dose: 30 ml Documented By: BRUNO Melatonin (Melatonin 3 Mg Tablet) 6 mg PO BEDTIME PRN PRN Reason: Insomnia Metoprolol Succinate (Metoprolol Succinate Er 100 Mg Tab.Er.24h) 200 mg PO DAILY [facility]; Protocol Last Admin: 06/16/25 09:24 Dose: 200 mg Documented By: RAVI Ondansetron HCl (Ondansetron Hcl 4 Mg/2 Ml Vial) 4 mg IVPUSH Q8H PRN PRN Reason: Nausea and Vomiting Potassium Chloride (Potassium Chloride Er 20 Meq Tab.Er.Prt) 40 meq PO DAILY@1730 [facility] Last Admin: 06/16/25 17:28 Dose: 40 meq Documented By: RAVI Sodium Chloride (0.9 % Sodium Chloride Flush 3 Ml Syringe) 3 ml IVFLUSH QSHIFT [facility] Last Admin: 06/16/25 17:28 Dose: 3 ml Documented By: RAVI Tamsulosin HCl (Tamsulosin Hcl 0.4 Mg Capsule) 0.4 mg PO BEDTIME [facility] Last Admin: 06/15/25 19:53 Dose: 0.4 mg Documented By: ALIS Warfarin Sodium (Warfarin Sodium 5 Mg Tablet) 5 mg PO WE@1800 [facility] Warfarin Sodium (Warfarin Sodium 7.5 Mg Tablet) 7.5 mg PO SUMOTUTHFRSA@1800 [facility] Last Admin: 06/16/25 17:28 Dose: 7.5 mg Documented By: RAVI Labs 06/12/25 09:31 06/12/25 09:31 Labs: Laboratory Results - last 24 hr 06/16/25 06:49 PT 22.5 H INR 2.0 H Assessment and Plan (1) Unspecified combined systolic and diastolic heart failure: Status: Acute (2) Right ventricular enlargement: Status: Acute (3) Persistent atrial fibrillation: Status: Acute (4) Atrial fibrillation with RVR: Status: Acute (5) Current use of anticoagulant therapy: Status: Acute (6) YEE (obstructive sleep apnea): Status: Acute (7) Urinary retention: Status: Acute Plan 70-year-old male with a PMH significant for?persistent AFib on Eliquis, HFpEF, HLD, and HTN who presents to the ED with?left hip and left knee pain x4 days. In the ED pt was found to be in AFib with RVR and have acute urinary retention. Asymptomatic AFib with RVR, recurrent HR noted to be in the 180s at presentation, was given Cardizem 10 mg IV in the ED Recurrent RVR in 120s-160s on 06/14; hold on additional Cardizem per cardiology, treat urinary retention, knee pain, and constipation Increase metoprolol XL to 200 mg daily, per Cardiology Echocardiogram pending Continue digoxin, warfarin Follow INR, currently subtherapeutic at 1.8 Started diltiazem 120 mg OD p.o. INR daily Acute urinary retention Bladder scan in ED showed 1300ml Failed voiding trial on 06/13, Riggs replaced CT of abd/pelvis showed no evidence of renal obstruction, though did show prostate calcification, and diffuse thickening of urinary bladder mucosa with underlying urinary bladder mass not excluded Started on Flomax 0.4 mg daily Keep Riggs in x2 weeks, follow up with urology for outpatient voiding trial Bilateral AVN and left knee effusion Reports atraumatic left hip and knee pain x4 days Has had difficulty ambulating Pain management Orthopedic consulted, aspiration on successful. Weightbear as tolerated, Shda wrap for compression, follow up outpatient for continued knee pain PT recommends short-term rehab; pt will likely be discharged tomorrow Constipation Given milk of magnesia, lactulose HLD Continue statin HTN Continue chlorthalidone [employer] - VTE: Warfarin - CODE STATUS: Full code - DIET: Cardiac Total time managing care of this patient today: 45 minutes. Quality Stroke Does the patient have a stroke diagnosis?: No VTE Prior VTE?: No VTE Risk Level:: Medical - moderate - high VTE Device Contraindication: Treatment Not Indicated VTE Drug Contraindication: N/A - Med Ordered
[2025-06-16 19:19] VITALS: BP 125/61; PULSE 81; RESP 20; TEMP 36.8; O2SAT 94
[2025-06-16 23:45] VITALS: BP 129/69; PULSE 81; RESP 18; TEMP 37.1; O2SAT 94
[2025-06-17 03:18] VITALS: BP 142/86; PULSE 67; RESP 18; TEMP 37.4; O2SAT 94
[2025-06-17 08:00] VITALS: BP 115/67; PULSE 78; RESP 18; TEMP 37; O2SAT 93
[2025-06-17 08:04] LABS: INTERNATIONAL NORM RATIO 1.9 (0.9-1.1); Prothrombin Time 22.0 SEC (10.9-12.4)
[2025-06-17 08:14] LABS: Anion Gap 12 (12-20); Blood Urea Nitrogen 22 mg/dL (9-16); Calcium 9.2 mg/dL (8.4-10.2); Carbon Dioxide 28 mmol/L (22-29); Chloride 101 mmol/L (96-108); Creatinine Clr Calc Pharmacy 77.2; Estimated Glomerular Filt Rate > 60; Potassium 3.7 mmol/L (3.3-5.1); Sodium 137 mmol/L (135-145)
[2025-06-17] MEDS: Metoprolol Succinate ER 100 MG TAB.ER.24H 200 MG PO (08:22)
[2025-06-17] MEDS: 0.9 % Sodium Chloride Flush 3 ML SYRINGE IVFLUSH (08:22)
[2025-06-17] MEDS: dilTIAZem HCL CD 120 MG CAP.ER.DEG PO (08:22)
--- NOTE | 2025-06-17 10:38 | MHC.CM.PN ---
Second IMM delivered, Pt. has been medically cleared to DC, he will go [facility] today for STR via BLS.
--- NOTE | 2025-06-17 11:16 | PM.DS ---
DS: Providers Provider Date of Service: 06/17/25 Date of admission: 06/13/25 10:29 Date of discharge: 06/17/25 Primary care physician: Lalito Marcos MD Consults: 06/12/25 12:26 Consult to Cardiology Stat Consulting Provider: [facility] Reason for consultation: atrial fib RVR Has provider been notified: Yes 06/12/25 15:04 Consult to Cardiology Routine Consulting Provider: [facility] Reason for consultation: AFib w/RVR 06/12/25 18:35 Consult to Orthopedics Routine Consulting Provider: [facility] Reason for consultation: Bilateral AVN, large l. knee joint effusion, unable to ambulate DS: Diagnosis Discharge Diagnosis (1) Unspecified combined systolic and diastolic heart failure: Status: Acute (2) Right ventricular enlargement: Status: Acute (3) Persistent atrial fibrillation: Status: Acute (4) Atrial fibrillation with RVR: Status: Acute (5) Current use of anticoagulant therapy: Status: Acute (6) YEE (obstructive sleep apnea): Status: Acute (7) Urinary retention: Status: Acute DS: Summary Hospital Course Hospital Course: 70-year-old male with a PMH significant for?persistent AFib on Eliquis, HFpEF, HLD, and HTN who presents to the ED with?left hip and left knee pain x4 days. In the ED pt was found to be in AFib with RVR and have acute urinary retention. Symptomatic AFib with RVR, recurrent HR noted to be in the 180s at presentation, was given Cardizem 10 mg IV in the ED Recurrent RVR in 120s-160s on 06/14, treat urinary retention, knee pain, and constipation Increase metoprolol XL to 200 mg daily, per Cardiology Added diltiazem 120mg OD PO ER with resolution of Afib RVR. Patient is hemodynamically stable with improvement in HR. Consider transition from warfarin to DOAC if indicated. INR 2-3 and stable. Acute urinary retention Bladder scan in ED showed 1300ml Failed voiding trial on 06/13, Riggs replaced CT of abd/pelvis showed no evidence of renal obstruction, though did show prostate calcification, and diffuse thickening of urinary bladder mucosa with underlying urinary bladder mass not excluded Started on Flomax 0.4 mg daily Keep Riggs in x2 weeks, follow up with urology for outpatient voiding trial Status at Discharge Overall status at discharge: patient is back to baseline Time Attestation Total time managing care of this patient today: 35 mintues. Discharge Coordination Time (in mins): 15 Quality: Safe Use of Opioids Does Pt have an Active Cancer Diagnosis on the Problem List?: No Quality: Stroke Does the patient have a stroke diagnosis?: No Physical Exam Exam: Exam: General: A&O x3, oriented to time place person and situation, comfortable, no pain Cardiac: S1, S2 auscultated with no S3/4, no MRG. Well perfused. Respiratory: Normal breath sounds auscultated throughout all lung zones, without wheezing, rales. Normal rate. GI/ : No abdominal pain on palpation, no masses or distentions. MSK: Normal ambulation without pain at bony prominences or musculature Neurological: Normal neurological examination on overview, without obvious CN II-XII abnormalities. Vital Signs: Vital Signs: Last Vital Signs Temp 98.6 F 06/17/25 08:00 Pulse 78 06/17/25 08:00 Resp 18 06/17/25 08:00 BP 115/67 06/17/25 08:00 Pulse Ox 93 06/17/25 08:00 O2 Del Method Room Air 06/17/25 08:00 BMI result Body Mass Index 41.9 DS: Data Data Completed and Pending Labs on day of discharge: Laboratory Results - last 24 hr 06/17/25 07:46 Hold Purple Top SEE NOTE PT 22.0 H INR 1.9 H Sodium 137 Potassium 3.7 Chloride 101 Carbon Dioxide 28 Anion Gap 12 BUN 22 H Creatinine 1.11 Estim Creat Clear Calc 77.2 Estimated GFR > 60 Random Glucose 181 H Calcium 9.2 Discharge Plan Discharge Anticipated Discharge Date/Time: 06/17/25 11:22 Patient Disposition: Xfer Inpatient Rehab Fac Discharge Diagnosis: Acute AFib RVR Referrals: [facility] [Outside] - 1 Week Lalito Marcos MD [Primary Care Provider, Medical] - 1 Week Discharge Medications: New tamsulosin 0.4 mg Capsule 0.4 mg PO BEDTIME 30 Days Qty: 30 0RF diltiazem HCl [Cardizem CD] 120 mg Capsule,Extended Release 24hr 120 mg PO DAILY 30 Days Qty: 30 0RF Protocol: Hold for SBP/HR < HOLD for SBP < : 90 HOLD for HR < : 60 Continued warfarin 5 mg tablet 7.5 mg PO SUMOTUTHFRSA@1800 Protocol: Dose Management Condition: Monday (Week One) Dose/Route: 7.5 mg Instruction: 1.5 x 5 mg tablets Condition: Monday Dose/Route: 7.5 mg Instruction: 1.5 x 5 mg tablets Condition: Monday Dose/Route: 7.5 mg Instruction: 1.5 x 5 mg tablets Condition: Monday Dose/Route: 5 mg Instruction: 1 x 5 mg tablet Condition: Dose/Route: 7.5 mg Instruction: 1.5 x 5 mg tablets Condition: Monday Dose/Route: 7.5 mg Instruction: 1.5 x 5 mg tablets Condition: Monday Dose/Route: 7.5 mg Instruction: 1.5 x 5 mg tablets Condition: Monday (Week Two) Dose/Route: 7.5 mg Instruction: 1.5 x 5 mg tablets Condition: Monday Dose/Route: 7.5 mg Instruction: 1.5 x 5 mg tablets Condition: Monday Dose/Route: 7.5 mg Instruction: 1.5 x 5 mg tablets Condition: Monday Dose/Route: 5 mg Instruction: 1 x 5 mg tablet Condition: Dose/Route: 7.5 mg Instruction: 1.5 x 5 mg tablets Condition: Monday Dose/Route: 7.5 mg Instruction: 1.5 x 5 mg tablets Condition: Monday Dose/Route: 7.5 mg Instruction: 1.5 x 5 mg tablets Protocol Text: Adjustment Start Date: 05/15/25 INR Value: 2.3 INR Date: 05/15/25 Recheck Date: 06/12/25 Rx Instructions: 7.5MG DAILY warfarin 5 mg tablet 5 mg PO WE@1800 atorvastatin [Lipitor] 80 mg tablet 80 mg PO BEDTIME chlorthalidone 25 mg tablet 25 mg PO DAILY digoxin 250 mcg (0.25 mg) tablet 250 mcg PO BEDTIME metoprolol succinate 50 mg tablet extended release 24 hr 50 mg PO DAILY metoprolol succinate 100 mg tablet extended release 24 hr 100 mg PO DAILY potassium chloride 20 mEq tablet extended release 40 meq PO DAILY@1730 Rx Instructions: After Meals Discharge Orders: Discharge Order (Routine); Ordered 06/17/25 Ordered By: Lukas Blanchard Activity on Discharge: As tolerated Stand Alone Forms: Patient Portal Discharge page Print Language: Azeri Care Plan Goals: As above Health Concerns: As above Plan of Treatment: - follow up Urology outpatient - follow up Cardiology outpatient - maintain Riggs catheter for the next 14 days, and follow up with Urology for removal/voiding trial - consider transition from warfarin to DOAC Assessment: Deemed to be hemodynamically stable on evaluation, with improved heart rate stable around 80 beats per minute.
[2025-06-17 11:38] VITALS: BP 124/81; PULSE 80; RESP 18; TEMP 36.4; O2SAT 95
--- NOTE | 2025-06-19 07:24 | P.CDIM_ITS ---
PROVIDER RESPONSE TEXT: To clarify, the appropriate diagnosis supported by the clinical indicators: Obesity: III QUERY TEXT: PHYSICIAN'S DOCUMENTATION REQUEST Date of Query: 06/17/2025 10:04 AM EDT Patient Name: Gordon Fitch Admit Date: 06/13/2025 Dear Lukas Blanchard MD, A review of the medical record indicates additional documentation may be needed. Please review below and update the documentation accordingly. Clinical Indicators: Height: 5ft 7in Weight: 121.4kg BMI: 41.9 Other Clinical Notes Supporting Significance of the BMI: Nursing notes Height and Weight: Extreme obesity class III If possible, please provide an associated diagnosis related to the abnormal BMI, such as: Obesity Class I, II, III, IV Morbid obesity due to excess calories Other (explain) Clinically unable to determine (explain) Thank you, Geni Basilio, CCS, CDIS Use of terms such as suspected, likely, concern for, or probable (associated with a specific diagnosis that is being evaluated, monitored, or treated as if it exists) are acceptable and can be coded in the inpatient setting, when documented at the time of discharge. Please use your independent medical judgment in providing your response. THIS QUERY IS PART OF THE PERMANENT MEDICAL RECORD
== END 2025-06-17 12:35 | DRG 309 ==
LOC: HO.ED 14:57 → HO.EDOVER 15:20 → HO.IMC 17:08
PROVIDERS: Physician Assistant Medical; Admitting Provider Student in an Organized Health Care Education/Training Program; Emergency Provider Emergency Medicine; PCP Internal Medicine; Visit Provider Hospitalist
DX: I48.19 Other persistent atrial fibrillation (principal); I13.0 Hypertensive heart and chronic kidney disease with heart failure and stage 1 through stage 4 chronic kidney disease, or unspecified chronic kidney disease; I50.32 Chronic diastolic (congestive) heart failure; Z68.41 Body mass index [BMI] 40.0-44.9, adult; M87.9 Osteonecrosis, unspecified; E78.5 Hyperlipidemia, unspecified; K59.00 Constipation, unspecified; R79.1 Abnormal coagulation profile; M17.12 Unilateral primary osteoarthritis, left knee; N18.2 Chronic kidney disease, stage 2 (mild); E66.813 Obesity, class 3; Z71.3 Dietary counseling and surveillance; Z79.01 Long term (current) use of anticoagulants; Z79.899 Other long term (current) drug therapy
CPT/HCPCS: 36415; 73522; 73560; 73706; 74176; 80048; 80053; 81003; 83735; 84484; 85025; 85610; 93005; 93306; 97162; 99222; 99285; J0616; J1163; J1171; J2270; J2405; J3360; Q9957; Q9967

== ENCOUNTER → 2025-06-12 10:25 | Outpatient (BNV) | payer MEDICARE, OTHER, SELFPAY | PROVIDERS: PCP Internal Medicine; Visit Provider Internal Medicine Cardiovascular Disease | DX: I51.7 Cardiomegaly (principal); I48.21 Permanent atrial fibrillation | CPT/HCPCS: 93010; 99222 ==

== ENCOUNTER → 2025-06-12 11:57 | Outpatient (BNV) | payer MEDICARE, OTHER, SELFPAY | PROVIDERS: PCP Internal Medicine; Visit Provider Radiology Diagnostic Radiology | DX: I70.212 Atherosclerosis of native arteries of extremities with intermittent claudication, left leg (principal); M25.462 Effusion, left knee; M17.12 Unilateral primary osteoarthritis, left knee | CPT/HCPCS: 73706 ==

== ENCOUNTER 2025-06-12 15:19 | Outpatient (BNV) | payer MEDICARE, OTHER, SELFPAY | END 2025-06-13 08:28 | PROVIDERS: Admitting Provider Student in an Organized Health Care Education/Training Program; Emergency Provider Emergency Medicine; PCP Internal Medicine; Visit Provider Radiology Diagnostic Radiology | DX: M87.050 Idiopathic aseptic necrosis of pelvis (principal); M25.462 Effusion, left knee; M17.12 Unilateral primary osteoarthritis, left knee | CPT/HCPCS: 73522; 73560 ==

== ENCOUNTER → 2025-06-12 15:19 | Outpatient (BNV) | payer MEDICARE, OTHER, SELFPAY | PROVIDERS: Admitting Provider Student in an Organized Health Care Education/Training Program; Emergency Provider Emergency Medicine; PCP Internal Medicine; Visit Provider Student in an Organized Health Care Education/Training Program | DX: I48.91 Unspecified atrial fibrillation (principal); R33.8 Other retention of urine | CPT/HCPCS: 99223; 99232 ==

== ENCOUNTER → 2025-06-13 07:00 | Outpatient (BNV) | payer MEDICARE, OTHER, SELFPAY | PROVIDERS: Admitting Provider Student in an Organized Health Care Education/Training Program; Emergency Provider Emergency Medicine; PCP Internal Medicine; Visit Provider Internal Medicine Cardiovascular Disease | DX: I51.7 Cardiomegaly (principal); I35.0 Nonrheumatic aortic (valve) stenosis | CPT/HCPCS: 93306 ==

== ENCOUNTER 2025-06-13 10:29 | Outpatient (BNV) | payer MEDICARE, OTHER, SELFPAY | END 2025-06-14 12:30 | PROVIDERS: Admitting Provider Student in an Organized Health Care Education/Training Program; Emergency Provider Emergency Medicine; PCP Internal Medicine; Visit Provider Radiology Diagnostic Radiology | DX: K80.20 Calculus of gallbladder without cholecystitis without obstruction (principal); N32.89 Other specified disorders of bladder; N42.0 Calculus of prostate | CPT/HCPCS: 74176 ==

== ENCOUNTER → 2025-06-13 10:29 | Outpatient (BNV) | payer MEDICARE, OTHER, SELFPAY | PROVIDERS: Admitting Provider Student in an Organized Health Care Education/Training Program; Emergency Provider Emergency Medicine; PCP Internal Medicine; Visit Provider Physician Assistant | DX: M87.051 Idiopathic aseptic necrosis of right femur (principal); M87.052 Idiopathic aseptic necrosis of left femur; M25.462 Effusion, left knee; M17.12 Unilateral primary osteoarthritis, left knee | CPT/HCPCS: 99222 ==

== ENCOUNTER 2025-07-16 09:29 | Outpatient (AMB) | payer MEDICARE, SELFPAY ==
--- OUTSIDE RECORDS SUMMARY | 2024-03-25 04:00 | XMS_ITS ---
Author Organization Lalito Marcos MD Address [address] [place], [place] [id number] Care Team Providers Care Ship'S Cook Name Role Phone Lalito Marcos Primary Care Provider Results Component Value Reference Range Notes Complete Blood Count Auto Di ff Reviewed date:03/25/2024 12:32:38 PM Interpretation: Performing Lab:[facility], [address] [place] [phone] Notes/Report: White Blood Count 9.3 4.8-10.8 X10*3/uL Red Blood Count 4.55 4.60-5.80 X10*6/uL Hemoglobin 15.3 14.0-18.0 g/dl Hematocrit 44.2 42.0-52.0 % Mean Corpuscular Volume 97.1 80.0-98.0 fL Mean Corpuscular Hemoglobin 33.6 27.0-33.0 pg Mean Corpuscular HGB Conc 34.6 31.0-36.0 g/dl Red Cell Distribution Width 14.9 11.0-16.0 % Platelet Count 152 160-400 X10*3/uL Mean Platelet Volume 11.6 9.4-12.4 fL Neutrophils Percent Auto 60.3 45-73 % Imm Gran Pct Auto 0.3 0.0-0.4 % Lymphocytes Percent Auto 27.4 20-40 % Monocytes Percent Auto 10.2 2-11 % Eosinophils Percent Auto 1.2 0-4 % Basophils Percent Auto 0.6 0-2 % NRBC Pct Auto 0.0 0.0-0.2 /100WBC Neutrophils Absolute Auto 5.6 2.0-8.3 x10*3/u L Imm Gran Abs Auto 0.03 0.00-0.03 X10*3/uL Lymphocytes Absolute Auto 2.5 1.2-4.9 X10*3/u L Monocytes Absolute Auto 1.0 0.1-1.2 X10*3/uL Eosinophils Absolute Auto 0.1 0.0-0.4 X10*3/u L Basophils Absolute Auto 0.1 0.0-0.2 X10*3/uL NRBC Abs Auto 0.000 0.0-0.012 X10*3/uL Comprehensive Sweet Grass. Panel Fa st Reviewed date:03/25/2024 12:58:10 PM Interpretation: Performing Lab:[facility], [address] [place] [phone] Notes/Report: Sodium 138 135-145 mmol/L Potassium 3.7 3.3-5.1 mmol/L Chloride 100 96-108 mmol/L Carbon Dioxide 26 22-29 mmol/L Anion Gap 16 12-20 Blood Urea Nitrogen 13 9-16 mg/dL Creatinine 1.27 0.5-1.4 mg/dL Estimated Glomerular Filt Rate 56 NOTE: For -Cymro individuals, multiply the result by 1.210. Chronic Kidney Disease: Estimated GFR < 60 mL/min/1.73m2 Severe Kidney Disease: Estimated GFR < 15 mL/min/1.73m2 Glucose Fasting 104 60-99 mg/dL A fasting glucose from 100-125 mg/dl is considered impaired (pre-diabetes). Calcium 9.2 8.4-10.2 mg/dL Bilirubin Total 3.3 0.0-1.0 mg/dL Aspartate Amino Transferase 24 5-37 U/L Alanine Aminotransferase 21 0-40 U/L Total Protein 7.5 6.5-8.0 g/dL Albumin Level 4.2 3.5-5.0 g/dL Alkaline Phosphatase 106 39-117 U/L Lipid Panel Reviewed date:03/25/2024 12:28:41 PM Interpretation: Performing Lab:[facility], [address] [place] [phone] Notes/Report: Triglycerides 147 <150 mg/dL Desirable Triglyceride: less than 150 mg/dL Borderline High Triglyceride 150-199 mg/dL High Triglyceride: 200-499 mg/dL Very High Triglyceride: greater than or equal to 5OO mg/dL Cholesterol 110 <200 mg/dL Desirable Cholesterol: less than 200 mg/dL Borderline High Cholesterol: 200-239 mg/dL High Cholesterol: greater than 239 mg/dL LDL Cholesterol Calculated 47 <100 mg/dL Desirable LDL: less than 100 mg/dL Near Optimal/Above Optimal LDL: 110-129 mg/dL Borderline High LDL: 130-159 mg/dL High LDL: 160-189 mg/dL Very High LDL: greater than or equal to 190 mg/dL HDL Cholesterol 34 >40 mg/dL Desirable HDL: greater than 40 mg/dL Note: This HDL assay may give artificially low results in patients with liver disease. PSA,Total (Free>4and<10) Reviewed date:03/25/2024 12:29:38 PM Interpretation: Performing Lab:[facility], [address] [place] [phone] Notes/Report: PSA,Total (Free>4and<10) 2.67 0.00-4.00 ng/mL A Free PSA was not performed: The percentage of Free PSA can be used to enhance the differentiation of prostate cancer from benign prostatic disease in subjects whose PSA levels are between 4.0 and 10.0 ng/mL. For subjects whose PSA levels are below 4.0 or above 10.0 ng/mL, the risk of prostate cancer is determined on the basis of the PSA alone. Therefore the % Free PSA is recommended only for those subjects whose PSA levels are between 4.0 and 10.0 ng/mL. PSA methodology: Scott Alinity i Chemiluminescent Microparticle Immunoassay (CMIA) REASON FOR VISIT yearly visit Encounters Encounter Location Date Provider Diagnosis Lalito Marcos MD [address] [place] [address] [address] [place], [place] [id number] 03/25/2024 Lalito Marcos Essential hypertensi on I10 ; Chronic systolic heart failure I50.22 ; Hypercholesteremia E78.00 and Acquired thrombocytopenia D69.6 Assessments Encounter Date Diagnosis (ICD Code) Assessment Notes Treatment Notes Treatment Clinical Notes Section Notes 03/25/2024 Essential hypertensi on (ICD-10 - I10) 03/25/2024 Chronic systolic hea rt failure (ICD-10 - I50.22) 03/25/2024 Hypercholesteremia (ICD-10 - E78.00) 03/25/2024 Acquired thrombocytopenia (ICD-10 - D69.6) Plan Of Treatment Next Appt Details Provider Name:Lalito Castro ier, 09/01/2025 02:00:00 PM, [address], [address], [place], [place], [id number], Provider Name:Lalito Castro ier, 10/09/2025 07:45:00 AM, [address], [address], [place], [place], [phone], Provider Name:Lalito Castro ier, 10/16/2025 10:00:00 AM, [address], [address] [facility], [place], [place], [id number], Provider Name:Lalito Castro ier, 03/30/2026 07:15:00 AM, [address] [place] [address], [address] [facility], [place], [place], [phone], Provider Name:Lalito Castro ier, 04/06/2026 09:30:00 AM, [address] [place] [address] Drive, [address] [facility], [place], [place], [phone], Progress Notes * IVANIA WRIGHTOB: (70 yo M)Acc No.[id number]:03/25/2024 Progress Note Patient: DARIEN JIMENEZ Provider: Lizbet Marcos MD :[id number] A ge:68 Y S ex:Male Date:03/25/2024 Address:[address] [place] [address] [id number] Subjective: * Chief Complaints: * 1 . Yearly visit. * Medical History: Objective: * Vitals: Assessment: * Assessment: 1. E ssential hypertension - I10 (Primary) 2 . C hronic systolic heart failure - I50.22 3 . H ypercholesteremia - E78.00 4 . A cquired thrombocytopenia - D69.6 Plan: * Treatment: 2. C hronic systolic heart failure L AB: UA ClnCatch+Micro w/rflx Cult (Order Cancelled) L AB: Complete Blood Count Auto Diff (Collection Date & Time - 03/25/2024 08:00 AM) L AB: Comprehensive Sweet Grass. Panel Fast (Collection Date & Time - 03/25/2024 08:00 AM) L AB: Lipid Panel (Collection Date & Time - 03/25/2024 08:00 AM) L AB: PSA,Total (Free>4and<10) (Collection Date & Time - 03/25/2024 08:00 AM) 3. H ypercholesteremia L AB: UA ClnCatch+Micro w/rflx Cult (Order Cancelled) L AB: Complete Blood Count Auto Diff (Collection Date & Time - 03/25/2024 08:00 AM) L AB: Comprehensive Sweet Grass. Panel Fast (Collection Date & Time - 03/25/2024 08:00 AM) L AB: Lipid Panel (Collection Date & Time - 03/25/2024 08:00 AM) L AB: PSA,Total (Free>4and<10) (Collection Date & Time - 03/25/2024 08:00 AM) 4. A cquired thrombocytopenia L AB: UA ClnCatch+Micro w/rflx Cult (Order Cancelled) L AB: Complete Blood Count Auto Diff (Collection Date & Time - 03/25/2024 08:00 AM) L AB: Comprehensive Sweet Grass. Panel Fast (Collection Date & Time - 03/25/2024 08:00 AM) L AB: Lipid Panel (Collection Date & Time - 03/25/2024 08:00 AM) L AB: PSA,Total (Free>4and<10) (Collection Date & Time - 03/25/2024 08:00 AM) * Procedure Codes: 3 6415 VENIPUNCT, ROUTINE* * * The named appointment provid er may or may not be the originator of this progress note, and it is not deemed complete until electronically signed by the appointment provider. Sign off status: Pending * Provider: Lizbet Marcos MD Date: 0 03/25/2024 Generated for Shakeel pandey/Charisse/Marisol on: 11:14 AM EDT
--- OUTSIDE RECORDS SUMMARY | 2024-04-01 04:30 | XMS_ITS ---
Author Organization Lalito Marcos MD Address [address] [place] [phone] Care Team Providers Care Stock Letterer Name Role Phone Lalito Marcos Primary Care Provider [phone] Allergies Allergen (clinical drug ingredient) Drug/Non Drug Allergy documented on EMR Reaction Allergy Type Onset Date Status Cxpmbdnq-Endajfznu-K exa meth swelling Drug Allergy Active Keflex rash Drug Allergy Active clindamycin Clindamycin HCl rash Drug Allergy Active amoxicillin Amoxicillin rash Drug Allergy Act jesus Triamcinolone & Emollient rash Drug Allergy Active Neoporacin rash Drug Allergy Active Results Component Value Reference Range Notes Occult Blood, Stool, Guaiac Reviewed date:04/08/2024 02:51:53 PM Interpretation: Performing Lab: Notes/Report: Occult Blood, Stool, Guaiac Neg UA ClnCatch+Micro w/rflx Cul t Reviewed date:04/01/2024 06:16:52 PM Interpretation: Performing Lab:[facility], [address] [place] [phone] Notes/Report: [id number] 0830 Urine, Clean Catch Color Urine Yellow Appearance Urine Clear PH 5.5 5.0-9.0 Glucose Urine UA Negative Negative mg/dL Urine Blood Negative Negative Specific [place] - Urine <= 1.005 1.005-1.025 Urine Protein Negative Neg-Trace mg/dL Urine Ketones Negative Negative mg/dL Nitrite Urine Negative Negative Leukocyte Esterase Urine Negative Negative RBC Urine 0-2 0-2 /HPF WBC Urine 0-5 0-5 /HPF Squamous Epithelial Cell Urine 0-2 0-2 /HPF Bacteria Urine None Seen None Seen Hyaline Casts Urine 0-2 0-2 /LPF REASON FOR VISIT review labs Medications Medication SIG (Take, Route, Frequency, Duration) Notes Start Date End Date Status Chlorthalidone 25 MG TAKE 1 TABLET BY MOUTH EVERY DAY IN THE MORNING WITH FOOD for 90 Active Metoprolol Succinate ER 50 MG TAKE 1 TABLET BY MOUTH EVERY DAY WITH 100MG 90 Active Potassium Chloride ER 20 MEQ 2 tablet with food Orally Once a day for 90 days 03/28/2022 Active Warfarin Sodium 5 MG TAKE 1 1/2 TABLETS BY MOUTH DAILY FOR 90 DAYS Active Cyclobenzaprine HCl 5 MG 1 tablet at bed time as needed Orally twice a day for 14 days 10/28/2022 Not-Taking Digoxin 250 MCG TAKE 1 TABLET BY MOUTH EVERY DAY FOR 90 DAYS Active Atorvastatin Calcium 80 MG TAKE 1 TABLET BY MOUTH EVERY DAY FOR 90 DAYS Active Metoprolol Succinate ER 100 MG TAKE 1 TABLET BY MOUTH EVERY DAY FOR 90 DAYS Active Social History Tobacco Use: Social History Observation Description Date Details (start date - stop date) Never Smoker NA - NA Tobacco Use/Smoking Question Answer Notes Patient is a nonsmoker Additional Findings: Tobacco Non-User Cu rrent non-smoker, currently using no form of tobacco Alcohol Screen Question Answer Notes Did you have a drink contain ing alcohol in the past year? Yes How often did you have a dri nk containing alcohol in the past year? 4 or more times a week (4 points) How many drinks did you have on a typical day when you were drinking in the past year? 3 or 4 drinks (1 point) How often did you have 6 or more drinks on one occasion in the past year? Never (0 point) Points 5 Interpretation Positive Vital Signs Blood pressure systolic 126 mm Hg 04/01/20 24 Blood pressure diastolic 80 mm Hg 024 Height 67 in 04/01/2024 Weight 266 lbs 04/01/2024 BMI 41.66 kg/m2 04/01/2024 weight is up 2 pounds since 10-03-23 Encounters Encounter Location Date Provider Diagnosis Lalito Marcos MD [address] [place] [address] [place] [phone] 04/01/2024 Lalito Marcos Hypercholesteremia E 78.00 ; Longstanding persistent atrial fibrillation I48.11 ; Essential hypertension I10 ; Gilbert syndrome E80.4 ; Acquired thrombocytopenia D69.6 ; Chronic systolic heart failure I50.22 ; Colon cancer screening Z12.11 and Encounter for screening for depression Z13.31 Assessments Encounter Date Diagnosis (ICD Code) Assessment Notes Treatment Notes Treatment Clinical Notes Section Notes 04/01/2024 Hypercholesteremia (ICD-10 - E78.00) well controlled, will continue current regiment 04/01/2024 Longstanding persistent atrial fibrillation (ICD-10 - I48.11) stable, will contnue current regiment 04/01/2024 Essential hypertensi on (ICD-10 - I10) doing well, will continue current regiment 04/01/2024 Gilbert syndrome (ICD-10 - E80.4) no treatment 04/01/2024 Acquired thrombocytopenia (ICD-10 - D69.6) satisfactory, will continue to monitor 04/01/2024 Chronic systolic hea rt failure (ICD-10 - I50.22) stable, will continue current regiment 04/01/2024 Colon cancer screeni ng (ICD-10 - Z12.11) guaiac negative 04/01/2024 Encounter for screening for depression (ICD-10 - Z13.31) negative screen Plan Of Treatment Medication Medication Name Sig Start Date Stop Date Notes Metoprolol Succinate ER 50 MG TAKE 1 TAB LET BY MOUTH EVERY DAY WITH 100MG 90 Warfarin Sodium 5 MG TAKE 1 1/2 TABLETS BY MOUTH DAILY FOR 90 DAYS Digoxin 250 MCG TAKE 1 TABLET BY BRI TH EVERY DAY FOR 90 DAYS Atorvastatin Calcium 80 MG TAKE 1 TABLET BY MOUTH EVERY DAY FOR 90 DAYS Metoprolol Succinate ER 100 MG TAKE 1 TA BLET BY MOUTH EVERY DAY FOR 90 DAYS Treatment Notes Assessment Notes Hypercholesteremia well controlled, irais l continue current regiment Longstanding persistent atrial fibrillat ion stable, will contnue current regiment Essential hypertension doing well, will continue current regiment Gilbert syndrome no treatment Acquired thrombocytopenia satisfactory, will continue to monitor Chronic systolic heart failure stable, w ill continue current regiment Colon cancer screening guaiac negative Encounter for screening for depression n egative screen Next Appt Details Follow Up: 6 Months, Reason: afib Provider Name:Lalito zhang, 09/01/2025 02:00:00 PM, [address] [place] [address], Suite [facility], [place], [place], [phone], Provider Name:Lalito zhang, 10/09/2025 07:45:00 AM, [address], [address], [place], [place], [phone], Provider Name:Lalito Castro ier, 10/16/2025 10:00:00 AM, [address] [facility], Suite [facility], [place], [place], [phone], Provider Name:Lalito Castro ier, 03/30/2026 07:15:00 AM, [address] [place] [address], Suite [facility], [place], [place], [phone], Provider Name:Lalito Castro ier, 04/06/2026 09:30:00 AM, [address] [place] [address], Suite [facility], [place], [place], [phone], Progress Notes * IVANIA WRIGHTOB: (68 yo M)Acc No.[id number]:04/01/2024 Patient: DARIEN JIMENEZ Provider: Lizbet Marcos MD :1955 A ge:68 Y S ex:Male Date:04/01/2024 Address:[address] [place], [place] [phone] Subjective: * Chief Complaints: * R eview labs * HPI: D epression Screening: PHQ-9 L ittle interest or pleasure in doing things N ot at all, F eeling down, depressed, or hopeless N ot at all, T rouble falling or staying asleep, or sleeping too much N ot at all, F eeling tired or having little energy N ot at all, P oor appetite or overeating N ot at all, F eeling bad about yourself or that you are a failure, or have let yourself or your family down N ot at all, T rouble concentrating on things, such as reading the newspaper or watching television N ot at all, M oving or speaking so slowly that other people could have noticed; or the opposite, being so fidgety or restless that you have been moving around a lot more than usual N ot at all, T houghts that you would be better off or of hurting yourself in some way N ot at all, T otal Score 0 . I nterpretation and Intervention D epression Screening Findings N egative, F ollow-Up for Depression : review of PHQ-9 found negative result, no follow-up needed. C ommunication Needs: Communication Needs D oes the patient have a hearing impairment N o, D oes the patient have a vision impairment? Y es, I f yes, what is the vision impairment? G lasses, D oes the patient have a cognition impairment? N o. F all Risk: History H ave you had any falls with injury in the past year? N o, H ave you had two or more falls in the past year? N o. S GERSON Questions: SDOH Questions I n the past year have you been worried about losing housing? N o, I n the past year have you or any family members you live with been unable to get any of the following when it was really needed? Check all that apply: N one. S ymptom(s): patient is a 68 yo male here for review of recent labs and follow up of chronic issues. * ROS: G eneral/Constitutional: Patient denies c hills , fatigue , fever , headache. ? E NT: Patient denies d ecreased sense of smell , any loss of taste , sore throat. R espiratory: Patient denies s hortness of breath at rest shortness of breath with exertion. C ardiovascular: Patient denies c hest pain with exertion chest pain at rest. G astrointestinal: Patient denies a bdominal pain change in bowel habits. G enitourinary: Patient denies f requent urination difficulty urinating.? M usculoskeletal: Patient denies m uscle aches. P eripheral Vascular: Patient denies r ed and blue toes. * Medical History: * Surgical History: * Hospitalization/Major Diagno stic Procedure: * Family History: F ather: alive 88 yrs. M other: 79 yrs. 2 brother(s) , 2 sister(s) . . Father- helathy Mother kidney failure, No pertinent family medical history, Denies mental health/substance abuse family history, No pertinent family medical history. * Social History: T obacco Use: T obacco Use/Smoking P atient is a n onsmoker, A dditional Findings: Tobacco Non-User C urrent non-smoker, currently using no form of tobacco. D rugs/Alcohol: A lcohol Screen D id you have a drink containing alcohol in the past year? Y es, H ow often did you have a drink containing alcohol in the past year? 4 or more times a week (4 points), H ow many drinks did you have on a typical day when you were drinking in the past year? 3 or 4 drinks (1 point), H ow often did you have 6 or more drinks on one occasion in the past year? N ever (0 point), P oints 5 , I nterpretation P ositive. M iscellaneous: n o Caffeine. Children: yes. no Exercise. no Home smoke detector use. Housing: owning. Living with: spouse. Marital status: . Occupation: weeks/months/years, retired. Pets: none. no Travel outside of the [place]. * Medications: T akingPotassium Chloride ER 20 MEQ Tablet Extended Release 2 tablet with food Orally Once a dayChlorthalidone 25 MG Tablet TAKE 1 TABLET BY MOUTH EVERY DAY IN THE MORNING WITH FOOD Digoxin 250 MCG Tablet TAKE 1 TABLET BY MOUTH EVERY DAY FOR 90 DAYS Atorvastatin Calcium 80 MG Tablet TAKE 1 TABLET BY MOUTH EVERY DAY FOR 90 DAYS Warfarin Sodium 5 MG Tablet TAKE 1 1/2 TABLETS BY MOUTH DAILY FOR 90 DAYS Metoprolol Succinate ER 100 MG Tablet Extended Release 24 Hour TAKE 1 TABLET BY MOUTH EVERY DAY FOR 90 DAYS Metoprolol Succinate ER 50 MG Tablet Extended Release 24 Hour TAKE 1 TABLET BY MOUTH EVERY DAY WITH 100MG 90 Taking Potassium Chloride ER 20 MEQ Tablet Extended Release 2 tablet with food Orally Once a dayTaking Chlorthalidone 25 MG Tablet TAKE 1 TABLET BY MOUTH EVERY DAY IN THE MORNING WITH FOOD Taking Digoxin 250 MCG Tablet TAKE 1 TABLET BY MOUTH EVERY DAY FOR 90 DAYS Taking Atorvastatin Calcium 80 MG Tablet TAKE 1 TABLET BY MOUTH EVERY DAY FOR 90 DAYS Taking Warfarin Sodium 5 MG Tablet TAKE 1 1/2 TABLETS BY MOUTH DAILY FOR 90 DAYS Taking Metoprolol Succinate ER 100 MG Tablet Extended Release 24 Hour TAKE 1 TABLET BY MOUTH EVERY DAY FOR 90 DAYS Taking Metoprolol Succinate ER 50 MG Tablet Extended Release 24 Hour TAKE 1 TABLET BY MOUTH EVERY DAY WITH 100MG 90 Not-Taking/PRNCyclobenzaprine HCl 5 MG Tablet 1 tablet at bedtime as needed Orally twice a dayMedication List reviewed and reconciled with the patientNot-Taking/PRN Cyclobenzaprine HCl 5 MG Tablet 1 tablet at bedtime as needed Orally twice a dayMedication List reviewed and reconciled with the patient * Allergies: A moxicillin: rashClindamycin HCl: rashTriamcinolone & Emollient: rashNeoporacin: rashKeflex: fckqHzmcpzsq-Qkudjpslj-Rymtqmda: swellingyes[Allergies Verified] Objective: * Vitals: H t: 67, Wt:266, BMI:41.66, BP:126/80 weight is up 2 pounds since 10-03-23. * P ast Orders: L ab:PSA,Total (Free>4and<10) (Order Date - 03/25/2024) (Collection Date - 03/25/2024) Value Reference Range PSA,Total (Free>4and<10) 2.67 0.00-4.00 - ng/ mL L ab:Lipid Panel (Order Date - 03/25/2024) (Collection Date - 03/25/2024) Value Reference Range Triglycerides 147 <150 - mg/dL Cholesterol 110 <200 - mg/dL LDL Cholesterol Calculated 47 <100 - mg/dL HDL Cholesterol 34 L >40 - mg/dL L ab:Comprehensive [place]. Panel Fast (Order Date - 03/25/2024) (Collection Date - 03/25/2024) Value Reference Range Sodium 138 135-145 - mmol/L Bilirubin Total 3.3 H 0.0-1.0 - mg/dL Aspartate Amino Transferase 24 5-37 - U/L Alanine Aminotransferase 21 0-40 - U/L Total Protein 7.5 6.5-8.0 - g/dL Albumin Level 4.2 3.5-5.0 - g/dL Alkaline Phosphatase 106 39-117 - U/L Potassium 3.7 3.3-5.1 - mmol/L Chloride 100 96-108 - mmol/L Carbon Dioxide 26 22-29 - mmol/L Anion Gap 16 12-20 - Blood Urea Nitrogen 13 9-16 - mg/dL Creatinine 1.27 0.5-1.4 - mg/dL Estimated Glomerular Filt Rate 56 - Glucose Fasting 104 H 60-99 - mg/dL Calcium 9.2 8.4-10.2 - mg/dL L ab:Complete Blood Count Auto Diff (Order Date - 03/25/2024) (Collection Date - 03/25/2024) Value Reference Range White Blood Count 9.3 4.8-10.8 - X10*3/uL Red Blood Count 4.55 L 4.60-5.80 - X10*6/uL Hemoglobin 15.3 14.0-18.0 - g/dl Hematocrit 44.2 42.0-52.0 - % Mean Corpuscular Volume 97.1 80.0-98.0 - fL Mean Corpuscular Hemoglobin 33.6 H 27.0-33.0 - pg Mean Corpuscular HGB Conc 34.6 31.0-36.0 - g/ dl Red Cell Distribution Width 14.9 11.0-16.0 - % Platelet Count 152 L 160-400 - X10*3/uL Mean Platelet Volume 11.6 9.4-12.4 - fL Neutrophils Percent Auto 60.3 45-73 - % Imm Gran Pct Auto 0.3 0.0-0.4 - % Lymphocytes Percent Auto 27.4 20-40 - % Monocytes Percent Auto 10.2 2-11 - % Eosinophils Percent Auto 1.2 0-4 - % Basophils Percent Auto 0.6 0-2 - % NRBC Pct Auto 0.0 0.0-0.2 - /100WBC Neutrophils Absolute Auto 5.6 2.0-8.3 - x10* 3/uL Imm Gran Abs Auto 0.03 0.00-0.03 - X10*3/uL Lymphocytes Absolute Auto 2.5 1.2-4.9 - X10* 3/uL Monocytes Absolute Auto 1.0 0.1-1.2 - X10*3/ uL Eosinophils Absolute Auto 0.1 0.0-0.4 - X10* 3/uL Basophils Absolute Auto 0.1 0.0-0.2 - X10*3/ uL NRBC Abs Auto 0.000 0.0-0.012 - X10*3/uL * Examination: G eneral Examination: GENERAL APPEARANCE: alert, well hydrated, in no distress . HEAD: normocephalic. EYES: BOTH EYES normal. EARS: BOTH EARS normal. THROAT: no erythema no exudate pharynx normal. NECK/THYROID: no carotid bruit no cervical lymphadenopathy. SKIN: good turgor no suspicious lesions. HEART: no murmurs, rubs, gallops regular rate and rhythm.? LUNGS: no wheezes, rales, rhonchi good air movement clear to auscultation bilaterally. BREASTS: no masses palpable bilaterally. ABDOMEN: soft, nontender, nondistended no rebound tenderness no organomegaly . RECTAL EXAM: stool guaiac negative no masses palpable prostate normal. MALE GENITOURINARY: testes descended bilaterally rt testical atrophied testes descended bilaterally no testicular mass. Assessment: * Assessment: 1. H ypercholesteremia - E78.00 (Primary) 2 . L ongstanding persistent atrial fibrillation - I48.11 3 . E ssential hypertension - I10 4 . G ilbert syndrome - E80.4 5 .?Acquired thrombocytopenia - D69.6 6 . C hronic systolic heart failure - I50.22 7 . Colon cancer screening - Z12.11 8 . E ncounter for screening for depression - Z13.31? Plan: * Treatment: 2. L ongstanding persistent atrial fibrillation Continue Warfarin Sodium Tablet, 5 MG, TAKE 1 1/2 TABLETS BY MOUTH DAILY FOR 90 DAYS. L AB: UA ClnCatch+Micro w/rflx Cult Notes: stable, will contnue current regiment. 3. E ssential hypertension Continue Metoprolol Succinate ER Tablet Extended Release 24 Hour, 100 MG, TAKE 1 TABLET BY MOUTH EVERY DAY FOR 90 DAYS; C ontinue Metoprolol Succinate ER Tablet Extended Release 24 Hour, 50 MG, TAKE 1 TABLET BY MOUTH EVERY DAY WITH 100MG 90. L AB: UA ClnCatch+Micro w/rflx Cult Notes: doing well, will continue current regiment. 4. G ilbert syndrome Notes: no treatment. 5. A cquired thrombocytopenia Notes: satisfactory, will continue to monitor. 6. C hronic systolic heart failure Continue Digoxin Tablet, 250 MCG, TAKE 1 TABLET BY MOUTH EVERY DAY FOR 90 DAYS. Notes: stable, will continue current regiment. 7. C olon cancer screening L AB: Occult Blood, Stool, Guaiac Value Reference Range O ccult Blood, Stool, Guaiac Neg Notes: guaiac negative.??8.?Encounter for screening for depression? Notes: negative screen.?? * Procedure Codes: 8 2270 TEST FOR BLOOD, FECES * Preventive Medicine: CHF Care Plan: P atient Lifestyle Goals R elieve symptoms and improve quality of life. T reatment Goals T sheyla medicine exactly as directed and plan for RX refills. B arriers N o Specific barriers. S elf-Managment Goals M onitor your symptoms daily. * Follow Up: 6 Months (Reason: afib) * * Sign off status: Completed true * Provider: Lizbet Marcos MD Date: 0 04/01/2024 Generated for Shakeel pandey/Charisse/Giorgioransmitting on: 1 11:14 AM EDT History and Physical Notes * HPI (History of Present Illness) Category Sub-Category Detail Notes Category Not es Symptom(s) patient is a 68 yo male here for review of recent labs and follow up of chronic issues. Depression Screening PHQ-9 Little inte rest or pleasure in doing things: Not at all Feeling down, depressed, or hopeless: No t at all Trouble falling or staying asleep, or sl eeping too much: Not at all Feeling tired or having little energy: N ot at all Poor appetite or overeating: Not at all Feeling bad about yourself o r that you are a failure, or have let yourself or your family down: Not at all Trouble concentrating on thi ngs, such as reading the newspaper or watching television: Not at all Moving or speaking so slowly that other people could have noticed; or the opposite, being so fidgety or restless that you have been moving around a lot more than usual: Not at all Thoughts that you would be b nanette off or of hurting yourself in some way: Not at all Total Score: 0 Interpretation and Intervention Depression Shamar madrid Findings: Negative Follow-Up for Depression: : review of PH Q-9 found negative result, no follow-up needed SDOH Questions SDOH Questions In the past year have you been worried about losing housing?: No In the past year have you or any family members you live with been unable to get any of the following when it was really needed? Check all that apply:: None Fall Risk History Have you had any falls with injury i n the past year?: No Have you had two or more falls in the year?: No Communication Needs Communication Needs Does the patient have a hearing impairment: No Does the patient have a vision impairmen t?: Yes If yes, what is the vision impairment?: Glasses Does the patient have a cognition impair ment?: No Examination Category Sub-Category Detail Notes Category Not es General Examination GENERAL APPEARANCE: alert, w ell hydrated, in no distress HEAD: normocephalic EYES: BOTH EYES normal EARS: BOTH EARS normal THROAT: no erythema no exuda te pharynx normal NECK/THYROID: no carotid bruit no cervical lymphadenopathy HEART: no murmurs, rubs, ga llops regular rate and rhythm LUNGS: no wheezes, rales, r honchi good air movement clear to auscultation bilaterally ABDOMEN: soft, nontender, non distended no rebound tenderness no organomegaly SKIN: good turgor no suspi cious lesions BREASTS: no masses palpable b ilaterally MALE GENITOURINARY: testes descended zoraida aterally rt testical atrophied testes descended bilaterally no testicular mass RECTAL EXAM: stool guaiac negativ e no masses palpable prostate normal
--- OUTSIDE RECORDS SUMMARY | 2024-10-04 04:00 | XMS_ITS ---
Author Organization Lalito Marcos MD Address [address] [place], [place] [id number] Care Team Providers Care Estate And Trust Tax Principal Name Role Phone Lalito Marcos Primary Care Provider Results Component Value Reference Range Notes Liver Panel Reviewed date:10/04/2024 01:39:16 PM Interpretation: Performing Lab:[facility], [address] [place] [phone] Notes/Report: Bilirubin Total 2.7 0.0-1.0 mg/dL Slight Icte aranza. Bilirubin Direct 0.6 0.0-0.5 mg/dL Slight Ict erus. Aspartate Amino Transferase 29 5-37 U/L Alanine Aminotransferase 15 0-40 U/L Total Protein 7.5 6.5-8.0 g/dL Albumin Level 4.0 3.5-5.0 g/dL Alkaline Phosphatase 104 39-117 U/L Lipid Panel with Reflex Reviewed date:10/04/2024 01:38:10 PM Interpretation: Performing Lab:[facility], [address] [place] [phone] Notes/Report: Triglycerides 131 <150 mg/dL Desirable Triglyceride: less than 150 mg/dL Borderline High Triglyceride 150-199 mg/dL High Triglyceride: 200-499 mg/dL Very High Triglyceride: greater than or equal to 5OO mg/dL Cholesterol 106 <200 mg/dL Desirable Cholesterol: less than 200 mg/dL Borderline High Cholesterol: 200-239 mg/dL High Cholesterol: greater than 239 mg/dL LDL Cholesterol Calculated 53 <100 mg/dL Desirable LDL: less than 100 mg/dL Near Optimal/Above Optimal LDL: 110-129 mg/dL Borderline High LDL: 130-159 mg/dL High LDL: 160-189 mg/dL Very High LDL: greater than or equal to 190 mg/dL HDL Cholesterol 27 >40 mg/dL Desirable HDL: greater than 40 mg/dL Note: This HDL assay may give artificially low results in patients with liver disease. REASON FOR VISIT FASTING LIPIDS Medications Medication SIG (Take, Route, Frequency, Duration) Notes Start Date End Date Status Metoprolol Succinate ER 100 MG TAKE 1 TABLET BY MOUTH EVERY DAY for 90 Active Potassium Chloride ER 20 MEQ TAKE 2 TABLETS BY MOUTH EVERY DAY WITH FOOD ONCE A DAY for 90 Active Warfarin Sodium 5 MG TAKE 1.5 TABLETS BY MOUTH EVERY DAY for 90 Active Chlorthalidone 25 MG TAKE 1 TABLET BY MOUTH EVERY DAY IN THE MORNING WITH FOOD for 90 Active Digoxin 250 MCG TAKE 1 TABLET BY MOUTH EVERY DAY for 90 Active Cyclobenzaprine HCl 5 MG 1 tablet at bed time as needed Orally twice a day for 14 days 10/28/2022 Not-Taking Atorvastatin Calcium 80 MG TAKE 1 TABLET BY MOUTH EVERY DAY for 90 Active Metoprolol Succinate ER 50 MG TAKE 1 TABLET BY MOUTH EVERY DAY WITH 100MG 90 Active Encounters Encounter Location Date Provider Diagnosis Lalito Marcos MD [address] [place] [phone] 10/04/2024 Lalito Marcos Hypercholesteremia E 78.00 Assessments Encounter Date Diagnosis (ICD Code) Assessment Notes Treatment Notes Treatment Clinical Notes Section Notes 10/04/2024 Hypercholesteremia (ICD-10 - E78.00) Plan Of Treatment Next Appt Details Provider Name:Lalito zhang, 09/01/2025 02:00:00 PM, [address] [place] [address], [address], [phone], Provider Name:Lalito zhang, 10/09/2025 07:45:00 AM, [address] [place] [address], [address], [phone], Provider Name:Lalito zhang, 10/16/2025 10:00:00 AM, [address] [place] [address], [address], [phone], Provider Name:Lalito zhang, 03/30/2026 07:15:00 AM, [address] [facility], [address], [place], [place], [phone], Provider Name:Lalito Castro ier, 04/06/2026 09:30:00 AM, [address] [facility], [address], [place], [place], [phone], Progress Notes * MITZI WRIGHTEDOB: (70 yo M)Acc No.[id number]:10/04/2024 Progress Note Patient: DARIEN JIMENEZ Provider: Lizbet Marcos MD :1955 A ge:69 Y S ex:Male Date:10/04/2024 Address:[address] [place], [place] [id number] Subjective: * Chief Complaints: * 1 . FASTING LIPIDS. * Medical History: * Medications: T aking Metoprolol Succinate ER 50 MG Tablet Extended Release 24 Hour TAKE 1 TABLET BY MOUTH EVERY DAY WITH 100MG 90 , Taking Atorvastatin Calcium 80 MG Tablet TAKE 1 TABLET BY MOUTH EVERY DAY , Taking Warfarin Sodium 5 MG Tablet TAKE 1.5 TABLETS BY MOUTH EVERY DAY , Taking Potassium Chloride ER 20 MEQ Tablet Extended Release TAKE 2 TABLETS BY MOUTH EVERY DAY WITH FOOD ONCE A DAY , Taking Digoxin 250 MCG Tablet TAKE 1 TABLET BY MOUTH EVERY DAY , Taking Chlorthalidone 25 MG Tablet TAKE 1 TABLET BY MOUTH EVERY DAY IN THE MORNING WITH FOOD , Taking Metoprolol Succinate ER 100 MG Tablet Extended Release 24 Hour TAKE 1 TABLET BY MOUTH EVERY DAY , Not- Taking/PRN Cyclobenzaprine HCl 5 MG Tablet 1 tablet at bedtime as needed Orally twice a day Objective: * Vitals: Assessment: * Assessment: 1. H ypercholesteremia - E78.00 (Primary) Plan: * Treatment: * Procedure Codes: 3 6415 VENIPUNCT, ROUTINE* * * The named appointment provid er may or may not be the originator of this progress note, and it is not deemed complete until electronically signed by the appointment provider. Sign off status: Pending * Provider: Lizbet Marcos MD Date: 0 10/04/2024 Generated for Shakeel pandey/Charisse/Cheriitting on: 1 11:13 AM EDT
--- OUTSIDE RECORDS SUMMARY | 2024-10-15 05:00 | XMS_ITS ---
Author Organization Lalito Marcos MD Address [address] [place] [phone] Care Team Providers Care Field Evidence Technician Name Role Phone Lalito Marcos Primary Care Provider Allergies Allergen (clinical drug ingredient) Drug/Non Drug Allergy documented on EMR Reaction Allergy Type Onset Date Status Jbqkcfud-Nbjpuegzh-P exa meth swelling Drug Allergy Active Keflex [...] Location Date Provider Diagnosis Lalito Marcos MD [address] [place] [address] [address] [place], [place] [phone] 10/15/2024 Lalito Marcos Essential hypertensi on I10 [...] Year, Reason: A [place] Provider Name:Lalito zhang, 09/01/2025 02:00:00 PM, [address] [place] [address], [address], [phone], Provider Name:Lalito zhang, 10/09/2025 07:45:00 AM, [address] [place] [address], [address], [phone], Provider Name:Lalito zhang, 10/16/2025 10:00:00 AM, [address] [place] [address], [phone], Provider Name:Lalito zhang, 03/30/2026 07:15:00 AM, [address] [place] [address], [address], [phone], Provider Name:Lalito zhang, 04/06/2026 09:30:00 AM, [address] [place] [address], [address], [phone], Procedure Notes * Category Sub-Category Detail Notes Cerumen removal Procedure right ear, irrig ated with water/H2O2 Post-procedure Pt tolerated procedu re well Progress Notes * IVANIA WRIGHTOB: 5 (69 yo M)Acc No.[id number]:10/15/2024 Progress Note Patient: DARIEN JIMENEZ Provider: Lizbet Marcos MD :1955 A ge:69 Y S ex:Male Date:10/15/2024 Address:[address] [place] [address] Subjective: * Chief Complaints: * 6 MO [...] during today's visit P ast Medical History, [place] of Care, Surgical/Hospitalization History, Current medications including [...] rashClindamycin HCl: rashTriamcinolone & Emollient: rashNeoporacin: rashKeflex: nqudRvvguxdb-Zvbacornz-Mwbkprsa: swellingyes[Allergies Verified] Objective: * Vitals: H t: [...] MD Date: 0 10/15/2024 Generated for Shakeel pandey/Charisse/Nolasmitting on: 1 11:14 AM EDT History and [...] updated during today's visit: Past Medical History, [place] of Care, Surgical/Hospitalization History, Current medications including [...]
--- OUTSIDE RECORDS SUMMARY | 2025-03-28 03:00 | XMS_ITS ---
Author Organization Lalito Marcos MD Address [address] [place], [place] [phone] Care Team Providers Care Quality Consultant Name Role Phone Lalito Marcos Primary Care Provider Results Component Value Reference Range Notes Complete Blood Count Auto Di ff Reviewed date:03/28/2025 12:47:59 PM Interpretation: Performing Lab:[facility], [address] [place] [phone] Notes/Report: White Blood Count 8.5 4.8-10.8 X10*3/uL [...] NRBC Abs Auto 0.000 0.0-0.012 X10*3/uL Comprehensive [place]. Panel Fa st Reviewed date:03/28/2025 12:51:30 PM Interpretation: Performing Lab:[address] [phone] Notes/Report: Sodium 137 135-145 mmol/L Potassium 4.1 [...] Panel Reviewed date:03/28/2025 12:48:08 PM Interpretation: Performing Lab:[address] [phone] Notes/Report: Triglycerides 153 <150 mg/dL Desirable Triglyceride: [...] (Free>4and<10) Reviewed date:03/28/2025 12:47:29 PM Interpretation: Performing Lab:[facility], [address] [place] [phone] Notes/Report: PSA,Total (Free>4and<10) 2.28 0.00-4.00 ng/mL A [...] Location Date Provider Diagnosis Lalito Marcos MD [address] [place] [address] [address] [place], [place] [phone] 03/28/2025 Lalito Marcos Essential hypertensi on I10 ; Chronic systolic heart failure I50.22 and Hypercholesteremia E78.00 Assessments Encounter Date Diagnosis (ICD Code) Assessment Notes Treatment Notes Treatment Clinical Notes Section Notes 03/28/2025 Essential hypertensi on (ICD-10 - I10) 03/28/2025 Chronic systolic hea rt failure (ICD-10 - I50.22) 03/28/2025 Hypercholesteremia (ICD-10 - E78.00) Plan Of Treatment Pending Test Test [facility] 03/28/2025 Next Appt Details Provider Name:Lalito Castro ier, 09/01/2025 02:00:00 PM, [address] [facility], [address], [place], [place], [phone], Provider Name:Lalito Castro ier, 10/09/2025 07:45:00 AM, [address] [facility], Suite [facility], [place], [place], [phone], Provider Name:Lalito Castro ier, 10/16/2025 10:00:00 AM, [address] [facility], Suite [facility], [place], [place], [phone], Provider Name:Lalito Castro ier, 03/30/2026 07:15:00 AM, [address] [place] [address], Suite [facility], [place], [place], [phone], Provider Name:Lalito Castro ier, 04/06/2026 09:30:00 AM, [address] [place] [address], Suite [facility], [place], [place], [phone], Progress Notes * MITZI WRIGHTEDOB: (70 yo M)Acc No.[id number]:03/28/2025 Progress Note Patient: DARIEN JIMENEZ Provider: Lizbet Marcos MD :1955 A ge:69 Y S ex:Male Date:03/28/2025 Address:[address] [place], [place] [phone] Subjective: * Chief Complaints: * 1 . [...] - 03/28/2025 07:00 AM) L AB: Comprehensive [place]. Panel Fast (Collection Date & Time - 03/28/2025 07:00 AM) L AB: Lipid Panel (Collection Date & Time - 03/28/2025 07:00 AM) L AB: PSA,Total (Free>4and<10) (Collection Date & Time - 03/28/2025 07:00 AM) 3. H ypercholesteremia L AB: UA ClnCatch+Micro w/rflx Cult L AB: Complete Blood Count Auto Diff (Collection Date & Time - 03/28/2025 07:00 AM) L AB: Comprehensive [place]. Panel Fast (Collection Date & Time - [...] MD Date: 0 03/28/2025 Generated for Shakeel pandey/Charisse/Marisol on: 1 11:12 AM EDT
--- OUTSIDE RECORDS SUMMARY | 2025-04-03 04:30 | XMS_ITS ---
Author Organization Lalito Marcos MD Address [address] [place] [id number] Care Team Providers Care Machine Cementer Name Role Phone Lalito Marcos Primary Care Provider Allergies Allergen (clinical drug ingredient) Drug/Non Drug Allergy documented on EMR Reaction Allergy Type Onset Date Status Ukjikzws-Farxhyvzr-H exa meth swelling Drug Allergy Active Keflex [...] Performing Lab:[facility], [address] [place] [phone] Notes/Report: [id number] 0830 Urine, Clean Catch Color Urine Yellow Appearance Urine Clear PH 8.0 5.0-9.0 Glucose Urine UA Negative Negative mg/dL Urine Blood Negative Negative Specific [facility] - Urine 1.010 1.005-1.025 Urine Protein Negative [...] kg/m2 04/03/2025 weight is down 2 pounds [facility] 10-15-24 Encounters Encounter Location Date Provider Diagnosis Lalito Marcos MD [address] [place], [place] [phone] 04/03/2025 Lalito Marcos Longstanding persistent atrial fibrillation [...] Up: 6 Months, Reason: Provider Name:Lalito zhang, 09/01/2025 02:00:00 PM, [address] [place] [address], [address], [place], [place], [phone], Provider Name:Lalito zhang, 10/09/2025 07:45:00 AM, [address] [place] [address], [address], [place], [place], [phone], Provider Name:Lalito Castro ier, 10/16/2025 10:00:00 AM, [address], [address], [place], [place], [phone], Provider Name:Lalito Castro ier, 03/30/2026 07:15:00 AM, [address], [address], [place], [phone], Provider Name:Lalito Castro ier, 04/06/2026 09:30:00 AM, [address], [address], [place], [place], [phone], Progress Notes * IVANIA WRIGHTOB: (69 yo M)Acc No.[id number]:04/03/2025 Patient: DARIEN JIMENEZ Provider: Lizbet Marcos MD :1955 A ge:69 Y S ex:Male Date:04/03/2025 Address:[address] [place], [place] [phone] Subjective: * Chief Complaints: * R eview [...] rashClindamycin HCl: rashTriamcinolone & Emollient: rashNeoporacin: rashKeflex: pmmdNgychyfe-Zgvyydtwf-Vqrdanbv: swellingyes[Allergies Verified] Objective: * Vitals: H t: 67, Wt: 270, BMI:42.28, BP:134/90, Repeat BP:150/90, Wt-k.47. weight is down 2 pounds since 10-15-24. * P ast Orders: L ab:Comprehensive [place]. Panel Fast (Order Date - 03/28/2025) (Collection [...] Procedure Codes: 8 2270 TEST FOR BLOOD, [id number] Complex e/m visit add on * Preventive [...] 04/03/2025 Generated for Shakeel pandey/Charisse/Cheriitting on: 1 11:13 AM EDT History and Physical Notes * [...]
--- OUTSIDE RECORDS SUMMARY | 2025-06-17 09:14 | XMS_ITS ---
Author Organization Lalito Marcos MD Address [address] [place] [phone] Care Team Providers Care Gravity Meter Operator Name Role Phone Lalito Marcos Primary Care Provider REASON FOR VISIT discharge Encounters Encounter Location Date Provider Diagnosis Lalito Marcos MD [address] [place] [address] [place] [phone] 06/17/2025 Lalito Marcos Plan Of Treatment Next Appt Details Provider Name:Lalito zhang, 09/01/2025 02:00:00 PM, [address] [place] [address], [address], [phone], Provider Name:Lalito zhang, 10/09/2025 07:45:00 AM, [address] [place] [address], [address], [phone], Provider Name:Lalito zhang, 10/16/2025 10:00:00 AM, [address] [place] [address], [phone], Provider Name:Lalito zhang, 03/30/2026 07:15:00 AM, [address] [place] [address], [phone], Provider Name:Lalito zhang, 04/06/2026 09:30:00 AM, [address] [place] [address], [phone], Progress Notes * IVANIA WRIGHTOB: 5 (70 yo M)Acc No.[id number]:06/17/2025 Patient: Armando BRYANT MAURICE :1955 A ge:70 Y S ex:Male Address:[address] [place] [address], [facility] * true * Date: Generated for Shakeel pandey/Charisse/Nolasmitting on: 11:12 AM EDT
--- OUTSIDE RECORDS SUMMARY | 2025-06-27 11:29 | XMS_ITS ---
Author Organization Lalito Marcos MD Address [address] [place] [phone] Care Team Providers Care Cruise Counselor Name Role Phone Lalito Marcos Primary Care Provider [phone] Encounters Encounter Location Date Provider Diagnosis Lalito Marcos MD [address] [place] [address] [address] [place] [phone] 06/27/2025 Lalito Marcos Plan Of Treatment Next Appt Details Provider Name:Lalito zhang, 09/01/2025 02:00:00 PM, [address] [place] [address], [address], [phone], Provider Name:Lalito zhang, 10/09/2025 07:45:00 AM, [address] [place] [address], [address], [phone], Provider Name:Lalito zhang, 10/16/2025 10:00:00 AM, [address] [place] [address], [address], [phone], Provider Name:Lalito zhang, 03/30/2026 07:15:00 AM, [address] [place] [address], [phone], Provider Name:Lalito zhang, 04/06/2026 09:30:00 AM, [address] [place] [address], [phone], Progress Notes * RIP WRIGHT:[birth year] (70 yo M)Acc No.[id number]:06/27/2025 Patient: DARIEN JIMENEZ :1955 A ge:70 Y S ex:Male Address:[address] [place] [address], [phone] * true * Date: Generated for Shakeel pandey/Charisse/Nolasmitting on: 11:13 AM EDT
--- OUTSIDE RECORDS SUMMARY | 2025-07-08 10:00 | XMS_ITS ---
Author Organization Lalito Marcos MD Address [address] [place] [phone] Care Team Providers Care Media Senior Recruiter Name Role Phone Lalito Marcos Primary Care Provider Allergies Allergen (clinical drug ingredient) Drug/Non Drug Allergy documented on EMR Reaction Allergy Type Onset Date Status Qqdchjss-Ibgnmvgtw-P exa meth swelling Drug Allergy Active Keflex [...] W/U Status Risk Notes Problem Atrial fibrillation (14655399) Atrial fibrillation (I48.91) Active confirmed Problem Gallstone (747935438) Gall stones (K80.20) Active confirmed Vital Signs Blood pressure systolic 112 mm Hg 07/08/20 25 Blood pressure diastolic 70 mm Hg 025 Height 67 in 07/08/2025 Weight 252 lbs 07/08/2025 BMI 39.46 kg/m2 07/08/2025 weight is down 18 pounds sin 04-03-25 Encounters Encounter Location Date Provider Diagnosis Lalito Marcos MD [address] [place] [address] [place] [phone] 07/08/2025 Lalito Marcos Atrial fibrillation I48.91 ; [...] Referral Date Details 07/08/2025 07/08/2025, atrial f daviantion, FREDDY BOBBY Next Appt Details Follow Up: 2 Months, Reason: Provider Name:Lalito Castro ier, 09/01/2025 02:00:00 PM, [address] [place] [address], [address] [place] [address], [phone], Provider Name:Lalito Castro ier, 10/09/2025 07:45:00 AM, [address] [place] [address], [address], [phone], Provider Name:Lalito Castro ier, 10/16/2025 10:00:00 AM, [address] [place] [address], [address], [phone], Provider Name:Lalito biswasr, 03/30/2026 07:15:00 AM, [address] [place] [address], [address], [phone], Provider Name:Lalito biswasr, 04/06/2026 09:30:00 AM, [address] [place] [address], [address], [phone], Progress Notes * MITZI WRIGHTEDOB: (70 yo M)Acc No.[id number]:07/08/2025 Patient: DARIEN JIMENEZ Provider: Lizbet Marcos MD :1955 A ge:70 Y S ex:Male Date:07/08/2025 Address:[address] [place] [address] [place] [id number] Subjective: * Chief Complaints: * P H/TCMAccompanied [...] Use/Smoking P atient is a n onsmoker, Vikki dditional Findings: Tobacco Non-User C urrent non-smoker, [...] rashClindamycin HCl: rashTriamcinolone & Emollient: rashNeoporacin: rashKeflex: cpzlOtoblkfs-Sitkwputw-Ujysxfry: swellingyes[Allergies Verified] Objective: * Vitals: H t: [...] 9 0662 FLU VACC PRSV FREE INC [id number] ADMN FLU VAC NO FEE SCHED SAME DAY * Preventive Medicine: Immunizations: I nfluenza H ave you had a flu shot since the most recent May 19? Y es. * Follow Up: 2 Months * * Sign off status: Completed true * Provider: Lizbet Marcos MD Date: Generated for Shakeel pandey/Charisse/eTtracysmitting on: 11:12 AM EDT History and Physical Notes * [...]
--- OUTSIDE RECORDS SUMMARY | 2025-07-14 12:30 | XMS_ITS ---
Author Organization Lalito Marcos MD Address [address] [place] [address] [place] [phone] Care Team Providers Care Grape Pruner Name Role Phone Lalito Marcos Primary Care Provider Allergies Allergen (clinical drug ingredient) Drug/Non Drug Allergy documented on EMR Reaction Allergy Type Onset Date Status Hwfqwuhk-Zbgipyubv-V exa meth swelling Drug Allergy Active Keflex rash Drug Allergy Active clindamycin Clindamycin HCl rash Drug Allergy Active amoxicillin Amoxicillin rash Drug Allergy Act jesus Triamcinolone & Emollient rash Drug Allergy Active Neoporacin rash Drug Allergy Active REASON FOR VISIT follow up appt from CT Angio Encounters Encounter Location Date Provider Diagnosis Lalito Marcos MD [address] [place] [address] [place] [phone] 07/14/2025 Lalito Marcos Plan Of Treatment Next Appt Details Provider Name:Lalito zhang, 09/01/2025 02:00:00 PM, [address] [place] [address], [address], [phone], Provider Name:Lalito zhang, 10/09/2025 07:45:00 AM, [address] [place] [address], [address], [phone], Provider Name:Lalito zhang, 10/16/2025 10:00:00 AM, [address] [place] [address], [address], [phone], Provider Name:Lalito zhang, 03/30/2026 07:15:00 AM, [address] [facility], [address], [place], [place], [phone], Provider Name:Lalito Castro ier, 04/06/2026 09:30:00 AM, [address] [facility], [address], [place], [place], [phone], Progress Notes * MITZI WRIGHTEDOB: 5 (70 yo M)Acc No.[id number]:07/14/2025 Patient: DARIEN JIMENEZ Provider: Lizbet Marcos MD :1955 A ge:70 Y S ex:Male Date:07/14/2025 Address:[address] [place] [address] [place] [place] [id number] Subjective: * Chief Complaints: * 1 . [...] & Emollient: rash, Neoporacin: rash, Keflex: rash, Jplffclf-Maeofxicd-Frwjbjgo: swelling. Objective: * Vitals: Assessment: Plan: * Treatment: * * The named appointment provid er may or may not be the originator of this progress note, and it is not deemed complete until electronically signed by the appointment provider. Sign off status: Pending * Provider: Lizbet Marcos MD Date: Generated for Shakeel pandey/Charisse/Cheriitting on: 11:14 AM EDT
--- NOTE | 2025-07-16 10:22 | A.OFFVIS_ITS ---
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 He reports urinary retention with variable stream strength and episodes of immediate post-void urgency. Symptoms of weak stream and incomplete emptying were noted before hospitalization. Hospitalization a month ago involved rehydration, possibly causing bladder overstretching. He has been on catheterization since June 13 and is taking tamsulosin. Finasteride is planned to aid in prostate reduction. Urinary Symptoms Review - Urinary retention with weak and heavy stream phases - Immediate post-void urgency - Incomplete bladder emptying Urinary retention 1300 cc [facility] Medical History (Updated 08/04/25 @ 11:34 by TEMI Christie) YEE (obstructive sleep apnea) Persistent atrial fibrillation CKD (chronic kidney disease) Hypertension Diabetes CHF (congestive heart failure) Surgical History History of inguinal hernia repair History of umbilical hernia repair Family History Father No problems noted. Mother Congestive heart failure Social History Household Members: Spouse Housing: House Alcohol intake: current Alcohol intake frequency: a few times a week Patient Tobacco Use Status: Never used Tobacco service: No Review of Systems Const Denies chills and Denies fever(s) Card Reports no additional complaints and Denies syncope Resp Denies cough GI Denies abdominal pain and Denies heartburn Reports as per HPI and Denies change in libido Neuro Denies syncope Psych Denies change in libido Endo Denies change in libido Physical Exam Const General: cooperative, healthy appearing, comfortable and no acute distress Orientation/consciousness: patient oriented x3 HEENT Face and sinus: Yes normal facial exam Mouth: moist mucous membranes Neck Neck: Yes normal visual inspection, Yes full ROM and Yes trachea midline Chest Chest palpation & inspection: normal inspection of the chest Resp Effort & Inspection: normal respiratory effort, able to speak in complete sentences and no respiratory distress GI Inspection: Yes normal to inspection Back/Spine/Pelvis Cervical Spine: normal cervical lordosis Thoracic/Lumbar Spine: thoracic and lumbar spine normal to inspection Skin General skin exam: no rashes or lesions noted Neuro General: patient oriented x3, gait normal, tone normal and moves all extremities Extrem General: Yes normal to inspection and Yes capillary refill normal Office Procedures Bladder/Catheter Procedure Details: Patient presents to office for voiding trial s/p Urinary retention. 120mls steri le water instilled through catheter, patient tolerated well. Removed 16fr rodriges catheter, patient tolerated removal well. Patient not able to void. Dr. Light in to see patient for office visit. New 16Fr rodriges catheter with 10mls and flip valve inserted. Patient educated on emptying bladder through valve every 3-4 hours. Educated patient on connecting the night bag for night time. He was able to demostrate proper use. 61900-[id number] of Bladder 58369-Tlcxhk Temporary Bladder Catheter Procedure code (CPT) selection complete Assessment & Plan Assessment & Plan (1) Acute urinary retention: Code(s): R33.8 - Other retention of urine Category: Medical Plan Plan - Maintain catheterization with cap, empty bladder every 3-4 hours. - Start finasteride alongside tamsulosin to shrink prostate. - Follow-up in one month for cystoscopy to assess bladder and catheter need. Patient informed verbally consented to the use of an ambient scribe Discussion Notes I discussed with the patient the plan to continue catheterization with a cap for easier management and to empty the bladder every three to four hours. We will start finasteride to help shrink the prostate, in addition to the current tamsulosin therapy. A follow-up is scheduled in one month for a cystoscopy to evaluate the bladder and determine if the catheter can be removed. Patient Instructions - Use the catheter with a cap and empty your bladder every 3-4 hours. - Take finasteride as prescribed along with tamsulosin. - Return for a follow-up appointment in one month for a bladder check. Orders: Orders AMB Bladder/Catheter Procedure 07/16/25 R33.8 - Other retention of urine Medications: New finasteride 5 mg PO DAILY 90 tabs 1RF 90 days R33.8 - Other retention of urine Changed From tamsulosin 0.4 mg PO BEDTIME 30 days 30 caps 0RF R33.8 - Other retention of urine To tamsulosin 0.4 mg PO BEDTIME 90 caps 1RF 90 days R33.8 - Other retention of urine Patient Instructions: This note is constructed using voice recognition software. While every effort has been made to ensure accuracy inside sales representative errors may have been included. Imaging studies, laboratory and physical exam results were discussed and reviewed in detail. No major barriers to patient understanding were identified. An opportunity to ask questions regarding the treatment plan was provided. All questions were answered. The patient expressed understanding and agreement with the above treatment plan. The patient is aware they should contact our office by phone for worsening of their current condition or the appearance of new urologic symptoms. Compliance is encouraged with any medications and followup testing that is ordered. It is a privilege to participate in the urologic care of your patient. If you have any questions or concerns regarding treatment for the above conditions, or other urologic issues, please do not hesitate to contact me. The office telephone contact is [phone]. Sincerely, Dr Mega Light MD, [facility] - Urology Compassionate Specialist Care for the Genitourinary System Coding Level of Care Code Est Pt Level 3 (41056) Add On Problem Visit Only Diagnoses Acute urinary retention R33.8 CPT Codes Bladder/Catheter Procedure - CPT: 11862-Mjkxjfxoyp of Bladder ([id number]) Bladder/Catheter Procedure - CPT: 87459-Hsqobp Temporary Bladder Catheter ([id number])
--- OUTSIDE RECORDS SUMMARY | 2025-07-16 11:13 | XMS_ITS | Patient Health Record ---
Author Organization [facility] [place] Address [address] [place] [address] Care Team Providers Care Corner Former Name Role Phone Ebonie Sanderson MD Primary [...] primary osteoarthritis of the ankle and/or foot ([id number]) Primary osteoarthrit is, left ankle and foot (M19.072) Active confirmed Plan Of Treatment Pending Test Test Name Order Date [id number]-MJVHNIP NAIL, 6 OR MORE 08/02/2017 35508-Iujd Destruction, -07/05/2017 22202-Rfau Destruction, -08/02/2017 Insurance Providers Payer Name Payer Address Payer Phone Subscriber Number Group Number Insured Name Patient Relationship to Insured Coverage Start Date Coverage End Date [employer] [address] [place] [address] [phone] [id number] Gordon Fitch Self - patient is the insured 7 Medical (General) History Medical History History ICD Code Heart disease High blood pressure Kidney disease Measles Mumps Chicken pox A fib Surgical History Surgery Date(Month/Year) hernia 2009
--- OUTSIDE RECORDS SUMMARY | 2025-07-16 11:14 | XMS_ITS | Patient Health Record ---
Author Organization Lalito Marcos MD Address [address] [place], [place] [id number] Care Team Providers Care Development Eng Name Role Phone Lalito Marcos Primary Care Provider Allergies Allergen (clinical drug ingredient) Drug/Non Drug Allergy documented on EMR Reaction Allergy Type Onset Date Status Frxyghwu-Hjmamryeo-W exa meth swelling Drug Allergy Active Keflex rash Drug Allergy Active clindamycin Clindamycin HCl rash Drug Allergy Active amoxicillin Amoxicillin rash Drug Allergy Act jesus Triamcinolone & Emollient rash Drug Allergy Active Neoporacin rash Drug Allergy Active Results Component Value Reference Range Notes Liver Panel Reviewed date:10/04/2024 01:39:16 PM Interpretation: Performing Lab:[facility], [address] [place] [phone] Notes/Report: Bilirubin Total 2.7 0.0-1.0 mg/dL Slight Icte aranza. Bilirubin Direct 0.6 0.0-0.5 mg/dL Slight Ict erus. Aspartate Amino Transferase 29 5-37 U/L Alanine Aminotransferase 15 0-40 U/L Total Protein 7.5 6.5-8.0 g/dL Albumin Level 4.0 3.5-5.0 g/dL Alkaline Phosphatase 104 39-117 U/L Lipid Panel with Reflex Reviewed date:10/04/2024 01:38:10 PM Interpretation: Performing Lab:[facility], [address] [place] [phone] Notes/Report: Triglycerides 131 <150 mg/dL Desirable Triglyceride: [...] ff Reviewed date:03/28/2025 12:47:59 PM Interpretation: Performing Lab:[facility], [address] [place] [phone] Notes/Report: White Blood Count 8.5 4.8-10.8 X10*3/uL [...] 0.0-0.2 /100WBC Neutrophils Absolute Auto 4.9 2.0-8.3 x10*3/uL Imm Gran Abs Auto 0.03 0.00-0.03 X10*3/uL Lymphocytes Absolute Auto 2.4 1.2-4.9 X10*3/uL Monocytes Absolute Auto 0.9 0.1-1.2 X10*3/uL Eosinophils Absolute Auto 0.1 0.0-0.4 X10*3/uL Basophils Absolute Auto 0.1 0.0-0.2 X10*3/uL NRBC Abs Auto 0.000 0.0-0.012 X10*3/uL Comprehensive Haskins. Panel Fa Reviewed date:03/28/2025 12:51:30 PM Interpretation: Performing Lab:[facility], [address] [place] [phone] Notes/Report: Sodium 137 135-145 mmol/L Potassium 4.1 [...] Panel Reviewed date:03/28/2025 12:48:08 PM Interpretation: Performing Lab:[facility], [address] [place] [phone] Notes/Report: Triglycerides 153 <150 mg/dL Desirable Triglyceride: [...] (Free>4and<10) Reviewed date:03/28/2025 12:47:29 PM Interpretation: Performing Lab:[facility], [address] [place] [phone] Notes/Report: PSA,Total (Free>4and<10) 2.28 0.00-4.00 ng/mL A [...] t Reviewed date:04/03/2025 12:51:34 PM Interpretation: Performing Lab:[facility], [address] [phone] Notes/Report: [id number] Urine, Clean Catch Color Urine Yellow Appearance Urine Clear PH 8.0 5.0-9.0 Glucose Urine UA Negative Negative mg/dL Urine Blood Negative Negative Specific [place] - Urine 1.010 1.005-1.025 Urine Protein Negative Neg-Trace mg/dL Urine Ketones Negative Negative mg/dL Nitrite Urine Negative Negative Leukocyte Esterase Urine Negative Negative RBC Urine 0-2 0-2 /HPF WBC Urine 0-5 0-5 /HPF Squamous Epithelial Cell Urine 0-2 0-2 /HPF Bacteria Urine None Seen None Seen Hyaline Casts Urine 0-2 0-2 /LPF INR WHOLE BLOOD POC Reviewed date:07/18/2024 03:34:25 PM Interpretation: Performing Lab:[facility], [address] [place] [phone] Notes/Report: PT, INR - [facility] 2.5 0.9-1.1 METER #: [id number] INTERNATIONAL NORMALIZED RATIO (INR) REFERENCE RANGES Reference [...] OC Reviewed date:07/18/2024 03:37:02 PM Interpretation: Performing Lab:[facility], [address] [place] [phone] Notes/Report: Prothrombin Time Whole Bld POC 29.8 11.1-13.5 sec INR WHOLE BLOOD POC Reviewed date:09/19/2024 02:03:11 PM Interpretation: Performing Lab:[facility], [address] [place] [phone] Notes/Report: PT, INR - [facility] 3.5 0.9-1.1 METER #: [id number] INTERNATIONAL NORMALIZED RATIO (INR) REFERENCE RANGES Reference [...] OC Reviewed date:09/19/2024 03:30:27 PM Interpretation: Performing Lab:[facility], [address] [place] [phone] Notes/Report: Prothrombin Time Whole Bld POC 42.4 11.1-13.5 sec INR WHOLE BLOOD POC Reviewed date:10/03/2024 05:10:17 PM Interpretation: Performing Lab:[facility], [address] [place] [phone] Notes/Report: PT, INR - [facility] 2.1 0.9-1.1 METER #: [id number] INTERNATIONAL NORMALIZED RATIO (INR) REFERENCE RANGES Reference [...] OC Reviewed date:10/03/2024 05:10:06 PM Interpretation: Performing Lab:[facility], [address] [place] [phone] Notes/Report: Prothrombin Time Whole Bld POC 25.8 11.1-13.5 sec Hold Red Reviewed date:10/04/2024 11:28:38 AM Interpretation: Performing Lab:[facility], [address] [place] [phone] Notes/Report: Hold Red See Note Specimen held untested for 24 hours; Call to request Chemistry testing. INR WHOLE BLOOD POC Reviewed date:10/31/2024 04:51:17 PM Interpretation: Performing Lab:[facility], [address] [place] [phone] Notes/Report: PT, INR - [facility] 2.0 0.9-1.1 METER #: [id number] INTERNATIONAL NORMALIZED RATIO (INR) REFERENCE RANGES Reference [...] OC Reviewed date:10/31/2024 04:51:26 PM Interpretation: Performing Lab:[facility], [address] [place] [phone] Notes/Report: Prothrombin Time Whole Bld POC 24.4 11.1-13.5 sec INR WHOLE BLOOD POC Reviewed date:11/28/2024 04:09:17 PM Interpretation: Performing Lab:[facility], [address] [place] [phone] Notes/Report: PT, INR - [facility] 4.3 0.9-1.1 METER #: [id number] INTERNATIONAL NORMALIZED RATIO (INR) REFERENCE RANGES Reference [...] OC Reviewed date:11/28/2024 04:09:26 PM Interpretation: Performing Lab:[facility], [address] [place] [phone] Notes/Report: Prothrombin Time Whole Bld POC 52.0 11.1-13.5 sec INR WHOLE BLOOD POC Reviewed date:12/05/2024 04:02:32 PM Interpretation: Performing Lab:[facility], [address] [place] [phone] Notes/Report: PT, INR - [facility] 2.7 0.9-1.1 METER #: [id number] INTERNATIONAL NORMALIZED RATIO (INR) REFERENCE RANGES Reference [...] OC Reviewed date:12/05/2024 04:02:19 PM Interpretation: Performing Lab:[facility], [address] [place] [phone] Notes/Report: Prothrombin Time Whole Bld POC 32.6 11.1-13.5 sec INR WHOLE BLOOD POC Reviewed date:01/10/2025 03:32:19 PM Interpretation: Performing Lab:[address] [phone] Notes/Report: PT, INR - [facility]ag [facility] 3.2 0.9-1.1 METER #: [id number] INTERNATIONAL NORMALIZED RATIO (INR) REFERENCE RANGES Reference [...] OC Reviewed date:01/10/2025 03:32:09 PM Interpretation: Performing Lab:[facility], [address] [place] [phone] Notes/Report: Prothrombin Time Whole Bld POC 38.4 11.1-13.5 sec Basic Metabolic Panel Reviewed date:01/16/2025 05:03:57 PM Interpretation: Performing Lab:[address] [phone] Notes/Report: Sodium 139 135-145 mmol/L Potassium 3.9 [...] Digoxin Reviewed date:01/15/2025 04:59:20 PM Interpretation: Performing Lab:[address] [phone] Notes/Report: Digoxin 0.7 0.8-2.0 ng/mL Assay modified to minimize interference from aldosterone antagonists (e.g. spironolactone and canrenone). INR WHOLE BLOOD POC Reviewed date:02/07/2025 04:24:23 PM Interpretation: Performing Lab:[facility], [address] [place] [phone] Notes/Report: PT, INR - [facility] 2.8 0.9-1.1 METER #: [id number] INTERNATIONAL NORMALIZED RATIO (INR) REFERENCE RANGES Reference [...] OC Reviewed date:02/07/2025 04:23:54 PM Interpretation: Performing Lab:[facility], [address] [place] [phone] Notes/Report: Prothrombin Time Whole Bld POC 33.9 11.1-13.5 sec INR WHOLE BLOOD POC Reviewed date:03/07/2025 04:39:32 PM Interpretation: Performing Lab:[facility], [address] [place] [phone] Notes/Report: PT, INR - [facility] 2.1 0.9-1.1 METER #: [id number] INTERNATIONAL NORMALIZED RATIO (INR) REFERENCE RANGES Reference [...] OC Reviewed date:03/07/2025 04:29:49 PM Interpretation: Performing Lab:[facility], [address] [place] [phone] Notes/Report: Prothrombin Time Whole Bld POC 25.1 11.1-13.5 sec INR WHOLE BLOOD POC Reviewed date:04/04/2025 02:55:25 PM Interpretation: Performing Lab:[facility], [address] [place] [phone] Notes/Report: PT, INR - [facility] 1.8 0.9-1.1 METER #: [id number] INTERNATIONAL NORMALIZED RATIO (INR) REFERENCE RANGES Reference [...] OC Reviewed date:04/04/2025 02:54:58 PM Interpretation: Performing Lab:[facility], [address] [place] [phone] Notes/Report: Prothrombin Time Whole Bld POC 21.4 11.1-13.5 sec INR WHOLE BLOOD POC Reviewed date:05/15/2025 04:56:06 PM Interpretation: Performing Lab:[facility], [address] [place] [phone] Notes/Report: PT, INR - [facility] 2.3 0.9-1.1 METER #: [id number] INTERNATIONAL NORMALIZED RATIO (INR) REFERENCE RANGES Reference [...] OC Reviewed date:05/15/2025 04:56:15 PM Interpretation: Performing Lab:[facility], [address] [place] [phone] Notes/Report: Prothrombin Time Whole Bld POC 27.2 11.1-13.5 sec UA CC w/rflx Micro + Cult Reviewed date:06/12/2025 04:30:08 PM Interpretation: Performing Lab:[facility], [address] [place] [phone] Notes/Report: [id number] Urine, Clean Catch Color Urine Yellow Appearance Urine Clear PH 7.5 5.0-9.0 Glucose Urine UA Negative Negative mg/dL Urine Blood Negative Negative Specific [place] - Urine >= 1.030 1.005-1.025 Urine Protein Trace Neg-Trace mg/dL Urine Ketones Negative Negative mg/dL Nitrite Urine Negative Negative Leukocyte Esterase Urine Negative Negative CT angio LE LT Reviewed date:07/08/2025 03:59:39 PM Interpretation:07-14-25 Performing Lab: Notes/Report: [address] [address] [address] Scan Report Signed Patient: Darien Wright MR#: [id number] 25 : 1955 Acct:[id number] Age/Sex: 70 / M ADM Date: 06/12/25 Loc: HO.ED Attending Dr: Ordering Physician: Sendy Paz Date of Service: 06/12/25 Procedure(s): CT angio LE LT Accession Number(s): [id number] cc: Lalito Marcos MD; Sendy Paz Report Number: [id number]: Total DLP = 452.00 mGy-cm Reason for Exam: pain, on warfarin, concern for vessel injury EXAMINATION: CT ANGIOGRAM LEFT LOWER EXTREMITY IV contrast: 80 mL Omnipaque [id number] CLINICAL INFORMATION: pain, on warfarin, concern for vessel injury COMPARISON: None available. TECHNIQUE: Axial CT was performed from the iliac crest through the plantar foot after bolus IV contrast. 3D/3D MIP rendering was performed with image postprocessing under concurrent supervision with interpretation and reporting of CT as requested by the referring physician to facilitate diagnosis and treatment planning; not requiring image postprocessing on an independent workstation. Coronal and sagittal reformatted images were generated from the original axial data set. ALARA: The examination used one or more of the following radiation dose reduction techniques: Automated exposure control, iterative reconstruction, and/or adjustment of mA and/or KV. FINDINGS: VASCULAR: There is no extravasation. There is no sign of hematoma. No intimal flap is identified to suggest a dissection. There is no aneurysm. Multifocal vascular calcifications are most pronounced distal to the knee joint with poor opacification of arteries in the distal lower leg and foot.. SOFT TISSUES: There is a large knee joint effusion. There is no deep or superficial fat stranding. Small left inguinal hernia containing fat passes medial to the epigastric vessels. BONES: Curvilinear sclerosis is noted in the subchondral bone of both superior femoral heads consistent with avascular necrosis. On the right, there is involvement of 50-75% of the subchondral bone. There is no sign of subchondral collapse. There is mild degenerative cystic change. On the left, involving the subchondral bone is greater than 75%. There is moderate subchondral cystic change and subtle scalloping of the subchondral bone plate. There is severe narrowing of the medial joint space with subchondral sclerosis and marginal osteophytes. CT/CT angio LE LT IMPRESSION: No evidence of vascular injury. No dissection, hematoma, or extravasation. There is decreased flow in the arteries of the distal lower leg related to multifocal atherosclerotic disease. Bilateral hip AVN. Ficat stage II on the right and, Ficat stage II on the left with very early signs of borderline stage III disease. Direct inguinal hernia on the left contains adipose tissue. There is a large left knee joint effusion and severe osteoarthritis. Electronically signed by: Matty Ovalle MD 06/12/2025 01:39 PM EDT Dictated By: Matty Ovalle MD Signed By: <Electronically signed by Matty vOalle MD in OV> 06/12/25 1339 DD/ 1243 TD/TT: 06/12/[address] Sql Developer: [address] [address] [address] Scan Report Signed Patient: Kala Wright MR#: [id number] : 1955 Acct:[id number] Age/Sex: 70 / M ADM Date: 06/12/25 Loc: .ED Attending Dr: Ordering Physician: Sendy Paz Date of Service: 06/12/25 Procedure(s): CT ang io LE LT Accession Number(s): [id number] cc: Lalito Marcos MD; Sendy Paz Report Number: [id number]: Total DLP = 452.00 mGy-cm Reason for Exam: zen n, on warfarin, concern for vessel injury EXAMINATION: CT ANGIOGRAM LEFT LO WER EXTREMITY IV contrast: 80 mL Omnipaque 350 CLINICAL INFORMATION: pain, on warfarin, concern for vessel injury COMPARISON: None available. TECHNIQUE: Axial CT was perform ed from the iliac crest through the plantar foot after bolus IV contrast. 3D/3D MIP rendering was performed with image postprocessing under concurrent supervisi on with interpretation and reporting of CT as requested by the referring physician to facilitate diagnosis and treatment planning; not requiring image postprocessing on an independent workstation. Coronal and sagittal reformatted images were generated from the original axial data set. ALARA: The examinati on used one or more of the following radiation dose reduction techniques : Automated exposure control, iterative reconstruction, and/ or adjustment of mA and/or KV. FINDINGS: VASCULAR: There is no extravasation. There is no sign of hematoma. No intimal flap is identified to suggest a dissection. There is no aneurysm. Multifocal vascular calcifications are most pronounced distal to the knee joint with poor opacification of arteries in the distal lower leg and foot.. SOFT TISSUES: There is a large kne e joint effusion. There is no deep or superficial fat stranding. Small left inguinal hernia containing fat passes medial to the epigastric vessels. BONES: Curvilinear sclerosi s is noted in the subchondral bone of both superior femoral heads consis tent with avascular necrosis. On the right, there is involvement of 50-75% of the subchondral bone. There is no sign of subchondral collapse. There is mild degenerative cystic change. On the left, involvi ng the subchondral bone is greater than 75%. There is moderate subchond ral cystic change and subtle scalloping of the subchondral bone plate. There is severe narrowing of the medial joint space with subchondral sclerosis and margin al osteophytes. C T/CT angio LE LT IMPRESSION: No evidence of vascu lar injury. No dissection, hematoma, or extravasation. There is decreased flow in the arteries of the distal lower leg related to multifocal atherosclerotic disease. Bilateral hip AVN. F icat stage II on the right and, Ficat stage II on the left with very e gee signs of borderline stage III disease. Direct inguinal steph ia on the left contains adipose tissue. There is a large lef t knee joint effusion and severe osteoarthritis. Electronically david d by: Matty Ovalle MD 06/12/2025 01:39 PM EDT Dictated By: Matty Ovalle MD Signed By: <Electronically signed by Matty Ovalle MD in OV> 06/12/25 1339 DD/ 1243 TD/TT: 06/12/[address] Sql Developer: Renard Lav - Possible Hematolo gy Reviewed date:06/13/2025 12:27:32 PM Interpretation: Performing Lab:[address] [phone] Notes/Report: Hold Lav - Possible Hematology SEE NOTE Specimen will be held untested for 8 hours. Call Hematology if testing is desired. Prothrombin Time INR Reviewed date:06/13/2025 12:27:15 PM Interpretation: Performing Lab:[facility], [address] [place] [phone] Notes/Report: Prothrombin Time 18.6 10.9-12.4 SEC INTERNATIONAL NORM RATIO 1.6 0.9-1.1 INTERNATIONAL NORMALIZED RATIO (INR) REFERENCE RANGES Reference [...] mechanical prosthetic heart valves: 2.5 - 3.5 Hold Green Gel Reviewed date:06/13/2025 12:28:42 PM Interpretation: Performing Lab:[address] [phone] Notes/Report: Hold Green Gel See Note Specimen held untested for 24 hours; Call to request Chemistry testing. XR hips MACY min 3V Reviewed date:06/13/2025 12:26:40 PM Interpretation: Performing Lab: Notes/Report: [address] [address] XRay Report Signed Patient: Darien Wright MR#: [id number] : 1955 Acct:[id number] Age/Sex: 70 / M ADM Date: 06/12/25 [place] [facility]: Gasper GUERRERO Ordering Physician: Neisha Cevallos PA-C Date of Service: 06/13/25 Procedure(s): XR hips MACY min 3V Accession Number(s): [id number] cc: Lalito Marcos MD; Neisha Cevallos PA-C Reason for Exam: avn hip EXAMINATION: XR HIP 2 OR MORE VIEWS BILATERAL HISTORY: AVN hip COMPARISON: Correlation is made with a CT of the lower extremities dated 06/12/2025. FINDINGS: A single AP view of the pelvis and two views of each hip are submitted. There is subtle patchy sclerosis in both femoral heads. Findings are compatible with avascular necrosis as seen on CT. There is no fracture or dislocation. There is mild narrowing of the hip joint. There are vascular calcifications. XR/XR hips MACY min 3V IMPRESSION: Subtle patchy sclerosis of both femoral heads, compatible with AVN, as noted on CT. Electronically signed by: Saad Clarke MD 06/13/2025 08:56 AM EDT Dictated By: Saad Clarke MD Signed By: <Electronically signed by Saad Clarke MD in OV> 06/13/25 0856 DD/ TD/TT: 06/13/[address] Sql Developer: [place] [address] XRay Report Signed Patient: Kala Wright MR#: [id number] : 1955 Acct:[id number] Age/Sex: 70 / M ADM Date: 06/12/25 Loc: [facility] [place] [facility]: Loni GUERRERO Ordering Physician: Neisha Cevallos PA-C Date of Service: 06/13/25 Procedure(s): XR hip s MACY min 3V Accession Number(s): [id number] cc: Lalito Marcos MD; Neisha Cevallos PA-C Reason for Exam: avn hip EXAMINATION: XR HIP 2 OR MORE VIEWS BILATERAL HISTORY: AVN hip COMPARISON: Correlat ion is made with a CT of the lower extremities dated 06/12/2025. FINDINGS: A single A P view of the pelvis and two views of each hip are submitted. There is subtle patchy sclerosis in both femoral heads. Findings are compati ble with avascular necrosis as seen on CT. There is no fracture or dislocation. There is mild narrowing of the hip joint. There are vascular calcifications. X R/XR hips MACY min 3V IMPRESSION: Subtle patchy sclero sis of both femoral heads, compatible with AVN, as noted on CT. Electronically david d by: Saad Clarke MD 06/13/2025 08:56 AM EDT RP Dictated By: Saad Clarke MD Signed By: <Electronically signed by Saad Clarke MD in OV> 06/13/2556 DD/ 7 TD/TT: 06/13/[address] Sql Developer: XR knee LT 2V Reviewed date:06/13/2025 12:27:06 PM Interpretation: Performing Lab: Notes/Report: [place] [address] XRay Report Signed Patient: Darien Wright MR#: [id number] 25 : 1955 Acct:[id number] Age/Sex: 70 / M ADM Date: 06/12/25 Loc: [facility] 485-[address]: Gasper GUERRERO Ordering Physician: Neisha Cevallos PA-C Date of Service: 06/13/25 Procedure(s): XR knee LT 2V Accession Number(s): [id number] cc: Lalito Marcos MD; Neisha Cevallos PA-C Reason for Exam: oa EXAMINATION: XR KNEE, LEFT CLINICAL INFORMATION: oa COMPARISON: None available. TECHNIQUE: AP and lateral views of the left knee. FINDINGS: No fracture, dislocation, or suspicious bone lesion. There is normal alignment. Moderate to severe medial compartment, and moderate patellofemoral and lateral compartment joint space narrowing with marginal osteophytic spurring, and subchondral sclerosis. Spurring of the tibial spines is present. There is a prominent suprapatellar joint effusion. There is no acute soft tissue abnormality. There are vascular calcifications. XR/XR knee LT 2V IMPRESSION: 1. Suprapatellar joint effusion. 2. Tricompartmental osteoarthritis, moderate to severe in the medial compartment. Electronically signed by: Jamarcus Bingham MD 06/13/2025 08:54 AM EDT Dictated By: Jamarcus Bingham MD Signed By: <Electronically signed by Jamarcus Bingham MD in OV> 06/13/25 0854 DD/ 0837 TD/TT: 06/13/[address] Sql Developer: [place] [address] XRay Report Signed Patient: Kala Wright MR#: [id number] 25 : 1955 Acct:[id number] Age/Sex: 70 / M ADM Date: 06/12/25 Loc: [facility] 485-[address]: Loni GUERRERO Ordering Physician: Neisha Cevallos PA-C Date of Service: 06/13/25 Procedure(s): XR kne e LT 2V Accession Number(s): [id number] cc: Lalito Marcos MD; Neisha Cevallos PA-C Reason for Exam: oa EXAMINATION: XR KNEE, LEFT CLINICAL INFORMATION: oa COMPARISON: None available. TECHNIQUE: AP and lateral views of the left knee. FINDINGS: No fracture, dislocation, or suspicious bone lesion. There is normal alignment. Moderate to severe medial compartment, and moderate patellofemoral and lateral compartment joint space narrowing with marginal osteophytic spurring, and subchondral sclerosis. Spurring of the tibi al spines is present. There is a prominent suprapatellar joint effusion. There is no acute so ft tissue abnormality. There are vascular calcifications. X R/XR knee LT 2V IMPRESSION: 1. Suprapatellar shamar nt effusion. 2. Tricompartmental osteoarthritis, moderate to severe in the medial compartment. Electronically david d by: Jamarcus Bingham MD 06/13/2025 08:54 AM EDT Dictated By: Jamarcus Bingham MD Signed By: <Electronically signed by Jamarcus Bingham MD in [place]> 06/13/2554 DD/ TD/TT: 06/13/[address] Sql Developer: Renard Trevizo Possible Hematolo gy Reviewed date:06/14/2025 04:01:14 PM Interpretation: Performing Lab:[facility], [address] [place] [phone] Notes/Report: Hold Lav - Possible Hematology SEE NOTE Specimen will be held untested for 8 hours. Call Hematology if testing is desired. Prothrombin Time INR Reviewed date:06/14/2025 04:01:01 PM Interpretation: Performing Lab:[facility], [address] [place] [phone] Notes/Report: Prothrombin Time 19.6 10.9-12.4 SEC INTERNATIONAL NORM RATIO 1.7 0.9-1.1 INTERNATIONAL NORMALIZED RATIO (INR) REFERENCE RANGES Reference [...] mechanical prosthetic heart valves: 2.5 - 3.5 Hold Green Gel Reviewed date:06/14/2025 04:01:21 PM Interpretation: Performing Lab:[facility], [address] [place] [phone] Notes/Report: Hold Green Gel See Note Specimen held untested for 24 hours; Call to request Chemistry testing. CT abdomen pelvis wo con Reviewed date:06/14/2025 03:59:47 PM Interpretation: Performing Lab: Notes/Report: [address] [address] [address] Scan Report Signed Patient: Darien Wright MR#: [id number] 25 : 1955 Acct:[id number] Age/Sex: 70 / M ADM Date: 06/13/25 Loc: [facility] 485-[address]: Gasper GUERRERO Ordering Physician: Gasper Alvarez Date of Service: 06/14/25 Procedure(s): CT abdomen pelvis wo IV con Accession Number(s): [id number] cc: Gasper Alvarez; Lalito Marcos MD Report Number: [id number]: Total DLP = 825.00 mGy-cm Reason for Exam: Acute urinary retention CLINICAL HISTORY: Acute urinary retention CT abdomen and pelvis without IV contrast. COMPARISON: None provided. FINDINGS: Partially visualized lung bases are unremarkable. Cholelithiasis present within the gallbladder body. No pericholecystic inflammatory changes. Hepatic steatosis. Noncontrast appearance of the liver, pancreas and adrenal glands are unremarkable. Mild perinephric fat stranding bilaterally, likely senescent. No right-sided hydronephrosis. No right renal or ureteral calculus. Left renal cystic lesion measuring 2.0 cm. No left-sided hydronephrosis or hydroureter. No left renal or ureteral calculus. Normal appendix. Mild colonic stool burden. No bowel obstruction. No mesenteric or retroperitoneal lymphadenopathy. Mild aortoiliac atherosclerotic vascular calcifications. Riggs catheter present within the contracted urinary bladder. There is marked thickening of the mucosa of the urinary bladder. Prostate calcifications present. Small fat containing left inguinal hernia. Moderate spondylosis. No acute fracture. Serpiginous sclerotic lesions within the femoral heads bilaterally consistent with avascular necrosis. IMPRESSION: 1. Diffuse thickening of the mucosa of the contracted urinary bladder can be seen with cystitis. Underlying urinary bladder mass is not excluded. Recommend correlation clinically. 2. No evidence of renal obstruction. No renal or ureteral calculus bilaterally. 3. Cholelithiasis. No stigmata of cholecystitis. This document has been electronically signed by: Valente Yoder MD on 06/14/2025 13:38:31 Dictated By: Valente Yoder MD Signed By: <Electronically signed by Valente Yoder MD in OV> 06/14/25 1339 DD/ 133 TD/TT: 06/14/251337 [address] Sql Developer: [place] [id number] CT Scan Report Signed Patient: Kala Wright MR#: [id number] 25 : 1955 Acct:[id number] Age/Sex: 70 / M ADM Date: 06/13/25 Loc: [facility]: Loni GUERRERO Ordering Physician: Gasper Alvarez Date of Service: 06/14/25 Procedure(s): CT abd omen pelvis wo IV con Accession Number(s): [id number] cc: Gasper Alvarez; Lalito Marcos MD Report Number: [id number]: Total DLP = 825.00 mGy-cm Reason for Exam: Acu te urinary retention CLINICAL HISTORY: Ac robinson urinary retention CT abdomen and pelvi s without IV contrast. COMPARISON: None provided. FINDINGS: Partially visualized lung bases are unremarkable. Cholelithiasis prese nt within the gallbladder body. No pericholecystic inflammatory changes . Hepatic steatosis. Noncontrast appearance of the liver, pancreas and adrenal glands are unremarkable. Mild perinephric fat stranding bilaterally, likely senescent. No right-sided hydronephrosis. No right renal or ureteral calculus. Left renal cystic le haim measuring 2.0 cm. No left-sided hydronephrosis or hydroureter. No left renal or ureteral calculus. Normal appendix. Mil d colonic stool burden. No bowel obstruction. No mesenteric or retroperitoneal lymphadenopathy. Mild aortoiliac atherosclerotic vascular calcifications. Riggs catheter prese nt within the contracted urinary bladder. There is marked thickening of the mucosa of the urinary bladder. Prostate calcifications present. Small fat containing left inguinal hernia. Moderate spondylosis . No acute fracture. Serpiginous sclerotic lesions within the femoral h gisel bilaterally consistent with avascular necrosis. IMPRESSION: 1. Diffuse thickenin g of the mucosa of the contracted urinary bladder can be seen with cystiti s. Underlying urinary bladder mass is not excluded. Recommend correlatio n clinically. 2. No evidence of re nal obstruction. No renal or ureteral calculus bilaterally. 3. Cholelithiasis. N o stigmata of cholecystitis. This document has be en electronically signed by: Valente Yoder MD on 06/14/2025 13:38:31 Dictated By: Macrina Yoder MD Signed By: <Electronically signed by Valente Yoder MD in OV> 06/14/25 1339 DD/ 1338 TD/TT: 06/14/[address] Sql Developer: Prothrombin Time INR Reviewed date:06/15/2025 07:05:17 PM Interpretation: Performing Lab:[facility], [address] [place] [phone] Notes/Report: Prothrombin Time 20.8 10.9-12.4 SEC INTERNATIONAL NORM RATIO 1.8 0.9-1.1 INTERNATIONAL NORMALIZED RATIO (INR) REFERENCE RANGES Reference [...] heart valves: 2.5 - 3.5 Prothrombin Time INR Reviewed date:06/16/2025 12:47:51 PM Interpretation: Performing Lab:[facility], [address] [place] [phone] Notes/Report: Prothrombin Time 22.5 10.9-12.4 SEC INTERNATIONAL NORM RATIO 2.0 0.9-1.1 INTERNATIONAL NORMALIZED RATIO (INR) REFERENCE RANGES Reference [...] mechanical prosthetic heart valves: 2.5 - 3.5 Hold Lav - Possible Hematolo gy Reviewed date:06/17/2025 11:53:33 AM Interpretation: Performing Lab:[facility], [address] [place] [phone] Notes/Report: Hold Lav - Possible Hematology SEE NOTE Specimen will be held untested for 8 hours. Call Hematology if testing is desired. Prothrombin Time INR Reviewed date:06/17/2025 11:53:55 AM Interpretation: Performing Lab:[facility], [address] [place] [phone] Notes/Report: Prothrombin Time 22.0 10.9-12.4 SEC INTERNATIONAL NORM RATIO 1.9 0.9-1.1 INTERNATIONAL NORMALIZED RATIO (INR) REFERENCE RANGES Reference [...] mechanical prosthetic heart valves: 2.5 - 3.5 Basic Metabolic Panel Reviewed date:06/17/2025 11:53:48 AM Interpretation: Performing Lab:[facility], [address] [place] [phone] Notes/Report: Sodium 137 135-145 mmol/L Potassium 3.7 3.3-5.1 mmol/L Chloride 101 96-108 mmol/L Carbon Dioxide 28 22-29 mmol/L Anion Gap 12 12-20 Blood Urea Nitrogen 22 9-16 mg/dL Creatinine 1.11 0.5-1.4 mg/dL Creatinine Clr Calc Pharmacy 77.2 eGFR (calculated from the MDRD study equation) and eCrCl (calculated from the Cockcroft-Gault equation) are based on different parameters and may not yield comparable results. If eCrCl result is absurd, please check patient's height/weight. Estimated Glomerular Filt Rate > 60 Chronic Kidney Disease: Estimated GFR < 60 mL/min/1.73m2 Severe Kidney Disease: Estimated GFR < 15 mL/min/1.73m2 Glucose Random 181 60-115 mg/dL Calcium 9.2 8.4-10.2 mg/dL Reason For Referral Reason atrial fibrillation Diagnosis [...] Referral Priority Routine Referral Appointment Date 08/04/2025 Medications Medication SIG (Take, Route, Frequency, Duration) Notes Start Date End Date Status Metoprolol Succinate ER 50 MG 4 tabs QD Orally Once a day Active dilTIAZem HCl ER 120 MG 1 capsule Orally once a day Active Cyclobenzaprine HCl 5 MG 1 tablet [...] TABLETS BY MOUTH EVERY DAY 90 Active Immunizations Vaccine Route Administration Date Status Comme nts Covid Vaccine Unknown 12/28/2020 Administered J&J Fluarix Quadrivalent Unknown 09/03/2021 Administered CV S Shingrix Unknown 09/14/2021 Administered CVS SARS-COV-2 Moderna Unknown 09/23/2021 Administered [facility] Influenza High Dose IM Intramuscular 06/28/2022 Administer ed SARS-COV-2 Moderna Unknown 07/04/2022 Administered CVS Influenza High Dose IM Intramuscular 09/25/2023 Administer ed Influenza High Dose IM Intramuscular 07/08/2025 Administer [...] W/U Status Risk Notes Problem Diabetic neuropathy (299522565) Diabetic neuropathy (E11.40) Active confirmed Problem Atrial fibrillation (75081224) Atrial fibrillation (I48.91) Active confirmed Problem Gilbert syndrome (95113708) Gilbert syndrome (E80.4) Active confirmed Problem 61305976 Essential hypertension (I10) Active confirmed Problem Gallstone (355532658) Gall stones (K80.20) Active confirmed Problem Hearing loss (45651919) Hearing loss (H91.90) Active confirmed Problem 97424087 Hypercholesterem ia (E78.00) Active confirmed Problem 02665939 YEE (obstructive sleep apnea) (G47.33) Active confirmed Problem 265324681 Chronic systolic heart failure (I50.22) Active confirmed Problem 41111394 Acquired thrombocytopenia (D69.6) Active confirmed Problem 833073500 Anticoagulation adequate (Z79.01) Active confirmed Problem 569815217 Longstanding persistent atrial fibrillation (I48.11) Active confirmed Vital Signs Blood pressure diastolic 70 mm Hg 07/08/2025 azul ght is down 18 pounds since 04-03-25 Height 67 in 07/08/2025 weight is down 18 pounds since 04-03-25 Blood pressure systolic 112 mm Hg 07/08/2025 weig ht is down 18 pounds since 04-03-25 Weight 252 lbs 07/08/2025 weight is down 18 pounds since 04-03-25 BMI 39.46 kg/m2 07/08/2025 weight is down 18 pounds since 04-03-25 Encounters Encounter Location Date Provider Diagnosis Lalito Marcos MD [address] [place] [address] Drive [address] [place] [address] [id number] 10/04/2024 Lalito Marcos Hypercholesteremia E 78.00 Lalito Marcos MD [address] [place] [address] Drive [address] [place] [address] [id number] 03/28/2025 Lalito Marcos Essential hypertensi on I10 ; Chronic systolic heart failure I50.22 and Hypercholesteremia E78.00 Lalito Marcos MD [address] [place] [address] [id number] 10/15/2024 Lalito Marcos Essential hypertensi on I10 ; Encounter for general adult medical examination without abnormal findings Z00.00 ; Longstanding persistent atrial fibrillation I48.11 ; Hypercholesteremia E78.00 ; Chronic systolic heart failure I50.22 ; Hearing loss H91.90 and Impacted cerumen of right ear H61.21 Lalito Marcos MD [address] [place] [address] [id number] 04/03/2025 Lalito Marcos Longstanding persist ent atrial fibrillation I48.11 ; Essential hypertension I10 ; YEE (obstructive sleep apnea) G47.33 ; Gilbert syndrome E80.4 ; Chronic systolic heart failure I50.22 ; Hypercholesteremia E78.00 ; Colon cancer screening Z12.11 and Depression screen Z13.31 Lalito Marcos MD [address] [place] [address] [id number] 07/08/2025 Lalito Marcos Atrial fibrillation I48.91 ; Urinary retention R33.9 ; Knee pain M25.569 ; Gall stones K80.20 and Encounter for administration of vaccine Z23 Lalito Marcos MD [address] [place] [address] [id number] 06/17/2025 Lalito Marcos MD [address] [place] [address] Drive [address] [place] [address] [id number] 06/27/2025 Lalito Marcos Assessments Encounter Date Diagnosis (ICD Code) Assessment Notes Treatment Notes Treatment Clinical Notes Section Notes 10/04/2024 Hypercholesteremia (ICD-10 - E78.00) 03/28/2025 Essential hypertension (ICD-10 - I10) 10/15/2024 Essential hypertension (ICD-10 - I10) was good at walk in, numbers are elevated today, will continue current regiment and will continue to monitor 10/15/2024 Encounter for genera l adult medical examination without abnormal findings (ICD-10 - Z00.00) 04/03/2025 Longstanding persistent atrial fibrillation (ICD-10 - I48.11) needs yearly digoxin level 1 04/03/2025 Essential hypertension (ICD-10 - I10) well controlled, will continue current regiment 1 07/08/2025 Atrial fibrillation (ICD-10 - I48.91) needs appt with dr wylie/ will speak to him about getting on a NOAC 07/08/2025 Urinary retention (ICD-10 - R33.9) follow up with dr thurman 03/28/2025 Chronic systolic heart failure (ICD-10 - I50.22) 10/15/2024 Longstanding persistent atrial fibrillation (ICD-10 - I48.11) on coumadin rate well controlled, will continue current regiment 04/03/2025 YEE (obstructive sleep apnea) (ICD-10 - G47.33) not using cpap 1 07/08/2025 Knee pain (ICD-10 - M25.569) 03/28/2025 Hypercholesteremia (ICD-10 - E78.00) 10/15/2024 Hypercholesteremia (ICD-10 - E78.00) stable, will cntinue current regiment 04/03/2025 Gilbert syndrome (ICD-10 - E80.4) stable no treatment needed 1 07/08/2025 Gall stones (ICD-10 - K80.20) assymptomatic 10/15/2024 Chronic systolic heart failure (ICD-10 - I50.22) stable, is doing well, will continue current regiment 04/03/2025 Chronic systolic heart failure (ICD-10 - I50.22) stable, will continue current regiment 1 07/08/2025 Encounter for administration of vaccine (ICD-10 - Z23) 10/15/2024 Hearing loss (ICD-10 - H91.90) improved after wax removed, will cntinue to monitor 04/03/2025 Hypercholesteremia (ICD-10 - E78.00) stable, will continue current regiment 1 10/15/2024 Impacted cerumen of right ear (ICD-10 - H61.21) cerumen removed with good results 04/03/2025 Colon cancer screening (ICD-10 - Z12.11) guaiac negative 1 04/03/2025 Depression screen (ICD-10 - Z13.31) negative screen 1 Plan Of Treatment Pending Test Test Name Order Date UA ClnCatch+Micro w/rflx Cult 03/28/2025 Next Appt Details Provider Name:Lalito zhang, 09/01/2025 02:00:00 PM, [address] [place] [address], [address] [place] [address], [phone], Provider Name:Lalito biswasr, 10/09/2025 07:45:00 AM, [address] [place] [address], Suite [facility], [place], [place], [phone], Provider Name:Lalito zhang, 10/16/2025 10:00:00 AM, [address] [place] [address], Suite [facility], [place], [place], [phone], Provider Name:Lalito biswasr, 03/30/2026 07:15:00 AM, [address], [address], [place], [place], [phone], Provider Name:Lalito Castro vicente, 04/06/2026 09:30:00 AM, [address], [address], [place], [place], [phone], Insurance Providers Payer Name Payer Address Payer Phone Subscriber Number Group Number Insured Name Patient Relationship to Insured Coverage Start Date Coverage End Date MEDICARE [facility] [place] [address] [id number] DARIEN WRIGHT Self - patient is the insured [employer] OF [facility] [address] [place] [address] [id number] DARIEN WRIGHT Self - patient is the insured Medical (General) History Medical History History ICD Code colonoscopy 11/2020 , neg but had polyps before so repeat in 5 year Chronic renal failure, stage 2 (mild) N1 8.2
--- OUTSIDE RECORDS SUMMARY | 2025-08-27 20:00 | XMS_ITS | Clinical Summary ---
Author Organization Unknown Care Team Providers Care Lead Relay Tester Name Role Phone MIKKI MCDANIELS, KRISTINA Unavailable Unavailable PAGLIUCA ([facility]) [facility] - OT, ELEUTERIO Unavailable Unavailable DORIE PT, ERICA Unavailable Unavailable PEDRO PABLO RN, MARYLOU Unavailable Unavailable Payers Payer Name Policy Type Policy Number Effective Date Expira tion Date MEDICARE - [facility] [id number] Problems Condition Name Condition Details Condition Category Status Onset Date Resolution Date Last Treatment Date Treating Clinician Comments UNSPECIFIED ATRIAL FIBRILLATION Active 06-12 00:00: 00 EFFUSION, LEFT KNEE Active 06-12 00:00: 00 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 Active 06-12 00:00: 00 OTHER RETENTION OF URINE Active 06-12 00:00: 00 CARDIOMEGALY Active 06-12 00:00: 00 CHRONIC KIDNEY DISEASE, UNSPECIFIED Active 06-12 00:00: 00 UNSPECIFIED PROTEIN-DORINDA HERBERTH MALNUTRITION Active 06-12 00:00: 00 UNILATERAL PRIMARY OSTEOARTHRIT IS, LEFT KNEE Active 06-12 00:00: 00 MUSCLE WASTING AND ATROPHY, NEC, MULTIPLE SITES Active 06-12 00:00: 00 ESSENTIAL (PRIMARY) HYPERTENSION Active 06-12 00:00: 00 HYPERLIPIDEM IA, UNSPECIFIED Active 06-12 00:00: 00 BENIGN PROSTATIC HYPERPLASIA WITH LOWER URINARY TRACT SYMP Active 06-12 00:00: 00 TYPE 2 DIABETES MELLITUS WITHOUT COMPLICATION S Active 06-12 00:00: 00 Allergies, Adverse Reactions, Alerts Allergy Name Allergy Type Status Severity Reaction(s) Onset Date Inactive Date Treating Clinician Comments AMOXICILLIN Propensity to adverse reactions Active 2024-09 0 16:04: 35 CLINDAMYCIN HCL Propensity to adverse reactions Active 2024-09 16:04: 42 Keflex Propensity to adverse reactions Active 2024-09 16:04: 48 NEOMYCIN Propensity to adverse reactions Active 2024-09 16:04: 56 ADHESIVE Propensity to adverse reactions Active 2024-09 16:05: 00 Vital Signs Vital Name Observation Time Observation Value Commen ts Temperature 2025-07-15 10:53:00.000 97.7 [degF] Temperature 2025-07-14 15:20:00.000 98.2 [degF] Temperature 2025-07-11 15:46:00.000 98.1 [degF] Temperature 2025-07-10 15:36:00.000 98.6 [degF] Temperature 2025-07-08 10:36:00.000 98.8 [degF] Temperature 2025-07-07 15:55:00.000 98.1 [degF] Temperature 2025-07-04 11:48:00.000 97.9 [degF] Temperature 2025-07-03 15:30:00.000 98.5 [degF] Temperature 2025-07-03 10:23:00.000 98 [degF] Temperature 2025-06-30 12:37:00.000 97.8 [degF] BMI (%) 2025-06-30 12:37:00.000 41 kg/m2 Height 2025-06-30 12:37:00.000 67 [in_us] Pulse 2025-07-15 10:53:00.000 90 /min Pulse 2025-07-14 15:20:00.000 79 /min Pulse 2025-07-11 15:46:00.000 66 /min Pulse 2025-07-10 15:36:00.000 70 /min Pulse 2025-07-08 10:39:00.000 67 /min Pulse 2025-07-07 15:55:00.000 76 /min Pulse 2025-07-04 11:48:00.000 65 /min Pulse 2025-07-03 15:30:00.000 82 /min Pulse 2025-07-03 10:23:00.000 65 /min Pulse 2025-06-30 12:37:00.000 61 /min O2 Saturation (%) 2025-07-15 10:53:00.000 98 % O2 Saturation (%) 2025-07-10 15:36:00.000 98 % O2 Saturation (%) 2025-07-08 10:36:00.000 98 % O2 Saturation (%) 2025-07-04 11:48:00.000 97 % O2 Saturation (%) 2025-07-03 15:30:00.000 99 % O2 Saturation (%) 2025-06-30 12:37:00.000 97 % Respirations 2025-07-15 10:53:00.000 20 /min Respirations 2025-07-14 15:20:00.000 18 /min Respirations 2025-07-11 15:46:00.000 18 /min Respirations 2025-07-10 15:36:00.000 16 /min Respirations 2025-07-08 10:36:00.000 20 /min Respirations 2025-07-07 15:55:00.000 18 /min Respirations 2025-07-04 11:48:00.000 20 /min Respirations 2025-07-03 15:30:00.000 16 /min Respirations 2025-07-03 10:23:00.000 18 /min Respirations 2025-06-30 12:37:00.000 20 /min Weight (lbs) 2025-07-15 10:53:00.000 248.9 [lb_av] Weight (lbs) 2025-07-08 10:39:00.000 250.9 [lb_av] Weight (lbs) 2025-07-04 11:48:00.000 252 [lb_av] Weight (lbs) 2025-06-30 12:37:00.000 262 [lb_av] Systolic Blood Pressure 2025-07-15 10:53:00.000 128 mm [Hg] Systolic Blood Pressure 2025-07-14 15:20:00.000 122 mm [Hg] Systolic Blood Pressure 2025-07-11 15:46:00.000 128 mm [Hg] Systolic Blood Pressure 2025-07-10 15:36:00.000 138 mm [Hg] Systolic Blood Pressure 2025-07-08 10:36:00.000 138 mm [Hg] Systolic Blood Pressure 2025-07-07 15:55:00.000 122 mm [Hg] Systolic Blood Pressure 2025-07-04 11:48:00.000 130 mm [Hg] Systolic Blood Pressure 2025-07-03 15:30:00.000 114 mm [Hg] Systolic Blood Pressure 2025-07-03 10:23:00.000 106 mm [Hg] Systolic Blood Pressure 2025-06-30 12:37:00.000 118 mm [Hg] Diastolic Blood Pressure 2025-07-15 10:53:00.000 80 mm [Hg] Diastolic Blood Pressure 2025-07-14 15:20:00.000 78 mm [Hg] Diastolic Blood Pressure 2025-07-11 15:46:00.000 76 mm [Hg] Diastolic Blood Pressure 2025-07-10 15:36:00.000 74 mm [Hg] Diastolic Blood Pressure 2025-07-08 10:36:00.000 72 mm [Hg] Diastolic Blood Pressure 2025-07-07 15:55:00.000 76 mm [Hg] Diastolic Blood Pressure 2025-07-04 11:48:00.000 80 mm [Hg] Diastolic Blood Pressure 2025-07-03 15:30:00.000 70 mm [Hg] Diastolic Blood Pressure 2025-07-03 10:23:00.000 62 mm [Hg] Diastolic Blood Pressure 2025-06-30 12:37:00.000 86 mm [Hg] Plan of Treatment Planned Activity Planned Date Details Comments Future Scheduled Test SKILLED NU RSE TO EVALUATE PATIENT, IDENTIFY PRIMARY AND CO-MORBID CONDITIONS CODED PER CODING GUIDELINES, AND DEVELOP PATIENT SPECIFIC PLAN OF CARE THAT INCLUDES PATIENT GOAL FOR HOME HEALTH. [code = SKILLED NURSE TO EVALUATE PATIENT, IDENTIFY PRIMARY AND CO-MORBID CONDITIONS CODED PER CODING GUIDELINES, AND DEVELOP PATIENT SPECIFIC PLAN OF CARE THAT INCLUDES PATIENT GOAL FOR HOME HEALTH.] Future Scheduled Test SKILLED NU RSE TO REVIEW PATIENT MEDICATIONS (PRESCRIPTION/OTC). INSTRUCT PATIENT/CAREGIVER ON ALL MEDICATIONS INCLUDING PURPOSE, WHEN TO TAKE, IMPORTANCE OF MEDICATION ADHERENCE, MONITORING OF EFFECTIVENESS, ADVERSE DRUG REACTIONS, POSSIBLE SIDE EFFECTS, AND WHEN TO NOTIFY AGENCY OR PHYSICIAN/PROVIDER OF ANY CONCERNS. [code = SKILLED NURSE TO REVIEW PATIENT MEDICATIONS (PRESCRIPTION/OTC). INSTRUCT PATIENT/CAREGIVER ON ALL MEDICATIONS INCLUDING PURPOSE, WHEN TO TAKE, IMPORTANCE OF MEDICATION ADHERENCE, MONITORING OF EFFECTIVENESS, ADVERSE DRUG REACTIONS, POSSIBLE SIDE EFFECTS, AND WHEN TO NOTIFY AGENCY OR PHYSICIAN/PROVIDER OF ANY CONCERNS.] Future Scheduled Test PATIENT STEVENSON S A RISK OF HOSPITALIZATION AND ED USE. SKILLED NURSE TO ESTABLISH SUPPORT MEASURES TO MINIMIZE RISK OF HOSPITALIZATION AND ED USE, AND INSTRUCT PATIENT/CAREGIVER ON METHODS TO REDUCE AVOIDABLE HOSPITALIZATION AND ED USE. [code = PATIENT HAS A RISK OF HOSPITALIZATION AND ED USE. SKILLED NURSE TO ESTABLISH SUPPORT MEASURES TO MINIMIZE RISK OF HOSPITALIZATION AND ED USE, AND INSTRUCT PATIENT/CAREGIVER ON METHODS TO REDUCE AVOIDABLE HOSPITALIZATION AND ED USE.] Future Scheduled Test SKILLED NU RSE TO PERFORM ENVIRONMENTAL SAFETY RISK ASSESSMENT AND FALL RISK ASSESSMENT AND PROVIDE INSTRUCTION TO IMPLEMENT ENVIRONMENTAL SAFETY AND FALL PREVENTION STRATEGIES THROUGHOUT THE CERTIFICATION PERIOD. SKILLED NURSE WILL MAINTAIN SITUATIONAL AWARENESS AND WILL NOTIFY CLINICAL CIRCULAR SAWYER HELPER AND PHYSICIAN/PROVIDER WITH ANY CHANGE IN CONDITION. [code = SKILLED NURSE TO PERFORM ENVIRONMENTAL SAFETY RISK ASSESSMENT AND FALL RISK ASSESSMENT AND PROVIDE INSTRUCTION TO IMPLEMENT ENVIRONMENTAL SAFETY AND FALL PREVENTION STRATEGIES THROUGHOUT THE CERTIFICATION PERIOD. SKILLED NURSE WILL MAINTAIN SITUATIONAL AWARENESS AND WILL NOTIFY CLINICAL CIRCULAR SAWYER HELPER AND PHYSICIAN/PROVIDER WITH ANY CHANGE IN CONDITION.] Future Scheduled Test SKILLED NU RSE FOR OBSERVATION AND ASSESSMENT OF PATIENT S PAIN LEVEL AND EFFECTIVENESS OF PAIN MANAGEMENT REGIMEN. SKILLED NURSE TO INSTRUCT PATIENT/CAREGIVER REGARDING PHARMACOLOGIC AND NON-PHARMACOLOGIC PAIN CONTROL MEASURES. SKILLED NURSE TO REPORT TO PHYSICIAN IF PAIN LEVEL IS OUTSIDE OF ESTABLISHED PARAMETERS. [code = SKILLED NURSE FOR OBSERVATION AND ASSESSMENT OF PATIENT S PAIN LEVEL AND EFFECTIVENESS OF PAIN MANAGEMENT REGIMEN. SKILLED NURSE TO INSTRUCT PATIENT/CAREGIVER REGARDING PHARMACOLOGIC AND NON-PHARMACOLOGIC PAIN CONTROL MEASURES. SKILLED NURSE TO REPORT TO PHYSICIAN IF PAIN LEVEL IS OUTSIDE OF ESTABLISHED PARAMETERS.] Future Scheduled Test SKILLED NU RSE TO ASSESS PATIENT'S SKIN INTEGRITY AND INSTRUCT PATIENT/CAREGIVER ON MEASURES TO PREVENT PRESSURE ULCERS. [code = SKILLED NURSE TO ASSESS PATIENT'S SKIN INTEGRITY AND INSTRUCT PATIENT/CAREGIVER ON MEASURES TO PREVENT PRESSURE ULCERS.] Future Scheduled Test SKILLED NU RSE FOR O/A, TEACHING AND SELF-MANAGEMENT RELATED TO HEART FAILURE. INSTRUCT PATIENT/CAREGIVER ON SIGNS AND SYMPTOMS OF EXACERBATION TO REPORT AND IMPORTANCE OF OBTAINING AND RECORDING DAILY WEIGHT AND/OR MEASUREMENTS. SN OR TRAINED PATIENT/CAREGIVER TO OBTAIN WEIGHT DAILY AND WEIGHT GAIN OF 2 LBS OVERNIGHT OR 5 LBS IN 1 WEEK TO BE REPORTED TO PHYSICIAN/PROVIDER. IF UNABLE TO WEIGH PATIENT, SN OR TRAINED PATIENT/CAREGIVER TO OBTAIN MEASUREMENT OF ANKLES IN CM DAILY AND REPORT AN INCREASE OF 2 CM TO PHYSICIAN/PROVIDER. [code = SKILLED NURSE FOR O/A, TEACHING AND SELF-MANAGEMENT RELATED TO HEART FAILURE. INSTRUCT PATIENT/CAREGIVER ON SIGNS AND SYMPTOMS OF EXACERBATION TO REPORT AND IMPORTANCE OF OBTAINING AND RECORDING DAILY WEIGHT AND/OR MEASUREMENTS. SN OR TRAINED PATIENT/CAREGIVER TO OBTAIN WEIGHT DAILY AND WEIGHT GAIN OF 2 LBS OVERNIGHT OR 5 LBS IN 1 WEEK TO BE REPORTED TO PHYSICIAN/PROVIDER. IF UNABLE TO WEIGH PATIENT, SN OR TRAINED PATIENT/CAREGIVER TO OBTAIN MEASUREMENT OF ANKLES IN CM DAILY AND REPORT AN INCREASE OF 2 CM TO PHYSICIAN/PROVIDER.] Future Scheduled Test SKILLED NU RSE TO PROVIDE TEACHING ON SIGNS AND SYMPTOMS AND MANAGEMENT OF HYPERTENSION. [code = SKILLED NURSE TO PROVIDE TEACHING ON SIGNS AND SYMPTOMS AND MANAGEMENT OF HYPERTENSION.] Future Scheduled Test SKILLED NU RSE TO INSTRUCT PATIENT/CAREGIVER ON SIGNS AND SYMPTOMS, RISK FACTORS, COMPLICATIONS, AND MANAGEMENT OF ATRIAL FIBRILLATION. [code = SKILLED NURSE TO INSTRUCT PATIENT/CAREGIVER ON SIGNS AND SYMPTOMS, RISK FACTORS, COMPLICATIONS, AND MANAGEMENT OF ATRIAL FIBRILLATION.] Future Scheduled Test AWAITING ORDERS [co de = AWAITING ORDERS] Future Scheduled Test SKILLED NU RSE FOR O/A, TEACHING AND MANAGEMENT OF BPH FOR EARLY IDENTIFICATION OF EXACERBATION OF DISEASE PROCESS [code = SKILLED NURSE FOR O/A, TEACHING AND MANAGEMENT OF BPH FOR EARLY IDENTIFICATION OF EXACERBATION OF DISEASE PROCESS] Future Scheduled Test SKILLED NU RSE FOR O/A AND TEACHING OF DIABETIC MANAGEMENT INCLUDING BLOOD SUGAR MONITORING/USE OF GLUCOMETER, DIABETIC DIET, LOWER EXTREMITY SKIN INSPECTION, PROPER SKIN/FOOT CARE, AND SIGNS AND SYMPTOMS HYPO/HYPERGLYCEMIA TO REPORT. [code = SKILLED NURSE FOR O/A AND TEACHING OF DIABETIC MANAGEMENT INCLUDING BLOOD SUGAR MONITORING/USE OF GLUCOMETER, DIABETIC DIET, LOWER EXTREMITY SKIN INSPECTION, PROPER SKIN/FOOT CARE, AND SIGNS AND SYMPTOMS HYPO/HYPERGLYCEMIA TO REPORT.] Future Scheduled Test SKILLED NU RSE TO OBTAIN BLOOD SUGAR PRN FOR SIGNS AND SYMPTOMS OF HYPO/HYPERGLYCEMIA. IF OBTAINED BY PATIENT/CAREGIVER PRIOR TO VISIT AND PATIENT IS NOT SYMPTOMATIC, SKILLED NURSE TO RECORD READING FROM PATIENT LOG. [code = SKILLED NURSE TO OBTAIN BLOOD SUGAR PRN FOR SIGNS AND SYMPTOMS OF HYPO/HYPERGLYCEMIA. IF OBTAINED BY PATIENT/CAREGIVER PRIOR TO VISIT AND PATIENT IS NOT SYMPTOMATIC, SKILLED NURSE TO RECORD READING FROM PATIENT LOG.] Future Scheduled Test SKILLED NU RSE FOR O/A AND SKILLED TEACHING RELATED TO SIGNS AND SYMPTOMS AND MANAGEMENT OF OA TO LEFT KNEE [code = SKILLED NURSE FOR O/A AND SKILLED TEACHING RELATED TO SIGNS AND SYMPTOMS AND MANAGEMENT OF OA TO LEFT KNEE] Future Scheduled Test SKILLED NU RSE FOR O/A OF MUSCULOSKELETAL STATUS AND TEACHING ON MEASURES TO MANAGE OA TO LEFT KNEE AND TO MAINTAIN SAFETY WITH ACTIVITY [code = SKILLED NURSE FOR O/A OF MUSCULOSKELETAL STATUS AND TEACHING ON MEASURES TO MANAGE OA TO LEFT KNEE AND TO MAINTAIN SAFETY WITH ACTIVITY] Future Scheduled Test PHYSICAL T HERAPIST TO EVALUATE PATIENT FOR STRENGTHENING, GAIT TRAINING [code = PHYSICAL THERAPIST TO EVALUATE PATIENT FOR STRENGTHENING, GAIT TRAINING] Future Scheduled Test OCCUPATION AL THERAPIST TO EVALUATE PATIENT FOR ADL MANAGEMENT, DME EVAL/NEEDS [code = OCCUPATIONAL THERAPIST TO EVALUATE PATIENT FOR ADL MANAGEMENT, DME EVAL/NEEDS] Future Scheduled Test OCCUPATION AL THERAPIST TO EVALUATE PATIENT SECONDARY TO FUNCTIONAL DEFICITS/SAFETY CONCERNS IDENTIFIED DURING EVALUATION OCCUPATIONAL THERAPY TO ESTABLISH /UPGRADE/DOWNGRADE THERAPEUTIC EXERCISE PROGRAM AND INSTRUCT PATIENT/CAREGIVER ON EXERCISE PRECAUTIONS WITH WRITTEN HOME PROGRAM. MAY INCLUDE PROM, AAROM, AROM, RROM APPROPRIATE TO IMPROVE FUNCTIONAL STRENGTH AND/OR RANGE OF MOTION. OCCUPATIONAL THERAPY TO INSTRUCT PATIENT/CAREGIVER ON SAFE TRANSFER TECHNIQUES USING PROPER BODY MECHANICS AND EQUIPMENT TO ENHANCE PARTICIPATION IN ADL S. OCCUPATIONAL THERAPY TO ASSESS AND RECOMMEND HOME SAFETY ADAPTATIONS AND EDUCATE PATIENT /CAREGIVER ON FALL PREVENTION STRATEGIES TO ENHANCE PARTICIPATION IN ADL S. OCCUPATIONAL THERAPY TO PROVIDE PATIENT/CAREGIVER WITH INSTRUCTIONS AND RECOMMENDATIONS TO IMPROVE ADL S WHILE USING APPROPRIATE ADAPTIVE DEVICES RECOMMENDED. OCCUPATIONAL THERAPY TO PROVIDE PATIENT/CAREGIVER WITH INSTRUCTIONS AND RECOMMENDATIONS TO IMPROVE IADL S WHILE USING APPROPRIATE ADAPTIVE DEVICES RECOMMENDED. SUMMARY OF THERAPY EVAL/ASSESSMENT FINDINGS AND REASON(S) SKILLS OF A THERAPIST ARE INDICATED: OT EVALUATION PATIENT IS A 70 YO MALE WHO WAS RECENTLY HOSPITALIZED 06/12-06/17 WITH DX WITH LEFT KNEE EFFUSION, AFIB RVR AND URINARY RETENTION S/P SIMMS CATH, FAILED VOIDING TRIAL WHILE HOSPITALIZED. PATIENT WAS STABILIZED AND THEN TRANSFERRED TO [facility] FROM 06/17-06/27 FOR REHAB. PMHX: AFIB ON WARFARIN, CKD, HTN, YEE, BPH, HLD, PREDIABETIC. PLOF: PATIENT LIVES IN TWO STORY HOME WITH SUPPORTIVE . FULL BATH AND BEDROOM ON SECOND FLOOR. PATIENT REPORTS THAT PRIOR TO HOSP STAY, HE WAS INDEP WITH DAILY ROUTINE, INCLUDNG LAUNDRY MGT, MEAL PREP, DRIVING. PATIENT IS CURRENTLY MAINTAINING LIVING ON FIRST FLOOR, ACCESS TO HALF BATH. PATIENT REQUIRING ASSIST FOR AL IADL AND MODERATE ASSIST FOR ADL. AMBULATING WITH ROLLATOR WALKER. DME IN PLACE: WALKER, GRABBAR,. MAY BENEFIT FROM SHOWER SEAT. WILL ASSESS ONCE PATIENT IS ABLE TO ACCESS SSECOND FLOOR FOR SHOWER TRANSFER TRG. UE AROM WFL UE MMT 3+/5 SENSATION UE INTACT. COGNITION: ALERT AND ORIENTED X 3. PLEASANT AND COOPERATIVE, MOTIVATED TO IMPROVE INDEP AND REGAIN PLOF. DUE TO DECREASED FUNCTIONAL INDEP WITH ADL , PATIENT WILL BENEFIT FROM SKILLED OT TREATMENT TO PROVIDE ADL AND IADL MGT, UE THER EX, FUNCTIONAL MOB, TRANSFERS AND BALANCE RETRG, DME TRG NEEDED, WORK SIMPLIFICATION AND ENERGY CONSERVATION TRG. DC PLANNING INITIATED. SEE OT POC FOR ORDERS AND FREQUENCY. COOR OF CARE WITH PREMAARA TEAM AND POC SENT TO PCP. PATIENT REMAINS HOMEBOUND DUE TO TAXING EFFORT TO LEAVE HOME AND ASSIST OF ANOTHER PERSON DUE TO WEAKNESS. [code = OCCUPATIONAL THERAPIST TO EVALUATE PATIENT SECONDARY TO FUNCTIONAL DEFICITS/SAFETY CONCERNS IDENTIFIED DURING EVALUATION OCCUPATIONAL THERAPY TO ESTABLISH /UPGRADE/DOWNGRADE THERAPEUTIC EXERCISE PROGRAM AND INSTRUCT PATIENT/CAREGIVER ON EXERCISE PRECAUTIONS WITH WRITTEN HOME PROGRAM. MAY INCLUDE PROM, AAROM, AROM, RROM APPROPRIATE TO IMPROVE FUNCTIONAL STRENGTH AND/OR RANGE OF MOTION. OCCUPATIONAL THERAPY TO INSTRUCT PATIENT/CAREGIVER ON SAFE TRANSFER TECHNIQUES USING PROPER BODY MECHANICS AND EQUIPMENT TO ENHANCE PARTICIPATION IN ADL S. OCCUPATIONAL THERAPY TO ASSESS AND RECOMMEND HOME SAFETY ADAPTATIONS AND EDUCATE PATIENT /CAREGIVER ON FALL PREVENTION STRATEGIES TO ENHANCE PARTICIPATION IN ADL S. OCCUPATIONAL THERAPY TO PROVIDE PATIENT/CAREGIVER WITH INSTRUCTIONS AND RECOMMENDATIONS TO IMPROVE ADL S WHILE USING APPROPRIATE ADAPTIVE DEVICES RECOMMENDED. OCCUPATIONAL THERAPY TO PROVIDE PATIENT/CAREGIVER WITH INSTRUCTIONS AND RECOMMENDATIONS TO IMPROVE IADL S WHILE USING APPROPRIATE ADAPTIVE DEVICES RECOMMENDED. SUMMARY OF THERAPY EVAL/ASSESSMENT FINDINGS AND REASON(S) SKILLS OF A THERAPIST ARE INDICATED: OT EVALUATION PATIENT IS A 70 YO MALE WHO WAS RECENTLY HOSPITALIZED 06/12-06/17 WITH DX WITH LEFT KNEE EFFUSION, AFIB RVR AND URINARY RETENTION S/P SIMMS CATH, FAILED VOIDING TRIAL WHILE HOSPITALIZED. PATIENT WAS STABILIZED AND THEN TRANSFERRED TO [facility] FROM 06/17-06/27 FOR REHAB. PMHX: AFIB ON WARFARIN, CKD, HTN, YEE, BPH, HLD, PREDIABETIC. PLOF: PATIENT LIVES IN TWO STORY HOME WITH SUPPORTIVE . FULL BATH AND BEDROOM ON SECOND FLOOR. PATIENT REPORTS THAT PRIOR TO HOSP STAY, HE WAS INDEP WITH DAILY ROUTINE, INCLUDNG LAUNDRY MGT, MEAL PREP, DRIVING. PATIENT IS CURRENTLY MAINTAINING LIVING ON FIRST FLOOR, ACCESS TO HALF BATH. PATIENT REQUIRING ASSIST FOR AL IADL AND MODERATE ASSIST FOR ADL. AMBULATING WITH ROLLATOR WALKER. DME IN PLACE: WALKER, GRABBAR,. MAY BENEFIT FROM SHOWER SEAT. WILL ASSESS ONCE PATIENT IS ABLE TO ACCESS SSECOND FLOOR FOR SHOWER TRANSFER TRG. UE AROM WFL UE MMT 3+/5 SENSATION UE INTACT. COGNITION: ALERT AND ORIENTED X 3. PLEASANT AND COOPERATIVE, MOTIVATED TO IMPROVE INDEP AND REGAIN PLOF. DUE TO DECREASED FUNCTIONAL INDEP WITH ADL , PATIENT WILL BENEFIT FROM SKILLED OT TREATMENT TO PROVIDE ADL AND IADL MGT, UE THER EX, FUNCTIONAL MOB, TRANSFERS AND BALANCE RETRG, DME TRG NEEDED, WORK SIMPLIFICATION AND ENERGY CONSERVATION TRG. DC PLANNING INITIATED. SEE OT POC FOR ORDERS AND FREQUENCY. COOR OF CARE WITH PREMAARA TEAM AND POC SENT TO PCP. PATIENT REMAINS HOMEBOUND DUE TO TAXING EFFORT TO LEAVE HOME AND ASSIST OF ANOTHER PERSON DUE TO WEAKNESS.] Future Scheduled Test PHYSICAL T HERAPIST TO EVALUATE PATIENT SECONDARY TO FUNCTIONAL DEFICITS/SAFETY CONCERNS. PHYSICAL THERAPIST TO ASSESS BEST PRACTICE INTERVENTIONS TO ASSIST PATIENTS TO IMPROVE OR STABILIZE MEDICAL STATUS AND PREVENT RE-HOSPITALIZATION. MEASURES INCLUDING REVIEW AND IDENTIFICATION OF CONCERNS FOR THE FOLLOWING AREAS: DISEASE MANAGEMENT. PHYSICAL THERAPY TO ESTABLISH /UPGRADE/DOWNGRADE THERAPEUTIC EXERCISE PROGRAM AND INSTRUCT PATIENT/CAREGIVER ON EXERCISE PRECAUTIONS WITH WRITTEN HOME PROGRAM. MAY INCLUDE PROM, AAROM, AROM, RROM APPROPRIATE TO IMPROVE FUNCTIONAL STRENGTH AND RANGE OF MOTION. PHYSICAL THERAPY TO INSTRUCT PATIENT/CAREGIVER ON BED MOBILITY TECHNIQUES TO IMPROVE PATIENT MOBILITY AND POSITIONING TECHNIQUES IN ORDER TO INCREASE PATIENT S COMFORT AND DECREASE RISK OF SKIN BREAKDOWN. PHYSICAL THERAPY TO INSTRUCT PATIENT/CAREGIVER ON SAFE TRANSFER TECHNIQUES USING PROPER BODY MECHANICS AND EQUIPMENT. PHYSICAL THERAPY TO INSTRUCT PATIENT/CAREGIVER ON GAIT TRAINING TECHNIQUES USING APPROPRIATE ASSISTIVE DEVICE, PROPER BODY MECHANICS TO IMPROVE MOBILITY, AND PREVENT INJURY OF PATIENT AND/OR CAREGIVER. PHYSICAL THERAPY TO ASSESS AND RECOMMEND HOME SAFETY ADAPTATIONS AND EDUCATE PATIENT /CAREGIVER ON FALL PREVENTION STRATEGIES. PHYSICAL THERAPY FOR OBSERVATION AND ASSESSMENT OF PAIN, EFFECTIVENESS OF PAIN MANAGEMENT REGIMEN AND SKILLED TEACHING RELATED TO PAIN MANAGEMENT. THERAPIST TO REPORT INCREASED PAIN LEVEL TO PHYSICIAN FOR PROMPT INTERVENTION. PHYSICAL THERAPY TO INSTRUCT PATIENT/CAREGIVER ON BALANCE AND BALANCE STRATEGIES TO IMPROVE SAFE MOBILITY AND REDUCE RISK FOR FALL AND INJURY SUMMARY OF THERAPY EVAL/ASSESSMENT FINDINGS AND REASON(S) SKILLS OF A THERAPIST ARE INDICATED: 07/03: PATIENT IS A 70-YEAR-OLD MALE WITH HISTORY OF AFIB ON WARFARIN, HYPERTENSION, BPH, PREDIABETES, HYPERLIPIDEMIA, CKD, PRESENTS REFERRAL FOR HOME PT SERVICES FOLLOWING STR STAY FROM 06/17-06/27 FOR RECONDITIONING FOLLOWING INPATIENT ADMISSION FROM 06/12-06/17 DUE TO LEFT KNEE EFFUSION, AFIB WITH RVR, AND COURSE COMPLICATED BY URINARY RETENTION REQUIRING SIMMS CATHETER PLACEMENT AND OUTPATIENT FOLLOW UP WITH UROLOGY. PLOF: PATIENT LIVES IN 2 STORY HOME WITH , FLIGHT OF STAIRS TO BATHROOM AND BEDROOM ON SECOND FLOOR, PATIENT IS TYPICALLY INDEPENDENT AT BASELINE WITH COMMUNITY MOBILITY USING NO ASSISTIVE DEVICE, PATIENT HAS BEEN USING ROLLATOR SINCE DISCHARGE HOME. PATIENT'S PRIMARY GOAL WITH HOME PT SERVICES IS TO TRANSITION TO LEAST RESTRICTIVE ASSISTIVE DEVICE ANTERIOR IMPROVE LOWER EXTREMITY STRENGTH/BALANCE. PATIENT REQUIRED CGA X1 FOR TRANSFERS AND LEVEL SURFACE AMBULATION WITH ROLLATOR USE TODAY SECONDARY TO IMPAIRED DYNAMIC STANDING BALANCE EVIDENCED BY TINETTI SCORE LESS THAN 19/30, IMPAIRED LOWER EXTREMITY STRENGTH EVIDENCED BY 30 SECOND SPD-YB-MALNS SCORE LESS THAN 8, AND IMPAIRED ENDURANCE/ACTIVITY TOLERANCE EVIDENCED BY 2 MINUTE STEP TEST LESS THAN 100 STEPS. PATIENT WILL REQUIRE HOME PT SERVICES IN ORDER TO MAXIMIZE CURRENT LEVEL OF FUNCTION AND INDEPENDENCE ALLOW PATIENT TO SAFELY ACCESS AND NAVIGATE HIS HOME ENVIRONMENT WITH DECREASE RISK FOR FALLS WITH POTENTIAL RE HOSPITALIZATION. WILL PLAN FOR PT PLAN OF CARE 1 TIME A WEEK FOR NEXT 8 WEEKS TO IMPLEMENT PLAN OF CARE, PATIENT AGREEABLE TO PLAN. VERBAL ORDER RECEIVED FROM NICHOLE AT MD OFFICE FOR PT PLAN OF CARE. THERAPIST TO REVIEW PATIENT MEDICATIONS (PRESCRIPTION/OTC). INSTRUCT PATIENT/CAREGIVER ON ALL MEDICATIONS INCLUDING PURPOSE, WHEN TO TAKE, IMPORTANCE OF MEDICATION ADHERENCE, MONITORING OF EFFECTIVENESS, ADVERSE DRUG EVENTS, POSSIBLE SIDE EFFECTS, AND WHEN TO NOTIFY AGENCY OR PHYSICIAN/PROVIDER OF ANY CONCERNS. THERAPIST TO PROVIDE FUNCTIONAL STRATEGIES/TECHNIQUES FOR MANAGING MEDICATIONS. [code = PHYSICAL THERAPIST TO EVALUATE PATIENT SECONDARY TO FUNCTIONAL DEFICITS/SAFETY CONCERNS. PHYSICAL THERAPIST TO ASSESS BEST PRACTICE INTERVENTIONS TO ASSIST PATIENTS TO IMPROVE OR STABILIZE MEDICAL STATUS AND PREVENT RE-HOSPITALIZATION. MEASURES INCLUDING REVIEW AND IDENTIFICATION OF CONCERNS FOR THE FOLLOWING AREAS: DISEASE MANAGEMENT. PHYSICAL THERAPY TO ESTABLISH /UPGRADE/DOWNGRADE THERAPEUTIC EXERCISE PROGRAM AND INSTRUCT PATIENT/CAREGIVER ON EXERCISE PRECAUTIONS WITH WRITTEN HOME PROGRAM. MAY INCLUDE PROM, AAROM, AROM, RROM APPROPRIATE TO IMPROVE FUNCTIONAL STRENGTH AND RANGE OF MOTION. PHYSICAL THERAPY TO INSTRUCT PATIENT/CAREGIVER ON BED MOBILITY TECHNIQUES TO IMPROVE PATIENT MOBILITY AND POSITIONING TECHNIQUES IN ORDER TO INCREASE PATIENT S COMFORT AND DECREASE RISK OF SKIN BREAKDOWN. PHYSICAL THERAPY TO INSTRUCT PATIENT/CAREGIVER ON SAFE TRANSFER TECHNIQUES USING PROPER BODY MECHANICS AND EQUIPMENT. PHYSICAL THERAPY TO INSTRUCT PATIENT/CAREGIVER ON GAIT TRAINING TECHNIQUES USING APPROPRIATE ASSISTIVE DEVICE, PROPER BODY MECHANICS TO IMPROVE MOBILITY, AND PREVENT INJURY OF PATIENT AND/OR CAREGIVER. PHYSICAL THERAPY TO ASSESS AND RECOMMEND HOME SAFETY ADAPTATIONS AND EDUCATE PATIENT /CAREGIVER ON FALL PREVENTION STRATEGIES. PHYSICAL THERAPY FOR OBSERVATION AND ASSESSMENT OF PAIN, EFFECTIVENESS OF PAIN MANAGEMENT REGIMEN AND SKILLED TEACHING RELATED TO PAIN MANAGEMENT. THERAPIST TO REPORT INCREASED PAIN LEVEL TO PHYSICIAN FOR PROMPT INTERVENTION. PHYSICAL THERAPY TO INSTRUCT PATIENT/CAREGIVER ON BALANCE AND BALANCE STRATEGIES TO IMPROVE SAFE MOBILITY AND REDUCE RISK FOR FALL AND INJURY SUMMARY OF THERAPY EVAL/ASSESSMENT FINDINGS AND REASON(S) SKILLS OF A THERAPIST ARE INDICATED: 07/03: PATIENT IS A 70-YEAR-OLD MALE WITH HISTORY OF AFIB ON WARFARIN, HYPERTENSION, BPH, PREDIABETES, HYPERLIPIDEMIA, CKD, PRESENTS REFERRAL FOR HOME PT SERVICES FOLLOWING STR STAY FROM 06/17-06/27 FOR RECONDITIONING FOLLOWING INPATIENT ADMISSION FROM 06/12-06/17 DUE TO LEFT KNEE EFFUSION, AFIB WITH RVR, AND COURSE COMPLICATED BY URINARY RETENTION REQUIRING SIMMS CATHETER PLACEMENT AND OUTPATIENT FOLLOW UP WITH UROLOGY. PLOF: PATIENT LIVES IN 2 STORY HOME WITH , FLIGHT OF STAIRS TO BATHROOM AND BEDROOM ON SECOND FLOOR, PATIENT IS TYPICALLY INDEPENDENT AT BASELINE WITH COMMUNITY MOBILITY USING NO ASSISTIVE DEVICE, PATIENT HAS BEEN USING ROLLATOR SINCE DISCHARGE HOME. PATIENT'S PRIMARY GOAL WITH HOME PT SERVICES IS TO TRANSITION TO LEAST RESTRICTIVE ASSISTIVE DEVICE ANTERIOR IMPROVE LOWER EXTREMITY STRENGTH/BALANCE. PATIENT REQUIRED CGA X1 FOR TRANSFERS AND LEVEL SURFACE AMBULATION WITH ROLLATOR USE TODAY SECONDARY TO IMPAIRED DYNAMIC STANDING BALANCE EVIDENCED BY TINETTI SCORE LESS THAN 19/30, IMPAIRED LOWER EXTREMITY STRENGTH EVIDENCED BY 30 SECOND [id number] SCORE LESS THAN 8, AND IMPAIRED ENDURANCE/ACTIVITY TOLERANCE EVIDENCED BY 2 MINUTE STEP TEST LESS THAN 100 STEPS. PATIENT WILL REQUIRE HOME PT SERVICES IN ORDER TO MAXIMIZE CURRENT LEVEL OF FUNCTION AND INDEPENDENCE ALLOW PATIENT TO SAFELY ACCESS AND NAVIGATE HIS HOME ENVIRONMENT WITH DECREASE RISK FOR FALLS WITH POTENTIAL RE HOSPITALIZATION. WILL PLAN FOR PT PLAN OF CARE 1 TIME A WEEK FOR NEXT 8 WEEKS TO IMPLEMENT PLAN OF CARE, PATIENT AGREEABLE TO PLAN. VERBAL ORDER RECEIVED FROM NICHOLE AT OFFICE FOR PT PLAN OF CARE. THERAPIST TO REVIEW PATIENT MEDICATIONS (PRESCRIPTION/OTC). INSTRUCT PATIENT/CAREGIVER ON ALL MEDICATIONS INCLUDING PURPOSE, WHEN TO TAKE, IMPORTANCE OF MEDICATION ADHERENCE, MONITORING OF EFFECTIVENESS, ADVERSE DRUG EVENTS, POSSIBLE SIDE EFFECTS, AND WHEN TO NOTIFY AGENCY OR PHYSICIAN/PROVIDER OF ANY CONCERNS. THERAPIST TO PROVIDE FUNCTIONAL STRATEGIES/TECHNIQUES FOR MANAGING MEDICATIONS.] Goal Patient Goal - G ET STRONGER AND GET BACK TO BEING MORE INDEPENDENT LIKE I WAS PRIOR TO THIS HOSPITLIZATION Goal Provider Goal - A PLAN OF CARE WILL BE ESTABLISHED THAT MEETS PATIENT'S CARE HOME NEEDS AND INCLUDES PATIENT GOAL FOR HOME HEALTH. Goal Provider Goal - PATIENT/CAREGIVER WILL VERBALIZE UNDERSTANDING OF EDUCATION PROVIDED ON MEDICATIONS BY THE END OF THE CERTIFICATION PERIOD. Goal Provider Goal - PATIENT WILL HAVE SUPPORT MEASURES ESTABLISHED TO PREVENT HOSPITALIZATION AND ED USE AND PATIENT/CAREGIVER WILL VERBALIZE/DEMONSTRATE METHODS TO REDUCE AVOIDABLE HOSPITALIZATION AND ED USE BY END OF EPISODE. Goal Provider Goal - PATIENT/CAREGIVER WILL VERBALIZE/DEMONSTRATE EFFECTIVE ENVIRONMENTAL SAFETY AND FALL PREVENTION STRATEGIES, WILL REMAIN SAFE IN THE COMMUNITY, AND WILL BE FREE OF DANGER TO SELF AND OTHERS THROUGHOUT THE CERTIFICATION PERIOD. Goal Provider Goal - PATIENT/CAREGIVER WILL DEMONSTRATE UNDERSTANDING OF PHARMACOLOGIC AND NONPHARMACOLOGIC PAIN CONTROL MEASURES AND PATIENT WILL HAVE IMPROVEMENT IN PAIN INTERFERING WITH ACTIVITY EVIDENCED BY PAIN AT A LEVEL THAT IS ACCEPTABLE TO THE PATIENT AND PAIN LEVEL WITHIN ESTABLISHED PARAMETERS BY END OF CERTIFICATION PERIOD. Goal Provider Goal - PATIENT/CAREGIVER WILL VERBALIZE UNDERSTANDING OF PRESSURE ULCER PREVENTION BY END OF THE EPISODE. Goal Provider Goal - PATIENT/CAREGIVER WILL VERBALIZE/DEMONSTRATE KNOWLEDGE AND MANAGEMENT OF HEART FAILURE DISEASE PROCESS BY END OF EPISODE. Goal Provider Goal - PATIENT/CAREGIVER WILL VERBALIZE SIGNS AND SYMPTOMS OF HYPERTENSION AND WILL BE ABLE TO DEMONSTRATE ABILITY TO MANAGE EXACERBATION BY END OF THE EPISODE. Goal Provider Goal - PATIENT/CAREGIVER WILL VERBALIZE UNDERSTANDING OF SIGNS AND SYMPTOMS, COMPLICATIONS, AND MANAGEMENT OF ATRIAL FIBRILLATION THROUGHOUT THE CERTIFICATION PERIOD. Goal Provider Goal - PATIENT WILL VERBALIZE TOLERANCE OF CATHETER CHANGE AND KNOWLEDGE OF REQUIRED CARE TO MANAGE INDWELLING URINARY CATHETER WITHOUT COMPLICATIONS BY THE END OF THE CERTIFICATION PERIOD. Goal Provider Goal - PATIENT/CAREGIVER WILL VERBALIZE UNDERSTANDING OF BPH, AND EXACERBATIONS OF GENITOURINARY DISEASE WILL BE PROMPTLY IDENTIFIED FOR EARLY INTERVENTION THROUGHOUT THE CERTIFICATION PERIOD. Goal Provider Goal - PATIENT/CAREGIVER WILL VERBALIZE/DEMONSTRATE KNOWLEDGE OF DIABETIC MANAGEMENT. CHANGES IN DIABETIC STATUS WILL BE IDENTIFIED AND REPORTED TO PHYSICIAN FOR PROMPT INTERVENTION THROUGHOUT THE CERTIFICATION PERIOD. Goal Provider Goal - BLOOD SUGAR READING WILL BE OBTAINED ORDERED THROUGHOUT CERTIFICATION PERIOD. Goal Provider Goal - PATIENT/CAREGIVER WILL VERBALIZE UNDERSTANDING OF OA TO LEFT KNEE INCLUDING SIGNS AND SYMPTOMS, MANAGEMENT, AND PRESCRIBED TREATMENT REGIMEN BY END OF EPISODE. Goal Provider Goal - PATIENT/CAREGIVER WILL VERBALIZE/DEMONSTRATE ABILITY TO MANAGE OA TO LEFT KNEE WHILE MAINTAINING SAFETY THROUGHOUT THE EPISODE. Goal Provider Goal - A PHYSICAL THERAPY EVALUATION TO BE COMPLETED WITH RECOMMENDATIONS AND/OR WRITTEN PLAN OF TREATMENT ESTABLISHED FOR PHYSICIAN S SIGNATURE. Goal Provider Goal - OCCUPATIONAL THERAPY EVALUATION TO BE COMPLETED WITH RECOMMENDATIONS AND WRITTEN PLAN OF TREATMENT ESTABLISHED FOR THE PHYSICIAN S SIGNATURE. Goal Provider Goal - OCCUPATIONAL THERAPIST TO EVALUATE PATIENT SECONDARY TO FUNCTIONAL DEFICITS/SAFETY CONCERNS IDENTIFIED DURING EVALUATION. PATIENT/CAREGIVER WILL PERFORM THERAPEUTIC EXERCISE/S AND DEMONSTRATE PARTICIPATION IN A HOME PROGRAM. PATIENT/CAREGIVER WILL DEMONSTRATE SAFE TRANSFERS USING APPROPRIATE ASSISTIVE DEVICE, BODY MECHANICS AND EQUIPMENT. CAREGIVER/PATIENT WILL DEMONSTRATE/VERBALIZE UNDERSTANDING OF RECOMMENDATIONS TO INCREASE SAFETY IN THE HOME AND FALL PREVENTION IN ORDER TO MANAGE ADL PATIENT/CAREGIVER WILL DEMONSTRATE IMPROVED ABILITY TO PERFORM ACTIVITIES OF DAILY LIVING. PATIENT/CAREGIVER WILL DEMONSTRATE IMPROVED ABILITY TO PERFORM INSTRUMENTAL ACTIVITIES OF DAILY LIVING. Goal Provider Goal - PHYSICAL THERAPY EVALUATION TO BE COMPLETED WITH RECOMMENDATIONS AND/OR WRITTEN TREATMENT PLAN OF CARE ESTABLISHED FOR THE PHYSICIAN S SIGNATURE PATIENT/CAREGIVER VERBALIZES UNDERSTANDING OF THE INITIAL BEST PRACTICE RECOMMENDATIONS. PHYSICIAN TO BE NOTIFIED APPROPRIATE FOR ANY CHANGES OR COMPLICATIONS THROUGHOUT THE CERTIFICATION PERIOD. PATIENT/CAREGIVER WILL PERFORM THERAPEUTIC EXERCISE/S AND DEMONSTRATE PARTICIPATION IN A HOME PROGRAM. PATIENT/CAREGIVER WILL DEMONSTRATE IMPROVED BED MOBILITY TECHNIQUES. PATIENT/CAREGIVER WILL DEMONSTRATE SAFE TRANSFERS USING APPROPRIATE ASSISTIVE DEVICE, BODY MECHANICS AND EQUIPMENT. PATIENT/CAREGIVER WILL DEMONSTRATE IMPROVED GAIT TECHNIQUES TO MINIMIZE RISK OF INJURY. PATIENT/CAREGIVER WILL DEMONSTRATE/VERBALIZE UNDERSTANDING OF RECOMMENDATIONS TO INCREASE SAFETY IN THE HOME AND FALL PREVENTION. INCREASED PAIN OR INEFFECTIVE PAIN CONTROL MEASURES WILL BE IDENTIFIED AND PROMPTLY REPORTED TO THE PHYSICIAN. PATIENT/CAREGIVER WILL DEMONSTRATE EFFECTIVE PAIN MANAGEMENT. PATIENT/CAREGIVER WILL DEMONSTRATE IMPROVED BALANCE AND REDUCE THE RISK OF FALLS AND INJURY. PATIENT/CAREGIVER WILL VERBALIZE/DEMONSTRATE UNDERSTANDING OF MEDICATIONS AND STRATEGIES/TECHNIQUES FOR MEDICATION MANAGEMENT BY THE END OF THE CERTIFICATION PERIOD. Progress Notes Progress Notes <paragraph>[Visit Date: 2024 by ELEUTERIO MASTERSON ([facility]) [facility]]:</paragraph><paragraph>PATIENT SEEN FOR SKILLED OT TREATMENT TODAY. </paragraph><paragraph></paragraph><paragraph> PATIENT REPORTING LEFT KNEE PAIN AND NEW ONSET OF RIGHT SHOULDER PAIN, IMPACTING ADL MGT AND BED MOBILITY AND TRANSFER. </paragraph><paragraph> </paragraph><paragraph>OT PROVIDED MODFICATION OPTIONS FOR BED MOBILITY, USIING STURDY CHAIR NEXT TO BED FOR ALTERNATIVE TO BED RAIL TO ALLOW FOR PATIENT TO PERFORM SUPINE TO SIT INSTEAD OF PUSHING UP FROM BED WITH HIS RIGHT ELBOW, WHICH HE STATES IS CAUSING RADIATING PAIN UP TO RIGHT SHOULDER DURING THIS ACTIVITY. PATIENT IS ABLE TO RETURN DEMO GOOD INITIAL PERFORMANCE OF TASK USING THIS TECH. PATIENT STATES HE WILL CONTINUE WITH THIS METHOD TO DETERMINE IF IT WORKS JAIL. WILL ASSIST WITH POSITIONING CHAIR THIS IS THE CHAIR THAT PATIENT USES IN KITCHEN WHEN OUT OF BED. </paragraph><paragraph></paragraph><paragraph> PATIENT DECLINED SHOWER TRG DUE TO LEFT KNEE PAIN TODAY AND NOT WANTING TO MAANGE STAIRS . WILL REVISIT THIS TRG NEXT VISIT IS PATIENT IS AGREABLE. </paragraph><paragraph></paragraph><paragraph> DC PLANNING ONGOING. </paragraph><paragraph>APPT FOR UROLOGY 07-16-25 FOR SIMMS REASSESSMENT . </paragraph><paragraph>PATIENT REMAINS HOMEBOUND DUE TO TAXING EFFORT TO LEAVE HOME AND ASSIST OF ANOTHER PERSON DUE TO WEAKNESS.</paragraph> <paragraph>[Visit Date: 2024 by MARYLOU CHAMORRO RN]:</paragraph><paragraph>SNV 07/15</paragraph><paragraph></paragraph><paragraph>ABNORMAL VITALS: VS WITHIN SET PARAMETERS </paragraph><paragraph></paragraph><paragraph>FALLS: DENIES FALLS</paragraph><paragraph></paragraph><paragraph>ABNORMAL PHYSICAL ASSESSMENT FINDINGS: NO ABNORMAL FINDINGS </paragraph><paragraph></paragraph><paragraph>MEDICATION CHANGES: NO MED CHANGES </paragraph><paragraph></paragraph><paragraph>OBSERVATION AND ASSESSMENT PROVIDED: PATIENT A&OX4. NO CO PAIN. STATES OVER THE WEEKEND LEFT KNEE LOCKED UP AND WAS UNABLE TO AMBULATE WELL, DID NOT CO OF KNEE ISSUES TODAY, RECOMMENDED USE OF TYLENOL 2-3X/DAY. PER DC PAPERWORK, WAS SUPPOSED TO HAVE FU REGARDING TAP OF LEFT KNEE, PATIENT HAS NOT HEARD FROM ANYONE IN REGARDS TO THIS, SAW PCP, WAS NOT DISCUSSED AT APPT. RECOMMENDED PATIENT TO CALL [facility] TO SCHEDULE APPT. LS CLEAR ON RA. DYSPNEA W EXERTION, IMPROVES W REST. TRACE EDEMA RTO BL ANKLES. DENIES CP/PALPITATIONS/DIZZINESS/SOB. FC IN PLACE DRAINING CLEAR/YELLOW URINE. NO S/S OF UTI, NO BLOOD NOTED IN SIMMS BAG OR TUBING. EDUCATED PATIENT AND ON IMPORTANCE OF MONITORING FOR BLOOD CLOTS AND TO REPORT FINDINGS TO MD. LBM 07/14. DENIES N/V/D. SKIN INTACT. PATIENT NOW TAKING DAILY WEIGHTS AND DOCUMENTING FC OUTPUT. WT TODAY 248.9. TRENDING DOWN. BP LOG ASSESSED, NOT TAKING IT DAILY, EDUCATED ON IMPORTANCE OF TAKING IT DAILY TO MONITOR MED EFFECTIVENESS. DOCUMENTING FC OUTPUT IN LOG. </paragraph><paragraph></paragraph><paragraph>EDUCATION: EDUCATED ON SIMMS CARE AND S/S OF UTI AND WHEN TO REPORT TO MD. EDUCATED ON FALL PREVENTION. EDUCATED ON DAILY WEIGHTS. EDUCATED ON IMPORTANCE OF TAKING BP/HR DAILY. EDUCATED ON S/S OF BLADDER SPASMS AND WHEN TO SEEK MEDICAL ATTENTION. EDUCATED ON S/S OF CHF EXACERBATION AND WHEN TO REPORT TO MD VS SEEK IMMEDIATE MEDICAL ATTENTION. PATIENT AND VERBALIZE PARTIAL UNDERSTANDING, WILL NEED TO REASSESS EDUCATION RETAINMENT AT NEXT SNV. </paragraph><paragraph></paragraph><paragraph>INTERVENTIONS NEEDED AT NEXT VISIT: ASSESSMENT AND EDUCATION, SAFETY EDUCATION, MED EDUCATION, CARDIAC ASSESSMENT </paragraph><paragraph></paragraph><paragraph>NEXT MD APPOINTMENT: 07/16 UROLOGY, 08/04 CARDIOLOGY </paragraph><paragraph></paragraph><paragraph>PT AND CAREGIVER INSTRUCTED [facility] ANY QUESTIONS OR CONCERNS AND/OR CHANGES IN CONDITION, STATE UNDERSTANDING</paragraph> Encounters Start Date/Time End Date/Time Encounter Type Admission Type Attending [facility] Facility Care Department Encounter ID Discharge Date Discharge Status Discharge Condition Discharge Reason Percent Goals Met 2025-06-30 00:00:00 2025-08-28 00:00:00 Outpatient NEW ADMISSION MARYLOU CHAMORRO [facility] [id number] 11.32
== END 2025-07-16 11:29 | disposition home or self-care (01) ==
LOC: HO.HUSH 09:29
PROVIDERS: PCP Internal Medicine; Visit Provider Urology
DX: R33.8 Other retention of urine (principal)
CPT/HCPCS: 51700

== ENCOUNTER → 2025-07-16 09:29 | Outpatient (BNVA) | payer MEDICARE, SELFPAY | PROVIDERS: PCP Internal Medicine; Visit Provider Urology | DX: R33.8 Other retention of urine (principal) | CPT/HCPCS: 51700 ==

== ENCOUNTER 2025-08-04 09:34 | Outpatient (AMB) | payer MEDICARE, SELFPAY ==
--- NOTE | 2025-08-04 09:42 | A.OFFVIS_ITS ---
Vital Signs 08/04/25 09:43 Height 5 ft 7 in Weight 249 lb 1.957 oz BMI 39.0 BP 124/72 Blood Pressure Location Lt brachial Position Sitting Pulse 55 Pulse Source Pulse Oximeter Intake Visit Reasons: ED Follow up( hs) Paper Bundler Required: No Accompanied by: Self / Same As Patient Allergies amoxicillin (Amoxicillin) Allergy (Unknown, Verified 08/04/25 09:46) RASH cephalexin (From Keflex) Allergy (Unknown, Verified 08/04/25 09:46) unknown clindamycin (Clindamycin) Allergy (Unknown, Verified 08/04/25 09:46) RASH Jeremiah poly Dex eye Allergy (Unknown, Uncoded 07/16/25 10:29) Unknown Medication List - Last Reconciled 08/04/25 by TEMI Christie atorvastatin (Lipitor) 80 mg PO BEDTIME chlorthalidone 25 mg PO DAILY digoxin 250 mcg PO BEDTIME diltiazem HCl CD (Cardizem CD) 120 mg See Protocol PO DAILY 30 days finasteride 5 mg PO DAILY 90 days metoprolol succinate ER 200 mg See Protocol PO DAILY 30 days potassium chloride ER 40 mEq PO DAILY@1730 tamsulosin 0.4 mg PO BEDTIME 90 days warfarin 7.5 mg See Protocol PO SUMOTUTHFRSA@1800 warfarin 5 mg PO WE@1800 HPI HPI ED Follow up( hs): Details: Gordon is a 70-year-old male with past medical history of sleep apnea, untreated, obesity, hypertension, systolic and diastolic heart failure, permanent atrial fibrillation who was recently seen in the emergency room for hip and knee pain. While there he had issues with AFib RVR requiring additional rate slowing medications. He was hospitalized and seen by Cardiology in consultation. Following discharge he went to rehab and he is now home. He presents for follow-up. Today he reports he has been doing much better with his hip and knee pain. He is still doing only light activities and ambulates with a cane. He has no chest discomfort at rest or with activity. He does not feel heart palpitations. Even when his AFib was out of control he says he did not feel it. No shortness of breath, PND, orthopnea or edema. He has been having urinary retention and currently has a Riggs catheter in place. He is hoping to have it removed in the near future. He has not had hematuria. No bleeding issues reported. Currently has VNA checking his INRs. He normally goes to the [facility] anticoagulation Clinic. Taking all meds as directed. [facility] Medical History (Updated 08/04/25 @ 11:34 by TEMI Christie) YEE (obstructive sleep apnea) Persistent atrial fibrillation CKD (chronic kidney disease) Hypertension Diabetes CHF (congestive heart failure) Surgical History History of inguinal hernia repair History of umbilical hernia repair Family History Father No problems noted. Mother Congestive heart failure Social History Household Members: Spouse Housing: House Alcohol intake: current Alcohol intake frequency: a few times a week Patient Tobacco Use Status: Never used Tobacco service: No Review of Systems Const All systems reviewed & are unremarkable except as noted in HPI and below Denies daytime sleepiness, Denies difficulty sleeping, Denies snoring, Denies stops breathing during sleep and Denies weakness Card Denies chest pain, Denies rapid heart rate, Denies irregular heart rhythm, Denie s claudication, Denies leg edema, Denies lightheadedness, Denies palpitations, Denies dyspnea, Denies dyspnea on exertion, Denies orthopnea, Denies paroxysmal nocturnal dyspnea and Denies slow heart rate Resp Denies cough, Denies dyspnea, Denies dyspnea on exertion and Denies snoring GI Reports no additional complaints, Denies hematochezia, Denies change in stool character and Denies dyspepsia Musc Denies abnormal gait, Denies muscle weakness and Denies numbness Neuro Denies abnormal gait, Denies numbness and Denies weakness Endo Denies palpitations Physical Exam Vital Signs: Last Vital Signs Pulse 55 08/04/25 09:43 BP 124/72 08/04/25 09:43 BMI result Body Mass Index 39.0 Const General: cooperative, healthy appearing, comfortable and no acute distress Orientation/consciousness: patient oriented x3 Neck Neck: Yes normal visual inspection Resp Effort & Inspection: normal respiratory effort Auscultation: clear to auscultation bilaterally, no rales, no rhonchi and no wheezes Cardio Rate: regular rate Rhythm: abnormal rhythm Heart sounds: S1 normal heart sound present, S2 normal heart sound present, no gallops, no murmurs and no rubs Neuro General: patient oriented x3 Extrem General: Yes normal to inspection, No no pedal edema and No calf tenderness Psych Appearance: grossly normal Mental Status: mental status grossly normal Speech and movement: Normal speech and movement present Assessment & Plan Assessment & Plan (1) Permanent atrial fibrillation: Code(s): I48.21 - Permanent atrial fibrillation Category: Medical Plan: History of chronic atrial fibrillation with recent AFib RVR in the setting of pain during last hospitalizations. His medications were titrated accordingly. He is currently on diltiazem, metoprolol and digoxin for heart rate control. Pulse is normal at this time. Echocardiogram 06/13/2025 showed EF 60-65%, moderate increase in the RV size, left atrium and right atrium severely dilated, mild aortic stenosis. Labs 01/14/2025 showed digoxin level 0.7. Labs 06/23/2025 showed creatinine 1.07. He is on Coumadin for anticoagulation and attends [facility] anticoagulation Clinic. No changes made at this time. (2) YEE (obstructive sleep apnea): Code(s): G47.33 - Obstructive sleep apnea (adult) (pediatric) Category: Medical Plan: Reported history of sleep apnea. He says he is not able to sleep with a mask. Recommended he sleep on his side and not on his back. (3) Hypertension: Code(s): I10 - Essential (primary) hypertension Category: Medical Plan: Blood pressure goal less than 130/80. Well controlled at this time. No med changes made. 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 He is not fluid overloaded on exam today. Most recent echo as above. (5) Current use of anticoagulant therapy: Comment: Coumadin Code(s): Z79.01 - terminal clerk (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 (6) Hospital discharge follow-up: Code(s): Z09 - Encounter for follow-up examination after completed treatment for conditions other than malignant neoplasm Category: Medical Plan: Hospital discharge and cardiology notes reviewed. Plan I discussed with the patient the importance of continuing current medications for atrial fibrillation and the need for follow-up with Dr. Madden in six months. We also talked about the potential for hematuria due to catheter use and the importance of monitoring this, especially given the patient's anticoagulation therapy. I advised the patient to consider CPAP therapy, and sleep on sides for managing sleep apnea. Patient Instructions: - Continue taking all prescribed medications as directed. - Monitor for any blood in urine and report to the urologist. - Follow up with Dr. Madden in six months. Patient was informed and verbally consented to the use of an ambient scribe for clinic note documentation during this visit. Visit time spent on chart review, interview, assessment, orders, documentation. 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
[2025-08-04 09:43] VITALS: BP 124/72; PULSE 55; BMI 39.0
== END 2025-08-04 10:18 | disposition home or self-care (01) ==
PROVIDERS: PCP Internal Medicine; Visit Provider Nurse Practitioner Family
DX: I48.21 Permanent atrial fibrillation (principal); G47.33 Obstructive sleep apnea (adult) (pediatric); I10 Essential (primary) hypertension; I50.40 Unspecified combined systolic (congestive) and diastolic (congestive) heart failure; Z79.01 Long term (current) use of anticoagulants; Z09 Encounter for follow-up examination after completed treatment for conditions other than malignant neoplasm
CPT/HCPCS: 99214; G2211

== ENCOUNTER → 2025-08-04 09:34 | Outpatient (BNVA) | payer MEDICARE, SELFPAY | PROVIDERS: PCP Internal Medicine; Visit Provider Nurse Practitioner Family | DX: Z09 Encounter for follow-up examination after completed treatment for conditions other than malignant neoplasm (principal); I48.21 Permanent atrial fibrillation; I11.0 Hypertensive heart disease with heart failure; I50.40 Unspecified combined systolic (congestive) and diastolic (congestive) heart failure; G47.33 Obstructive sleep apnea (adult) (pediatric); Z79.01 Long term (current) use of anticoagulants | CPT/HCPCS: 99212 ==

== ENCOUNTER 2025-08-07 12:43 | Outpatient (AMB) | payer MEDICARE, SELFPAY ==
--- NOTE | 2025-08-07 12:47 | MHC.OFFVIS ---
Intake Visit Reasons: cysto/VT Intake Note: Patient Presents for Voiding Trial / Cystoscopy Any Urology Medication: Tamsulosin ,Finasteride Antibiotic Allergies: Amoxicillin,keflex,clndamycin Blood Thinners: Warfarin Process Maintenance Technician Required: No Employee Relations Consultant: Employee Relations Consultant Present Accompanied by: Other Relationship Allergies amoxicillin (Amoxicillin) Allergy (Unknown, Verified 08/07/25 12:51) RASH cephalexin (From Keflex) Allergy (Unknown, Verified 08/07/25 12:51) unknown clindamycin (Clindamycin) Allergy (Unknown, Verified 08/07/25 12:51) RASH Jeremiah poly Dex eye Allergy (Unknown, Uncoded 07/16/25 10:29) Unknown HPI Comments Details: Sol is a pleasant male. He is a patient of Dr. Marcos. He seen for the following urologic conditions - urinary retention Urinary retention Hospitalized with episode of retention in May Retention 1300 cc He has been on tamsulosin and finasteride He reports urinary retention with variable stream strength and episodes of immediate post-void urgency. Symptoms of weak stream and incomplete emptying were noted before hospitalization. Cystoscopy today Relatively open prostate Dilated bladder Failed voiding trial Will need to learn CIC at next visit [facility] Medical History (Updated 08/04/25 @ 11:34 by Susan Calhoun NP-C) YEE (obstructive sleep apnea) Persistent atrial fibrillation CKD (chronic kidney disease) Hypertension Diabetes CHF (congestive heart failure) Surgical History History of inguinal hernia repair History of umbilical hernia repair Family History Father No problems noted. Mother Congestive heart failure Social History Household Members: Spouse Housing: House Alcohol intake: current Alcohol intake frequency: a few times a week Patient Tobacco Use Status: Never used Tobacco service: No Office Procedures Bladder/Catheter Procedure Details: old 16fr rodriges catheter removed prior to procedure. PAtient failed VT, new 16fr rodriges catheter 10ml balloon flip valve inserted, patient tolerated insertion well. Patient to have final VT scheduled in 4 weeks [id number]-[id number] Temporary Bladder Catheter Procedure code (CPT) selection complete Cystoscopy Consent Discussed risk and benefit or proposed procedure with the patient. Information consent for procedure given to the patient. Discussed technical aspects, risks, benefits and alternatives in full. Addressed all of the patient's questions and concerns regarding the procedure. The patient demonstrated knowledge and understanding. They wish to proceed with this procedure. Preparation The patient was prepped in the usual manner. A farm reporter was present and in the room. Genitalia was prepped with betadine solution in a sterile manner. Lidocaine Jelly 2% was placed into the urethra and 16Fr flexible Olympus cystoscope was inserted into the meatus after adequate lubrication. Procedure Consent confirmed Cystoscopy performed using a disposable Urovue digital 16 [place]ian cystoscope. Meatus circumcised Urethra anterior and posterior urethra normal Prostatic Urethra unremarkable Bladder examination with retroflexion of cystoscope Bladder Orifices normal shape and position Bladder Capacity large Trabeculations grade 2 Cellule Formation None Diverticulum Formation None Mucosal Erythema None Bladder Tumor None 16 fr rodriges catheter 10ml balloon removed prior to procedure prep. Patient tolerated removal well. 27075-Oyxddsjuwd DISPOSABLE SCOPE URO-G FLEXIBLE SCOPE Procedure code (CPT) selection complete Post Void Residual Post Residual Void Post Void Residual (PVR): [id number] Void Residual by ultrasound Office Meds lidocaine HCl 2 % mucosal jelly in applicator Performing Provider: Mega Light MD Performing Location: [facility] [facility] Documented (not given) by: Tariq Rudolph LPN on 08/07/25 13:10 Dose Route Admin Location Dispensed Lot Number Expiration Date NDC Refrigerating Engineer Head 10 mL intra-urethral mL nitrofurantoin monohydrate/macrocrystals 100 mg capsule Performing Provider: Mega Light MD Performing Location: [facility] [facility] Documented (not given) by: Tariq Rudolph LPN on 08/07/25 13:10 Dose Route Admin Location Dispensed Lot Number Expiration Date NDC Refrigerating Engineer Head 100 mg PO cap Assessment & Plan Assessment & Plan (1) Acute urinary retention: Code(s): R33.8 - Other retention of urine Category: Medical Plan Four week follow-up voiding trial Orders: Orders AMB Cystoscopy 08/07/25 R33.8 - Other retention of urine AMB Bladder/Catheter Procedure 08/07/25 R33.8 - Other retention of urine Medications: New nitrofurantoin monohyd/m-cryst 100 mg 100 mg PO ONCE 1 cap 0RF R33.8 - Other retention of urine lidocaine HCl 2% 10 mL intra-urethral ONCE 10 mL 0RF R33.8 - Other retention of urine Patient Instructions: This note is constructed using voice recognition software. While every effort has been made to ensure accuracy radiology transcriptionist errors may have been included. Imaging studies, laboratory and physical exam results were discussed and reviewed in detail. No major barriers to patient understanding were identified. An opportunity to ask questions regarding the treatment plan was provided. All questions were answered. The patient expressed understanding and agreement with the above treatment plan. The patient is aware they should contact our office by phone for worsening of their current condition or the appearance of new urologic symptoms. Compliance is encouraged with any medications and followup testing that is ordered. It is a privilege to participate in the urologic care of your patient. If you have any questions or concerns regarding treatment for the above conditions, or other urologic issues, please do not hesitate to contact me. The office telephone contact is [phone]. Sincerely, Dr Mega Light MD, [facility] - Urology Compassionate Specialist Care for the Genitourinary System Coding Level of Care Code Est Pt Level 3 (40410) Diagnoses Acute urinary retention R33.8 CPT Codes Bladder/Catheter Procedure - CPT: 68550-Fjbefy Temporary Bladder Catheter ([id number]) Cystoscopy - CPT: 53346-Rbgfhkhxfo ([id number]) Post Residual Void - PVR CPT Code: 03395-Yflf Void Residual by ultrasound ([id number])
== END 2025-08-07 14:16 | disposition home or self-care (01) ==
LOC: HO.HUSH 12:44
PROVIDERS: PCP Internal Medicine; Visit Provider Urology
DX: R33.8 Other retention of urine (principal)
CPT/HCPCS: 52000

== ENCOUNTER → 2025-08-07 12:43 | Outpatient (BNVA) | payer MEDICARE, SELFPAY | PROVIDERS: PCP Internal Medicine; Visit Provider Urology | DX: R33.8 Other retention of urine (principal) | CPT/HCPCS: 51702; 51798; 52000 ==

== ENCOUNTER 2025-08-21 13:47 | Outpatient (AMB) | payer MEDICARE, SELFPAY ==
[2025-08-21 14:15] LABS: Prothrombin Time Whole Bld POC 22.5 sec (11.1-13.5); ~PT, ~INR - Anti Coag Clinic 1.9 (0.9-1.1)
--- NOTE | 2025-08-21 14:20 | MHC.OFFVISCO ---
Intake Intake Visit Reasons: Anticoagulation Allergies amoxicillin (Amoxicillin) Allergy (Unknown, Verified 08/21/25 13:49) RASH cephalexin (From Keflex) Allergy (Unknown, Verified 08/21/25 13:49) unknown clindamycin (Clindamycin) Allergy (Unknown, Verified 08/21/25 13:49) RASH Jeremiah poly Dex eye Allergy (Unknown, Uncoded 08/21/25 13:49) Unknown Medication List - Last Reconciled 08/21/25 by Riya Armstrong RN atorvastatin (Lipitor) 80 mg PO BEDTIME chlorthalidone 25 mg PO DAILY digoxin 250 mcg PO BEDTIME diltiazem HCl CD (Cardizem CD) 120 mg See Protocol PO DAILY 30 days finasteride 5 mg PO DAILY 90 days metoprolol succinate ER 200 mg See Protocol PO DAILY 30 days potassium chloride ER 40 mEq PO DAILY@1730 tamsulosin 0.4 mg PO BEDTIME 90 days warfarin 7.5 mg See Protocol PO SUMOTUTHFRSA@1800 warfarin 5 mg PO WE@1800 Nursing Note INR: 1.9 outside of therapeutic range 2.0-3.0 Pt had been admitted for Afib RVR related to hip and knee pain, plus urinary retention for which he still has a catheter. He was then d/c to rehab then home with VNA services, he still has VNA services for 1 more week, he has completed OT and PT, walks with cane or walker, states pain is tolerable unless he turns or twists, takes prn tyelnol and lidcaine patch Medications and supplements reviewed and updated started on diltiazem and tamsulosin - diltiazim can raise the INR, plus takes occ tylenol and lidocaine patch for prn pain. His recall was a little vague Denies any signs and symptoms of bleeding or bruising or clotting. Bleeding, bruising, clotting discussed Nutritional guidance given Dose: he has remained on his usual dose 5mg x 1 day/ 7.5mg x 6 days F/U INR: 2 weeks Patient verbalizes understanding of instructions given Anti-Coag Initial Assessment Social Hx Patient Tobacco Use Status: Never used Tobacco alcohol intake: current Alcohol intake frequency: a few times a week Coding Level of Care Code Est Patient Level 1 Diagnoses Current use of anticoagulant therapy Z79.01 Results AMB INR Fingerstick AMB INR Fingerstick 1.9 Last Edit by Riya Armstrong RN on 08/21/25 14:06 MANUAL ENTRY Assessment & Plan Assessment & Plan (1) Current use of anticoagulant therapy: Comment: Coumadin Code(s): Z79.01 - joint terminal attack controller (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
== END 2025-08-21 14:34 | disposition home or self-care (01) ==
LOC: HO.ACS 13:47
PROVIDERS: PCP Internal Medicine; Visit Provider Internal Medicine Medical Oncology
DX: Z79.01 Long term (current) use of anticoagulants (principal)

== ENCOUNTER → 2025-08-21 13:47 | Outpatient (BNVA) | payer MEDICARE, SELFPAY | PROVIDERS: PCP Internal Medicine; Visit Provider Internal Medicine Medical Oncology | DX: Z79.01 Long term (current) use of anticoagulants (principal) | CPT/HCPCS: 85610; 99211 ==

== ENCOUNTER → 2025-09-02 07:55 | Outpatient (BNVA) | payer MEDICARE, SELFPAY | PROVIDERS: PCP Internal Medicine; Visit Provider Urology | DX: Z46.6 Encounter for fitting and adjustment of urinary device (principal); R33.8 Other retention of urine | CPT/HCPCS: 51700; 51702 ==

== ENCOUNTER 2025-09-04 13:47 | Outpatient (AMB) | payer MEDICARE, SELFPAY ==
--- OUTSIDE RECORDS SUMMARY | 2024-10-15 04:00 | XMS_ITS ---
Author Organization Lalito Marcos MD Address [address] [place] [phone] Care Team Providers Care Venetian Blind Installer Name Role Phone Lalito Marcos Primary Care Provider [phone] Allergies Allergen (clinical drug ingredient) Drug/Non Drug Allergy documented on EMR Reaction Allergy Type Onset Date Status Hqhmdfyu-Hnufyqgbl-A exa meth swelling Drug Allergy Active Keflex rash Drug Allergy Active clindamycin Clindamycin HCl rash Drug Allergy Active amoxicillin Amoxicillin rash Drug Allergy Act jesus Triamcinolone & Emollient rash Drug Allergy Active Neoporacin rash Drug Allergy Active REASON FOR VISIT 6 MO F/U, AWV Medications Medication SIG (Take, Route, Frequency, Duration) Notes Start Date End Date Status Cyclobenzaprine HCl 5 MG 1 tablet at bed time as needed Orally twice a day for 14 days 10/28/2022 Not-Taking Atorvastatin Calcium 80 MG TAKE 1 TABLET BY MOUTH EVERY DAY Active Metoprolol Succinate ER 100 MG TAKE 1 TABLET BY MOUTH EVERY DAY Active Warfarin Sodium 5 MG TAKE 1.5 TABLETS BY MOUTH EVERY DAY Active Metoprolol Succinate ER 50 MG TAKE 1 TABLET BY MOUTH EVERY DAY WITH 100MG 90 Active Chlorthalidone 25 MG TAKE 1 TABLET BY MOUTH EVERY DAY IN THE MORNING WITH FOOD for 90 Active Potassium Chloride ER 20 MEQ TAKE 2 TABLETS BY MOUTH EVERY DAY WITH FOOD ONCE A DAY for 90 Active Digoxin 250 MCG TAKE 1 TABLET BY MOUTH EVERY DAY for 90 Active Social History Tobacco Use: Social History [...] Interpretation Positive Vital Signs Blood pressure systolic 142 mm Hg 10/15/19 25 Blood pressure diastolic 80 mm Hg 025 Height 67 in 10/15/2024 Weight 272 lbs 10/15/2024 BMI 42.6 kg/m2 10/15/2024 weight is up 6 pounds since 04-01-24 Encounters Encounter Location Date Provider Diagnosis Lalito Marcos MD [address] [place] [address] [address] [place], [place] [phone] 10/15/2024 Lalito Marcos Essential hypertensi on I10 ; Encounter for general adult medical examination without abnormal findings Z00.00 ; Longstanding persistent atrial fibrillation I48.11 ; Hypercholesteremia E78.00 ; Chronic systolic heart failure I50.22 ; Hearing loss H91.90 and Impacted cerumen of right ear H61.21 Assessments Encounter Date Diagnosis (ICD Code) Assessment Notes Treatment Notes Treatment Clinical Notes Section Notes 10/15/2024 Essential hypertensi on (ICD-10 - I10) was good at walk in, numbers are elevated today, will continue current regiment and will continue to monitor 10/15/2024 Encounter for genera l adult medical examination without abnormal findings (ICD-10 - Z00.00) 10/15/2024 Longstanding persistent atrial fibrillation (ICD-10 - I48.11) on coumadin rate well controlled, will continue current regiment 10/15/2024 Hypercholesteremia (ICD-10 - E78.00) stable, will cntinue current regiment 10/15/2024 Chronic systolic hea rt failure (ICD-10 - I50.22) stable, is doing well, will continue current regiment 10/15/2024 Hearing loss (ICD-10 - H91.90) improved after wax removed, will cntinue to monitor 10/15/2024 Impacted cerumen of right ear (ICD-10 - H61.21) cerumen removed with good results Plan Of Treatment Medication Medication Name Sig Start Date Stop Date Notes Atorvastatin Calcium 80 MG TAKE 1 TABLET BY MOUTH EVERY DAY Metoprolol Succinate ER 100 MG TAKE 1 TA BLET BY MOUTH EVERY DAY Warfarin Sodium 5 MG TAKE 1.5 TABLETS BY MOUTH EVERY DAY Metoprolol Succinate ER 50 MG TAKE 1 TAB LET BY MOUTH EVERY DAY WITH 100MG 90 Treatment Notes Assessment Notes Essential hypertension was good at walk in, numbers are elevated today, will continue current regiment and will continue to monitor Longstanding persistent atrial fibrillat ion on coumadin rate well controlled, will continue current regiment Hypercholesteremia stable, will cntinue current regiment Chronic systolic heart failure stable, i s doing well, will continue current regiment Hearing loss improved after wax r emoved, will cntinue to monitor Impacted cerumen of right ear cerumen re moved with good results Next Appt Details Follow Up: 1 Year, Reason: A [place] Provider Name:Lalito zhang, 10/09/2025 07:45:00 AM, [address] [place] [address], [address], [phone], Provider Name:Lalito zhang, 10/16/2025 10:00:00 AM, [address] [place] [address], [address], [phone], Provider Name:Lalito zhang, 03/30/2026 07:15:00 AM, [address] [place] [address], [address], [phone], Provider Name:Lalito zhang, 04/06/2026 09:30:00 AM, [address] [place] [address], [address], [phone], Procedure Notes * Category Sub-Category Detail Notes Cerumen removal Procedure right ear, irrig ated with water/H2O2 Post-procedure Pt tolerated procedu re well Progress Notes * IVANIA WRIGHTOB: (69 yo M)Acc No.[id number]:10/15/2024 Progress Note Patient: DARIEN JIMENEZ Provider: Lizbet Marcos MD :1955 A ge:69 Y S ex:Male Date:10/15/2024 Address:[address] [place], [place] [id number] Subjective: * Chief Complaints: * 6 MO F/U, AWV * HPI: D epression Screening: PHQ-9 L [...] PHQ-9 found negative result, no follow-up needed. A nnual Wellness Visit: c/o of A nnual Wellness Visit. Medical / Social History Reviewed T he following items were reviewed and updated during today's visit P ast Medical History, [place] of Care, Surgical/Hospitalization History, Current medications including OTC and supplements, Family History, Tobacco use, Alcohol use, Illicit drug use. H ome Safety T hrow rugs? N o, G rab bars? Y es, R aised toilet seats? N o, W orking smoke detectors? Y es, W orking carbon monoxide detectors? Y es. A ctivities of Daily Living (ADLs) D ifficulty bathing or showering? N o, D ifficulty dressing? N o, D ifficulty using the toilet? N o, D ifficulty getting in and out of bed? N o, D ifficulty walking? N o, R eceives help from another person with any of the above N o. E nd-of-Life Planning E nd of Life Planning N ot needed. A nswers for HPI/ROS submitted by the patient C hange in Weight N o, C hange in hearing N o. HRA filled out by the patient, reviewed by Provider and scanned. C ommunication Needs: Communication Needs D oes [...] all that apply: N one. S ymptom(s): patirnt is a 69 yo male here for 6 month follow up visit of abnormal HDL and elevated bilirubin, recent labs have been reviewed, compared to previous and discussed with patient, also here for AWV evaluation. * ROS: G eneral/Constitutional: Denies C hills. D enies F atigue. D enies F ever. D enies H eadache. E NT: Patient denies d ecreased sense of smell, any loss of taste, sore throat. D enies S ore throat. R espiratory: Denies C ough. D enies S hortness of breath at rest. D enies S hortness of breath with exertion. C ardiovascular: Denies C hest pain at rest. D enies C hest pain with exertion. D enies D izziness. D enies P alpitations. D enies S hortness of breath. G astrointestinal: Denies D iarrhea. D enies N ausea. M usculoskeletal: Patient denies m uscle aches. [...] , I nterpretation P ositive. M iscellaneous: C affeine: no. Children: yes. Exercise: no. Home smoke detector use: no. Housing: owning. Living with: spouse. Marital status: . Occupation: weeks/months/years, retired. Pets: none. Travel outside of the [place]: no. * Medications: T akingMetoprolol Succinate ER 50 MG Tablet Extended Release 24 Hour TAKE 1 TABLET BY MOUTH EVERY DAY WITH 100MG 90 Atorvastatin Calcium 80 MG Tablet TAKE 1 TABLET BY MOUTH EVERY DAY Warfarin Sodium 5 MG Tablet TAKE 1.5 TABLETS BY MOUTH EVERY DAY Potassium Chloride ER 20 MEQ Tablet Extended Release TAKE 2 TABLETS BY MOUTH EVERY DAY WITH FOOD ONCE A DAY Digoxin 250 MCG Tablet TAKE 1 TABLET BY MOUTH EVERY DAY Chlorthalidone 25 MG Tablet TAKE 1 TABLET BY MOUTH EVERY DAY IN THE MORNING WITH FOOD Metoprolol Succinate ER 100 MG Tablet Extended Release 24 Hour TAKE 1 TABLET BY MOUTH EVERY DAY Taking Metoprolol Succinate ER 50 MG Tablet Extended Release 24 Hour TAKE 1 TABLET BY MOUTH EVERY DAY WITH 100MG 90 Taking Atorvastatin Calcium 80 MG Tablet TAKE 1 TABLET BY MOUTH EVERY DAY Taking Warfarin Sodium 5 MG Tablet TAKE 1.5 TABLETS BY MOUTH EVERY DAY Taking Potassium Chloride ER 20 MEQ Tablet Extended Release TAKE 2 TABLETS BY MOUTH EVERY DAY WITH FOOD ONCE A DAY Taking Digoxin 250 MCG Tablet TAKE 1 TABLET BY MOUTH EVERY DAY Taking Chlorthalidone 25 MG Tablet TAKE 1 TABLET BY MOUTH EVERY DAY IN THE MORNING WITH FOOD Taking Metoprolol Succinate ER 100 MG Tablet Extended Release 24 Hour TAKE 1 TABLET BY MOUTH EVERY DAY Not-Taking/PRNCyclobenzaprine HCl 5 MG Tablet 1 tablet at bedtime as needed Orally twice a day Medication List reviewed and reconciled with the patientNot- Taking/PRN Cyclobenzaprine HCl 5 MG Tablet 1 tablet at bedtime as needed Orally twice a day Medication List reviewed and reconciled with the patient * Allergies: A moxicillin: rashClindamycin HCl: rashTriamcinolone & Emollient: rashNeoporacin: rashKeflex: resuUzjkpijv-Bbfptxgjg-Sohofpew: swellingyes[Allergies Verified] Objective: * Vitals: H t: 67, Wt: 272, BMI:42.6, BP:142/80, Repeat BP:150/96, Wt-k.38. weight is up 6 pounds since 04-01-24. * Examination: A [place]: Balance . Hearing . EKG Not clinically necessary. Written plan C ompleted. G eneral Examination: GENERAL APPEARANCE: alert, well hydrated, in no distress . HEAD: normocephalic. EYES: BOTH EYES normal. EARS: BOTH EARS normal rt ear with decreased hearing and full of wax. SKIN: good turgor no suspicious lesions. HEART: no murmurs, rubs, gallops regular rate and rhythm.? LUNGS: no wheezes, rales, rhonchi good air movement clear to auscultation bilaterally. Assessment: * Assessment: 1. E ncounter for general adult medical examination without abnormal findings - Z00.00 (Primary) 2 . E ssential hypertension - I10 3 . L ongstanding persistent atrial fibrillation - I48.11 4 . H ypercholesteremia - E78.00 5. C hronic systolic heart failure - I50.22 6 . H earing loss - H91.90? 7. I mpacted cerumen of right ear - H61.21 Plan: * Treatment: 2. L ongstanding persistent atrial fibrillation Continue Warfarin Sodium Tablet, 5 MG, TAKE 1.5 TABLETS BY MOUTH EVERY DAY. Notes: on coumadin rate well controlled, will continue current regiment 3. H ypercholesteremia Continue Atorvastatin Calcium Tablet, 80 MG, TAKE 1 TABLET BY MOUTH EVERY DAY. Notes: stable, will cntinue current regiment 4. C hronic systolic heart failure Notes: stable, is doing well, will continue current regiment 5. H earing loss Notes: improved after wax removed, will cntinue to monitor 6. I mpacted cerumen of right ear Notes: cerumen removed with good results * Procedures: C erumen removal: Procedure r ight ear, irrigated with water/H2O2. P ost-procedure P t tolerated procedure well. * Procedure Codes: G 0439 ANNUAL WELLNESS VST; PPS SUBSQT VST * Preventive Medicine: Counseling: C are goal follow-up plan: Byron garcia for abnormal BMI provided?Yes, A ronak Normal BMI Follow-up D ietary management education, guidance, and counseling, Dietary needs education, Giving encouragement to exercise. E xercise . C ommunication to patient: Byron garcia for nutrition provided Y es, Byron garcia for physical activity provided Y es. S ocial: d iet: D iscussed the importance of eating a nutritious healthy food on a regular basis, e xercise: D iscussed the benefits of any exercise for overall health and well-being, a lcohol and drugs: D iscussed the dangers of excessive alcohol intake. SCREENING: C olonoscopy N ext screening is scheduled, Next screening is scheduled. M ammogram A nnual Mammogram recommended pt will self schedule, Annual Mammogram recommended pt will self schedule. Immunizations: I nfluenza H ave you had a flu shot since the most recent May 19? Y es. C ovid p atient vaccincated. Screening/Special Tests: C olonoscopy . M ammogram . * Follow Up: 1 Year (Reason: AWV) * * Sign off status: Completed true * Provider: Lizbet Marcos MD Date: 0 10/15/2024 Generated for Shakeel pandey/Charisse/eTransmitting on: 11/05/2024 05:59 PM EST History and Physical Notes * HPI (History of Present Illness) Category Sub-Category Detail Notes Category Not es Symptom(s) patirnt is a 69 yo male here for 6 month follow up visit of abnormal HDL and elevated bilirubin, recent labs have been reviewed, compared to previous and discussed with patient, also here for AWV evaluation Depression Screening PHQ-9 Little inte rest or [...] patient have a cognition impair ment?: No Annual Wellness Visit of Annual Wellness Vis it HRA filled out by the patient, reviewed by Provider and scanned. Medical / Social History Reviewed The fo llowing items were reviewed and updated during today's visit: Past Medical History, [place] of Care, Surgical/Hospitalization History, Current medications including OTC and supplements, Family History, Tobacco use, Alcohol use, Illicit drug use Home Safety Throw rugs?: No Grab bars?: Yes Raised toilet seats?: No Working smoke detectors?: Yes Working carbon monoxide detectors?: Yes Activities of Daily Living (ADLs) Difficulty bat rajendra or showering?: No Difficulty dressing?: No Difficulty using the toilet?: No Difficulty getting in and out of bed?: N o Difficulty walking?: No Receives help from another person with a ny of the above: No End-of-Life Planning End of Life Planning: Not n eeded Answers for HPI/ROS submitted by the patient Becka patrick in Weight: No Change in hearing: No Examination Category Sub-Category Detail Notes Category Not es General Examination GENERAL APPEARANCE: alert, w ell hydrated, in no distress HEAD: normocephalic EYES: BOTH EYES normal EARS: BOTH EARS normal rt ear with decreased hearing and full of wax HEART: no murmurs, rubs, ga llops regular rate and rhythm LUNGS: no wheezes, rales, r honchi good air movement clear to auscultation bilaterally SKIN: good turgor no suspi cious lesions AWV Balance Romberg: Yes . Tandem walk: No . Walk and Turn: Yes . Rise from sit to stand: Yes . Hearing Whisper test: Fail . EKG Not clinically jaron whitney Written plan Completed
--- OUTSIDE RECORDS SUMMARY | 2025-03-28 02:00 | XMS_ITS ---
Author Organization Lalito Marcos MD Address [address] [place], [place] [phone] Care Team Providers Care Foil Operator Name Role Phone Lalito Marcos Primary Care Provider Results Component Value Reference Range Notes Complete Blood Count Auto Di ff Reviewed date:03/28/2025 12:47:59 PM Interpretation: Performing Lab:[facility], [address] [place] [phone] Notes/Report: White Blood Count 8.5 4.8-10.8 X10*3/uL Red Blood Count 4.54 4.60-5.80 X10*6/uL Hemoglobin 15.2 14.0-18.0 g/dl Hematocrit 43.6 42.0-52.0 % Mean Corpuscular Volume 96.0 80.0-98.0 fL Mean Corpuscular Hemoglobin 33.5 27.0-33.0 pg Mean Corpuscular HGB Conc 34.9 31.0-36.0 g/dl Red Cell Distribution Width 13.7 11.0-16.0 % Platelet Count 144 160-400 X10*3/uL Mean Platelet Volume 11.5 9.4-12.4 fL Neutrophils Percent Auto 57.7 45-73 % Imm Gran Pct Auto 0.4 0.0-0.4 % Lymphocytes Percent Auto 28.6 20-40 % Monocytes Percent Auto 11.1 2-11 % Eosinophils Percent Auto 1.6 0-4 % Basophils Percent Auto 0.6 0-2 % NRBC Pct Auto 0.0 0.0-0.2 /100WBC Neutrophils Absolute Auto 4.9 2.0-8.3 x10*3/u L Imm Gran Abs Auto 0.03 0.00-0.03 X10*3/uL Lymphocytes Absolute Auto 2.4 1.2-4.9 X10*3/u L Monocytes Absolute Auto 0.9 0.1-1.2 X10*3/uL Eosinophils Absolute Auto 0.1 0.0-0.4 X10*3/u L Basophils Absolute Auto 0.1 0.0-0.2 X10*3/uL NRBC Abs Auto 0.000 0.0-0.012 X10*3/uL Comprehensive [place]. Panel Fa st Reviewed date:03/28/2025 12:51:30 PM Interpretation: Performing Lab:[address] [phone] Notes/Report: Sodium 137 135-145 mmol/L Potassium 4.1 3.3-5.1 mmol/L Chloride 100 96-108 mmol/L Carbon Dioxide 27 22-29 mmol/L Anion Gap 14 12-20 Blood Urea Nitrogen 15 9-16 mg/dL Creatinine 1.15 0.5-1.4 mg/dL Estimated Glomerular Filt Rate > 60 Chronic Kidney Disease: Estimated GFR < 60 mL/min/1.73m2 Severe Kidney Disease: Estimated GFR < 15 mL/min/1.73m2 Glucose Fasting 113 60-99 mg/dL A fasting glucose from 100-125 mg/dl is considered impaired (pre-diabetes). Calcium 9.0 8.4-10.2 mg/dL Bilirubin Total 3.0 0.0-1.0 mg/dL Slight Icte aranza. Aspartate Amino Transferase 34 5-37 U/L Alanine Aminotransferase 23 0-40 U/L Total Protein 6.9 6.5-8.0 g/dL Albumin Level 4.3 3.5-5.0 g/dL Alkaline Phosphatase 97 39-117 U/L Lipid Panel Reviewed date:03/28/2025 12:48:08 PM Interpretation: Performing Lab:[address] [phone] Notes/Report: Triglycerides 153 <150 mg/dL Desirable Triglyceride: less than 150 mg/dL Borderline High Triglyceride 150-199 mg/dL High Triglyceride: 200-499 mg/dL Very High Triglyceride: greater than or equal to 5OO mg/dL Cholesterol 100 <200 mg/dL Desirable Cholesterol: less than 200 mg/dL Borderline High Cholesterol: 200-239 mg/dL High Cholesterol: greater than 239 mg/dL LDL Cholesterol Calculated 40 <100 mg/dL Desirable LDL: less than 100 mg/dL Near Optimal/Above Optimal LDL: 110-129 mg/dL Borderline High LDL: 130-159 mg/dL High LDL: 160-189 mg/dL Very High LDL: greater than or equal to 190 mg/dL HDL Cholesterol 30 >40 mg/dL Desirable HDL: greater than 40 mg/dL Note: This HDL assay may give artificially low results in patients with liver disease. PSA,Total (Free>4and<10) Reviewed date:03/28/2025 12:47:29 PM Interpretation: Performing Lab:[facility], [address] [place] [phone] Notes/Report: PSA,Total (Free>4and<10) 2.28 0.00-4.00 ng/mL A Free PSA was not [...] Chemiluminescent Microparticle Immunoassay (CMIA) REASON FOR VISIT FASTING LABWORK Encounters Encounter Location Date Provider Diagnosis Lalito Marcos MD [address] [place] [address] [address] [place], [place] [phone] 03/28/2025 Lalito Marcos Essential hypertensi on I10 ; Chronic systolic heart failure I50.22 and Hypercholesteremia E78.00 Assessments Encounter Date Diagnosis (ICD Code) Assessment Notes Treatment Notes Treatment Clinical Notes Section Notes 03/28/2025 Essential hypertensi on (ICD-10 - I10) 03/28/2025 Chronic systolic hea rt failure (ICD-10 - I50.22) 03/28/2025 Hypercholesteremia (ICD-10 - E78.00) Plan Of Treatment Pending Test Test [facility] Next Appt Details Provider Name:Lalito Castro ier, 10/09/2025 07:45:00 AM, [address], [address], [place], [phone], Provider Name:Lalito Castro ier, 10/16/2025 10:00:00 AM, [address], [address], [place], [place], [phone], Provider Name:Lalito Castro ier, 03/30/2026 07:15:00 AM, [address], [address], [place], [phone], Provider Name:Lalito Castro ier, 04/06/2026 09:30:00 AM, [address] [facility], [address], [place], [place], [phone], Progress Notes * MITZI WRIGHTRYLEEOB: (70 yo M)Acc No.[id number]:03/28/2025 Progress Note Patient: DARIEN JIMENEZ Provider: Lizbet Marcos MD :1955 A ge:69 Y S ex:Male Date:03/28/2025 Address:[address] [place], [place] [phone] Subjective: * Chief Complaints: * 1 . FASTING LABWORK. * Medical History: Objective: * Vitals: Assessment: * Assessment: 1. E ssential hypertension - I10 (Primary) 2 . C hronic systolic heart failure - I50.22 3 . H ypercholesteremia - E78.00 Plan: * Treatment: 2. C hronic systolic heart failure L AB: UA ClnCatch+Micro w/rflx Cult L AB: Complete Blood Count Auto Diff (Collection Date & Time - 03/28/2025 07:00 AM) L AB: Comprehensive [place]. Panel Fast (Collection Date & Time - 03/28/2025 07:00 AM) L AB: Lipid Panel (Collection Date & Time - 03/28/2025 07:00 AM) L AB: PSA,Total (Free>4and<10) (Collection Date & Time - 03/28/2025 07:00 AM) 3. H ypercholesteremia L AB: UA ClnCatch+Micro w/rflx Cult L AB: Complete Blood Count Auto Diff (Collection Date & Time - 03/28/2025 07:00 AM) L AB: Comprehensive [place]. Panel Fast (Collection Date & Time - 03/28/2025 07:00 AM) L AB: Lipid Panel (Collection Date & Time - 03/28/2025 07:00 AM) L AB: PSA,Total (Free>4and<10) (Collection Date & Time - 03/28/2025 07:00 AM) * Procedure Codes: 3 6415 VENIPUNCT, ROUTINE* * * The named appointment provid er may or may not be the originator of this progress note, and it is not deemed complete until electronically signed by the appointment provider. Sign off status: Pending * Provider: Lizbet Marcos MD Date: 0 03/28/2025 Generated for Shkaeel pandey/Charisse/Cheriitting on: 1 11/05/2024 05:58 PM EST
--- OUTSIDE RECORDS SUMMARY | 2025-04-03 03:30 | XMS_ITS ---
Author Organization Lalito Marcos MD Address [address] [place] [phone] Care Team Providers Care Rn Endoscopy Name Role Phone Lalito Marcos Primary Care Provider [phone] Allergies Allergen (clinical drug ingredient) Drug/Non Drug Allergy documented on EMR Reaction Allergy Type Onset Date Status Aoldwwcy-Zqrjwswev-O exa meth swelling Drug Allergy Active Keflex rash Drug Allergy Active clindamycin Clindamycin HCl rash Drug Allergy Active amoxicillin Amoxicillin rash Drug Allergy Act jesus Triamcinolone & Emollient rash Drug Allergy Active Neoporacin rash Drug Allergy Active Results Component Value Reference Range Notes Occult Blood, Stool, Guaiac Reviewed date:04/03/2025 11:17:30 AM Interpretation:Negative Performing Lab: Notes/Report: Negative Occult Blood, Stool, Guaiac Neg UA ClnCatch+Micro w/rflx Cul t Reviewed date:04/03/2025 12:51:34 PM Interpretation: Performing Lab:[facility], [address] [place] [id number] Notes/Report: [id number] Urine, Clean Catch Color Urine Yellow Appearance Urine Clear PH 8.0 5.0-9.0 Glucose Urine UA Negative Negative mg/dL Urine Blood Negative Negative Specific [place] - Urine 1.010 1.005-1.025 Urine Protein Negative Neg-Trace mg/dL Urine [...] 1 TABLET BY MOUTH EVERY DAY Active Digoxin 250 MCG TAKE 1 TABLET BY MOUTH EVERY DAY Active Atorvastatin Calcium 80 MG TAKE 1 TABLET BY MOUTH EVERY DAY Active Chlorthalidone 25 MG TAKE 1 TABLET BY MOUTH EVERY DAY IN THE MORNING WITH FOOD for 90 Active Potassium Chloride ER 20 MEQ TAKE 2 TABLETS BY MOUTH EVERY DAY WITH FOOD ONCE A DAY for 90 Active Warfarin Sodium 5 MG TAKE 1.5 TABLETS BY MOUTH EVERY DAY 90 Active Cyclobenzaprine HCl 5 MG 1 tablet at bed time as needed Orally twice a day for 14 days 10/28/2022 Not-Taking Metoprolol Succinate ER 50 MG TAKE 1 TABLET BY MOUTH EVERY DAY WITH 100MG Active Social History Tobacco Use: Social History [...] Interpretation Positive Vital Signs Blood pressure systolic 134 mm Hg 04/03/20 25 Blood pressure diastolic 90 mm Hg 025 Height 67 in 04/03/2025 Weight 270 lbs 04/03/2025 BMI 42.28 kg/m2 04/03/2025 weight is down 2 pounds [facility] e 10-15-24 Encounters Encounter Location Date Provider Diagnosis Lalito Marcos MD [address] [place], [place] [phone] 04/03/2025 Lalito Marcos Longstanding persistent atrial fibrillation I48.11 ; Essential hypertension I10 ; YEE (obstructive sleep apnea) G47.33 ; Gilbert syndrome E80.4 ; Chronic systolic heart failure I50.22 ; Hypercholesteremia E78.00 ; Colon cancer screening Z12.11 and Depression screen Z13.31 Assessments Encounter Date Diagnosis (ICD Code) Assessment Notes Treatment Notes Treatment Clinical Notes Section Notes 04/03/2025 Longstanding persistent atrial fibrillation (ICD-10 - I48.11) needs yearly digoxin level 1 04/03/2025 Essential hypertensi on (ICD-10 - I10) well controlled, will continue current regiment 1 04/03/2025 YEE (obstructive sle ep apnea) (ICD-10 - G47.33) not using cpap 1 04/03/2025 Gilbert syndrome (ICD-10 - E80.4) stable no treatment needed 1 04/03/2025 Chronic systolic hea rt failure (ICD-10 - I50.22) stable, will continue current regiment 1 04/03/2025 Hypercholesteremia (ICD-10 - E78.00) stable, will continue current regiment 1 04/03/2025 Colon cancer screeni ng (ICD-10 - Z12.11) guaiac negative 1 04/03/2025 Depression screen (ICD-10 - Z13.31) negative screen 1 Plan Of Treatment Medication Medication Name Sig Start Date Stop Date Notes Metoprolol Succinate ER 100 MG TAKE 1 TA BLET BY MOUTH EVERY DAY Digoxin 250 MCG TAKE 1 TABLET BY BRI TH EVERY DAY Atorvastatin Calcium 80 MG TAKE 1 TABLET BY MOUTH EVERY DAY Warfarin Sodium 5 MG TAKE 1.5 TABLETS BY MOUTH EVERY DAY 90 Metoprolol Succinate ER 50 MG TAKE 1 TAB LET BY MOUTH EVERY DAY WITH 100MG Treatment Notes Assessment Notes Longstanding persistent atrial fibrillat ion needs yearly digoxin level Essential hypertension well controlled, will continue current regiment YEE (obstructive sleep apnea) not using cpap Gilbert syndrome stable no treatment needed Chronic systolic heart failure stable, w ill continue current regiment Hypercholesteremia stable, will continu e current regiment Colon cancer screening guaiac negative Depression screen negative screen Next Appt Details Follow Up: 6 Months, Reason: Provider Name:Lalito zhang, 10/09/2025 07:45:00 AM, [address] [place] [address], [address], [place], [place], [phone], Provider Name:Lalito zhang, 10/16/2025 10:00:00 AM, [address] [place] [address], [address], [place], [place], [phone], Provider Name:Lalito Castro ier, 03/30/2026 07:15:00 AM, [address], [address], [place], [place], [phone], Provider Name:Lalito Castro ier, 04/06/2026 09:30:00 AM, [address], [address], [place], [place], [phone], Progress Notes * IVANIA WRIGHTOB: (69 yo M)Acc No.[id number]:04/03/2025 Patient: DARIEN JIMENEZ Provider: Lizbet Marcos MD :1955 A ge:69 Y S ex:Male Date:04/03/2025 Address:[address] [place], [place] [phone] Subjective: * Chief Complaints: * R eview [...] N one. S ymptom(s): patient is a 69 yo male here for review of recent labs and follow up of chronic issues. * ROS: G eneral/Constitutional: Change in appetite d enies. C hills d enies. F ever d enies. O phthalmologic: Blurred vision d enies. D ischarge d enies. P ain d enies. E NT: Decreased hearing d enies. S ore throat d enies.?Swollen glands d enies. E ndocrine: Cold intolerance d enies. E xcessive thirst d enies. H eat intolerance d enies. W eight loss d enies. R espiratory: Cough d enies. S hortness of breath at rest d enies. S hortness of breath with exertion d enies. W heezing d enies. C ardiovascular: Chest pain at rest d enies. C hest pain with exertion?denies. I rregular heartbeat d enies. S hortness of breath d enies. ? G astrointestinal: Abdominal pain d enies. C hange in bowel habits d enies. D iarrhea d enies. N ausea d enies. R ectal bleeding d enies. V omiting d enies . G enitourinary: Blood in urine d enies. D ifficulty urinating d enies. F requent urination d enies. M usculoskeletal: Painful joints d enies. W eakness d enies. ? S kin: Dry skin d enies. I tching d enies. D enies?Mole(s), changes in moles, new moles or any lesions of concern. D enies P hotosensitivity. R amy d enies. N eurologic: Dizziness d enies. F ainting d enies. H eadache?denies. * Medical History: * Surgical History: * [...] oints 5 , I nterpretation P ositive. * Medications: T akingPotassium Chloride ER 20 [...] EVERY DAY Metoprolol Succinate ER 50 MG Tablet Extended Release 24 Hour TAKE 1 TABLET BY MOUTH EVERY DAY WITH 100MG Atorvastatin Calcium 80 MG Tablet TAKE 1 TABLET BY MOUTH EVERY DAY Warfarin Sodium 5 MG Tablet TAKE 1.5 TABLETS BY MOUTH EVERY DAY 90 Taking Potassium Chloride ER 20 MEQ [...] TABLET BY MOUTH EVERY DAY WITH 100MG Taking Atorvastatin Calcium 80 MG Tablet TAKE 1 TABLET BY MOUTH EVERY DAY Taking Warfarin Sodium 5 MG Tablet TAKE 1.5 TABLETS BY MOUTH EVERY DAY 90 Not-Taking/PRNCyclobenzaprine HCl 5 MG Tablet 1 tablet at bedtime as needed Orally twice a day Medication List reviewed and reconciled with the patientNot- Taking/PRN Cyclobenzaprine HCl 5 MG Tablet 1 tablet at bedtime as needed Orally twice a day Medication List reviewed and reconciled with the patient * Allergies: A moxicillin: rashClindamycin HCl: rashTriamcinolone & Emollient: rashNeoporacin: rashKeflex: wynjSgyehtwc-Iiupsdvwf-Fzyoxidh: swellingyes[Allergies Verified] Objective: * Vitals: H t: 67, Wt: 270, BMI:42.28, BP:134/90, Repeat BP:150/90, Wt-k.47. weight is down 2 pounds since 10-15-24. * P ast Orders: L ab:Comprehensive [place]. Panel Fast (Order Date - 03/28/2025) (Collection Date & Time - 03/28/2025 07:00 AM) Value Reference Range Sodium 137 135-145 - mmol/L Bilirubin Total 3.0 H 0.0-1.0 - mg/dL Aspartate Amino Transferase 34 5-37 - U/L Alanine Aminotransferase 23 0-40 - U/L Total Protein 6.9 6.5-8.0 - g/dL Albumin Level 4.3 3.5-5.0 - g/dL Alkaline Phosphatase 97 39-117 - U/L Potassium 4.1 3.3-5.1 - mmol/L Chloride 100 96-108 - mmol/L Carbon Dioxide 27 22-29 - mmol/L Anion Gap 14 12-20 - Blood Urea Nitrogen 15 9-16 - mg/dL Creatinine 1.15 0.5-1.4 - mg/dL Estimated Glomerular Filt Rate > 60 - Glucose Fasting 113 H 60-99 - mg/dL Calcium 9.0 8.4-10.2 - mg/dL L ab:Lipid Panel (Order Date - 03/28/2025) (Collection Date & Time - 03/28/2025 07:00 AM) Value Reference Range Triglycerides 153 H <150 - mg/dL Cholesterol 100 <200 - mg/dL LDL Cholesterol Calculated 40 <100 - mg/dL HDL Cholesterol 30 L >40 - mg/dL L ab:PSA,Total (Free>4and<10) (Order Date - 03/28/2025) (Collection Date & Time - 03/28/2025 07:00 AM) Value Reference Range PSA,Total (Free>4and<10) 2.28 0.00-4.00 - ng/ mL L ab:Complete Blood Count Auto Diff (Order Date - 03/28/2025) (Collection Date & Time - 03/28/2025 07:00 AM) Value Reference Range White Blood Count 8.5 4.8-10.8 - X10*3/uL Red Blood Count 4.54 L 4.60-5.80 - X10*6/uL Hemoglobin 15.2 14.0-18.0 - g/dl Hematocrit 43.6 42.0-52.0 - % Mean Corpuscular Volume 96.0 80.0-98.0 - fL Mean Corpuscular Hemoglobin 33.5 H 27.0-33.0 - pg Mean Corpuscular HGB Conc 34.9 31.0-36.0 - g/ dl Red Cell Distribution Width 13.7 11.0-16.0 - % Platelet Count 144 L 160-400 - X10*3/uL Mean Platelet Volume 11.5 9.4-12.4 - fL Neutrophils Percent Auto 57.7 45-73 - % Imm Gran Pct Auto 0.4 0.0-0.4 - % Lymphocytes Percent Auto 28.6 20-40 - % Monocytes Percent Auto 11.1 H 2-11 - % Eosinophils Percent Auto 1.6 0-4 - % Basophils Percent Auto 0.6 0-2 - % NRBC Pct Auto 0.0 0.0-0.2 - /100WBC Neutrophils Absolute Auto 4.9 2.0-8.3 - x10* 3/uL Imm Gran Abs Auto 0.03 0.00-0.03 - X10*3/uL Lymphocytes Absolute Auto 2.4 1.2-4.9 - X10* 3/uL Monocytes Absolute Auto 0.9 0.1-1.2 - X10*3/ uL Eosinophils Absolute Auto 0.1 0.0-0.4 - X10* 3/uL Basophils Absolute Auto 0.1 0.0-0.2 - X10*3/ uL NRBC Abs Auto 0.000 0.0-0.012 - X10*3/uL * Examination: G eneral Examination: GENERAL APPEARANCE: w ell developed, well nourished, in no acute distress. HEAD: n ormocephalic, atraumatic. EYES: p upils equal, round, reactive to light and accommodation, sclera non-icteric. EARS: n ormal. ORAL CAVITY: m ucosa moist. THROAT: c lear. NECK/THYROID: n myron supple, full range of motion, no cervical lymphadenopathy, no bruits. SKIN: w arm and dry, no suspicious lesions/ with scars from previous basal cell surgery. HEART: r egular rate and rhythm, S1, S2 normal, no murmurs.? LUNGS: c lear to auscultation bilaterally. BREASTS: n o masses palpable bilaterally. ABDOMEN: s oft, nontender, nondistended, bowel sounds present, normal, no organomegaly , no masses palpable. RECTAL EXAM: n ormal tone, no external hemorrhoids, no masses palpable, prostate normal, stool guaiac negative. MALE GENITOURINARY: c ircumcised, abnormal rt testicle atrophied. EXTREMITIES: n o clubbing, cyanosis, or edema. NEUROLOGIC: n onfocal, motor strength normal upper and lower extremities, sensory exam intact. Assessment: * Assessment: 1. L ongstanding persistent atrial fibrillation - I48.11 (Primary) 2 . E ssential hypertension - I10 3 . O SA (obstructive sleep apnea) - G47.33 4 . G ilbert syndrome - E80.4 5 . C hronic systolic heart failure - I50.22 6 . H ypercholesteremia - E78.00 7 . C olon cancer screening - Z12.11 8 . D epression screen - Z13.31 1 Plan: * Treatment: 2. E ssential hypertension Continue Metoprolol Succinate ER Tablet Extended Release 24 Hour, 100 MG, TAKE 1 TABLET BY MOUTH EVERY DAY; C ontinue Metoprolol Succinate ER Tablet Extended Release 24 Hour, 50 MG, TAKE 1 TABLET BY MOUTH EVERY DAY WITH 100MG. L AB: UA ClnCatch+Micro w/rflx Cult (Collection Date & Time - 04/03/2025 06:30 AM) Notes: well controlled, will continue current regiment 3. O SA (obstructive sleep apnea) Notes: not using cpap 4. G ilbert syndrome Notes: stable no treatment needed 5. C hronic systolic heart failure Continue Digoxin Tablet, 250 MCG, TAKE 1 TABLET BY MOUTH EVERY DAY. Notes: stable, will continue current regiment 6. H ypercholesteremia Continue Atorvastatin Calcium Tablet, 80 MG, TAKE 1 TABLET BY MOUTH EVERY DAY. Notes: stable, will continue current regiment 7. C olon cancer screening L AB: Occult Blood, Stool, Guaiac (Collection Date & Time - 04/03/2025) N egative Value Reference Range O ccult Blood, Stool, Guaiac Neg Notes: guaiac negative??8.?Depression screen? Notes: negative screen?? * Procedure Codes: 8 2270 TEST FOR BLOOD, [id number] Complex e/m visit add on * Preventive Medicine: CHF Care Plan: P atient Lifestyle Goals R elieve symptoms and improve quality of life. T reatment Goals T sheyla medicine exactly as directed and plan for RX refills. B arriers N o Specific barriers. S elf-Managment Goals M onitor your symptoms daily. E xpected Outcome i mproving quality of life; while aiming to slow the progression of the disease and prevent further deterioration of heart function. * Follow Up: 6 Months * * Sign off status: Completed true * Provider: Lizbet Marcos MD Date: 0 04/03/2025 Generated for Shakeel pandey/Charisse/Cheriitting on: 1 11/05/2024 05:59 PM EST History and Physical Notes * HPI (History of Present Illness) Category Sub-Category Detail Notes Category Not es Symptom(s) patient is a 69 yo male here for review of recent labs and follow up of chronic issues Depression Screening PHQ-9 Little inte rest or [...] Category Not es General Examination GENERAL APPEARANCE: well dev eloped, well nourished, in no acute distress HEAD: normocephalic, atrau matic EYES: pupils equal, round, reactive to light and accommodation, sclera non-icteric EARS: normal THROAT: clear NECK/THYROID: neck supple, full ra nge of motion, no cervical lymphadenopathy, no bruits HEART: regular rate and rhy thm, S1, S2 normal, no murmurs LUNGS: clear to auscultatio n bilaterally ABDOMEN: soft, nontender, non distended, bowel sounds present, normal, no organomegaly , no masses palpable NEUROLOGIC: nonfocal, motor stre ngth normal upper and lower extremities, sensory exam intact SKIN: warm and dry, no julien picious lesions/ with scars from previous basal cell surgery EXTREMITIES: no clubbing, cyanosi s, or edema BREASTS: no masses palpable b ilaterally MALE GENITOURINARY: circumcised, abnorma l rt testicle atrophied RECTAL EXAM: normal tone, no exte rnal hemorrhoids, no masses palpable, prostate normal, stool guaiac negative ORAL CAVITY: mucosa moist
--- OUTSIDE RECORDS SUMMARY | 2025-06-17 08:14 | XMS_ITS ---
Author Organization Lalito Marcos MD Address [address] [place] [phone] Care Team Providers Care Mainframe Programmer Name Role Phone Lalito Marcos Primary Care Provider [phone] REASON FOR VISIT discharge Encounters Encounter Location Date Provider Diagnosis Lalito Marcos MD [address] [place] [address] [address] [place] [phone] 06/17/2025 Lalito Marcos Plan Of Treatment Next Appt Details Provider Name:Lalito zhang, 10/09/2025 07:45:00 AM, [address] [place] [address], [address], [phone], Provider Name:Lalito zhang, 10/16/2025 10:00:00 AM, [address] [place] [address], [address], [phone], Provider Name:Lalito zhang, 03/30/2026 07:15:00 AM, [address] [place] [address], [address], [phone], Provider Name:Lalito zhang, 04/06/2026 09:30:00 AM, [address] [place] [address], [address], [phone], Progress Notes * IVANIA WRIGHTOB: (70 yo M)Acc No.[id number]:06/17/2025 Patient: DARIEN JIMENEZ :1955 A ge:70 Y S ex:Male Address:[address] [place] [address], [place], [id number] * true * Date: Generated for Shakeel pandey/Charisse/Marisol on: 11/05/2024 05:58 PM EST
--- OUTSIDE RECORDS SUMMARY | 2025-06-27 10:29 | XMS_ITS ---
Author Organization Lalito Marcos MD Address [address] [place] [address] [phone] Care Team Providers Care Import Manager Name Role Phone Lalito Marcos Primary Care Provider Encounters Encounter Location Date Provider Diagnosis Lalito Marcos MD [address] [place] [address] [address] [place] [address] [phone] 06/27/2025 Lalito Marcos Plan Of Treatment Next Appt Details Provider Name:Lalito zhang, 10/09/2025 07:45:00 AM, [address] [place] [address], [address], [phone], Provider Name:Lalito zhang, 10/16/2025 10:00:00 AM, [address] [place] [address], [address], [phone], Provider Name:Lalito zhang, 03/30/2026 07:15:00 AM, [address] [place] [address], [address], [phone], Provider Name:Lalito zhang, 04/06/2026 09:30:00 AM, [address] [place] [address], [phone], Progress Notes * IVANIA WRIGHTOB: (70 yo M)Acc No.[id number]:06/27/2025 Patient: DARIEN JIMENEZ :1955 A ge:70 Y S ex:Male Address:[address] [place] [address], [place], [address] * true * Date: Generated for Shakeel pandey/Charisse/Marisol on: 11/05/2024 05:59 PM EST
--- OUTSIDE RECORDS SUMMARY | 2025-07-08 09:00 | XMS_ITS ---
Author Organization Lalito Marcos MD Address [address] [place] [phone] Care Team Providers Care Property Management Specialist Name Role Phone Lalito Marcos Primary Care Provider Allergies Allergen (clinical drug ingredient) Drug/Non Drug Allergy documented on EMR Reaction Allergy Type Onset Date Status Mrxxrroi-Chogerlzj-O exa meth swelling Drug Allergy Active Keflex rash Drug Allergy Active clindamycin Clindamycin HCl rash Drug Allergy Active amoxicillin Amoxicillin rash Drug Allergy Act jesus Triamcinolone & Emollient rash Drug Allergy Active Neoporacin rash Drug Allergy Active Reason For Referral Reason atrial fibrillation Diagnosis 1 Atrial fibrillation (I48.91) Referral Organization Lalito Marcos MD Referring Provider First Name Lalito Referring Provider Last Name Hemant Referring Provider Speciality Internal M edicine Referred Provider LOUISE BOBBY Referred Provider Specialty Cardiology General Notes Yumiko Joseph 1 02:47:55 PM >appt is with Jake Jordan Annette 07/08/2025 02:48:32 PM >patient was called with referral info and mailed Referral Priority Routine Referral Appointment Date 08/04/2025 REASON FOR VISIT PH/TCM, Accompanied by Medications Medication SIG (Take, Route, Frequency, Duration) Notes Start Date End Date Status Metoprolol Succinate ER 50 MG 4 tabs QD Orally Once a day Active dilTIAZem HCl ER 120 MG 1 capsule Orally once a day Active Digoxin 250 MCG TAKE 1 TABLET [...] a day for 14 days 10/28/2022 Not-Taking Potassium Chloride ER 20 MEQ TAKE 2 TABLETS BY MOUTH EVERY DAY WITH FOOD ONCE A DAY for 90 Active Chlorthalidone 25 MG TAKE 1 TABLET BY MOUTH EVERY DAY IN THE MORNING WITH FOOD for 90 Active Immunizations Vaccine Route Administration Date Status Comme nts Influenza High Dose IM Intramuscular 07/08/2025 Administer ed Social History Tobacco Use: Social History Observation Description Date Details (start date - stop date) Never Smoker NA - NA Tobacco Use/Smoking Question Answer Notes Patient is a nonsmoker Additional Findings: Tobacco Non-User Cu rrent non-smoker, currently using no form of tobacco Problems Problem Type SNOMED Code ICD Code Onset Dates Problem Status W/U Status Risk Notes Problem Atrial fibrillation (12804770) Atrial fibrillation (I48.91) Active confirmed Problem Gallstone (689848509) Gall stones (K80.20) Active confirmed Vital Signs Blood pressure systolic 112 mm Hg 07/08/20 25 Blood pressure diastolic 70 mm Hg 025 Height 67 in 07/08/2025 Weight 252 lbs 07/08/2025 BMI 39.46 kg/m2 07/08/2025 weight is down 18 pounds sin 04-03-25 Encounters Encounter Location Date Provider Diagnosis Lalito Marcos MD [address] [place] [address] [place] [phone] 07/08/2025 Lalito Marcos Atrial fibrillation I48.91 ; Urinary retention R33.9 ; Knee pain M25.569 ; Gall stones K80.20 and Encounter for administration of vaccine Z23 Assessments Encounter Date Diagnosis (ICD Code) Assessment Notes Treatment Notes Treatment Clinical Notes Section Notes 07/08/2025 Atrial fibrillation (ICD-10 - I48.91) needs appt with dr wylie/ will speak to him about getting on a NOAC 07/08/2025 Urinary retention (ICD-10 - R33.9) follow up with dr thurman 07/08/2025 Knee pain (ICD-10 - M25.569) 07/08/2025 Gall stones (ICD-10 - K80.20) assymptomatic 07/08/2025 Encounter for administration of vaccine (ICD-10 - Z23) Plan Of Treatment Treatment Notes Assessment Notes Atrial fibrillation needs appt with dr mirian hidalgo/ will speak to him about getting on a NOAC Urinary retention follow up with dr miles milton Gall stones assymptomatic Referrals Referral Date Details 07/08/2025 07/08/2025, atrial f FREDDY reynolds Next Appt Details Follow Up: 2 Months, Reason: Provider Name:Lalito Castro ier, 10/09/2025 07:45:00 AM, [address] [place] [address], [address] [place] [address], [phone], Provider Name:Lalito Roberts Gloria ier, 10/16/2025 10:00:00 AM, [address] [place] [address], Suite [facility], [place], [place], [phone], Provider Name:Lalito Castro ier, 03/30/2026 07:15:00 AM, [address] [place] [address], [address] [place] [address], [phone], Provider Name:Lalito Castro ier, 04/06/2026 09:30:00 AM, [address] [place] [address], [address] [place] [address], [phone], Progress Notes * MITZI WRIGHTRLYEEOB: (70 yo M)Acc No.[id number]:07/08/2025 Patient: DARIEN JIMENEZ Provider: Lizbet Marcos MD :1955 A ge:70 Y S ex:Male Date:07/08/2025 Address:[address] [place] [address] [id number] Subjective: * Chief Complaints: * P H/TCMAccompanied by * HPI: S ymptom(s): patient is a 70 yo male here for transitional care management visit following recent discharge from hospital. Discharge summary has been reviewed and medications reconcilled/ went ot hospital for knee pains and his heart was going 180 . didn't know that is was going fast. did ct and was arththritis. is going to dr yañez. next week. has it in for 25 days. * ROS: G eneral/Constitutional: Denies C hills. D enies F atigue. D enies F ever. D enies H eadache. E NT: Denies S ore throat. R espiratory: Denies C ough. D enies S hortness of breath at rest. D enies S hortness of breath with exertion. C ardiovascular: Denies C hest pain at rest. D enies C hest pain with exertion. D enies D izziness. D enies P alpitations. D enies S hortness of breath. G astrointestinal: Denies D iarrhea. D enies N ausea. * Medical History: * Surgical History: * Hospitalization/Major Diagno stic Procedure: * Social History: T obacco Use: T obacco Use/Smoking P atient is a n onsmoker, A dditional Findings: Tobacco Non-User C urrent non-smoker, currently using no form of tobacco. * Medications: T akingdilTIAZem HCl ER 120 MG Capsule Extended Release 12 Hour 1 capsule Orally once a day Metoprolol Succinate ER 50 MG Tablet Extended Release 24 Hour 4 tabs QD Orally Once a day Warfarin Sodium 5 MG Tablet TAKE 1.5 TABLETS BY MOUTH EVERY DAY 90 Atorvastatin Calcium 80 MG Tablet TAKE 1 TABLET BY MOUTH EVERY DAY Digoxin 250 MCG Tablet TAKE 1 TABLET BY MOUTH EVERY DAY Orally Once a day Chlorthalidone 25 MG Tablet TAKE 1 TABLET BY MOUTH EVERY DAY IN THE MORNING WITH FOOD Potassium Chloride ER 20 MEQ Tablet Extended Release TAKE 2 TABLETS BY MOUTH EVERY DAY WITH FOOD ONCE A DAY Taking dilTIAZem HCl ER 120 MG Capsule Extended Release 12 Hour 1 capsule Orally once a day Taking Metoprolol Succinate ER 50 MG Tablet Extended Release 24 Hour 4 tabs QD Orally Once a day Taking Warfarin Sodium 5 MG Tablet TAKE 1.5 TABLETS BY MOUTH EVERY DAY 90 Taking Atorvastatin Calcium 80 MG Tablet TAKE 1 TABLET BY MOUTH EVERY DAY Taking Digoxin 250 MCG Tablet TAKE 1 TABLET BY MOUTH EVERY DAY Orally Once a day Taking Chlorthalidone 25 MG Tablet TAKE 1 TABLET BY MOUTH EVERY DAY IN THE MORNING WITH FOOD Taking Potassium Chloride ER 20 MEQ Tablet Extended Release TAKE 2 TABLETS BY MOUTH EVERY DAY WITH FOOD ONCE A DAY Not-Taking/PRNCyclobenzaprine HCl 5 MG Tablet 1 tablet at bedtime as needed Orally twice a day Medication List reviewed and reconciled with the patientNot-Taking/PRN Cyclobenzaprine HCl 5 MG Tablet 1 tablet at bedtime as needed Orally twice a day Medication List reviewed and reconciled with the patient * Allergies: A moxicillin: rashClindamycin HCl: rashTriamcinolone & Emollient: rashNeoporacin: rashKeflex: nxjpPhqlakhx-Oqfiddzuc-Hltihnhd: swellingyes[Allergies Verified] Objective: * Vitals: H t: 67, Wt: 252, BMI:39.46, BP:112/70, Wt-k.31. weight is down 18 pounds since 04-03-25. * Examination: G eneral Examination: GENERAL APPEARANCE: a lert, well hydrated, in no distress.? HEAD: n ormocephalic. SKIN: g ood turgor. HEART: r egular rate and rhythm, no murmurs, rubs, gallops.? LUNGS: n o wheezes, rales, rhonchi, good air movement, clear to auscultation bilaterally. EXTREMITIES: n o edema. Assessment: * Assessment: 1. A trial fibrillation - I48.91 (Primary) 2 . U rinary retention - R33.9? 3. K nee pain - M25.569 4 . G all stones - K80.20 5 . E ncounter for administration of vaccine - Z23 Plan: * Treatment: 2. U rinary retention Notes: follow up with dr thurman 3. G all stones Notes: assymptomatic * Immunizations: Influenza High Dose : 0.5 mL (Dose No:1) (Route: Intramuscular) given by Richa Shelley , Office Staff on Left Deltoid * Procedure Codes: 9 0662 FLU VACC PRSV FREE INC [id number] ADMN FLU VAC NO FEE SCHED SAME DAY * Preventive Medicine: Immunizations: I nfluenza H ave you had a flu shot since the most recent May 19? Y es. * Follow Up: 2 Months * * Sign off status: Completed true * Provider: Lizbet Marcos MD Date: 1 Generated for Crysi katherin/Charisse/eTtracysmitting on: 11/05/2024 05:58 PM EST History and Physical Notes * HPI (History of Present Illness) Category Sub-Category Detail Notes Category Not es Symptom(s) patient is a 70 yo male here for transitional care management visit following recent discharge from hospital. Discharge summary has been reviewed and medications reconcilled/ went ot hospital for knee pains and his heart was going 180 . didn't know that is was going fast. did ct and was arththritis. is going to dr yañez. next week. has it in for 25 days. Examination Category Sub-Category Detail Notes Category Not es General Examination GENERAL APPEARANCE: alert, w ell hydrated, in no distress HEAD: normocephalic HEART: regular rate and rhy thm, no murmurs, rubs, gallops LUNGS: no wheezes, rales, r honchi, good air movement, clear to auscultation bilaterally SKIN: good turgor EXTREMITIES: no edema Consultation Request Notes Referral Date Referring Provider Referred Provider Not es 07/08/2025 Lalito Marcos HARIHARAN a trial fibrillation
--- OUTSIDE RECORDS SUMMARY | 2025-07-14 11:30 | XMS_ITS ---
Author Organization Lalito Marcos MD Address [address] [place] [address] [place] [phone] Care Team Providers Care Building Energy Consultant Name Role Phone Lalito Marcos Primary Care Provider Allergies Allergen (clinical drug ingredient) Drug/Non Drug Allergy documented on EMR Reaction Allergy Type Onset Date Status Gvokehwj-Hjbkjodxx-X exa meth swelling Drug Allergy Active Keflex rash Drug Allergy Active clindamycin Clindamycin HCl rash Drug Allergy Active amoxicillin Amoxicillin rash Drug Allergy Act jesus Triamcinolone & Emollient rash Drug Allergy Active Neoporacin rash Drug Allergy Active REASON FOR VISIT follow up appt from CT Angio Encounters Encounter Location Date Provider Diagnosis Lalito Marcos MD [address] [place] [address] [place] [phone] 07/14/2025 Lalito Marcos Plan Of Treatment Next Appt Details Provider Name:Lalito zhang, 10/09/2025 07:45:00 AM, [address] [place] [address], [address], [phone], Provider Name:Lalito zhang, 10/16/2025 10:00:00 AM, [address] [place] [address], [address], [phone], Provider Name:Lalito zhang, 03/30/2026 07:15:00 AM, [address] [place] [address], [address], [phone], Provider Name:Lalito zhang, 04/06/2026 09:30:00 AM, [address] [place] [address], [address], [place], [place], [phone], Progress Notes * IVANIA WRIGHTOB: 5 (70 yo M)Acc No.[id number]:07/14/2025 Patient: DARIEN JIMENEZ Provider: Lizbet Marcos MD :1955 A ge:70 Y S ex:Male Date:07/14/2025 Address:[address] [place], [place] [id number] Subjective: * Chief Complaints: * 1 . follow up appt from CT Angio. * ROS: G eneral/Constitutional: Denies C hills. D enies F atigue. D enies F ever. D enies H eadache. E NT: Denies S ore throat. R espiratory: Denies C ough. D enies S hortness of breath at rest. D enies S hortness of breath with exertion. G astrointestinal: Denies D iarrhea. D enies N ausea. * Medical History: C olonoscopy 11/2020 , neg but had polyps before so repeat in 5 year, Chronic renal failure, stage 2 (mild). * Allergies: A moxicillin: rash, Clindamycin HCl: rash, Triamcinolone & Emollient: rash, Neoporacin: rash, Keflex: rash, Befxgqjt-Wlryfdkcy-Mfrjgnog: swelling. Objective: * Vitals: Assessment: Plan: * Treatment: * * The named appointment provid er may or may not be the originator of this progress note, and it is not deemed complete until electronically signed by the appointment provider. Sign off status: Pending * Provider: Lizbet Marcos MD Date: 1 Generated for Shakeel pandey/Charisse/Cheriitting on: 11/05/2024 05:59 PM EST
--- OUTSIDE RECORDS SUMMARY | 2025-07-22 06:08 | XMS_ITS ---
Author Organization Lalito Marcos MD Address [address] [place] [phone] Care Team Providers Care Data Warehousing Architect Name Role Phone Lalito Marcos Primary Care Provider [phone] REASON FOR VISIT refill Medications Medication SIG (Take, Route, Fr equency, Duration) Notes Start Date End Date Status dilTIAZem HCl ER 120 MG 1 capsule Orally once a day for 90 days Active Encounters Encounter Location Date Provider Diagnosis Lalito Marcos MD [address] [place] [address] [place] [address] [phone] 07/22/2025 Lalito Marcos Plan Of Treatment Medication Medication Name Sig Start Date Stop Date Notes dilTIAZem HCl ER 120 MG 1 capsule Orally once a day for 90 days Next Appt Details Provider Name:Lalito zhang, 10/09/2025 07:45:00 AM, [address] [place] [address], [phone], Provider Name:Lalito zhang, 10/16/2025 10:00:00 AM, [address] [place] [address], [phone], Provider Name:Lalito zhang, 03/30/2026 07:15:00 AM, [address] [place] [address], [phone], Provider Name:Lalito zhang, 04/06/2026 09:30:00 AM, [address] [place] [address], [phone], Progress Notes * MITZI WRIGHTEDOB: 5 (70 yo M)Acc No.[id number]:07/22/2025 Patient: DARIEN JIMENEZ :1955 A ge:70 Y S ex:Male Address:[address] [place] [address], [address] * Refills Refill dilTIAZem HCl ER Capsule Extended Release 12 Hour, 120 MG, Orally, 90 Capsule, 1 capsule, once a day, 90 days, Refills=3 * true * Date: Generated for Shakeel pandey/Charisse/Cheriitting on: 11/05/2024 06:00 PM EST
--- OUTSIDE RECORDS SUMMARY | 2025-07-24 10:51 | XMS_ITS ---
Author Organization Lalito Marcos MD Address [address] [place] [phone] Care Team Providers Care Railroad Car Inspector Name Role Phone Lalito Marcos Primary Care Provider REASON FOR VISIT Diltaziem 120mg Medications Medication SIG (Take, Route, Fr equency, Duration) Notes Start Date End Date Status dilTIAZem HCl ER 120 MG 1 capsule in the morning on an empty stomach Orally Once a day for 90 days 07/25/2025 Active Encounters Encounter Location Date Provider Diagnosis Lalito Marcos MD [address] [place] [address] [place] [phone] 07/24/2025 Lalito Marcos Plan Of Treatment Medication Medication Name Sig Start Date Stop Date Notes dilTIAZem HCl ER 120 MG 1 capsule in the morning on an empty stomach Orally Once a day for 90 days 07/25/2025 Next Appt Details Provider Name:Lalito zhang, 10/09/2025 07:45:00 AM, [address] [place] [address], [address], [phone], Provider Name:Lalito zhang, 10/16/2025 10:00:00 AM, [address] [place] [address], [phone], Provider Name:Lalito zhang, 03/30/2026 07:15:00 AM, [address] [place] [address], [phone], Provider Name:Lalito zhang, 04/06/2026 09:30:00 AM, [address], [address], [place], [place], [phone], Progress Notes * LULU WRIGHTSTEPHANIOB: 5 (70 yo M)Acc No.[id number]:07/24/2025 Patient: DARIEN JIMENEZ :1955 A ge:70 Y S ex:Male Address:[address] [place] [address], [address] * Refills Start dilTIAZem HCl ER Capsule Extended Release 24 Hour, 120 MG, Orally, 90 Capsule, 1 capsule in the morning on an empty stomach, Once a day, 90 days, Refills=3 * true * Date: Generated for Shakeel pandey/Charisse/Cheriitting on: 11/05/2024 05:58 PM EST
--- OUTSIDE RECORDS SUMMARY | 2025-09-01 09:00 | XMS_ITS ---
Author Organization Lalito Marcos MD Address [address] [place] [phone] Care Team Providers Care Mobile Heavy Equipment Operator Name Role Phone Lalito Marcos Primary Care Provider [phone] Allergies Allergen (clinical drug ingredient) Drug/Non Drug Allergy documented on EMR Reaction Allergy Type Onset Date Status Ydbuvxpj-Tkciifbyp-T exa meth swelling Drug Allergy Active Keflex rash Drug Allergy Active clindamycin Clindamycin HCl rash Drug Allergy Active amoxicillin Amoxicillin rash Drug Allergy Act jesus Triamcinolone & Emollient rash Drug Allergy Active Neoporacin rash Drug Allergy Active REASON FOR VISIT 2 month Medications Medication SIG (Take, Route, Frequency, Duration) Notes Start Date End Date Status Potassium Chloride ER 20 MEQ TAKE 2 TABLETS BY MOUTH EVERY DAY WITH FOOD ONCE A DAY for 90 Active Chlorthalidone 25 MG TAKE 1 TABLET BY MOUTH EVERY DAY IN THE MORNING WITH FOOD for 90 Active dilTIAZem HCl ER 120 MG 1 capsule Orally once a day for 90 days Not-Taking dilTIAZem HCl ER 120 MG 1 capsule in the morning on an empty stomach Orally Once a day for 90 days 07/25/2025 Active Cyclobenzaprine HCl 5 MG 1 tablet at bed time as needed Orally twice a day for 14 days 10/28/2022 Not-Taking Digoxin 250 MCG TAKE 1 TABLET BY MOUTH EVERY DAY Orally Once a day for 30 days Active Metoprolol Succinate ER 50 MG 4 tabs QD Orally Once a day Active Tamsulosin HCl 0.4 MG 1 capsule Orally O nce a day Active Atorvastatin Calcium 80 MG TAKE 1 TABLET BY MOUTH EVERY DAY Active Warfarin Sodium 5 MG TAKE 1.5 TABLETS BY MOUTH EVERY DAY 90 Active Finasteride 5 MG 1 tablet Orally Once a day Active Vital Signs Blood pressure systolic 132 mm Hg 09/01/20 25 Blood pressure diastolic 80 mm Hg 025 Height 67 in 09/01/2025 Weight 241 lbs 09/01/2025 BMI 37.74 kg/m2 09/01/2025 bonifacio is down 11 pounds talc e 07-08-25 Encounters Encounter Location Date Provider Diagnosis Lalito Marcos MD [address] [place] [address] [place] [phone] 09/01/2025 Lalito Marcos Urinary retention R3 3.9 ; Anticoagulation adequate Z79.01 ; Longstanding persistent atrial fibrillation I48.11 and Essential hypertension I10 Assessments Encounter Date Diagnosis (ICD Code) Assessment Notes Treatment Notes Treatment Clinical Notes Section Notes 09/01/2025 Urinary retention (ICD-10 - R33.9) should discuss what to ask the cocctor about the cause and treatments. the urologist is talling about catheriztion and i have suggested that he ask the cause of this and see if there is any treatment 09/01/2025 Anticoagulation adequate (ICD-10 - Z79.01) the mixer operator vacuum pan salt did not want to switch him to the noacs. not clear why 09/01/2025 Longstanding persistent atrial fibrillation (ICD-10 - I48.11) not having any problems 09/01/2025 Essential hypertension (ICD-10 - I10) well controlled Plan Of Treatment Treatment Notes Assessment Notes Urinary retention should discuss what to ask the cocctor about the cause and treatments. the urologist is talling about catheriztion and i have suggested that he ask the cause of this and see if there is any treatment Anticoagulation adequate the cardiologis t did not want to switch him to the noacs. not clear why Longstanding persistent atrial fibrillat ion not having any problems Essential hypertension well controlled Next Appt Details Follow Up: 3 Months, Reason: Provider Name:Lalito zhang, 10/09/2025 07:45:00 AM, [address] [place] [address], [address] [place] [address], [phone], Provider Name:Lalito zhang, 10/16/2025 10:00:00 AM, [address] [place] [address], [place] [address], [place], [place], [phone], Provider Name:Lalito Castro ier, 03/30/2026 07:15:00 AM, [address], [address], [place], [place], [phone], Provider Name:Lalito Castro ier, 04/06/2026 09:30:00 AM, [address], [address], [place], [place], [phone], Progress Notes * IVANIA WRIGHTOB: (70 yo M)Acc No.[id number]:09/01/2025 Progress Notes Patient: DARIEN JIMENEZ Provider: Lizbet Marcos MD :[id number] A ge:70 Y S ex:Male Date:09/01/2025 Address:[address] [place], [place] [phone] Subjective: * Chief Complaints: * 2 month * HPI: S ymptom(s): patient is a 70 yo male here for 2 month follow up visit. * ROS: G eneral/Constitutional: Denies C hills. [...] History: * Hospitalization/Major Diagno stic Procedure: * Medications: T akingFinasteride 5 MG Tablet 1 tablet Orally Once a day Tamsulosin HCl 0.4 MG Capsule 1 capsule Orally Once a day Metoprolol Succinate ER 50 MG [...] EVERY DAY WITH FOOD ONCE A DAY dilTIAZem HCl ER 120 MG Capsule Extended Release 24 Hour 1 capsule in the morning on an empty stomach Orally Once a day Taking Finasteride 5 MG Tablet 1 tablet Orally Once a day Taking Tamsulosin HCl 0.4 MG Capsule 1 capsule Orally Once a day Taking Metoprolol Succinate ER 50 [...] HCl ER 120 MG Capsule Extended Release 24 Hour 1 capsule in the morning on an empty stomach Orally Once a day Not-Taking/PRNdilTIAZem HCl ER 120 MG Capsule Extended Release 12 Hour 1 capsule Orally once a day Cyclobenzaprine HCl 5 MG Tablet 1 tablet at bedtime as needed Orally twice a day Medication List reviewed and reconciled with the patientNot-Taking/PRN dilTIAZem HCl ER 120 MG Capsule Extended Release 12 Hour 1 capsule Orally once a day Not-Taking/PRN Cyclobenzaprine HCl 5 MG Tablet 1 tablet at bedtime as needed Orally twice a day Medication List reviewed and reconciled with the patient * Allergies: A moxicillin: rashClindamycin HCl: rashTriamcinolone & Emollient: rashNeoporacin: rashKeflex: muzkSrjnmzbn-Yhivavned-Humcaipy: swellingyes[Allergies Verified] Objective: * Vitals: H t: 67, Wt: 241, BMI:37.74, BP:132/80, Wt-k.32. weigt is down 11 pounds since 07-08-25. * Examination: G eneral Examination: GENERAL APPEARANCE: a lert, well hydrated, in no distress.? HEAD: n ormocephalic. SKIN: g ood turgor. HEART: r egular rate and rhythm, no murmurs, rubs, gallops.? LUNGS: n o wheezes, rales, rhonchi, good air movement, clear to auscultation bilaterally. Assessment: * Assessment: 1. U rinary retention - R33.9 (Primary) 2 . A nticoagulation adequate - Z79.01 3 . L ongstanding persistent atrial fibrillation - I48.11 4 . E ssential hypertension - I10 Plan: * Treatment: 2. A nticoagulation adequate Notes: the mixer operator vacuum pan salt did not want to switch him to the noacs. not clear why 3. L ongstanding persistent atrial fibrillation Notes: not having any problems 4. E ssential hypertension Notes: well controlled * Procedure Codes: * Follow Up: 3 Months * * Sign off status: Completed true * Provider: Lizbet Marcos MD Date: 1 11/02/2024 Generated for Shakeel pandey/Charisse/Cheriitting on: 11/05/2024 05:58 PM EST History and Physical Notes * HPI (History of Present Illness) Category Sub-Category Detail Notes Category Not es Symptom(s) patient is a 70 yo male here for 2 month follow up visit Examination Category Sub-Category Detail Notes Category Not es General Examination GENERAL APPEARANCE: alert, w ell hydrated, in no distress HEAD: normocephalic HEART: regular rate and rhy thm, no murmurs, rubs, gallops LUNGS: no wheezes, rales, r honchi, good air movement, clear to auscultation bilaterally SKIN: good turgor
--- NOTE | 2025-09-04 14:04 | MHC.OFFVISCO ---
Intake Intake Visit Reasons: Anticoagulation Allergies amoxicillin (Amoxicillin) Allergy (Unknown, Verified 09/04/25 13:57) RASH cephalexin (From Keflex) Allergy (Unknown, Verified 09/04/25 13:57) unknown clindamycin (Clindamycin) Allergy (Unknown, Verified 09/04/25 13:57) RASH Jeremiah poly Dex eye Allergy (Unknown, Uncoded 09/04/25 13:57) Unknown Medication List - Last Reconciled 09/04/25 by Jovana Horan RN atorvastatin (Lipitor) 80 mg PO BEDTIME bethanechol chloride 50 mg PO BID 30 days chlorthalidone 25 mg PO DAILY digoxin 250 mcg PO BEDTIME diltiazem HCl CD (Cardizem CD) 120 mg See Protocol PO DAILY 30 days finasteride 5 mg PO DAILY 90 days metoprolol succinate ER 200 mg See Protocol PO DAILY 30 days potassium chloride ER 40 mEq PO DAILY@1730 tamsulosin 0.4 mg PO BEDTIME 90 days warfarin 7.5 mg See Protocol PO SUMOTUTHFRSA@1800 warfarin 5 mg See Protocol PO WE@1800 Nursing Note INR 1.9?? out of therapeutic range of 2-3 Medications and supplements reviewed Patient status: pt states has rodriges with valve at present due to urinary retention Medications or supplements: bethanecole- no interaction with warfarin per micromedex Diet: appetite good Denies any signs and symptoms of bleeding or clotting or unusual bruising Bleeding, bruising, clotting discussed Nutritional guidance given: no greens for 2 days Dose: 10mg today only then cont 7.5mg x 6, 5mg x 1 F/U INR Date : 2 weeks?? Patient verbalizing understanding of instructions given. Anti-Coag Initial Assessment Social Hx Patient Tobacco Use Status: Never used Tobacco alcohol intake: current Alcohol intake frequency: a few times a week Coding Level of Care Code Est Patient Level 1 Diagnoses Current use of anticoagulant therapy Z79.01 Assessment & Plan Assessment & Plan (1) Current use of anticoagulant therapy: Comment: Coumadin Code(s): Z79.01 - joint terminal attack controller (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
[2025-09-04 14:06] LABS: Prothrombin Time Whole Bld POC 22.2 sec (11.1-13.5); ~PT, ~INR - Anti Coag Clinic 1.9 (0.9-1.1)
--- OUTSIDE RECORDS SUMMARY | 2025-09-04 18:01 | XMS_ITS | Patient Health Record ---
Author Organization [facility] [place] Address [address] [address] Care Team Providers Care Licensed Tax Consultant Name Role Phone Ebonie Sanderson MD Primary [...] primary osteoarthritis of the ankle and/or foot ([id number]) Primary osteoarthrit is, left ankle and foot (M19.072) Active confirmed Plan Of Treatment Pending Test Test Name Order Date [id number] NAIL, 6 OR MORE 08/02/2017 [id number] Destruction, -07/05/2017 [id number] Destruction, -08/02/2017 Insurance Providers Payer Name Payer Address Payer Phone Subscriber Number Group Number Insured Name Patient Relationship to Insured Coverage Start Date Coverage End Date [employer] [address] [place] [address] [id number] Gordon Fitch Self - patient is the insured 7 Medical (General) History Medical History History ICD Code Heart disease High blood pressure Kidney disease Measles Mumps Chicken pox A fib Surgical History Surgery Date(Month/Year) hernia 2009
--- OUTSIDE RECORDS SUMMARY | 2025-09-04 18:01 | XMS_ITS | Patient Health Record ---
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 Name Role Phone Lalito Marcos Primary Care Provider Allergies Allergen (clinical drug ingredient) Drug/Non Drug Allergy documented on EMR Reaction Allergy Type Onset Date Status Zfawgkcw-Hhuwjpzdj-X exa meth swelling Drug Allergy Active Keflex rash Drug Allergy Active clindamycin Clindamycin HCl rash Drug Allergy Active amoxicillin Amoxicillin rash Drug Allergy Act jesus Triamcinolone & Emollient rash Drug Allergy Active Neoporacin rash Drug Allergy Active Results Component Value Reference Range Notes Liver Panel Reviewed date:10/04/2024 01:39:16 PM Interpretation: Performing Lab:[facility], [address] [place] [phone] Notes/Report: Bilirubin Total 2.7 0.0-1.0 mg/dL Slight Icte aranza. Bilirubin Direct 0.6 0.0-0.5 mg/dL Slight Ict erus. Aspartate Amino Transferase 29 5-37 U/L Alanine Aminotransferase 15 0-40 U/L Total Protein 7.5 6.5-8.0 g/dL Albumin Level 4.0 3.5-5.0 g/dL Alkaline Phosphatase 104 39-117 U/L Lipid Panel with Reflex Reviewed date:10/04/2024 01:38:10 PM Interpretation: Performing Lab:[facility], [address] [place] [phone] Notes/Report: Triglycerides 131 <150 mg/dL Desirable Triglyceride: [...] ff Reviewed date:03/28/2025 12:47:59 PM Interpretation: Performing Lab:[facility], [address] [place] [phone] Notes/Report: White Blood Count 8.5 4.8-10.8 X10*3/uL [...] NRBC Abs Auto 0.000 0.0-0.012 X10*3/uL Comprehensive [place]. Panel Fa Reviewed date:03/28/2025 12:51:30 PM Interpretation: Performing Lab:[facility], [address] [place] [phone] Notes/Report: Sodium 137 135-145 mmol/L Potassium 4.1 [...] Panel Reviewed date:03/28/2025 12:48:08 PM Interpretation: Performing Lab:[facility], [address] [place] [phone] Notes/Report: Triglycerides 153 <150 mg/dL Desirable Triglyceride: [...] (Free>4and<10) Reviewed date:03/28/2025 12:47:29 PM Interpretation: Performing Lab:[facility], [address] [place] [phone] Notes/Report: PSA,Total (Free>4and<10) 2.28 0.00-4.00 ng/mL A [...] t Reviewed date:04/03/2025 12:51:34 PM Interpretation: Performing Lab:[facility], [address] [place] [phone] Notes/Report: [id number] Urine, Clean Catch Color Urine Yellow Appearance Urine Clear PH 8.0 5.0-9.0 Glucose Urine UA Negative Negative mg/dL Urine Blood Negative Negative Specific [place] - Urine 1.010 1.005-1.025 Urine Protein Negative Neg-Trace mg/dL Urine Ketones Negative Negative mg/dL Nitrite Urine Negative Negative Leukocyte Esterase Urine Negative Negative RBC Urine 0-2 0-2 /HPF WBC Urine 0-5 0-5 /HPF Squamous Epithelial Cell Urine 0-2 0-2 /HPF Bacteria Urine None Seen None Seen Hyaline Casts Urine 0-2 0-2 /LPF INR WHOLE BLOOD POC Reviewed date:09/19/2024 02:03:11 PM Interpretation: Performing Lab:[facility], [address] [place] [phone] Notes/Report: PT, INR - Anti Coag Clinic 3.5 0.9-1.1 METER #: [id number] INTERNATIONAL NORMALIZED RATIO (INR) REFERENCE RANGES Reference [...] OC Reviewed date:09/19/2024 03:30:27 PM Interpretation: Performing Lab:[facility], [address] [place] [phone] Notes/Report: Prothrombin Time Whole Bld POC 42.4 11.1-13.5 sec INR WHOLE BLOOD POC Reviewed date:10/03/2024 05:10:17 PM Interpretation: Performing Lab:[facility], [address] [place] [phone] Notes/Report: PT, INR - Anti Coag Clinic 2.1 0.9-1.1 METER #: [id number] INTERNATIONAL NORMALIZED RATIO (INR) REFERENCE RANGES Reference [...] OC Reviewed date:10/03/2024 05:10:06 PM Interpretation: Performing Lab:[facility], [address] [place] [phone] Notes/Report: Prothrombin Time Whole Bld POC 25.8 11.1-13.5 sec Hold Red Reviewed date:10/04/2024 11:28:38 AM Interpretation: Performing Lab:[facility], [address] [place] [phone] Notes/Report: Hold Red See Note Specimen held untested for 24 hours; Call to request Chemistry testing. INR WHOLE BLOOD POC Reviewed date:10/31/2024 04:51:17 PM Interpretation: Performing Lab:[facility], [address] [place] [phone] Notes/Report: PT, INR - Anti Coag Clinic 2.0 0.9-1.1 METER #: [id number] INTERNATIONAL NORMALIZED RATIO (INR) REFERENCE RANGES Reference [...] OC Reviewed date:10/31/2024 04:51:26 PM Interpretation: Performing Lab:[facility], [address] [place] [phone] Notes/Report: Prothrombin Time Whole Bld POC 24.4 11.1-13.5 sec INR WHOLE BLOOD POC Reviewed date:11/28/2024 04:09:17 PM Interpretation: Performing Lab:[facility], [address] [place] [phone] Notes/Report: PT, INR - Anti Coag Clinic 4.3 0.9-1.1 METER #: [id number] INTERNATIONAL NORMALIZED RATIO (INR) REFERENCE RANGES Reference [...] OC Reviewed date:11/28/2024 04:09:26 PM Interpretation: Performing Lab:[facility], [address] [place] [phone] Notes/Report: Prothrombin Time Whole Bld POC 52.0 11.1-13.5 sec INR WHOLE BLOOD POC Reviewed date:12/05/2024 04:02:32 PM Interpretation: Performing Lab:[facility], [address] [place] [phone] Notes/Report: PT, INR - Anti Coag Clinic 2.7 0.9-1.1 METER #: [id number] INTERNATIONAL NORMALIZED RATIO (INR) REFERENCE RANGES Reference [...] OC Reviewed date:12/05/2024 04:02:19 PM Interpretation: Performing Lab:[facility], [address] [place] [phone] Notes/Report: Prothrombin Time Whole Bld POC 32.6 11.1-13.5 sec INR WHOLE BLOOD POC Reviewed date:01/10/2025 03:32:19 PM Interpretation: Performing Lab:[facility], [address] [place] [phone] Notes/Report: PT, INR - Anti Coag Clinic 3.2 0.9-1.1 METER #: [id number] INTERNATIONAL NORMALIZED RATIO (INR) REFERENCE RANGES Reference [...] OC Reviewed date:01/10/2025 03:32:09 PM Interpretation: Performing Lab:[facility], [address] [place] [phone] Notes/Report: Prothrombin Time Whole Bld POC 38.4 11.1-13.5 sec Basic Metabolic Panel Reviewed date:01/16/2025 05:03:57 PM Interpretation: Performing Lab:[address] [phone] Notes/Report: Sodium 139 135-145 mmol/L Potassium 3.9 [...] Digoxin Reviewed date:01/15/2025 04:59:20 PM Interpretation: Performing Lab:[address] [phone] Notes/Report: Digoxin 0.7 0.8-2.0 ng/mL Assay modified to minimize interference from aldosterone antagonists (e.g. spironolactone and canrenone). INR WHOLE BLOOD POC Reviewed date:02/07/2025 04:24:23 PM Interpretation: Performing Lab:[address] [phone] Notes/Report: PT, INR - Anti Coag Clinic 2.8 0.9-1.1 METER #: [id number] INTERNATIONAL NORMALIZED RATIO (INR) REFERENCE RANGES Reference [...] OC Reviewed date:02/07/2025 04:23:54 PM Interpretation: Performing Lab:[address], [place] [address] Notes/Report: Prothrombin Time Whole Bld POC 33.9 11.1-13.5 sec INR WHOLE BLOOD POC Reviewed date:03/07/2025 04:39:32 PM Interpretation: Performing Lab:[facility], [address] [place] [phone] Notes/Report: PT, INR - Anti Coag Clinic 2.1 0.9-1.1 METER #: [id number] INTERNATIONAL NORMALIZED RATIO (INR) REFERENCE RANGES Reference [...] OC Reviewed date:03/07/2025 04:29:49 PM Interpretation: Performing Lab:[facility], [address] [place] [phone] Notes/Report: Prothrombin Time Whole Bld POC 25.1 11.1-13.5 sec INR WHOLE BLOOD POC Reviewed date:04/04/2025 02:55:25 PM Interpretation: Performing Lab:[facility], [address] [place] [phone] Notes/Report: PT, INR - Anti Coag Clinic 1.8 0.9-1.1 METER #: [id number] INTERNATIONAL NORMALIZED RATIO (INR) REFERENCE RANGES Reference [...] OC Reviewed date:04/04/2025 02:54:58 PM Interpretation: Performing Lab:[facility], [address] [place] [phone] Notes/Report: Prothrombin Time Whole Bld POC 21.4 11.1-13.5 sec INR WHOLE BLOOD POC Reviewed date:05/15/2025 04:56:06 PM Interpretation: Performing Lab:[address] [address] Notes/Report: PT, INR - Anti Coag Clinic 2.3 0.9-1.1 METER #: [id number] INTERNATIONAL NORMALIZED RATIO (INR) REFERENCE RANGES Reference [...] OC Reviewed date:05/15/2025 04:56:15 PM Interpretation: Performing Lab:[address] [phone] Notes/Report: Prothrombin Time Whole Bld POC 27.2 11.1-13.5 sec UA CC w/rflx Micro + Cult Reviewed date:06/12/2025 04:30:08 PM Interpretation: Performing Lab:[address] [phone] Notes/Report: [id number] Urine, Clean Catch Color Urine Yellow Appearance Urine Clear PH 7.5 5.0-9.0 Glucose Urine UA Negative Negative mg/dL Urine Blood Negative Negative Specific [place] - Urine >= 1.030 1.005-1.025 Urine Protein Trace Neg-Trace mg/dL Urine Ketones Negative Negative mg/dL Nitrite Urine Negative Negative Leukocyte Esterase Urine Negative Negative CT angio LE LT Reviewed date:07/08/2025 03:59:39 PM Interpretation:07-14-25 Performing Lab: Notes/Report: [address] [address] [address] Scan Report Signed Patient: Darien Wright MR#: [id number] 25 : 1955 Acct:[id number] Age/Sex: 70 / M ADM Date: 06/12/25 Loc: HO.ED Attending Dr: Ordering Physician: Sendy Paz Date of Service: 06/12/25 Procedure(s): CT angio LE LT Accession Number(s): [id number] cc: Lalito Marcos MD; Sendy Paz Report Number: [id number]: Total DLP = 452.00 mGy-cm Reason for [...] Matty Ovalle MD 06/12/2025 01:39 PM EDT RP Dictated By: Matty Ovalle MD Signed By: <Electronically signed by Matty Ovalle MD in OV> 06/12/25 1339 DD/ 1243 TD/TT: 06/12/25 1315 Tower Supervisor: [place] [address] [place] Scan Report Signed Patient: Kala Wright MR#: [id number] : 1955 Acct:[id number] Age/Sex: 70 / M ADM Date: 06/12/25 Loc: HO.ED Attending Dr: Ordering Physician: Sendy Paz Date of Service: 06/12/25 Procedure(s): CT ang io LE LT Accession Number(s): [id number] cc: Lalito Marcos MD; Sendy Paz Report Number: [id number]: Total DLP = 452.00 mGy-cm Reason for [...] 06/12/25 1339 DD/ 1243 TD/TT: 06/12/25 1315 Tower Supervisor: Hold Lav - Possible Hematolo gy Reviewed date:06/13/2025 12:27:32 PM Interpretation: Performing Lab:[address] [address] Notes/Report: Hold Lav - Possible Hematology SEE NOTE Specimen will be held untested for 8 hours. Call Hematology if testing is desired. Prothrombin Time INR Reviewed date:06/13/2025 12:27:15 PM Interpretation: Performing Lab:[address] [phone] Notes/Report: Prothrombin Time 18.6 10.9-12.4 SEC INTERNATIONAL [...] Gel Reviewed date:06/13/2025 12:28:42 PM Interpretation: Performing Lab:[facility], [address] [place] [phone] Notes/Report: Hold Green Gel See Note Specimen held untested for 24 hours; Call to request Chemistry testing. XR hips MACY min 3V Reviewed date:06/13/2025 12:26:40 PM Interpretation: Performing Lab: Notes/Report: [address] [address] XRay Report Signed Patient: Darien Wright MR#: [id number] [birth year] : 1955 Acct:[id number] Age/Sex: 70 / M ADM Date: 06/12/25 Loc: [facility] [address]: Gasper GUERRERO Ordering Physician: Neisha Cevallos PA-C Date of Service: 06/13/25 Procedure(s): XR hips MACY min 3V Accession Number(s): [id number] cc: Lalito Marcos MD; Neisha Cevallos PA-C [...] Clarke MD in OV> 06/13/25 0856 DD/ 7 TD/TT: 06/13/25847 Tower Supervisor: [place] [address] XRay Report Signed Patient: Kala Wright MR#: [id number] : 1955 Acct:[id number] Age/Sex: 70 / M ADM Date: 06/12/25 Loc: [facility] 485-[address]: Loni GUERRERO Ordering Physician: Neisha Cevallos PA-C Date of Service: 06/13/25 Procedure(s): XR hip s MACY min 3V Accession Number(s): [id number] cc: Lalito Marcos MD; Neisha Cevallos PA-C [...] MD in OV> 06/13/2556 DD/ 7 TD/TT: 06/13/25847 Tower Supervisor: XR knee LT 2V Reviewed date:06/13/2025 12:27:06 PM Interpretation: Performing Lab: Notes/Report: [address] [address] XRay Report Signed Patient: Darien Wright MR#: [id number] [birth year] : 1955 Acct:[id number] Age/Sex: 70 / M ADM Date: 06/12/25 Loc: [facility] [address] Attending Dr: Gasper GUERRERO Ordering Physician: Neisha Cevallos PA-C Date of Service: 06/13/25 Procedure(s): XR knee LT 2V Accession Number(s): [id number] cc: Lalito Marcos MD; Neisha Cevallos PA-C [...] 06/13/25 0854 DD/ 0837 TD/TT: 06/13/25 0848 Tower Supervisor: [address] [address] XRay Report Signed Patient: Kala Wright MR#: [id number] : 1955 Acct:[id number] Age/Sex: 70 / M ADM Date: 06/12/25 Loc: HO.[facility] [address] Attending Dr: Loni GUERRERO Ordering Physician: eNisha Cevallos PA-C Date of Service: 06/13/25 Procedure(s): XR kne e LT 2V Accession Number(s): [id number] cc: Lalito Marcos MD; Neisha Cevallos PA-C [...] 06/13/25 0854 DD/ 0837 TD/TT: 06/13/25 0848 Tower Supervisor: Renard Lav - Possible Hematolo gy Reviewed date:06/14/2025 04:01:14 PM Interpretation: Performing Lab:[facility], [address] [place] [phone] Notes/Report: Hold Lav - Possible Hematology SEE NOTE Specimen will be held untested for 8 hours. Call Hematology if testing is desired. Prothrombin Time INR Reviewed date:06/14/2025 04:01:01 PM Interpretation: Performing Lab:[facility], [address] [place] [phone] Notes/Report: Prothrombin Time 19.6 10.9-12.4 SEC INTERNATIONAL [...] Gel Reviewed date:06/14/2025 04:01:21 PM Interpretation: Performing Lab:[facility], [address] [place] [phone] Notes/Report: Hold Green Gel See Note Specimen held untested for 24 hours; Call to request Chemistry testing. CT abdomen pelvis wo con Reviewed date:06/14/2025 03:59:47 PM Interpretation: Performing Lab: Notes/Report: [address] [place] [address] CT Scan Report Signed Patient: Darien Wright MR#: [id number] [birth year] : 1955 Acct:[id number] Age/Sex: 70 / M ADM Date: 06/13/25 Loc: [facility] 485-[address]: Gasper GUERRERO Ordering Physician: Gasper Alvarez Date of Service: 06/14/25 Procedure(s): CT abdomen pelvis wo IV con Accession Number(s): [id number] cc: Gasper Alvarez; Lalito Marcos MD Report Number: [id number]: Total DLP = 825.00 mGy-cm Reason for [...] Yoder MD in OV> 06/14/25 1339 DD/ 37 TD/TT: 06/14/251337 Tower Supervisor: [place] [address] CT Scan Report Signed Patient: Kala Wright MR#: [id number] : 1955 Acct:[id number] Age/Sex: 70 / M ADM Date: 06/13/25 Loc: [facility] 485-[address]: Loni GUERRERO Ordering Physician: Gasper Alvarez Date of Service: 06/14/25 Procedure(s): CT abd omen pelvis wo IV con Accession Number(s): [id number] cc: Gasper Alvarez; Lalito Marcos MD Report Number: [id number]: Total DLP = 825.00 mGy-cm Reason for Exam: Acu te urinary retention CLINICAL HISTORY: Ac [place] urinary retention CT abdomen and pelvi s [...] 06/14/25 1339 DD/ 1338 TD/TT: 06/14/25 1338 Tower Supervisor: Prothrombin Time INR Reviewed date:06/15/2025 07:05:17 PM Interpretation: Performing Lab:[address] [address] Notes/Report: Prothrombin Time 20.8 10.9-12.4 SEC INTERNATIONAL [...] INR Reviewed date:06/16/2025 12:47:51 PM Interpretation: Performing Lab:[facility], [address] [place] [phone] Notes/Report: Prothrombin Time 22.5 10.9-12.4 SEC INTERNATIONAL [...] gy Reviewed date:06/17/2025 11:53:33 AM Interpretation: Performing Lab:[facility], [address] [place] [phone] Notes/Report: Hold Lav - Possible Hematology SEE NOTE Specimen will be held untested for 8 hours. Call Hematology if testing is desired. Prothrombin Time INR Reviewed date:06/17/2025 11:53:55 AM Interpretation: Performing Lab:[facility], [address] [place] [phone] Notes/Report: Prothrombin Time 22.0 10.9-12.4 SEC INTERNATIONAL [...] Panel Reviewed date:06/17/2025 11:53:48 AM Interpretation: Performing Lab:[facility], [address] [place] [phone] Notes/Report: Sodium 137 135-145 mmol/L Potassium 3.7 [...] 181 60-115 mg/dL Calcium 9.2 8.4-10.2 mg/dL INR WHOLE BLOOD POC Reviewed date:08/21/2025 02:46:34 PM Interpretation: Performing Lab:[facility], [address] [place] [phone] Notes/Report: PT, INR - Anti Coag Clinic 1.9 0.9-1.1 METER #: [id number] INTERNATIONAL NORMALIZED RATIO (INR) REFERENCE RANGES Reference [...] Prothrombin Time Whole Bld P OC Reviewed date:08/21/2025 02:46:26 PM Interpretation: Performing Lab:[facility], [address] [place] [phone] Notes/Report: Prothrombin Time Whole Bld POC 22.5 11.1-13.5 sec INR WHOLE BLOOD POC Reviewed date:09/04/2025 04:59:51 PM Interpretation: Performing Lab:[facility], [address] [place] [phone] Notes/Report: PT, INR - Anti Coag Clinic 1.9 0.9-1.1 METER #: [id number] INTERNATIONAL NORMALIZED RATIO (INR) REFERENCE RANGES Reference [...] Prothrombin Time Whole Bld P OC Reviewed date:09/04/2025 04:59:42 PM Interpretation: Performing Lab:[facility], [address] [place] [address] Notes/Report: Prothrombin Time Whole Bld POC 22.2 11.1-13.5 sec Reason For Referral Reason atrial fibrillation Diagnosis [...] TABLETS BY MOUTH EVERY DAY 90 Active dilTIAZem HCl ER 120 MG 1 capsule Orally once a day for 90 days Not-Taking dilTIAZem HCl ER 120 MG 1 capsule in the morning on an empty stomach Orally Once a day for 90 days 07/25/2025 Active Finasteride 5 MG 1 tablet Orally Once a day Active Cyclobenzaprine HCl 5 MG 1 tablet at bed time as needed Orally twice a day for 14 days 10/28/2022 Not-Taking Immunizations Vaccine Route Administration Date Status Comme [...] W/U Status Risk Notes Problem Diabetic neuropathy (909193429) Diabetic neuropathy (E11.40) Active confirmed Problem Atrial fibrillation (50024696) Atrial fibrillation (I48.91) Active confirmed Problem Gilbert syndrome (22459145) Gilbert syndrome (E80.4) Active confirmed Problem 84691062 Essential hypertension (I10) Active confirmed Problem Gallstone (810682128) Gall stones (K80.20) Active confirmed Problem Hearing loss (59522463) Hearing loss (H91.90) Active confirmed Problem 19571114 Hypercholesterem ia (E78.00) Active confirmed Problem 03812544 YEE (obstructive sleep apnea) (G47.33) Active confirmed Problem 258695107 Chronic systolic heart failure (I50.22) Active confirmed Problem 61159369 Acquired thrombocytopenia (D69.6) Active confirmed Problem 741978346 Anticoagulation adequate (Z79.01) Active confirmed Problem 318834369 Longstanding persistent atrial fibrillation (I48.11) Active confirmed Vital Signs Blood pressure diastolic 80 mm Hg 09/01/2025 azul gt is down 11 pounds since 07-08-25 Height 67 in 09/01/2025 weigt is down 1 1 pounds since 07-08-25 Blood pressure systolic 132 mm Hg 09/01/2025 weig t is down 11 pounds since 07-08-25 Weight 241 lbs 09/01/2025 weigt is down 1 1 pounds since 07-08-25 BMI 37.74 kg/m2 09/01/2025 weigt is down 1 1 pounds since 07-08-25 Encounters Encounter Location Date Provider Diagnosis Lalito Marcos MD [address] [place] [id number] 10/04/2024 Lalito Marcos Hypercholesteremia E 78.00 Lalito Marcos MD [address] [place] [id number] 03/28/2025 Lalito Marcos Essential hypertensi on I10 ; Chronic systolic heart failure I50.22 and Hypercholesteremia E78.00 Lalito Marcos MD [address] [id number] 10/15/2024 Lalito Marcos Essential hypertensi on I10 ; Encounter for general adult medical examination without abnormal findings Z00.00 ; Longstanding persistent atrial fibrillation I48.11 ; Hypercholesteremia E78.00 ; Chronic systolic heart failure I50.22 ; Hearing loss H91.90 and Impacted cerumen of right ear H61.21 Lalito Marcos MD [address] [id number] 04/03/2025 Lalito Marcos Longstanding persist ent atrial fibrillation I48.11 ; Essential hypertension I10 ; YEE (obstructive sleep apnea) G47.33 ; Gilbert syndrome E80.4 ; Chronic systolic heart failure I50.22 ; Hypercholesteremia E78.00 ; Colon cancer screening Z12.11 and Depression screen Z13.31 Lalito Marcos MD [address] [place] [id number] 07/08/2025 Lalito Marcos Atrial fibrillation I48.91 ; Urinary retention R33.9 ; Knee pain M25.569 ; Gall stones K80.20 and Encounter for administration of vaccine Z23 Lalito Marcos MD [address] [place] [id number] 09/01/2025 Lalito Marcos Urinary retention R3 3.9 ; Anticoagulation adequate Z79.01 ; Longstanding persistent atrial fibrillation I48.11 and Essential hypertension I10 Lalito Marcos MD [address] [place] [id number] 06/17/2025 Lalito Marcos MD [address] [place] [id number] 06/27/2025 Lalito Marcos MD [address] [place] [id number] 07/22/2025 Lalito Marcos MD [address] [place] [id number] 07/24/2025 Lalito Marcos Assessments Encounter Date Diagnosis (ICD [...] - R33.9) follow up with dr thurman 09/01/2025 Urinary retention (ICD-10 - R33.9) should discuss what to ask the cocctor about the cause and treatments. 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 not clear why 03/28/2025 Hypercholesteremia (ICD-10 - E78.00) 10/15/2024 Hypercholesteremia (ICD-10 - E78.00) stable, will cntinue current regiment 04/03/2025 Gilbert syndrome (ICD-10 - E80.4) stable no treatment needed 1 07/08/2025 Gall stones (ICD-10 - K80.20) assymptomatic 09/01/2025 Longstanding persistent atrial fibrillation (ICD-10 - I48.11) not having any problems 10/15/2024 Chronic systolic heart failure (ICD-10 - I50.22) stable, is doing well, will continue current regiment 04/03/2025 Chronic systolic heart failure (ICD-10 - I50.22) stable, will continue current regiment 1 07/08/2025 Encounter for administration of vaccine (ICD-10 - Z23) 09/01/2025 Essential hypertension (ICD-10 - I10) well controlled 10/15/2024 Hearing loss (ICD-10 - H91.90) improved [...] Details Provider Name:Lalito zhang, 10/09/2025 07:45:00 AM, [address] [place] [address], [address], [place], [place], [phone], Provider Name:Lalito zhang, 10/16/2025 10:00:00 AM, [address] [place] [address], [address], [place], [phone], Provider Name:Lalito Castro ier, 03/30/2026 07:15:00 AM, [address] [facility], [address], [place], [phone], Provider Name:Lalito Castro ier, 04/06/2026 09:30:00 AM, [address] [facility], [address], [place], [id number], Insurance Providers Payer Name Payer Address Payer Phone Subscriber Number Group Number Insured Name Patient Relationship to Insured Coverage Start Date Coverage End Date MEDICARE [facility] [address] [place] [address] [id number] DARIEN WRIGHT Self - patient is the insured [employer] OF [facility] [id number] [place] [phone] [id number] DARIEN WRIGHT Self - patient is the insured Medical (General) History Medical History History ICD Code colonoscopy 11/2020 , neg but had polyps before so repeat in 5 year Chronic renal failure, stage 2 (mild) N1 8.2
== END 2025-09-04 14:17 | disposition home or self-care (01) ==
PROVIDERS: PCP Internal Medicine; Visit Provider Internal Medicine Medical Oncology
DX: Z79.01 Long term (current) use of anticoagulants (principal)

== ENCOUNTER → 2025-09-04 13:47 | Outpatient (BNVA) | payer MEDICARE, SELFPAY | PROVIDERS: PCP Internal Medicine; Visit Provider Internal Medicine Medical Oncology | DX: I48.19 Other persistent atrial fibrillation (principal); Z79.01 Long term (current) use of anticoagulants; Z51.81 Encounter for therapeutic drug level monitoring | CPT/HCPCS: 85610; 99211 ==